=== PATIENT | female | born 1995 | race Caucasian/White ===

== ENCOUNTER 2022-01-09 12:49 | Emergency (ER) | payer OTHER ==
--- OUTSIDE RECORDS SUMMARY | 2022-01-09 12:55 | XMS REPORT | Continuity of Care Document ---
:1995 Author Organization [facility] t Address [address] [place] [place] [address] Care Team Providers Name Role Phone Pcp, Does Not Have A Primary Care Physician Pierre NAZARIO Attending Clinician Azeem Attending Clinician Unavailable ANTHONY Attending Clinician Unavailable Azeem Admitting Clinician Unavailable ANTHONY Admitting Clinician Unavailable Payers Payer Name Policy Type Policy Number Effective Date Expiration Date Elías lin [facility] [id number] 2016 00:00:00 [employer] (MEDICAID HMO) Problems Condition Condition Condition Status Onset Resolution Last Treating Co mments Source Name Details Category Date Date Treatment Clinician Date Obesity Obesity Disease Active 2020-08 Univers (BMI (BMI 1-29 ity of 30-39.9) 30-39.9) 00:00: [place] 00 Medical Branch Right Right Disease Active 2020-08 Overview: Univer s upper upper 1-11 Formattin ity of quadrant quadrant 00:00: g of this [place] as pain pain 00 note Medical might be Branch different from the original. Added automatic ally from request for surgery [id number] Epigastric Epigastric Disease Active 2020-08 Overview : Univers pain pain 0-08 Formattin ity of 00:00: g of this [place] 00 note Medical might be Branch different from the original. Added automatic ally from request for surgery [id number] Sterilizat Sterilizat Problem Active 2019- M [facility] ion ion 1-06 da requested Requested 00:00: Group Removal of Removal of Problem Active 2019-08 M [facility] subcutaneo Subcutaneo 1-06 da [facility] 00:00: Medical contracept Contracept 00 Gr oup nieves nieves Chronic Chronic Problem Active [place] post-traum Post-traum 5-07 da atic atic 00:00: [facility] stress Stress 00 al disorder Disorder [facility] Depressive Depressive Problem Active M [facility] disorder Disorder 5-04 da 00:00: [facility] Insomnia Insomnia Problem Active [facility] 5-04 da 00:00: [facility] Bacterial Bacterial Problem Active [facility] vaginosis Vaginosis 3-03 da 00:00: Medical 00 Group Problem Active 2019-0 M [facility] care Care 3-03 da 00:00: Medical 00 Group Pruritus Pruritus Problem Active 2018-08 [facility] [facility] of skin of Skin 2-26 da 00:00: Medical 00 Group Large for Large for Problem Active 2018-08 [facility] gestation Gestation 2-26 da age fetus Age Fetus 00:00: Medi bob 00 Group Constipati Constipati Problem Active 2018-08 M [facility] on on 09-21 da 00:00: Medical 00 Group Depressive Depressive Problem Active 2018-08 M [facility] disorder Disorder 0-29 da 00:00: Medical 00 Group Acute Acute Problem Active [facility] cystitis Cystitis 9-06 da in in 00:00: Medical , , 00 Gr oup antepartum Antepartum Generalize Generalize Problem Active M [facility] d headache d Headache 9-06 da 00:00: Medical 00 Group Moderate Moderate Problem Active [facility] [facility] hyperemesi Hyperemesi 7-18 da s s 00:00: Medical gravidarum Gravidarum 00 Gr oup Bacterial Bacterial Problem Active [facility] vaginosis Vaginosis 7-18 da in in 00:00: Medical 00 Grou p Cyst of Cyst of Problem Active [place] ovary Ovary 7-11 da 00:00: Medical 00 Group Hyperemesi Hyperemesi Problem Active M [facility] s s 7-11 da gravidarum Gravidarum 00:00: Me dical 00 Group Subchorion Subchorion Problem Active M [facility] ic ic 7-11 da hematoma Hematoma 00:00: Medica l 00 Group Chronic Chronic Problem Active [place] constipati Constipati da on on Medical Group Allergies, Adverse Reactions, Alerts Allergy Allergy Status Severity Reaction(s) Onset Inactive Treating Comm ents Source Name Type Date Date Clinician Penicill Drug Active Rash 2020-08 Univers ins Allergy 0-07 ity of 00:00: [place] 00 Medical Success PENICILL Allergy Active Moderate Rash [place] [facility] INS to da [facility] Medical e Group Social History Social Habit Start Date Stop Date Quantity Comments Source Exposure to Not sure [facility] Tobacco use and 2021-06-16 2021-06-16 Never used [facility] exposure 00:00:00 00:00:00 [facility] Sex Assigned At [birth year] [facility] 00:00:00 00:00:00 [facility] Smoking Status Start Date Stop Date Source Former Smoker [facility] Never smoker [facility] Medications Ordered Filled Start Stop Current Ordering Indication Dosage Frequency Signature Comments Components Source Medication Medication Date Date Medication? Clinician (SIG) Name Name methocarbam 2020-08 Yes [id number] 500mg Take 1 Univers oL 500 mg 1-29 tablet by ity o f tablet 00:00: mouth 4 [place] 00 (four) Medical times Branch daily. pantoprazol 2020-08 Yes [id number] 40mg Take 1 Univers e 40 mg EC 0-26 tablet by ity of tablet 00:00: mouth [place] 00 daily. Medical Branch sucralfate 2020-08 Yes [id number] 1g Take 1 U nivers (CARAFATE) 0-26 tablet by ity of 1 gram 00:00: mouth [place] tablet 00 before Medical meals and Branch at bedtime. dicyclomine Yes [id number] 20mg Take 1 Univers 20 mg 9-30 tablet by ity of tablet 00:00: mouth [place] 00 every 6 Medical (six) Branch hours as needed for Abdominal pain. ondansetron Yes [id number] 4mg Take 1 Univers (ZOFRAN 7-13 tablet by ity of ODT) 4 mg 00:00: mouth [place] disintegrat 00 every 8 Medic al ing tablet (eight) Branch hours as needed for Nausea and Vomiting (N/V). citalopram citalopram No citalopram [place] 20 mg 20 mg 20 mg da tablet tablet tablet [facility] escitalopra escitalopra No escitalopr [place] m 20 mg m 20 mg am 20 mg da tablet Take tablet Take tablet [facility] 1 tablet 1 tablet Take 1 al every day every day tablet Hea lth by oral by oral every day Outr eac route. route. by oral h route. Program ibuprofen ibuprofen No ibuprofen [place] 600 mg 600 mg 600 mg da tablet tablet tablet [facility] Nexplanon Nexplanon No Nexplanon [place] 68 mg 68 mg 68 mg da subdermal subdermal subdermal [facility] implant implant implant [facility] acetaminoph acetaminoph No acetaminop [place] en 300 en 300 hen 300 da mg-codeine mg-codeine mg-codeine Medical 30 mg 30 mg 30 mg Group tablet 1-2 tablet 1-2 tablet 1-2 p.o. q 6 p.o. q 6 p.o. q 6 hrs PRN hrs PRN hrs PRN pain pain pain butalbital- butalbital- No 1 Q4H butalbital [facility] acetaminoph acetaminoph -acetamino da en-caffeine en-caffeine phen-caffe Medical 50 mg-325 50 mg-325 ine 50 Ashkan up mg-40 mg mg-40 mg mg-325 tablet Take tablet Take mg-40 mg 1 tablet 1 tablet tablet every 4 every 4 Take 1 hours by hours by tablet oral route. oral route. every 4 hours by oral route. escitalopra escitalopra No escitalopr [place] m 20 mg m 20 mg am 20 mg da tablet Take tablet Take tablet Medical 1 tablet 1 tablet Take 1 Group every day every day tablet by oral by oral every day route. route. by oral route. ibuprofen ibuprofen No ibuprofen [place] 600 mg 600 mg 600 mg da tablet tablet tablet Medical Group ibuprofen ibuprofen No ibuprofen [place] 800 mg 800 mg 800 mg da tablet Take tablet Take tablet Medical 1 tablet 1 tablet Take 1 Group every 6 every 6 tablet hours by hours by every 6 oral route oral route hours by as needed. as needed. oral route as needed. lidocaine lidocaine No 3mL lidocaine [facility] (PF) 10 (PF) 10 (PF) 10 da mg/mL (1 %) mg/mL (1 %) mg/mL (1 Medical injection injection %) Group solution solution injection Take 3 mL Take 3 mL solution by by Take 3 mL injection injection by route. route. injection route. Nexplanon Nexplanon No 1implan Nexplanon [place] 68 mg 68 mg t(s) 68 mg da subdermal subdermal subdermal Medical implant implant implant Group Inject 1 Inject 1 Inject 1 implant by implant by implant by subcutaneou subcutaneou subcutaneo s route. s route. us route. Off Deep Off Deep No Off Deep [facility] Butler 25 % Butler 25 % Butler 25 % da topical topical topical Medica l spray spray spray Group zolpidem 5 zolpidem 5 No zolpidem 5 [facility] mg tablet mg tablet mg tablet da Take 1 Take 1 Take 1 Medical tablet as tablet as tablet as Group needed by needed by needed by oral route. oral route. oral route. Immunizations Ordered Immunization Filled Immunization Date Status Commen ts Source Name Name Tdap Tdap 2019-10-06 Completed [facility] 00:00:[facility] influenza, influenza, 2019-10-06 Completed [facility] injectable, injectable, 00:00:00 [facility] quadrivalent quadrivalent Outreach P rogram Vital Signs Vital Name Observation Time Observation Value Comments Source Systolic blood 2021-08-03 17:20:00 105 mm[Hg] Univer sity of pressure [facility] Diastolic blood 2021-08-03 17:20:00 75 mm[Hg] Unive rsity of pressure [facility] Heart rate 2021-08-03 17:20:00 75 /min [facility] Body temperature 2021-08-03 17:20:00 36.39 Kimi [facility] Respiratory rate 2021-08-03 17:20:00 16 /min [facility] Body weight 2021-08-03 17:20:00 87.816 kg Universi [facility] BMI 2021-08-03 17:20:00 33.23 kg/m2 [facility] Oxygen saturation in 2021-08-03 17:20:00 99 /min [facility] Arterial blood by [facility] Pulse oximetry Branch BP Diastolic 2020-07-18 00:00:00 84 mm[Hg] [facility] Height 2020-07-18 00:00:00 63 [in_i] [facility] BMI (Body Mass 2020-07-18 00:00:00 36.8 kg/m2 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 Medical Index) Group BP Systolic 2020-07-18 00:00:00 125 mm[Hg] [facility] Body Weight 2020-07-18 00:00:00 207.5 [lb_av] [facility] BP Diastolic 2020-07-01 00:00:00 82 mm[Hg] [facility] Height 2020-07-01 00:00:00 63 [in_i] [facility] BMI (Body Mass 2020-07-01 00:00:00 36.2 kg/m2 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 Medical Index) Group BP Systolic 2020-07-01 00:00:00 115 mm[Hg] [facility] Body Weight 2020-07-01 00:00:00 204.4 [lb_av] [facility] BP Diastolic 2020-05-31 00:00:00 90 mm[Hg] [facility] Height 2020-05-31 00:00:00 63 [in_i] [facility] BMI (Body Mass 2020-05-31 00:00:00 35.8 kg/m2 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 Medical Index) Group BP Systolic 2020-05-31 00:00:00 133 mm[Hg] [facility] Body Weight 2020-05-31 00:00:00 202 [lb_av] [facility] BP Diastolic 2019-12-28 00:00:00 83 mm[Hg] [facility] Height 2019-12-28 00:00:00 63 [in_i] [facility] BMI (Body Mass 2019-12-28 00:00:00 33.5 kg/m2 [facility] 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 Index) [facility] BP Systolic 2019-12-28 00:00:00 118 mm[Hg] [facility] Body Weight 2019-12-28 00:00:00 189 [lb_av] [facility] BP Diastolic 2019-12-21 00:00:00 92 mm[Hg] [facility] Height 2019-12-21 00:00:00 63 [in_i] [facility] BMI (Body Mass 2019-12-21 00:00:00 33.3 kg/m2 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 Medical Index) Group BP Systolic 2019-12-21 00:00:00 134 mm[Hg] [facility] Body Weight 2019-12-21 00:00:00 188 [lb_av] [facility] BP Diastolic 2019-10-27 00:00:00 73 mm[Hg] [facility] Height 2019-10-27 00:00:00 63 [in_i] [facility] BMI (Body Mass 2019-10-27 00:00:00 32.5 kg/m2 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 Medical Index) Group BP Systolic 2019-10-27 00:00:00 114 mm[Hg] [facility] Body Weight 2019-10-27 00:00:00 183.3 [lb_av] [facility] BP Diastolic 2019-09-29 00:00:00 73 mm[Hg] [facility] Height 2019-09-29 00:00:00 63 [in_i] [facility] BMI (Body Mass 2019-09-29 00:00:00 36.3 kg/m2 [facility] Medical Index) Group BP Systolic 2019-09-29 00:00:00 125 mm[Hg] [facility] Body Weight 2019-09-29 00:00:00 204.8 [lb_av] [facility] BP Diastolic 2019-09-22 00:00:00 80 mm[Hg] [facility] Height 2019-09-22 00:00:00 63 [in_i] [facility] BMI (Body Mass 2019-09-22 00:00:00 36.6 kg/m2 [facility] Medical Index) Group BP Systolic 2019-09-22 00:00:00 120 mm[Hg] [facility] BP Diastolic 2019 00:00:00 80 mm[Hg] [facility] Height 2019 00:00:00 63 [in_i] [facility] BMI (Body Mass 2019 00:00:00 36.3 kg/m2 [facility] Medical Index) Group BP Systolic 2019 00:00:00 117 mm[Hg] [facility] Body Weight 2019 00:00:00 204.9 [lb_av] [facility] BP Diastolic 2019-08-20 00:00:00 70 mm[Hg] [facility] Height 2019-08-20 00:00:00 63 [in_i] [facility] BMI (Body Mass 2019-08-20 00:00:00 35.8 kg/m2 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 Medical Index) Group BP Systolic 2019-08-20 00:00:00 114 mm[Hg] [facility] Body Weight 2019-08-20 00:00:00 202 [lb_av] [facility] BP Diastolic 2019-08-03 00:00:00 77 mm[Hg] [facility] Height 2019-08-03 00:00:00 63 [in_i] [facility] BMI (Body Mass 2019-08-03 00:00:00 35.6 kg/m2 [facility] 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 Medical Index) Group BP Systolic 2019-08-03 00:00:00 118 mm[Hg] [facility] Body Weight 2019-08-03 00:00:00 3218 [oz_av] [facility] BP Diastolic 2019-07-31 00:00:00 79 mm[Hg] [facility] Height 2019-07-31 00:00:00 63 [in_i] [facility] BMI (Body Mass 2019-07-31 00:00:00 35.4 kg/m2 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 Medical Index) Group BP Systolic 2019-07-31 00:00:00 119 mm[Hg] [facility] Body Weight 2019-07-31 00:00:00 200 [lb_av] [facility] BP Diastolic 2019-07-22 00:00:00 72 mm[Hg] [facility] Height 2019-07-22 00:00:00 63 [in_i] [facility] BMI (Body Mass 2019-07-22 00:00:00 34.9 kg/m2 [facility] BP Systolic 2019-07-22 00:00:00 112 mm[Hg] [facility] Body Weight 2019-07-22 00:00:00 197.1 [lb_av] [facility] BP Diastolic 2019-06-30 00:00:00 70 mm[Hg] [facility] Height 2019-06-30 00:00:00 63 [in_i] [facility] BMI (Body Mass 2019-06-30 00:00:00 34 kg/m2 [facility] BP Systolic 2019-06-30 00:00:00 114 mm[Hg] [facility] Body Weight 2019-06-30 00:00:00 191.9 [lb_av] [facility] BP Diastolic 2019-06-23 00:00:00 84 mm[Hg] [facility] Height 2019-06-23 00:00:00 63 [in_i] [facility] BMI (Body Mass 2019-06-23 00:00:00 34.2 kg/m2 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 Index) Group BP Systolic 2019-06-23 00:00:00 127 mm[Hg] [facility] Body Weight 2019-06-23 00:00:00 193.2 [lb_av] [facility] BP Diastolic 2019-05-29 00:00:00 68 mm[Hg] [facility] Height 2019-05-29 00:00:00 63 [in_i] [facility] BMI (Body Mass 2019-05-29 00:00:00 33.6 kg/m2 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 Medical Index) Group BP Systolic 2019-05-29 00:00:00 110 mm[Hg] [facility] Body Weight 2019-05-29 00:00:00 189.7 [lb_av] [facility] BP Diastolic 2019-05-11 00:00:00 76 mm[Hg] [facility] Height 2019-05-11 00:00:00 63 [in_i] [facility] BMI (Body Mass 2019-05-11 00:00:00 33.5 kg/m2 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 Index) Group BP Systolic 2019-05-11 00:00:00 113 mm[Hg] [facility] Body Weight 2019-05-11 00:00:00 189.3 [lb_av] [facility] BP Diastolic 2019-05-01 00:00:00 69 mm[Hg] [facility] Height 2019-05-01 00:00:00 63 [in_i] [facility] BMI (Body Mass 2019-05-01 00:00:00 33.8 kg/m2 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 Index) Group BP Systolic 2019-05-01 00:00:00 113 mm[Hg] [facility] Body Weight 2019-05-01 00:00:00 190.6 [lb_av] [facility] BP Diastolic 2019-04-02 00:00:00 81 mm[Hg] [facility] Height 2019-04-02 00:00:00 63 [in_i] [facility] BMI (Body Mass 2019-04-02 00:00:00 33.8 kg/m2 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 Medical Index) Group BP Systolic 2019-04-02 00:00:00 116 mm[Hg] [facility] Body Weight 2019-04-02 00:00:00 190.8 [lb_av] [facility] BP Diastolic 2019-03-25 00:00:00 85 mm[Hg] [facility] Height 2019-03-25 00:00:00 63 [in_i] [facility] BMI (Body Mass 2019-03-25 00:00:00 33.8 kg/m2 [facility] Medical Index) Group BP Systolic 2019-03-25 00:00:00 133 mm[Hg] [facility] Body Weight 2019-03-25 00:00:00 191 [lb_av] [facility] BP Diastolic 2019-03-12 00:00:00 80 mm[Hg] [facility] Height 2019-03-12 00:00:00 63 [in_i] [facility] BMI (Body Mass 2019-03-12 00:00:00 26.7 kg/m2 [facility] Medical Index) Group BP Systolic 2019-03-12 00:00:00 107 mm[Hg] [facility] Body Weight 2019-03-12 00:00:00 151 [lb_av] [facility] BP Diastolic 2019-03-05 00:00:00 81 mm[Hg] [facility] Height 2019-03-05 00:00:00 63 [in_i] [facility] BMI (Body Mass 2019-03-05 00:00:00 34.2 kg/m2 [facility] Medical Index) Group BP Systolic 2019-03-05 00:00:00 117 mm[Hg] [facility] Body Weight 2019-03-05 00:00:00 193 [facility]lb[facility]av[facility] Procedure Date / Time Performing Clinician Source Performed US, obstetric, limited 2019-09-22 00:00:00 [facility] non-stress test 2019-09-22 00:00:00 [facility] US, obstetric, limited 2019-08-20 00:00:00 [facility] gloria [facility] ULTRASOUND REPEAT 2019-07-22 00:00:00 [facility] US, obstetric, limited 2019-05-29 00:00:00 [facility] US, obstetric, limited 2019-05-01 00:00:00 [facility] ULTRASOUND, 2019-05-01 00:00:00 [facility] UTERUS REAL TIME WITH Group IMAGE DOC, AND MATERNAL EVAL PLUS DETAILED ANATOMIC EXAMINATION, TRANSABDOMINAL APPROACH; SINGLE OR FIRST GESTATION US, obstetric, limited 2019-04-02 00:00:00 [facility] US, obstetric, limited 2019-03-25 00:00:00 [facility] ULTRASOUND, 2019-03-12 00:00:00 [facility] UTERUS REAL TIME WITH Group IMAGE LACIEAIAKILA, TRANSVAGINAL Eye Surgery 2000-02-24 00:00:00 [facility] dical Group Tubal Ligation (Surg) [facility] Plan of Care Planned Activity Planned Date Details Comments Source Diagnostic Test 2020-07-18 urinalysis, [facility] dical Pending 00:00:00 dipstick [code = Group urinalysis, dipstick] Encounters Start End Encounter Admission Attending Care Care Encounter Source Date/Time Date/Time Type Type Clinicians Facility Department ID 2021-08-03 2021-08-03 Office Pierre [facility] [id number] [facility] 11:12:21 11:27:21 Visit Rubina SANCHEZ [id number] i ty [facility] [id number] Cristy calloway PROFESSIO [id number] Me dical NAL 188 [facility] 2020-08-04 2020-08-04 Outpatient G_Pappas MMG MM [id number] [place] 09:39:00 09:39:00 0623 Medical Group 2020-07-18 2020-07-18 Outpatient G_Pappas MMG MM 2019 [place] 04:16:00 04:16:00 1123 Medical Group 2020-07-18 2020-07-18 Marc [facility] [place] - [id number] M at[facility]or 00:00:00 00:00:00 Discovery carson Alexis MD: [address] [facility] [place] - [address], [place] [address] , Ph. [phone] 2020-07-13 2020-07-13 Outpatient G_Pappas MMG MMG [id number] [place] 02:48:00 02:48:00 1118 [facility] Group 2020-07-01 2020-07-01 Outpatient G_Pappas MMG MMG [id number] [place] 02:37:00 02:37:00 1106 [facility] 2020-07-01 2020-07-01 Outpatient G_Pappas MMG MMG [id number] [place] 02:37:00 02:37:00 1107 [facility] 2020-07-01 2020-07-01 Marc [facility] [place] - [id number] M [facility] 00:00:00 00:00:00 Discovery carson Alexis MD: [address] [place] [phone] , Ph. [phone] 2020-06-27 2020-06-27 Outpatient G_[facility]as MMG MMG [id number] [place] 11:46:00 11:46:00 1105 [facility] 2020-05-31 2020-05-31 Outpatient G_Pappas MMG MMG [id number] [place] 03:21:00 03:21:00 1006 [facility] 2020-05-31 2020-05-31 Outpatient G_Pappas MMG MMG [id number] [place] 03:21:00 03:21:00 1007 [facility] 2020-05-31 2020-05-31 Marc [facility] [place] - [id number] M [facility] 00:00:00 00:00:00 Discovery carson Alexis MD: [address] [place] [phone] , Ph. [phone] 2020-01-14 2020-01-14 Outpatient CHATA PERLA [id number] [place] 04:03:00 04:03:00 KARISSA 0521 [facility] Program 2020-01-14 2020-01-14 Kan PERLA [place] - [id number] M at[place]or 00:00:00 00:00:00 Carmelita Ibarra da PSYD: [address] [facility] [address], [facility] Outre [address] h , Ph. Program (979) -20072020-01-05 2020-01-05 Outpatient FERGUSON_WILMA MEHOP MEHOP [id number] [place] 05:00:00 05:00:00 HN [id number] [facility] 2020-01-05 2020-01-05 Kan Maximiliano PER[place] - [id number] [facility]agor 00:00:00 00:00:00 Stacey Carmelita da PSYD: [address] [facility] [address], [facility] [address] h , Ph. Program (979) -20072019-12-31 2019-12-31 Outpatient FERGUSON_WILMA MEHOP MEHOP [id number] [place] 05:36:00 05:36:00 HN [id number] [facility] 2019-12-31 2019-12-31 Kan Maximiliano PER[place] - [id number] [facility] 00:00:00 00:00:00 Carmelita Ibarra PSYD: [address] [facility] [address] [address], [facility]re [address] h , Ph. Program (979) -20072019-12-28 2019-12-28 Outpatient FERGUSON_JO MEHOP MEHOP [id number] [place] 03:54:00 03:54:00 HN [id number] [facility] 2019-12-28 2019-12-28 Kiesha Bui [place] - [id number] [place] 00:00:00 00:00:00 Carmelita Amezquita JOB HAND: [address] [facility], [place], [place] Outre [address] h , Ph. Program 2019-12-26 2019-12-26 Outpatient FERGUSON_JO MEHOP MEHOP [id number] [place] 12:28:00 12:28:00 HN [id number] [facility] 2019-12-23 2019-12-23 Outpatient DEBBIE_WILMA PERLA [id number] [place] 04:56:00 04:56:00 HN 0429 [facility] 2019-12-21 2019-12-21 Outpatient G_Pappas MMG MMG [id number] [place] 08:24:00 08:24:00 0427 [facility] Group 2019-12-21 2019-12-21 Helena [facility] [place] - [id number] M atagor 00:00:00 00:00:00 Timmy Hathaway Medical Medica manuel MD: [address] [place] [phone] , Ph. [phone] 2019-11-16 2019-11-16 Outpatient G_Pappas MMG MMG [id number] [place] 02:15:00 02:15:00 0323 [facility] 2019-10-28 2019-10-28 Outpatient G_Pappas MMG MMG [id number] [place] 12:06:00 12:06:00 0304 [facility] 2019-10-27 2019-10-27 Outpatient G_Pappas MMG MMG [id number] [place] 11:55:00 11:55:00 0303 [facility] 2019-10-27 2019-10-27 Linda Diane [facility] [place] - [id number] [place] 00:00:00 00:00:00 Discovery Justin Pereira: [address] Medical Medica [address] [address] , Ph. [phone] 2019-10-20 2019-10-20 Outpatient G_Pappas MMG MMG [id number] [place] 06:15:00 06:15:00 0302 [facility] 2019-10-07 2019-10-07 Outpatient G_[facility]appas MMG MMG [id number] [place] 01:53:00 01:53:00 0212 [facility] 2019-10-04 2019-10-04 Outpatient G_Pappas MMG MMG [id number] [place] 09:00:00 09:00:00 0209 [facility] 2019-09-29 2019-09-29 Outpatient G_Pappas MMG MMG [id number] [place] 04:25:00 04:25:00 0204 [facility] 2019-09-29 2019-09-29 Marc CHIN [place] - [id number] M atagor 00:00:00 00:00:00 Discovery carson Alexis MD: [address] [place] [phone] , Ph. [phone] 2019-09-28 2019-09-28 Outpatient G_Pappas MMG MMG [id number] [place] 12:21:00 12:21:00 0203 [facility] 2019-09-25 2019-09-25 Outpatient G_Pappas MMG MMG [id number] [place] 09:44:00 09:44:00 0131 [facility] 2019-09-22 2019-09-22 Outpatient G_Pappas MMG MMG [id number] [place] 05:16:00 05:16:00 0128 da [facility] 2019-09-22 2019-09-22 Marc CHIN [place] - [id number] [place] 00:00:00 00:00:00 Discovery carson Alexis MD: [address] [place] [address] , Ph. [phone] 2019-09-21 2019-09-21 Outpatient G_Pappas [facility] [id number] [place] 02:51:00 02:51:00 0127 [facility] 2019-09-07 2019-09-07 Outpatient G_Pappas [facility] MMG [id number] [place] 11:08:00 11:08:00 0113 [facility] 2019 2019 Outpatient G_Pappas [facility] MMG [id number] [place] 10:59:00 10:59:00 0109 [facility] 2019 2019 Marc CHIN [place] - [id number] [place] 00:00:00 00:00:00 Discovery carson Alexis MD: [address] [place] [address] [address] [address] , Ph. [phone] 2019-08-20 2019-08-20 Outpatient G_Reuben [facility] [id number] [place] 11:08:00 11:08:00 0108 carson [facility] 2019-08-20 2019-08-20 Linda Diane [facility] [place] - [id number] [place] 00:00:00 00:00:00 Discovery Felicitas PereiraNP: [address] [place] [address] , Ph. [phone] 2019-08-03 2019-08-03 Outpatient CHATA BENITEZ [facility] 942 [place] 09:52:00 09:52:00 HN 0409 [facility] 2019-08-03 2019-08-03 Fela [facility] [place] - [id number] [place] 00:00:00 00:00:00 Chrystal Dewey [facility] Medical JOB HAND: [address] [place] [address] [address], [place] [address] , Ph. 2019-07-31 2019-07-31 Linda Diane [facility] [place] - [id number] [place] 00:00:00 00:00:00 Discovery Felicitas PereiraNP: [address] [place] [address] , Ph. [phone] 2019-07-22 2019-07-22 Linda Diane [facility] [place] - [id number] [place] 00:00:00 00:00:00 Discovery Felicitas PereiraNP: [address] [place] [address] [address] [address] , Ph. [phone] 2019-06-30 2019-06-30 Marc [facility] [place] - [id number] [place] 00:00:00 00:00:00 Discovery carson Alexis MD: [address] [place] [address] , Ph. [phone] 2019-06-23 2019-06-23 Marc CHIN [place] - [id number] [place] 00:00:00 00:00:00 Discovery carson Alexis MD: [address] [place] [address] , Ph. [phone] 2019-05-29 2019-05-29 Helena CHIN [place] - [id number] [place] 00:00:00 00:00:00 Timmy Hathaway [facility] Medica manuel MD: [address] [place] [address] , Ph. [phone] 2019-05-11 2019-05-11 Marc CHIN [place] - [id number] [place] 00:00:00 00:00:00 Discovery carson Alexis MD: [address] [place] [address] , Ph. [phone] 2019-05-01 2019-05-01 Marc CHIN [place] - [id number] [place] 00:00:00 00:00:00 Discovery carson Alexis MD: [address] [place] [address] , Ph. [phone] 2019-04-30 2019-04-30 Linda Diane MM [place] - [id number] [place] 00:00:00 00:00:00 Discovery carson Pereira WHNP: [facility] [address] , Ph. [phone] 2019-04-02 2019-04-02 Marc CHIN [place] - [id number] [place] 00:00:00 00:00:00 Discovery carson Alexis MD: [address] [place] [address] , Ph. [phone] 2019-03-25 2019-03-25 Helena [facility] [place] - [id number] [place] 00:00:00 00:00:00 Timmy Hathaway Medical Medica manuel NAZARIO: [address] [address] , Ph. [phone] 2019-03-12 2019-03-12 Linda Diane [facility] [place] - [id number] [place] 00:00:00 00:00:00 Discovery Felicitas PereiraNP: [address] [place] [address] , Ph. [phone] 2019-03-05 2019-03-05 Helena [facility] [place] - [id number] [place] 00:00:00 00:00:00 Jesus Ramon Medictaya jackson MD: [address] [address] , Ph. [phone] Results Test Description Test Time Test Comments Results Result Comments Source Urinalysis macro (dipstick) panel - Urine 2020-07-18 15:17:1 2 Test Item Value Reference Range Interpretation Comme nts Leukocytes (test code = Leukocytes) Small Nitrite (test code = Nitrite) negative Urobilinogen (test code = Urobilinogen) .2 Protein (test code = Protein) Negative pH (test code = pH) 6.5 Blood (test code = Blood) Negative Specific Boise (test code = Specific Bo[place]) 1.015 Ketone (test code = Ketone) Negative Bilirubin (test code = Bilirubin) Negative Glucose (test code = Glucose) Negative Appearance (test code = Appearance) Clear Color (test code = Color) Yellow [facility] W Auto Differential panel - [id number] 11:06:00 Test Item Value Reference Range Interpretation Comments white blood count (test code = 10.7 K/uL 4.0-11.5 white blood count) red blood count (test code = red 4.76 M/uL 3.80-5.20 blood count) hemoglobin (test code = 13.6 g/dL 10.5-15.7 hemoglobin) hematocrit (test code = 41.9 % 34.0-50.0 hematocrit) MCV [Entitic volume] (test code = 88.0 fL 86-100 75031-2) mean corpuscular hemoglobin (test 28.6 pg 26.2-33.4 code = mean corpuscular hemoglobin) mean corpuscular HGB conc (test 32.5 g/dL 30-34 code = mean corpuscular HGB conc) red cell distribution width (test 13.2 % 12.0-15.5 code = red cell distribution width) platelet count (test code = 376 K/uL 165-450 platelet count) mean platelet volume (test code = 10.1 fL 9.4-12.6 mean platelet volume) Segmented neutrophils/100 67.7 % 44.4-80.1 leukocytes in Blood (test code = 58472-4) Immature granulocytes [#/volume] 0.0 K/uL 0.0-0.03 in Blood (test code = 19309-8) lymphocyte% (test code = 23.3 % 10.0-50.0 lymphocyte%) mono % (test code = mono %) 5.6 % 3.6-12.0 eos % (test code = eos %) 2.4 % 0.0-5.4 Basophils/100 leukocytes in 0.6 % 0.1-1.2 Unspecified specimen (test code = 56248-2) Band form neutrophils [#/volume] 7.28 K/uL 1.56-6.13 H in Blood (test code = 36974-9) Lymphocytes [#/volume] in 2.5 K/uL 1.18-3.74 Unspecified specimen by Automated count (test code = 63032-1) mono # (test code = mono #) 0.60 K/uL 0.24-0.86 eos # (test code = eos #) 0.26 K/uL 0.04-0.36 basophil # (test code = basophil 0.06 K/uL 0.01-0.08 #) NRBC% (test code = NRBC%) 0 /100 WBC 0-0.2 NRBC# (test code = NRBC#) 0 K/uL [facility] metabolic 2000 panel - Serum or [id number] 11:06:00 Test Item Value Reference Range Interpretation Comments glucose (test code = glucose) 148 mg/dL 74-106 H Urea nitrogen [Mass/volume] in 7 mg/dL 6-20 Serum or Plasma (test code = 3094-0) osmolality calculated,serum (test 267 mOsm/kg 280-300 L code = osmolality calculated,serum) creatinine (test code = 0.5 mg/dL 0.50-0.90 creatinine) glomerular filtration rate (test >60.00 code = glomerular filtration rate) Urea nitrogen/Creatinine [Mass 14.0 12-20 Ratio] in Serum or Plasma (test code = 3097-3) sodium level (test code = sodium 133 mmol/L 135-145 L level) Potassium [Moles/volume] in Body 3.5 mmol/L 3.5-5.2 fluid (test code = 2821-7) chloride level (test code = 101 mmol/L 98-108 chloride level) CO2 (test code = CO2) 22 mmol/L 21-32 anion gap (test code = anion gap) 13.5 mEq/L 12-20 calcium level (test code = 9.2 mg/dL 8.6-10.0 calcium level) [facility] - [id number] 14:02:45 Test Item Value Reference Range Interpretation Comments Leukocytes (test code = Leukocytes) Trace Nitrite (test code = Nitrite) negative Urobilinogen (test code = .2 Urobilinogen) Protein (test code = Protein) Negative pH (test code = pH) 6.0 Blood (test code = Blood) Small Specific Boise (test code = 1.025 Specific Bo[place]) Ketone (test code = Ketone) Negative Bilirubin (test code = Bilirubin) Negative Glucose (test code = Glucose) Negative Appearance (test code = Appearance) Clear Color (test code = Color) Yellow [facility] - [id number] 14:02:45 Test Item Value Reference Range Interpretation Comments Leukocytes (test code = Leukocytes) Trace Nitrite (test code = Nitrite) negative Urobilinogen (test code = .2 Urobilinogen) Protein (test code = Protein) Negative pH (test code = pH) 6.0 Blood (test code = Blood) Small Specific Bo[place] (test code = 1.025 Specific [place]) Ketone (test code = Ketone) Negative Bilirubin (test code = Bilirubin) Negative Glucose (test code = Glucose) Negative Appearance (test code = Appearance) Clear Color (test code = Color) Yellow [facility], [id number] 14:01:41 Test Item Value Reference Range Interpretation Comments Test (test code = negative Test) [facility], [id number] 14:01:41 Test Item Value Reference Range Interpretation Comments Test (test code = negative Test) [facility] - Serum or [id number] 00:00:00 Test Item Value Reference Range Interpretation Comments Thyrotropin [Units/volume] in 1.540 uIU/mL 0.450-4.500 Serum or Plasma by Detection limit <= 0.005 mIU/L (test code = 84999-8) Thyroxine (T4) free 1.34 NG/dL 0.82-1.77 [Mass/volume] in Serum or Plasma (test code = 3024-7) [facility] Outreach [facility] W Auto Differential panel - Blood 2019-12-29 00:00:00 Test Item Value Reference Range Interpretation Comments Leukocytes [#/volume] in Blood 10.4 x10e3/uL 3.4-10.8 by Automated count (test code = 6690-2) Erythrocytes [#/volume] in 4.71 x10e6/uL 3.77-5.28 Blood by Automated count (test code = 789-8) Hemoglobin [Mass/volume] in 13.0 g/dL 11.1-15.9 Blood (test code = 718-7) Hematocrit [Volume Fraction] of 40.0 % 34.0-46.6 Blood by Automated count (test code = 4544-3) Erythrocyte mean corpuscular 85 fL 79-97 volume [Entitic volume] by Automated count (test code = 787-2) Erythrocyte mean corpuscular 27.6 pg 26.6-33.0 hemoglobin [Entitic mass] by Automated count (test code = 785-6) Erythrocyte mean corpuscular 32.5 g/dL 31.5-35.7 hemoglobin concentration [Mass/volume] by Automated count (test code = 786-4) Erythrocyte distribution width 14.0 % 11.7-15.4 [Ratio] by Automated count (test code = 788-0) Platelets [#/volume] in Blood 370 x10e3/uL 150-450 by Automated count (test code = 777-3) Neutrophils/100 leukocytes in 67 % not estab. Blood by Automated count (test code = 770-8) Lymphocytes/100 leukocytes in 24 % not estab. Blood by Automated count (test code = 736-9) Monocytes/100 leukocytes in 6 % not estab. Blood by Automated count (test code = 5905-5) Eosinophils/100 leukocytes in 2 % not estab. Blood by Automated count (test code = 713-8) Basophils/100 leukocytes in 1 % not estab. Blood by Automated count (test code = 706-2) immature cells (test code = comic book designer immature cells) Neutrophils [#/volume] in Blood 7.1 x10e3/uL 1.4-7.0 H by Automated count (test code = 751-8) Lymphocytes [#/volume] in Blood 2.4 x10e3/uL 0.7-3.1 by Automated count (test code = 731-0) Monocytes [#/volume] in Blood 0.6 x10e3/uL 0.1-0.9 by Automated count (test code = 742-7) Eosinophils [#/volume] in Blood 0.2 x10e3/uL 0.0-0.4 by Automated count (test code = 711-2) Basophils [#/volume] in Blood 0.1 x10e3/uL 0.0-0.2 by Automated count (test code = 704-7) Immature granulocytes/100 0 % not estab. leukocytes in Blood by Automated count (test code = 21705-1) Immature granulocytes 0.0 x10e3/uL 0.0-0.1 [#/volume] in Blood by Automated count (test code = 12375-9) Nucleated erythrocytes/100 comic book designer leukocytes [Ratio] in Blood by Automated count (test code = 37845-8) Morphology [Interpretation] in comic book designer Blood Narrative (test code = 21816-3) [facility] ProgramComprehensive metabolic 2000 panel - Serum or [id number] 00:00:00 Test Item Value Reference Range Interpretation Comments Glucose [Mass/volume] in 92 mg/dL 65-99 Serum or Plasma (test code = 2345-7) Urea nitrogen [Mass/volume] 9 mg/dL 6-20 in Serum or Plasma (test code = 3094-0) Creatinine [Mass/volume] in 0.56 mg/dL 0.57-1.00 L Serum or Plasma (test code = 2160-0) Glomerular filtration 130 mL/min/1.73 >59 rate/1.73 sq M.predicted among non-blacks [Volume Rate/Area] in Serum, Plasma or Blood by Creatinine-based formula (CKD-EPI) (test code = 65678-4) Glomerular filtration 150 mL/min/1.73 >59 rate/1.73 sq M.predicted among blacks [Volume Rate/Area] in Serum, Plasma or Blood by Creatinine-based formula (CKD-EPI) (test code = 88816-8) Urea nitrogen/Creatinine 16 9-23 [Mass Ratio] in Serum or Plasma (test code = 3097-3) Sodium [Moles/volume] in 139 mmol/L 134-144 Serum or Plasma (test code = 2951-2) Potassium [Moles/volume] in 4.4 mmol/L 3.5-5.2 Serum or Plasma (test code = 2823-3) Chloride [Moles/volume] in 101 mmol/L 96-106 Serum or Plasma (test code = 2075-0) Carbon dioxide, total 23 mmol/L 20-29 [Moles/volume] in Serum or Plasma (test code = 2027-9) Calcium [Mass/volume] in 9.1 mg/dL 8.7-10.2 Serum or Plasma (test code = 87065-9) Protein [Mass/volume] in 7.3 g/dL 6.0-8.5 Serum or Plasma (test code = 2885-2) Albumin [Mass/volume] in 4.4 g/dL 3.9-5.0 Serum or Plasma (test code = 1751-7) Globulin [Mass/volume] in 2.9 g/dL 1.5-4.5 Serum by calculation (test code = 40961-4) Albumin/Globulin [Mass Ratio] 1.5 1.2-2.2 in Serum or Plasma (test code = 1759-0) Bilirubin.total [Mass/volume] 0.4 mg/dL 0.0-1.2 in Serum or Plasma (test code = 1975-2) Alkaline phosphatase 139 IU/L 39-117 H [Enzymatic activity/volume] in Serum or Plasma (test code = 6768-6) Aspartate aminotransferase 16 IU/L 0-40 [Enzymatic activity/volume] in Serum or Plasma (test code = 1920-8) Alanine aminotransferase 21 IU/L 0-32 [Enzymatic activity/volume] in Serum or Plasma (test code = 1742-6) [facility] - Serum or Plasma 2019-12-29 00:00:00 Test Item Value Reference Range Interpretation Comments Cholesterol [Mass/volume] in Serum 141 mg/dL 100-199 or Plasma (test code = 2093-3) Triglyceride [Mass/volume] in Serum 93 mg/dL 0-149 or Plasma (test code = 2571-8) Cholesterol in HDL [Mass/volume] in 35 mg/dL >39 L Serum or Plasma (test code = 2085-9) Cholesterol in VLDL [Mass/volume] 19 mg/dL 5-40 in Serum or Plasma by calculation (test code = 16108-0) Cholesterol in LDL [Mass/volume] in 87 mg/dL 0-99 Serum or Plasma by calculation (test code = 52325-5) Laboratory comment [Text] in Report comic book designer Narrative (test code = 75132-7) [facility] DallasHemoglobin A1c/Hemoglobin.total in [id number] 00:00:00 Test Item Value Reference Range Interpretation Comments Hemoglobin A1c/Hemoglobin.total in 5.1 % 4.8-5.6 Blood (test code = 4548-4) Glucose mean value [Mass/volume] in 100 mg/dL Blood Estimated from glycated hemoglobin (test code = 33249-1) [facility] panel, [id number] 00:00:00 Test Item Value Reference Range Interpretation Comments interpretation (test code = note interpretation) pdf image (test code = pdf image) . [facility] T[facility] and TSH panel - Serum or [id number] 00:00:00 Test Item Value Reference Range Interpretation Comments Thyrotropin [Units/volume] in 1.540 uIU/mL 0.450-4.500 Serum or Plasma by Detection limit <= 0.005 mIU/L (test code = 70583-1) Thyroxine (T4) free 1.34 NG/dL 0.82-1.77 [Mass/volume] in Serum or Plasma (test code = 3024-7) [facility] W Auto Differential panel - Blood 2019-12-29 00:00:00 Test Item Value Reference Range Interpretation Comments Leukocytes [#/volume] in Blood 10.4 x10e3/uL 3.4-10.8 by Automated count (test code = 6690-2) Erythrocytes [#/volume] in 4.71 x10e6/uL 3.77-5.28 Blood by Automated count (test code = 789-8) Hemoglobin [Mass/volume] in 13.0 g/dL 11.1-15.9 Blood (test code = 718-7) Hematocrit [Volume Fraction] of 40.0 % 34.0-46.6 Blood by Automated count (test code = 4544-3) Erythrocyte mean corpuscular 85 fL 79-97 volume [Entitic volume] by Automated count (test code = 787-2) Erythrocyte mean corpuscular 27.6 pg 26.6-33.0 hemoglobin [Entitic mass] by Automated count (test code = 785-6) Erythrocyte mean corpuscular 32.5 g/dL 31.5-35.7 hemoglobin concentration [Mass/volume] by Automated count (test code = 786-4) Erythrocyte distribution width 14.0 % 11.7-15.4 [Ratio] by Automated count (test code = 788-0) Platelets [#/volume] in Blood 370 x10e3/uL 150-450 by Automated count (test code = 777-3) Neutrophils/100 leukocytes in 67 % not estab. Blood by Automated count (test code = 770-8) Lymphocytes/100 leukocytes in 24 % not estab. Blood by Automated count (test code = 736-9) Monocytes/100 leukocytes in 6 % not estab. Blood by Automated count (test code = 5905-5) Eosinophils/100 leukocytes in 2 % not estab. Blood by Automated count (test code = 713-8) Basophils/100 leukocytes in 1 % not estab. Blood by Automated count (test code = 706-2) immature cells (test code = comic book designer immature cells) Neutrophils [#/volume] in Blood 7.1 x10e3/uL 1.4-7.0 H by Automated count (test code = 751-8) Lymphocytes [#/volume] in Blood 2.4 x10e3/uL 0.7-3.1 by Automated count (test code = 731-0) Monocytes [#/volume] in Blood 0.6 x10e3/uL 0.1-0.9 by Automated count (test code = 742-7) Eosinophils [#/volume] in Blood 0.2 x10e3/uL 0.0-0.4 by Automated count (test code = 711-2) Basophils [#/volume] in Blood 0.1 x10e3/uL 0.0-0.2 by Automated count (test code = 704-7) Immature granulocytes/100 0 % not estab. leukocytes in Blood by Automated count (test code = 05707-7) Immature granulocytes 0.0 x10e3/uL 0.0-0.1 [#/volume] in Blood by Automated count (test code = 41378-2) Nucleated erythrocytes/100 comic book designer leukocytes [Ratio] in Blood by Automated count (test code = 23252-1) Morphology [Interpretation] in comic book designer Blood Narrative (test code = 06843-9) [facility] ProgramComprehensive metabolic 2000 panel - Serum or [id number] 00:00:00 Test Item Value Reference Range Interpretation Comments Glucose [Mass/volume] in 92 mg/dL 65-99 Serum or Plasma (test code = 2345-7) Urea nitrogen [Mass/volume] 9 mg/dL 6-20 in Serum or Plasma (test code = 3094-0) Creatinine [Mass/volume] in 0.56 mg/dL 0.57-1.00 L Serum or Plasma (test code = 2160-0) Glomerular filtration 130 mL/min/1.73 >59 rate/1.73 sq M.predicted among non-blacks [Volume Rate/Area] in Serum, Plasma or Blood by Creatinine-based formula (CKD-EPI) (test code = 70900-6) Glomerular filtration 150 mL/min/1.73 >59 rate/1.73 sq M.predicted among blacks [Volume Rate/Area] in Serum, Plasma or Blood by Creatinine-based formula (CKD-EPI) (test code = 97265-5) Urea nitrogen/Creatinine 16 9-23 [Mass Ratio] in Serum or Plasma (test code = 3097-3) Sodium [Moles/volume] in 139 mmol/L 134-144 Serum or Plasma (test code = 2951-2) Potassium [Moles/volume] in 4.4 mmol/L 3.5-5.2 Serum or Plasma (test code = 2823-3) Chloride [Moles/volume] in 101 mmol/L 96-106 Serum or Plasma (test code = 2075-0) Carbon dioxide, total 23 mmol/L 20-29 [Moles/volume] in Serum or Plasma (test code = 2027-9) Calcium [Mass/volume] in 9.1 mg/dL 8.7-10.2 Serum or Plasma (test code = 64327-5) Protein [Mass/volume] in 7.3 g/dL 6.0-8.5 Serum or Plasma (test code = 2885-2) Albumin [Mass/volume] in 4.4 g/dL 3.9-5.0 Serum or Plasma (test code = 1751-7) Globulin [Mass/volume] in 2.9 g/dL 1.5-4.5 Serum by calculation (test code = 80113-5) Albumin/Globulin [Mass Ratio] 1.5 1.2-2.2 in Serum or Plasma (test code = 1759-0) Bilirubin.total [Mass/volume] 0.4 mg/dL 0.0-1.2 in Serum or Plasma (test code = 1975-2) Alkaline phosphatase 139 IU/L 39-117 H [Enzymatic activity/volume] in Serum or Plasma (test code = 6768-6) Aspartate aminotransferase 16 IU/L 0-40 [Enzymatic activity/volume] in Serum or Plasma (test code = 1920-8) Alanine aminotransferase 21 IU/L 0-32 [Enzymatic activity/volume] in Serum or Plasma (test code = 1742-6) [facility] 1996 panel - Serum or Plasma 2019-12-29 00:00:00 Test Item Value Reference Range Interpretation Comments Cholesterol [Mass/volume] in Serum 141 mg/dL 100-199 or Plasma (test code = 2093-3) Triglyceride [Mass/volume] in Serum 93 mg/dL 0-149 or Plasma (test code = 2571-8) Cholesterol in HDL [Mass/volume] in 35 mg/dL >39 L Serum or Plasma (test code = 2085-9) Cholesterol in VLDL [Mass/volume] 19 mg/dL 5-40 in Serum or Plasma by calculation (test code = 29725-8) Cholesterol in LDL [Mass/volume] in 87 mg/dL 0-99 Serum or Plasma by calculation (test code = 19734-8) Laboratory comment [Text] in Report comic book designer Narrative (test code = 03978-4) [facility] DallasHemoglobin A1c/Hemoglobin.total in [id number] 00:00:00 Test Item Value Reference Range Interpretation Comments Hemoglobin A1c/Hemoglobin.total in 5.1 % 4.8-5.6 Blood (test code = 4548-4) Glucose mean value [Mass/volume] in 100 mg/dL Blood Estimated from glycated hemoglobin (test code = 89281-8) [facility] assessment panel, [id number] 00:00:00 Test Item Value Reference Range Interpretation Comments interpretation (test code = note interpretation) pdf image (test code = pdf image) . [facility] T[facility] and TSH panel - Serum or [id number] 00:00:00 Test Item Value Reference Range Interpretation Comments Thyrotropin [Units/volume] in 1.540 uIU/mL 0.450-4.500 Serum or Plasma by Detection limit <= 0.005 mIU/L (test code = 01220-6) Thyroxine (T4) free 1.34 NG/dL 0.82-1.77 [Mass/volume] in Serum or Plasma (test code = 3024-7) [facility] DallasCBC W Auto Differential panel - Blood 2019-12-29 00:00:00 Test Item Value Reference Range Interpretation Comments Leukocytes [#/volume] in Blood 10.4 x10e3/uL 3.4-10.8 by Automated count (test code = 6690-2) Erythrocytes [#/volume] in 4.71 x10e6/uL 3.77-5.28 Blood by Automated count (test code = 789-8) Hemoglobin [Mass/volume] in 13.0 g/dL 11.1-15.9 Blood (test code = 718-7) Hematocrit [Volume Fraction] of 40.0 % 34.0-46.6 Blood by Automated count (test code = 4544-3) Erythrocyte mean corpuscular 85 fL 79-97 volume [Entitic volume] by Automated count (test code = 787-2) Erythrocyte mean corpuscular 27.6 pg 26.6-33.0 hemoglobin [Entitic mass] by Automated count (test code = 785-6) Erythrocyte mean corpuscular 32.5 g/dL 31.5-35.7 hemoglobin concentration [Mass/volume] by Automated count (test code = 786-4) Erythrocyte distribution width 14.0 % 11.7-15.4 [Ratio] by Automated count (test code = 788-0) Platelets [#/volume] in Blood 370 x10e3/uL 150-450 by Automated count (test code = 777-3) Neutrophils/100 leukocytes in 67 % not estab. Blood by Automated count (test code = 770-8) Lymphocytes/100 leukocytes in 24 % not estab. Blood by Automated count (test code = 736-9) Monocytes/100 leukocytes in 6 % not estab. Blood by Automated count (test code = 5905-5) Eosinophils/100 leukocytes in 2 % not estab. Blood by Automated count (test code = 713-8) Basophils/100 leukocytes in 1 % not estab. Blood by Automated count (test code = 706-2) immature cells (test code = comic book designer immature cells) Neutrophils [#/volume] in Blood 7.1 x10e3/uL 1.4-7.0 H by Automated count (test code = 751-8) Lymphocytes [#/volume] in Blood 2.4 x10e3/uL 0.7-3.1 by Automated count (test code = 731-0) Monocytes [#/volume] in Blood 0.6 x10e3/uL 0.1-0.9 by Automated count (test code = 742-7) Eosinophils [#/volume] in Blood 0.2 x10e3/uL 0.0-0.4 by Automated count (test code = 711-2) Basophils [#/volume] in Blood 0.1 x10e3/uL 0.0-0.2 by Automated count (test code = 704-7) Immature granulocytes/100 0 % not estab. leukocytes in Blood by Automated count (test code = 87681-2) Immature granulocytes 0.0 x10e3/uL 0.0-0.1 [#/volume] in Blood by Automated count (test code = 20345-1) Nucleated erythrocytes/100 comic book designer leukocytes [Ratio] in Blood by Automated count (test code = 67500-6) Morphology [Interpretation] in comic book designer Blood Narrative (test code = 65521-3) [facility] 2000 panel - Serum or [id number] 00:00:00 Test Item Value Reference Range Interpretation Comments Glucose [Mass/volume] in 92 mg/dL 65-99 Serum or Plasma (test code = 2345-7) Urea nitrogen [Mass/volume] 9 mg/dL 6-20 in Serum or Plasma (test code = 3094-0) Creatinine [Mass/volume] in 0.56 mg/dL 0.57-1.00 L Serum or Plasma (test code = 2160-0) Glomerular filtration 130 mL/min/1.73 >59 rate/1.73 sq M.predicted among non-blacks [Volume Rate/Area] in Serum, Plasma or Blood by Creatinine-based formula (CKD-EPI) (test code = 43104-7) Glomerular filtration 150 mL/min/1.73 >59 rate/1.73 sq M.predicted among blacks [Volume Rate/Area] in Serum, Plasma or Blood by Creatinine-based formula (CKD-EPI) (test code = 11666-9) Urea nitrogen/Creatinine 16 9-23 [Mass Ratio] in Serum or Plasma (test code = 3097-3) Sodium [Moles/volume] in 139 mmol/L 134-144 Serum or Plasma (test code = 2951-2) Potassium [Moles/volume] in 4.4 mmol/L 3.5-5.2 Serum or Plasma (test code = 2823-3) Chloride [Moles/volume] in 101 mmol/L 96-106 Serum or Plasma (test code = 2074-0) Carbon dioxide, total 23 mmol/L 20-29 [Moles/volume] in Serum or Plasma (test code = 2027-) Calcium [Mass/volume] in 9.1 mg/dL 8.7-10.2 Serum or Plasma (test code = 45752-2) Protein [Mass/volume] in 7.3 g/dL 6.0-8.5 Serum or Plasma (test code = 2885-2) Albumin [Mass/volume] in 4.4 g/dL 3.9-5.0 Serum or Plasma (test code = 1751-7) Globulin [Mass/volume] in 2.9 g/dL 1.5-4.5 Serum by calculation (test code = 96574-9) Albumin/Globulin [Mass Ratio] 1.5 1.2-2.2 in Serum or Plasma (test code = 1759-0) Bilirubin.total [Mass/volume] 0.4 mg/dL 0.0-1.2 in Serum or Plasma (test code = 1974-) Alkaline phosphatase 139 IU/L 39-117 H [Enzymatic activity/volume] in Serum or Plasma (test code = 6768-6) Aspartate aminotransferase 16 IU/L 0-40 [Enzymatic activity/volume] in Serum or Plasma (test code = 1920-8) Alanine aminotransferase 21 IU/L 0-32 [Enzymatic activity/volume] in Serum or Plasma (test code = 1742-6) [facility] - Serum or Plasma 2019-12-29 00:00:00 Test Item Value Reference Range Interpretation Comments Cholesterol [Mass/volume] in Serum 141 mg/dL 100-199 or Plasma (test code = 2092-3) Triglyceride [Mass/volume] in Serum 93 mg/dL 0-149 or Plasma (test code = 2571-8) Cholesterol in HDL [Mass/volume] in 35 mg/dL >39 L Serum or Plasma (test code = 2084-9) Cholesterol in VLDL [Mass/volume] 19 mg/dL 5-40 in Serum or Plasma by calculation (test code = 99005-4) Cholesterol in LDL [Mass/volume] in 87 mg/dL 0-99 Serum or Plasma by calculation (test code = 74909-7) Laboratory comment [Text] in Report comic book designer Narrative (test code = 94277-6) [facility] DallasHemoglobin A1c/Hemoglobin.total in [id number] 00:00:00 Test Item Value Reference Range Interpretation Comments Hemoglobin A1c/Hemoglobin.total in 5.1 % 4.8-5.6 Blood (test code = 4548-4) Glucose mean value [Mass/volume] in 100 mg/dL Blood Estimated from glycated hemoglobin (test code = 49042-3) [facility] [place] panel, [id number] 00:00:00 Test Item Value Reference Range Interpretation Comments interpretation (test code = note interpretation) pdf image (test code = pdf image) . [facility] DallasFree T4 and TSH panel - Serum or [id number] 00:00:00 Test Item Value Reference Range Interpretation Comments Thyrotropin [Units/volume] in 1.540 uIU/mL 0.450-4.500 Serum or Plasma by Detection limit <= 0.005 mIU/L (test code = 78705-7) Thyroxine (T4) free 1.34 NG/dL 0.82-1.77 [Mass/volume] in Serum or Plasma (test code = 3024-7) [facility] [place]CBC W Auto Differential panel - Blood 2019-12-29 00:00:00 Test Item Value Reference Range Interpretation Comments Leukocytes [#/volume] in Blood 10.4 x10e3/uL 3.4-10.8 by Automated count (test code = 6690-2) Erythrocytes [#/volume] in 4.71 x10e6/uL 3.77-5.28 Blood by Automated count (test code = 789-8) Hemoglobin [Mass/volume] in 13.0 g/dL 11.1-15.9 Blood (test code = 718-7) Hematocrit [Volume Fraction] of 40.0 % 34.0-46.6 Blood by Automated count (test code = 4544-3) Erythrocyte mean corpuscular 85 fL 79-97 volume [Entitic volume] by Automated count (test code = 787-2) Erythrocyte mean corpuscular 27.6 pg 26.6-33.0 hemoglobin [Entitic mass] by Automated count (test code = 785-6) Erythrocyte mean corpuscular 32.5 g/dL 31.5-35.7 hemoglobin concentration [Mass/volume] by Automated count (test code = 786-4) Erythrocyte distribution width 14.0 % 11.7-15.4 [Ratio] by Automated count (test code = 788-0) Platelets [#/volume] in Blood 370 x10e3/uL 150-450 by Automated count (test code = 777-3) Neutrophils/100 leukocytes in 67 % not estab. Blood by Automated count (test code = 770-8) Lymphocytes/100 leukocytes in 24 % not estab. Blood by Automated count (test code = 736-9) Monocytes/100 leukocytes in 6 % not estab. Blood by Automated count (test code = 5905-5) Eosinophils/100 leukocytes in 2 % not estab. Blood by Automated count (test code = 713-8) Basophils/100 leukocytes in 1 % not estab. Blood by Automated count (test code = 706-2) immature cells (test code = comic book designer immature cells) Neutrophils [#/volume] in Blood 7.1 x10e3/uL 1.4-7.0 H by Automated count (test code = 751-8) Lymphocytes [#/volume] in Blood 2.4 x10e3/uL 0.7-3.1 by Automated count (test code = 731-0) Monocytes [#/volume] in Blood 0.6 x10e3/uL 0.1-0.9 by Automated count (test code = 742-7) Eosinophils [#/volume] in Blood 0.2 x10e3/uL 0.0-0.4 by Automated count (test code = 711-2) Basophils [#/volume] in Blood 0.1 x10e3/uL 0.0-0.2 by Automated count (test code = 704-7) Immature granulocytes/100 0 % not estab. leukocytes in Blood by Automated count (test code = 65902-1) Immature granulocytes 0.0 x10e3/uL 0.0-0.1 [#/volume] in Blood by Automated count (test code = 50619-2) Nucleated erythrocytes/100 comic book designer leukocytes [Ratio] in Blood by Automated count (test code = 77111-8) Morphology [Interpretation] in comic book designer Blood Narrative (test code = 76655-0) [facility] ProgramCom[facility] 2000 panel - Serum or [id number] 00:00:00 Test Item Value Reference Range Interpretation Comments Glucose [Mass/volume] in 92 mg/dL 65-99 Serum or Plasma (test code = 2345-7) Urea nitrogen [Mass/volume] 9 mg/dL 6-20 in Serum or Plasma (test code = 3094-0) Creatinine [Mass/volume] in 0.56 mg/dL 0.57-1.00 L Serum or Plasma (test code = 2160-0) Glomerular filtration 130 mL/min/1.73 >59 rate/1.73 sq M.predicted among non-blacks [Volume Rate/Area] in Serum, Plasma or Blood by Creatinine-based formula (CKD-EPI) (test code = 75477-6) Glomerular filtration 150 mL/min/1.73 >59 rate/1.73 sq M.predicted among blacks [Volume Rate/Area] in Serum, Plasma or Blood by Creatinine-based formula (CKD-EPI) (test code = 66252-1) Urea nitrogen/Creatinine 16 9-23 [Mass Ratio] in Serum or Plasma (test code = 3097-3) Sodium [Moles/volume] in 139 mmol/L 134-144 Serum or Plasma (test code = 2951-2) Potassium [Moles/volume] in 4.4 mmol/L 3.5-5.2 Serum or Plasma (test code = 2823-3) Chloride [Moles/volume] in 101 mmol/L 96-106 Serum or Plasma (test code = 2075-0) Carbon dioxide, total 23 mmol/L 20-29 [Moles/volume] in Serum or Plasma (test code = 2027-9) Calcium [Mass/volume] in 9.1 mg/dL 8.7-10.2 Serum or Plasma (test code = 50740-8) Protein [Mass/volume] in 7.3 g/dL 6.0-8.5 Serum or Plasma (test code = 2885-2) Albumin [Mass/volume] in 4.4 g/dL 3.9-5.0 Serum or Plasma (test code = 1751-7) Globulin [Mass/volume] in 2.9 g/dL 1.5-4.5 Serum by calculation (test code = 51445-7) Albumin/Globulin [Mass Ratio] 1.5 1.2-2.2 in Serum or Plasma (test code = 1759-0) Bilirubin.total [Mass/volume] 0.4 mg/dL 0.0-1.2 in Serum or Plasma (test code = 1975-2) Alkaline phosphatase 139 IU/L 39-117 H [Enzymatic activity/volume] in Serum or Plasma (test code = 6768-6) Aspartate aminotransferase 16 IU/L 0-40 [Enzymatic activity/volume] in Serum or Plasma (test code = 1920-8) Alanine aminotransferase 21 IU/L 0-32 [Enzymatic activity/volume] in Serum or Plasma (test code = 1742-6) [facility] panel - Serum or Plasma 2019-12-29 00:00:00 Test Item Value Reference Range Interpretation Comments Cholesterol [Mass/volume] in Serum 141 mg/dL 100-199 or Plasma (test code = 2093-3) Triglyceride [Mass/volume] in Serum 93 mg/dL 0-149 or Plasma (test code = 2571-8) Cholesterol in HDL [Mass/volume] in 35 mg/dL >39 L Serum or Plasma (test code = 2085-9) Cholesterol in VLDL [Mass/volume] 19 mg/dL 5-40 in Serum or Plasma by calculation (test code = 30239-4) Cholesterol in LDL [Mass/volume] in 87 mg/dL 0-99 Serum or Plasma by calculation (test code = 89511-9) Laboratory comment [Text] in Report comic book designer Narrative (test code = 77792-2) [facility] DallasHemoglobin A1c/Hemoglobin.total in [id number] 00:00:00 Test Item Value Reference Range Interpretation Comments Hemoglobin A1c/Hemoglobin.total in 5.1 % 4.8-5.6 Blood (test code = 4548-4) Glucose mean value [Mass/volume] in 100 mg/dL Blood Estimated from glycated hemoglobin (test code = 11143-2) [facility] [place] assessment panel, [id number] 00:00:00 Test Item Value Reference Range Interpretation Comments interpretation (test code = note interpretation) pdf image (test code = pdf image) . [facility] ProgramUrinalysis macro (dipstick) panel - [id number] 10:18:57 Test Item Value Reference Range Interpretation Comments Leukocytes (test code = Leukocytes) Trace Nitrite (test code = Nitrite) negative Urobilinogen (test code = .2 Urobilinogen) Protein (test code = Protein) Negative pH (test code = pH) 6.5 Blood (test code = Blood) Moderate Specific [place] (test code = 1.025 Specific [place]) Ketone (test code = Ketone) Negative Bilirubin (test code = Bilirubin) Negative Glucose (test code = Glucose) Negative Appearance (test code = Appearance) Clear Color (test code = Color) Yellow [facility] W Auto Differential panel - [id number] 09:25:00 Test Item Value Reference Range Interpretation Comments white blood count (test code = 12.3 K/uL 4.0-11.5 H white blood count) red blood count (test code = red 3.58 M/uL 3.80-5.20 L blood count) hemoglobin (test code = 9.7 g/dL 10.5-15.7 L hemoglobin) hematocrit (test code = 30.1 % 34.0-50.0 L hematocrit) Erythrocyte mean corpuscular 84.1 fL 86-100 L volume [Entitic volume] (test code = 80558-7) mean corpuscular hemoglobin (test 27.1 pg 26.2-33.4 code = mean corpuscular hemoglobin) mean corpuscular HGB conc (test 32.2 g/dL 30-34 code = mean corpuscular HGB conc) red cell distribution width (test 14.4 % 12.0-15.5 code = red cell distribution width) platelet count (test code = 247 K/uL 165-450 platelet count) mean platelet volume (test code = 10.6 fL 9.4-12.6 mean platelet volume) Neutrophils.segmented/100 71.9 % 44.4-80.1 leukocytes in Blood (test code = 12843-8) Granulocytes Immature [#/volume] 0.1 K/uL 0.0-0.03 H in Blood (test code = 46785-9) lymphocyte% (test code = 21.9 % 10.0-50.0 lymphocyte%) mono % (test code = mono %) 5.1 % 3.6-12.0 eos % (test code = eos %) 0.3 % 0.0-5.4 Basophils/100 leukocytes in 0.3 % 0.1-1.2 Unspecified specimen (test code = 60290-5) Neutrophils.band form [#/volume] 8.86 K/uL 1.56-6.13 H in Blood (test code = 41143-7) Lymphocytes [#/volume] in 2.7 K/uL 1.18-3.74 Unspecified specimen by Automated count (test code = 35998-8) mono # (test code = mono #) 0.63 K/uL 0.24-0.86 eos # (test code = eos #) 0.04 K/uL 0.04-0.36 basophil # (test code = basophil 0.04 K/uL 0.01-0.08 #) NRBC% (test code = NRBC%) 0 /100 WBC 0-0.2 NRBC# (test code = NRBC#) 0 K/uL [facility], [id number] 09:25:00 NeutrophilsLymphocyteAtypical LymphMonocytePlatelet EstimatePlatelet MorphologyDifferential comment-[facility] Differential panel - [id number] 04:32:00 Test Item Value Reference Range Interpretation Comments white blood count (test code = 11.1 K/uL 4.0-11.5 white blood count) red blood count (test code = red 3.85 M/uL 3.80-5.20 blood count) hemoglobin (test code = 10.4 g/dL 10.5-15.7 L hemoglobin) hematocrit (test code = 32.3 % 34.0-50.0 L hematocrit) Erythrocyte mean corpuscular 83.9 fL 86-100 L volume [Entitic volume] (test code = 61973-4) mean corpuscular hemoglobin (test 27.0 pg 26.2-33.4 code = mean corpuscular hemoglobin) mean corpuscular HGB conc (test 32.2 g/dL 30-34 code = mean corpuscular HGB conc) red cell distribution width (test 14.4 % 12.0-15.5 code = red cell distribution width) platelet count (test code = 293 K/uL 165-450 platelet count) mean platelet volume (test code = 10.6 fL 9.4-12.6 mean platelet volume) Neutrophils.segmented/100 72.8 % 44.4-80.1 leukocytes in Blood (test code = 06795-1) Granulocytes Immature [#/volume] 0.1 K/uL 0.0-0.03 H in Blood (test code = 09181-2) lymphocyte% (test code = 20.3 % 10.0-50.0 lymphocyte%) mono % (test code = mono %) 5.4 % 3.6-12.0 eos % (test code = eos %) 0.6 % 0.0-5.4 Basophils/100 leukocytes in 0.4 % 0.1-1.2 Unspecified specimen (test code = 59213-7) Neutrophils.band form [#/volume] 8.10 K/uL 1.56-6.13 H in Blood (test code = 76171-3) Lymphocytes [#/volume] in 2.3 K/uL 1.18-3.74 Unspecified specimen by Automated count (test code = 06747-9) mono # (test code = mono #) 0.60 K/uL 0.24-0.86 eos # (test code = eos #) 0.07 K/uL 0.04-0.36 basophil # (test code = basophil 0.04 K/uL 0.01-0.08 #) NRBC% (test code = NRBC%) 0 /100 WBC 0-0.2 NRBC# (test code = NRBC#) 0 K/uL [facility] CenterBlood type and Indirect antibody screen panel - Blood 2019-10-05 04:32:00 Test Item Value Reference Range Interpretation Comments Rh [Type] in Blood (test code = 4+ 20208-7) ABO and Rh group panel - Blood O positive (test code = 32063-0) [facility] CenterReagin Ab [Presence] in Serum by [id number] 04:32:00 Test Item Value Reference Range Interpretation Comments Reagin Ab [Presence] in Serum by nonreactive nonreactive RPR (test code = 20397-1) [facility] CenterHepatitis B virus surface Ag [Presence] in Serum 2019-10-05 04:32:00 Test Item Value Reference Range Interpretation Comments .hepatitis B surface antigen (test negative negative code = .hepatitis B surface antigen) [facility] CenterUrinalysis macro (dipstick) panel - [id number] 14:34:29 Test Item Value Reference Range Interpretation Comments Leukocytes (test code = Leukocytes) Small Nitrite (test code = Nitrite) negative Urobilinogen (test code = 1 Urobilinogen) Protein (test code = Protein) Negative pH (test code = pH) 7.0 Blood (test code = Blood) Negative Specific [place] (test code = 1.025 Specific [place]) Ketone (test code = Ketone) Small Bilirubin (test code = Bilirubin) Negative Glucose (test code = Glucose) Negative Appearance (test code = Appearance) Clear Color (test code = Color) Yellow [facility] CenterUrinalysis macro (dipstick) panel - [id number] 14:34:29 Test Item Value Reference Range Interpretation Comments Leukocytes (test code = Leukocytes) Small Nitrite (test code = Nitrite) negative Urobilinogen (test code = 1 Urobilinogen) Protein (test code = Protein) Negative pH (test code = pH) 7.0 Blood (test code = Blood) Negative Specific [place] (test code = 1.025 Specific [place]) Ketone (test code = Ketone) Small Bilirubin (test code = Bilirubin) Negative Glucose (test code = Glucose) Negative Appearance (test code = Appearance) Clear Color (test code = Color) Yellow [facility] Centernon-stress [id number] 16:47:00 Test Item Value Reference Range Interpretation Comments Reactive (test code = Reactive) Yes Contractions (test code = Contractions) No [facility] Centernon-stress [id number] 16:47:00 Test Item Value Reference Range Interpretation Comments Reactive (test code = Reactive) Yes Contractions (test code = Contractions) No [facility] CenterUrinalysis macro (dipstick) panel - [id number] 14:08:44 Test Item Value Reference Range Interpretation Comments Leukocytes (test code = Leukocytes) Small Nitrite (test code = Nitrite) negative Urobilinogen (test code = 1 Urobilinogen) Protein (test code = Protein) 30 pH (test code = pH) 7.0 Blood (test code = Blood) Negative Specific [place] (test code = 1.020 Specific [place]) Ketone (test code = Ketone) Negative Bilirubin (test code = Bilirubin) Negative Glucose (test code = Glucose) Negative Appearance (test code = Appearance) Clear Color (test code = Color) Yellow [facility] CenterUrinalysis macro (dipstick) panel - [id number] 14:08:44 Test Item Value Reference Range Interpretation Comments Leukocytes (test code = Leukocytes) Small Nitrite (test code = Nitrite) negative Urobilinogen (test code = 1 Urobilinogen) Protein (test code = Protein) 30 pH (test code = pH) 7.0 Blood (test code = Blood) Negative Specific [place] (test code = 1.020 Specific [place]) Ketone (test code = Ketone) Negative Bilirubin (test code = Bilirubin) Negative Glucose (test code = Glucose) Negative Appearance (test code = Appearance) Clear Color (test code = Color) Yellow [facility] CenterDpqiyPwxyh-7-Yceltvudectvq.placental [Presence] in Vaginal [id number] 08:50:00 Test Item Value Reference Range Interpretation Comments Ifeii-5-Byffzyhzclldz.placental negative neg [Presence] in Vaginal fluid (test code = 88370-0) [facility] CenterPazsfMivhi-9-Xgvqnacrrffaq.placental [Presence] in Vaginal [id number] 08:50:00 Test Item Value Reference Range Interpretation Comments Disfu-7-Ujktgaddkyzxk.placental negative neg [Presence] in Vaginal fluid (test code = 85407-0) [facility] CenterUrinalysis complete panel - [id number] 01:04:00 Test Item Value Reference Range Interpretation Comments Color of Urine by Auto (test code lt. yellow = 47793-2) Appearance of Urine (test code = cloudy clear 5767-9) Glucose [Mass/volume] in Urine negative negative (test code = 2350-7) bilirubin, urine (test code = negative negative bilirubin, urine) ketone, urine (test code = negative negative ketone, urine) Specific gravity of Urine by 1.020 1.003-1.030 Automated test strip (test code = 59765-2) Hemoglobin [Presence] in Urine by negative negative Test strip (test code = 5794-3) pH of Urine (test code = 2756-5) 8.000 5-9 protein urine (UA) (test code = trace negative H protein urine (UA)) Urobilinogen [Presence] in Urine 1.0 E.U./dL 0.2-1.0 (test code = 10500-4) Nitrite [Presence] in Urine by negative negative Test strip (test code = 5802-4) urine leukocyte esterase (test moderate negative H code = urine leukocyte esterase) Erythrocytes [Presence] in Urine =0-3 0-5 (test code = 55905-9) WBC, urine (test code = WBC, =5-9 0-5 H urine) Epithelial cells [Presence] in =0-5 0-5 Urine sediment by Light microscopy (test code = 15222-0) bacteria, urine (test code = moderate none detect H bacteria, urine) urine culture added? (test code = yes urine culture added?) [facility] CenterBacteria identified in Urine by [id number] 01:04:00 Test Item Value Reference Range Interpretation Comments Bacteria identified in no growth after 2 Urine by Culture (test days code = 630-4) [facility] CenterUrinalysis complete panel - [id number] 01:04:00 Test Item Value Reference Range Interpretation Comments Color of Urine by Auto (test code lt. yellow = 71622-3) Appearance of Urine (test code = cloudy clear 5767-9) Glucose [Mass/volume] in Urine negative negative (test code = 2350-7) bilirubin, urine (test code = negative negative bilirubin, urine) ketone, urine (test code = negative negative ketone, urine) Specific gravity of Urine by 1.020 1.003-1.030 Automated test strip (test code = 67837-1) Hemoglobin [Presence] in Urine by negative negative Test strip (test code = 5794-3) pH of Urine (test code = 2756-5) 8.000 5-9 protein urine (UA) (test code = trace negative H protein urine (UA)) Urobilinogen [Presence] in Urine 1.0 E.U./dL 0.2-1.0 (test code = 68563-9) Nitrite [Presence] in Urine by negative negative Test strip (test code = 5802-4) urine leukocyte esterase (test moderate negative H code = urine leukocyte esterase) Erythrocytes [Presence] in Urine =0-3 0-5 (test code = 26722-1) WBC, urine (test code = WBC, =5-9 0-5 H urine) Epithelial cells [Presence] in =0-5 0-5 Urine sediment by Light microscopy (test code = 47410-5) bacteria, urine (test code = moderate none detect H bacteria, urine) urine culture added? (test code = yes urine culture added?) [facility] CenterBacteria identified in Urine by [id number] 01:04:00 Test Item Value Reference Range Interpretation Comments Bacteria identified in no growth after 2 Urine by Culture (test days code = 630-4) [facility] CenterCB W Auto Differential panel - [id number] 09:20:00 Test Item Value Reference Range Interpretation Comments white blood count (test code = 12.5 K/uL 4.0-11.5 H white blood count) red blood count (test code = red 3.86 M/uL 3.80-5.20 blood count) hemoglobin (test code = 10.7 g/dL 10.5-15.7 hemoglobin) hematocrit (test code = 32.6 % 34.0-50.0 L hematocrit) Erythrocyte mean corpuscular 84.5 fL 86-100 L volume [Entitic volume] (test code = 79093-3) mean corpuscular hemoglobin (test 27.7 pg 26.2-33.4 code = mean corpuscular hemoglobin) mean corpuscular HGB conc (test 32.8 g/dL 30-34 code = mean corpuscular HGB conc) red cell distribution width (test 13.4 % 12.0-15.5 code = red cell distribution width) platelet count (test code = 337 K/uL 165-450 platelet count) mean platelet volume (test code = 10.2 fL 9.4-12.6 mean platelet volume) Neutrophils.segmented/100 73.0 % 44.4-80.1 leukocytes in Blood (test code = 07689-2) Granulocytes Immature [#/volume] 0.1 K/uL 0.0-0.03 H in Blood (test code = 65018-2) lymphocyte% (test code = 19.1 % 10.0-50.0 lymphocyte%) mono % (test code = mono %) 5.9 % 3.6-12.0 eos % (test code = eos %) 0.8 % 0.0-5.4 Basophils/100 leukocytes in 0.3 % 0.1-1.2 Unspecified specimen (test code = 85229-7) Neutrophils.band form [#/volume] 9.09 K/uL 1.56-6.13 H in Blood (test code = 66361-6) Lymphocytes [#/volume] in 2.4 K/uL 1.18-3.74 Unspecified specimen by Automated count (test code = 87966-7) mono # (test code = mono #) 0.73 K/uL 0.24-0.86 eos # (test code = eos #) 0.10 K/uL 0.04-0.36 basophil # (test code = basophil 0.04 K/uL 0.01-0.08 #) NRBC% (test code = NRBC%) 0 /100 WBC 0-0.2 NRBC# (test code = NRBC#) 0 K/uL [facility] CenterPT/[id number] 09:20:00 Test Item Value Reference Range Interpretation Comments prothrombin time (test code = 9.6 seconds 10.3-12.3 L prothrombin time) INR in Blood by Coagulation assay 0.88 (test code = 56689-3) [facility] Centerpartial thromboplastin [id number] 09:20:00 Test Item Value Reference Range Interpretation Comments INR in Blood by Coagulation 28.7 seconds 22.5-37.0 assay (test code = 48013-8) [facility] W Auto Differential panel - [id number] 09:20:00 Test Item Value Reference Range Interpretation Comments white blood count (test code = 12.5 K/uL 4.0-11.5 H white blood count) red blood count (test code = red 3.86 M/uL 3.80-5.20 blood count) hemoglobin (test code = 10.7 g/dL 10.5-15.7 hemoglobin) hematocrit (test code = 32.6 % 34.0-50.0 L hematocrit) Erythrocyte mean corpuscular 84.5 fL 86-100 L volume [Entitic volume] (test code = 87003-5) mean corpuscular hemoglobin (test 27.7 pg 26.2-33.4 code = mean corpuscular hemoglobin) mean corpuscular HGB conc (test 32.8 g/dL 30-34 code = mean corpuscular HGB conc) red cell distribution width (test 13.4 % 12.0-15.5 code = red cell distribution width) platelet count (test code = 337 K/uL 165-450 platelet count) mean platelet volume (test code = 10.2 fL 9.4-12.6 mean platelet volume) Neutrophils.segmented/100 73.0 % 44.4-80.1 leukocytes in Blood (test code = 26308-6) Granulocytes Immature [#/volume] 0.1 K/uL 0.0-0.03 H in Blood (test code = 61481-3) lymphocyte% (test code = 19.1 % 10.0-50.0 lymphocyte%) mono % (test code = mono %) 5.9 % 3.6-12.0 eos % (test code = eos %) 0.8 % 0.0-5.4 Basophils/100 leukocytes in 0.3 % 0.1-1.2 Unspecified specimen (test code = 41047-8) Neutrophils.band form [#/volume] 9.09 K/uL 1.56-6.13 H in Blood (test code = 68364-2) Lymphocytes [#/volume] in 2.4 K/uL 1.18-3.74 Unspecified specimen by Automated count (test code = 05247-2) mono # (test code = mono #) 0.73 K/uL 0.24-0.86 eos # (test code = eos #) 0.10 K/uL 0.04-0.36 basophil # (test code = basophil 0.04 K/uL 0.01-0.08 #) NRBC% (test code = NRBC%) 0 /100 WBC 0-0.2 NRBC# (test code = NRBC#) 0 K/uL [id number] 09[facility]20:00 Test Item Value Reference Range Interpretation Comments prothrombin time (test code = 9.6 seconds 10.3-12.3 L prothrombin time) INR in Blood by Coagulation assay 0.88 (test code = 00664-9) [facility]in [id number] 09:20:00 Test Item Value Reference Range Interpretation Comments INR in Blood by Coagulation 28.7 seconds 22.5-37.0 assay (test code = 28026-2) [facility] CenterGlucose [Mass/volume] in Capillary [id number] 09:46:26 Test Item Value Reference Range Interpretation Comments GLU (test code = GLU) 91 [facility] CenterGlucose [Mass/volume] in Capillary [id number] 09:46:26 Test Item Value Reference Range Interpretation Comments GLU (test code = GLU) 91 [facility]Glucose [Mass/volume] in Capillary [id number] 09:46:26 Test Item Value Reference Range Interpretation Comments GLU (test code = GLU) 91 [facility] CenterUrinalysis macro (dipstick) panel - [id number] 09:36:18 Test Item Value Reference Range Interpretation Comments Leukocytes (test code = Leukocytes) Small Nitrite (test code = Nitrite) negative Urobilinogen (test code = 1 Urobilinogen) Protein (test code = Protein) 30 pH (test code = pH) 7.0 Blood (test code = Blood) Negative Specific [place] (test code = 1.025 Specific [place]) Ketone (test code = Ketone) Small Bilirubin (test code = Bilirubin) Negative Glucose (test code = Glucose) Negative Appearance (test code = Appearance) Cloudy Color (test code = Color) Yellow [facility] CenterUrinalysis macro (dipstick) panel - [id number] 09:36:18 Test Item Value Reference Range Interpretation Comments Leukocytes (test code = Leukocytes) Small Nitrite (test code = Nitrite) negative Urobilinogen (test code = 1 Urobilinogen) Protein (test code = Protein) 30 pH (test code = pH) 7.0 Blood (test code = Blood) Negative Specific [place] (test code = 1.025 Specific [place]) Ketone (test code = Ketone) Small Bilirubin (test code = Bilirubin) Negative Glucose (test code = Glucose) Negative Appearance (test code = Appearance) Cloudy Color (test code = Color) Yellow [facility] CenterUrinalysis macro (dipstick) panel - [id number] 09:36:18 Test Item Value Reference Range Interpretation Comments Leukocytes (test code = Leukocytes) Small Nitrite (test code = Nitrite) negative Urobilinogen (test code = 1 Urobilinogen) Protein (test code = Protein) 30 pH (test code = pH) 7.0 Blood (test code = Blood) Negative Specific [place] (test code = 1.025 Specific [place]) Ketone (test code = Ketone) Small Bilirubin (test code = Bilirubin) Negative Glucose (test code = Glucose) Negative Appearance (test code = Appearance) Cloudy Color (test code = Color) Yellow [facility] CenterUrinalysis complete panel - [id number] 11:35:00 Test Item Value Reference Range Interpretation Comments Color of Urine by Auto yellow (test code = 58887-9) Appearance of Urine (test cloudy clear code = 5767-9) Glucose [Mass/volume] in negative negative Urine (test code = 2350-7) bilirubin, urine (test code negative negative = bilirubin, urine) ketone, urine (test code = moderate, 40 negative H ketone, urine) Specific gravity of Urine 1.025 1.003-1.030 by Automated test strip (test code = 73254-7) Hemoglobin [Presence] in negative negative Urine by Test strip (test code = 5794-3) pH of Urine (test code = 7.000 5-9 2756-5) protein urine (UA) (test trace negative H code = protein urine (UA)) Urobilinogen [Presence] in 1.0 E.U./dL 0.2-1.0 Urine (test code = 19550-2) Nitrite [Presence] in Urine negative negative by Test strip (test code = 5802-4) urine leukocyte esterase =1 negative H (test code = urine leukocyte esterase) Erythrocytes [Presence] in none seen 0-5 Urine (test code = 98645-8) WBC, urine (test code = =5-9 0-5 H WBC, urine) Epithelial cells [Presence] =11-25 0-5 H in Urine sediment by Light microscopy (test code = 92261-2) bacteria, urine (test code large (3 none detect H = bacteria, urine) urine culture added? (test no. contaminated. code = urine culture added?) mucus, urine (test code = =2 none detect mucus, urine) [facility] CenterUrinalysis complete panel - [id number] 11:35:00 Test Item Value Reference Range Interpretation Comments Color of Urine by Auto yellow (test code = 80408-1) Appearance of Urine (test cloudy clear code = 5767-9) Glucose [Mass/volume] in negative negative Urine (test code = 2350-7) bilirubin, urine (test code negative negative = bilirubin, urine) ketone, urine (test code = moderate, 40 negative H ketone, urine) Specific gravity of Urine 1.025 1.003-1.030 by Automated test strip (test code = 09233-8) Hemoglobin [Presence] in negative negative Urine by Test strip (test code = 5794-3) pH of Urine (test code = 7.000 5-9 2756-5) protein urine (UA) (test trace negative H code = protein urine (UA)) Urobilinogen [Presence] in 1.0 E.U./dL 0.2-1.0 Urine (test code = 87261-7) Nitrite [Presence] in Urine negative negative by Test strip (test code = 5802-4) urine leukocyte esterase =1 negative H (test code = urine leukocyte esterase) Erythrocytes [Presence] in none seen 0-5 Urine (test code = 67586-4) WBC, urine (test code = =5-9 0-5 H WBC, urine) Epithelial cells [Presence] =11-25 0-5 H in Urine sediment by Light microscopy (test code = 17906-3) bacteria, urine (test code large (3 none detect H = bacteria, urine) urine culture added? (test no. contaminated. code = urine culture added?) mucus, urine (test code = =2 none detect mucus, urine) [facility] CenterComprehensive metabolic 2000 panel - Serum or Plasma 2019-08-20 09:33:00 Test Item Value Reference Range Interpretation Comments Glucose [Mass/volume] in Serum or 105 mg/dL 74-106 Plasma (test code = 2345-7) Urea nitrogen [Mass/volume] in 5 mg/dL 6-20 L Serum or Plasma (test code = 3094-0) osmolality calculated,serum (test 264 mOsm/kg 280-300 L code = osmolality calculated,serum) creatinine (test code = 0.4 mg/dL 0.50-0.90 L creatinine) glomerular filtration rate (test >60.00 code = glomerular filtration rate) Urea nitrogen/Creatinine [Mass 12.5 12-20 Ratio] in Serum or Plasma (test code = 3097-3) sodium level (test code = sodium 133 mmol/L 135-145 L level) potassium level (test code = 4.4 mmol/L 3.5-5.2 potassium level) chloride level (test code = 102 mmol/L 98-108 chloride level) CO2 (test code = CO2) 19 mmol/L 21-32 L anion gap (test code = anion gap) 16.4 mEq/L 12-20 calcium level (test code = 8.8 mg/dL 8.6-10.0 calcium level) total protein (test code = total 7.0 g/dL 6.6-8.7 protein) albumin (test code = albumin) 3.5 g/dL 3.5-5.2 globulin (test code = globulin) 3.5 gm/dL A/G ratio (test code = A/G ratio) 1.0 >1.0 bilirubin,total (test code = <0.3 0.0-1.2 bilirubin,total) AST/SGOT (test code = AST/SGOT) 12 U/L 15-32 L Alanine aminotransferase 9 U/L 0-33 [Enzymatic activity/volume] in Serum or Plasma (test code = 1742-6) Alkaline phosphatase [Enzymatic 149 U/L 35-105 H activity/volume] in Serum or Plasma (test code = 6768-6) [facility] CenterHepatic function 2000 panel - Serum or [id number] 09:33:00 Test Item Value Reference Range Interpretation Comments Bilirubin.direct [Mass/volume] in Serum <0.20 0.0-0.3 or Plasma (test code = 1968-7) [facility] CenterHemoglobin A1c [Mass/volume] in [id number] 09:33:00 Test Item Value Reference Range Interpretation Comments Hemoglobin A1c [Mass/volume] in Blood 5.2 % 4.0-6.0 (test code = 06737-1) [facility] Centerrapid strep group A, [id number] 09:59:00 Test Item Value Reference Range Interpretation Comments Strep Result (test code = Strep negative Result) [facility], [id number] 09:59:00 Test Item Value Reference Range Interpretation Comments Strep Result (test code = Strep negative Result) [facility] CenterUrinalysis complete panel - [id number] 07:49:00 Test Item Value Reference Range Interpretation Comments Color of Urine by Auto (test lt. yellow code = 64293-5) Appearance of Urine (test code = SL cloudy clear 5767-9) Glucose [Mass/volume] in Urine negative negative (test code = 2350-7) bilirubin, urine (test code = negative negative bilirubin, urine) ketone, urine (test code = negative negative ketone, urine) Specific gravity of Urine by 1.015 1.003-1.030 Automated test strip (test code = 77015-2) Hemoglobin [Presence] in Urine negative negative by Test strip (test code = 5794-3) pH of Urine (test code = 2756-5) 7.000 5-9 protein urine (UA) (test code = negative negative protein urine (UA)) Urobilinogen [Presence] in Urine 0.2 E.U./dL 0.2-1.0 (test code = 03732-6) Nitrite [Presence] in Urine by negative negative Test strip (test code = 5802-4) urine leukocyte esterase (test =1 negative H code = urine leukocyte esterase) Erythrocytes [Presence] in Urine none seen 0-5 (test code = 36171-8) WBC, urine (test code = WBC, =6-10 0-5 H urine) Epithelial cells [Presence] in more than 25 0-5 H Urine sediment by Light microscopy (test code = 92431-0) bacteria, urine (test code = large none detect H bacteria, urine) urine culture added? (test code no = urine culture added?) [facility] CenterUrinalysis complete panel - [id number] 07:49:00 Test Item Value Reference Range Interpretation Comments Color of Urine by Auto (test lt. yellow code = 62224-3) Appearance of Urine (test code = SL cloudy clear 5767-9) Glucose [Mass/volume] in Urine negative negative (test code = 2350-7) bilirubin, urine (test code = negative negative bilirubin, urine) ketone, urine (test code = negative negative ketone, urine) Specific gravity of Urine by 1.015 1.003-1.030 Automated test strip (test code = 41226-0) Hemoglobin [Presence] in Urine negative negative by Test strip (test code = 5794-3) pH of Urine (test code = 2756-5) 7.000 5-9 protein urine (UA) (test code = negative negative protein urine (UA)) Urobilinogen [Presence] in Urine 0.2 E.U./dL 0.2-1.0 (test code = 12074-5) Nitrite [Presence] in Urine by negative negative Test strip (test code = 5802-4) urine leukocyte esterase (test =1 negative H code = urine leukocyte esterase) Erythrocytes [Presence] in Urine none seen 0-5 (test code = 77198-7) WBC, urine (test code = WBC, =6-10 0-5 H urine) Epithelial cells [Presence] in more than 25 0-5 H Urine sediment by Light microscopy (test code = 76169-4) bacteria, urine (test code = large none detect H bacteria, urine) urine culture added? (test code no = urine culture added?) [facility] GroupUrinalysis complete panel - [id number] 07:49:00 Test Item Value Reference Range Interpretation Comments Color of Urine by Auto (test lt. yellow code = 74389-8) Appearance of Urine (test code = SL cloudy clear 5767-9) Glucose [Mass/volume] in Urine negative negative (test code = 2350-7) bilirubin, urine (test code = negative negative bilirubin, urine) ketone, urine (test code = negative negative ketone, urine) Specific gravity of Urine by 1.015 1.003-1.030 Automated test strip (test code = 74677-2) Hemoglobin [Presence] in Urine negative negative by Test strip (test code = 5794-3) pH of Urine (test code = 2756-5) 7.000 5-9 protein urine (UA) (test code = negative negative protein urine (UA)) Urobilinogen [Presence] in Urine 0.2 E.U./dL 0.2-1.0 (test code = 26442-7) Nitrite [Presence] in Urine by negative negative Test strip (test code = 5802-4) urine leukocyte esterase (test =1 negative H code = urine leukocyte esterase) Erythrocytes [Presence] in Urine none seen 0-5 (test code = 72562-4) WBC, urine (test code = WBC, =6-10 0-5 H urine) Epithelial cells [Presence] in more than 25 0-5 H Urine sediment by Light microscopy (test code = 94539-6) bacteria, urine (test code = large none detect H bacteria, urine) urine culture added? (test code no = urine culture added?) [facility] W Auto Differential panel - [id number] 08:55:00 Test Item Value Reference Range Interpretation Comments white blood count (test code = 10.7 K/uL 4.0-11.5 white blood count) red blood count (test code = red 3.85 M/uL 3.80-5.20 blood count) hemoglobin (test code = 11.5 g/dL 10.5-15.7 hemoglobin) hematocrit (test code = 34.9 % 34.0-50.0 hematocrit) Erythrocyte mean corpuscular 90.6 fL 86-100 volume [Entitic volume] (test code = 19400-5) mean corpuscular hemoglobin (test 29.9 pg 26.2-33.4 code = mean corpuscular hemoglobin) mean corpuscular HGB conc (test 33.0 g/dL 30-34 code = mean corpuscular HGB conc) red cell distribution width (test 13.3 % 12.0-15.5 code = red cell distribution width) platelet count (test code = 340 K/uL 165-450 platelet count) mean platelet volume (test code = 10.4 fL 9.4-12.6 mean platelet volume) Neutrophils.segmented/100 72.9 % 44.4-80.1 leukocytes in Blood (test code = 70430-3) Granulocytes Immature [#/volume] 0.1 K/uL 0.0-0.03 H in Blood (test code = 00757-0) lymphocyte% (test code = 17.9 % 10.0-50.0 lymphocyte%) mono % (test code = mono %) 6.8 % 3.6-12.0 eos % (test code = eos %) 1.4 % 0.0-5.4 Basophils/100 leukocytes in 0.3 % 0.1-1.2 Unspecified specimen (test code = 22909-3) Neutrophils.band form [#/volume] 7.78 K/uL 1.56-6.13 H in Blood (test code = 34563-9) Lymphocytes [#/volume] in 1.9 K/uL 1.18-3.74 Unspecified specimen by Automated count (test code = 74807-6) mono # (test code = mono #) 0.73 K/uL 0.24-0.86 eos # (test code = eos #) 0.15 K/uL 0.04-0.36 basophil # (test code = basophil 0.03 K/uL 0.01-0.08 #) NRBC% (test code = NRBC%) 0 /100 WBC 0-0.2 NRBC# (test code = NRBC#) 0 K/uL [facility] antibody screen [Presence] in Serum or Plasma 2019-07-22 08:55:00 Test Item Value Reference Range Interpretation Comments Blood group antibody screen negative [Presence] in Serum or Plasma (test code = 890-4) [facility] CenterReagin Ab [Presence] in Serum by [id number] 08:55:00 Test Item Value Reference Range Interpretation Comments Reagin Ab [Presence] in Serum by nonreactive nonreactive RPR (test code = 23155-4) [facility] CenterHIV 1+2 Ab [Presence] in [id number] 08:55:00HIV P24 AgHIV-1/2 [facility]Sim[facility] HospitalCB [facility] Auto Differential panel - Blood 2019-07-22 08:55:00 Test Item Value Reference Range Interpretation Comments white blood count (test code = 10.7 K/uL 4.0-11.5 white blood count) red blood count (test code = red 3.85 M/uL 3.80-5.20 blood count) hemoglobin (test code = 11.5 g/dL 10.5-15.7 hemoglobin) hematocrit (test code = 34.9 % 34.0-50.0 hematocrit) Erythrocyte mean corpuscular 90.6 fL 86-100 volume [Entitic volume] (test code = 33518-8) mean corpuscular hemoglobin (test 29.9 pg 26.2-33.4 code = mean corpuscular hemoglobin) mean corpuscular HGB conc (test 33.0 g/dL 30-34 code = mean corpuscular HGB conc) red cell distribution width (test 13.3 % 12.0-15.5 code = red cell distribution width) platelet count (test code = 340 K/uL 165-450 platelet count) mean platelet volume (test code = 10.4 fL 9.4-12.6 mean platelet volume) Neutrophils.segmented/100 72.9 % 44.4-80.1 leukocytes in Blood (test code = 60809-6) Granulocytes Immature [#/volume] 0.1 K/uL 0.0-0.03 H in Blood (test code = 09619-3) lymphocyte% (test code = 17.9 % 10.0-50.0 lymphocyte%) mono % (test code = mono %) 6.8 % 3.6-12.0 eos % (test code = eos %) 1.4 % 0.0-5.4 Basophils/100 leukocytes in 0.3 % 0.1-1.2 Unspecified specimen (test code = 25415-3) Neutrophils.band form [#/volume] 7.78 K/uL 1.56-6.13 H in Blood (test code = 25554-2) Lymphocytes [#/volume] in 1.9 K/uL 1.18-3.74 Unspecified specimen by Automated count (test code = 75820-8) mono # (test code = mono #) 0.73 K/uL 0.24-0.86 eos # (test code = eos #) 0.15 K/uL 0.04-0.36 basophil # (test code = basophil 0.03 K/uL 0.01-0.08 #) NRBC% (test code = NRBC%) 0 /100 WBC 0-0.2 NRBC# (test code = NRBC#) 0 K/uL [facility] screen [Presence] in Serum or Plasma 2019-07-22 08:55:00 Test Item Value Reference Range Interpretation Comments Blood group antibody screen negative [Presence] in Serum or Plasma (test code = 890-4) [facility] CenterReagin Ab [Presence] in Serum by [id number] 08:55:00 Test Item Value Reference Range Interpretation Comments Reagin Ab [Presence] in Serum by nonreactive nonreactive RPR (test code = 21805-2) [facility] CenterHIV 1+2 Ab [Presence] in [id number] 08:55:00HIV P24 AgHIV-1/2 AbNorth [facility] CenterCB W Auto Differential panel - Blood 2019-07-22 08:55:00 Test Item Value Reference Range Interpretation Comments white blood count (test code = 10.7 K/uL 4.0-11.5 white blood count) red blood count (test code = red 3.85 M/uL 3.80-5.20 blood count) hemoglobin (test code = 11.5 g/dL 10.5-15.7 hemoglobin) hematocrit (test code = 34.9 % 34.0-50.0 hematocrit) Erythrocyte mean corpuscular 90.6 fL 86-100 volume [Entitic volume] (test code = 53120-1) mean corpuscular hemoglobin (test 29.9 pg 26.2-33.4 code = mean corpuscular hemoglobin) mean corpuscular HGB conc (test 33.0 g/dL 30-34 code = mean corpuscular HGB conc) red cell distribution width (test 13.3 % 12.0-15.5 code = red cell distribution width) platelet count (test code = 340 K/uL 165-450 platelet count) mean platelet volume (test code = 10.4 fL 9.4-12.6 mean platelet volume) Neutrophils.segmented/100 72.9 % 44.4-80.1 leukocytes in Blood (test code = 90098-5) Granulocytes Immature [#/volume] 0.1 K/uL 0.0-0.03 H in Blood (test code = 47105-5) lymphocyte% (test code = 17.9 % 10.0-50.0 lymphocyte%) mono % (test code = mono %) 6.8 % 3.6-12.0 eos % (test code = eos %) 1.4 % 0.0-5.4 Basophils/100 leukocytes in 0.3 % 0.1-1.2 Unspecified specimen (test code = 33283-5) Neutrophils.band form [#/volume] 7.78 K/uL 1.56-6.13 H in Blood (test code = 98867-7) Lymphocytes [#/volume] in 1.9 K/uL 1.18-3.74 Unspecified specimen by Automated count (test code = 71119-7) mono # (test code = mono #) 0.73 K/uL 0.24-0.86 eos # (test code = eos #) 0.15 K/uL 0.04-0.36 basophil # (test code = basophil 0.03 K/uL 0.01-0.08 #) NRBC% (test code = NRBC%) 0 /100 WBC 0-0.2 NRBC# (test code = NRBC#) 0 K/uL [facility] screen [Presence] in Serum or Plasma 2019-07-22 08:55:00 Test Item Value Reference Range Interpretation Comments Blood group antibody screen negative [Presence] in Serum or Plasma (test code = 890-4) [facility] CenterRe[facility] Ab [Presence] in Serum by [id number] 08:55:00 Test Item Value Reference Range Interpretation Comments Reagin Ab [Presence] in Serum by nonreactive nonreactive RPR (test code = 49058-4) [facility] CenterHIV 1+2 Ab [Presence] in [id number] 08:55:00HIV P24 AgHIV-1/2 AbMataThe [facility] Hospital of MeridianUrinalysis macro (dipstick) panel - Urine 2019-06-30 09:41:48 Test Item Value Reference Range Interpretation Comments Leukocytes (test code = Leukocytes) Small Nitrite (test code = Nitrite) negative Urobilinogen (test code = 1 Urobilinogen) Protein (test code = Protein) 30 pH (test code = pH) 7.0 Blood (test code = Blood) Negative Specific [place] (test code = 1.025 Specific [place]) Ketone (test code = Ketone) Trace Bilirubin (test code = Bilirubin) Small Glucose (test code = Glucose) Negative Appearance (test code = Appearance) Clear Color (test code = Color) Yellow [facility] CenterUrinalysis macro (dipstick) panel - [id number] 09:41:48 Test Item Value Reference Range Interpretation Comments Leukocytes (test code = Leukocytes) Small Nitrite (test code = Nitrite) negative Urobilinogen (test code = 1 Urobilinogen) Protein (test code = Protein) 30 pH (test code = pH) 7.0 Blood (test code = Blood) Negative Specific [place] (test code = 1.025 Specific [place]) Ketone (test code = Ketone) Trace Bilirubin (test code = Bilirubin) Small Glucose (test code = Glucose) Negative Appearance (test code = Appearance) Clear Color (test code = Color) Yellow [facility] CenterCT + [facility] + TV, DNA, urine/[id number] 00:00:00 Test Item Value Reference Range Interpretation Comments chlamydia trachomatis by real-time negative PCR (reflex to azithromycin resistance by pyrosequencing) (test code = chlamydia trachomatis by real-time PCR (reflex to azithromycin resistance by pyrosequencing)) trichomonas vaginalis by real-time negative PCR (reflex to metronidazole resistance) (test code = trichomonas vaginalis by real-time PCR (reflex to metronidazole resistance)) neisseria gonorrhoeae by real-time negative PCR (reflex to antibiotic resistance by molecular analysis) (test code = neisseria gonorrhoeae by real-time PCR (reflex to antibiotic resistance by molecular analysis)) [facility] Centerb[facility] vaginosis panel, [id number] 00:00:00 Test Item Value Reference Range Interpretation Comments gardnerella vaginalis by negative real-time PCR (test code = gardnerella vaginalis by real-time PCR) atopobium vaginae by real-time negative PCR (test code = atopobium vaginae by real-time PCR) bacterial vaginosis associated negative bacterium 2 (bvab2) by real-time PCR (test code = bacterial vaginosis associated bacterium 2 (bvab2) by real-time PCR) megasphaera species (type 1 and negative type 2) by real-time PCR (test code = megasphaera species (type 1 and type 2) by real-time PCR) lactobacillus (bv & av panel) by see comment real time PCR (test code = lactobacillus (bv & av panel) by real time PCR) [facility] CenterCandida sp DNA [Presence] in Vaginal fluid by Probe and target amplification [id number] 00:00:00 Test Item Value Reference Range Interpretation Comments glen albicans by real-time PCR negative (test code = glen albicans by real-time PCR) glen tropicalis by real-time PCR negative (test code = glen tropicalis by real-time PCR) glen parapsilosis by real-time negative PCR (test code = glen parapsilosis by real-time PCR) glen glabrata by real-time PCR negative (test code = glen glabrata by real-time PCR) [facility] CenterCT [facility] + TV, DNA, [id number] 00:00:00 Test Item Value Reference Range Interpretation Comments chlamydia trachomatis by real-time negative PCR (reflex to azithromycin resistance by pyrosequencing) (test code = chlamydia trachomatis by real-time PCR (reflex to azithromycin resistance by pyrosequencing)) trichomonas vaginalis by real-time negative PCR (reflex to metronidazole resistance) (test code = trichomonas vaginalis by real-time PCR (reflex to metronidazole resistance)) neisseria gonorrhoeae by real-time negative PCR (reflex to antibiotic resistance by molecular analysis) (test code = neisseria gonorrhoeae by real-time PCR (reflex to antibiotic resistance by molecular analysis)) [facility] Centerb[facility] vaginosis panel, [id number] 00:00:00 Test Item Value Reference Range Interpretation Comments gardnerella vaginalis by negative real-time PCR (test code = gardnerella vaginalis by real-time PCR) atopobium vaginae by real-time negative PCR (test code = atopobium vaginae by real-time PCR) bacterial vaginosis associated negative bacterium 2 (bvab2) by real-time PCR (test code = bacterial vaginosis associated bacterium 2 (bvab2) by real-time PCR) megasphaera species (type 1 and negative type 2) by real-time PCR (test code = megasphaera species (type 1 and type 2) by real-time PCR) lactobacillus (bv & av panel) by see comment real time PCR (test code = lactobacillus (bv & av panel) by real time PCR) [facility] CenterCandida sp DNA [Presence] in Vaginal fluid by Probe and target amplification [id number] 00:00:00 Test Item Value Reference Range Interpretation Comments glen albicans by real-time PCR negative (test code = glen albicans by real-time PCR) glen tropicalis by real-time PCR negative (test code = glen tropicalis by real-time PCR) glen parapsilosis by real-time negative PCR (test code = glen parapsilosis by real-time PCR) glen glabrata by real-time PCR negative (test code = glen glabrata by real-time PCR) [facility] macro (dipstick) panel - [id number] 15:32:50 Test Item Value Reference Range Interpretation Comments Leukocytes (test code = Leukocytes) Trace Nitrite (test code = Nitrite) negative Urobilinogen (test code = 8 Urobilinogen) Protein (test code = Protein) Trace pH (test code = pH) 7.0 Blood (test code = Blood) Negative Specific [place] (test code = 1.020 Specific [place]) Ketone (test code = Ketone) Moderate Bilirubin (test code = Bilirubin) Small Glucose (test code = Glucose) Negative Appearance (test code = Appearance) Clear Color (test code = Color) Yellow [facility] CenterUrinalysis macro (dipstick) panel - [id number] 15:32:50 Test Item Value Reference Range Interpretation Comments Leukocytes (test code = Leukocytes) Trace Nitrite (test code = Nitrite) negative Urobilinogen (test code = 8 Urobilinogen) Protein (test code = Protein) Trace pH (test code = pH) 7.0 Blood (test code = Blood) Negative Specific [place] (test code = 1.020 Specific [place]) Ketone (test code = Ketone) Moderate Bilirubin (test code = Bilirubin) Small Glucose (test code = Glucose) Negative Appearance (test code = Appearance) Clear Color (test code = Color) Yellow [facility] CenterMicroscopic observation [Identifier] in Unspecified specimen by Wet [id number] 07:44:00 Test Item Value Reference Range Interpretation Comments Microscopic observation no trichomonas, [Identifier] in yeast or clue cell Unspecified specimen by observed. Wet preparation (test code = 680-9) [facility] CenterUrinalysis complete panel - [id number] 07:27:00 Test Item Value Reference Range Interpretation Comments Color of Urine by Auto light yellow (test code = 82052-6) Appearance of Urine (test SL cloudy clear A code = 5767-9) Glucose [Presence] in Urine negative negative by Automated test strip (test code = 19940-2) Bilirubin.total negative negative [Mass/volume] in Urine (test code = 1978-6) Ketones [Mass/volume] in negative negative Urine by Automated test strip (test code = 37965-1) Specific gravity of Urine 1.014 1.003-1.030 by Automated test strip (test code = 36806-3) blood urine (test code = =1 negative H blood urine) pH of Urine (test code = 7.500 5-9 2756-5) protein urine (UA) (test trace negative code = protein urine (UA)) Urobilinogen [Presence] in =2.0 0.2-1.0 H Urine (test code = 14732-3) Nitrite [Presence] in Urine negative negative by Test strip (test code = 5802-4) Leukocyte esterase =3 negative H [Presence] in Urine by Automated test strip (test code = 94860-7) Erythrocytes [#/volume] in =1-5 0-5 Urine by Automated count (test code = 798-9) Leukocytes [#/area] in =11-14 0-5 H Urine sediment by Automated count (test code = 50851-3) Epithelial cells [Presence] =20-29 0-5 in Urine sediment by Light microscopy (test code = 69152-6) Bacteria identified in moderate (2 none detect H Urine by Culture (test code = 630-4) urine culture added? (test no. contaminated. code = urine culture added?) [facility] W Auto Differential panel - [id number] 07:21:00 Test Item Value Reference Range Interpretation Comments white blood count (test code = 10.9 K/uL 4.0-11.5 white blood count) red blood count (test code = red 3.87 M/uL 3.80-5.20 blood count) hemoglobin (test code = 11.4 g/dL 10.5-15.7 hemoglobin) hematocrit (test code = 34.3 % 34.0-50.0 hematocrit) Erythrocyte mean corpuscular 88.6 fL 86-100 volume [Entitic volume] (test code = 34793-2) mean corpuscular hemoglobin (test 29.5 pg 26.2-33.4 code = mean corpuscular hemoglobin) mean corpuscular HGB conc (test 33.2 g/dL 30-34 code = mean corpuscular HGB conc) red cell distribution width (test 14.1 % 12.0-15.5 code = red cell distribution width) platelet count (test code = 290 K/uL 165-450 platelet count) mean platelet volume (test code = 9.8 fL 9.4-12.6 mean platelet volume) Neutrophils.segmented/100 73.2 % 44.4-80.1 leukocytes in Blood (test code = 95015-5) Granulocytes Immature [#/volume] 0.0 K/uL 0.0-0.03 in Blood (test code = 25350-1) lymphocyte% (test code = 19.2 % 10.0-50.0 lymphocyte%) mono % (test code = mono %) 5.5 % 3.6-12.0 eos % (test code = eos %) 1.4 % 0.0-5.4 Basophils/100 leukocytes in 0.3 % 0.1-1.2 Unspecified specimen (test code = 95991-8) Neutrophils.band form [#/volume] 8.00 K/uL 1.56-6.13 H in Blood (test code = 34508-9) Lymphocytes [#/volume] in 2.1 K/uL 1.18-3.74 Unspecified specimen by Automated count (test code = 82256-2) mono # (test code = mono #) 0.60 K/uL 0.24-0.86 eos # (test code = eos #) 0.15 K/uL 0.04-0.36 basophil # (test code = basophil 0.03 K/uL 0.01-0.08 #) NRBC% (test code = NRBC%) 0 /100 WBC 0-0.2 NRBC# (test code = NRBC#) 0 K/uL [facility] Groupdifferential panel, [id number] 07:21:00 NeutrophilsBandLymphocyteAtypical LymphMonocyteEosinophilBasophilPlatelet EstimatePlatelet MorphologyHypochromasiaAnisocytosisMicrocytosisDohle BodiesToxic VacuolationMataBrattleboro Memorial Hospital GroupPT/[id number] 07:21:00 Test Item Value Reference Range Interpretation Comments prothrombin time (test code = 9.8 seconds 10.3-12.3 L prothrombin time) INR in Blood by Coagulation assay 0.89 (test code = 72659-3) [facility] Centerpartial thromboplastin [id number] 07:21:00 Test Item Value Reference Range Interpretation Comments INR in Blood by Coagulation 29.3 seconds 22.5-37.0 assay (test code = 22613-3) [facility] CenterChoriogonadotropin.beta subunit [Units/volume] in Serum or [id number] 07:21:00 Test Item Value Reference Range Interpretation Comments HCG quantitative (test code = 7608.0 mIU/mL 0-5 HCG quantitative) [facility] CenterUrinalysis macro (dipstick) panel - [id number] 16:09:30 Test Item Value Reference Range Interpretation Comments Leukocytes (test code = Leukocytes) Negative Nitrite (test code = Nitrite) negative Urobilinogen (test code = 2 Urobilinogen) Protein (test code = Protein) Negative pH (test code = pH) 6.0 Blood (test code = Blood) Negative Specific [place] (test code = 1.030 Specific [place]) Ketone (test code = Ketone) Small Bilirubin (test code = Bilirubin) Small Glucose (test code = Glucose) Negative Appearance (test code = Appearance) Clear Color (test code = Color) Yellow [facility] CenterUrinalysis macro (dipstick) panel - [id number] 16:09:30 Test Item Value Reference Range Interpretation Comments Leukocytes (test code = Leukocytes) Negative Nitrite (test code = Nitrite) negative Urobilinogen (test code = 2 Urobilinogen) Protein (test code = Protein) Negative pH (test code = pH) 6.0 Blood (test code = Blood) Negative Specific [place] (test code = 1.030 Specific [place]) Ketone (test code = Ketone) Small Bilirubin (test code = Bilirubin) Small Glucose (test code = Glucose) Negative Appearance (test code = Appearance) Clear Color (test code = Color) Yellow [facility] CenterUrinalysis macro (dipstick) panel - [id number] 16:09:30 Test Item Value Reference Range Interpretation Comments Leukocytes (test code = Leukocytes) Negative Nitrite (test code = Nitrite) negative Urobilinogen (test code = 2 Urobilinogen) Protein (test code = Protein) Negative pH (test code = pH) 6.0 Blood (test code = Blood) Negative Specific [place] (test code = 1.030 Specific [place]) Ketone (test code = Ketone) Small Bilirubin (test code = Bilirubin) Small Glucose (test code = Glucose) Negative Appearance (test code = Appearance) Clear Color (test code = Color) Yellow [facility] GroupBacteria identified in Urine by [id number] 02:56:00 Test Item Value Reference Range Interpretation Comments Bacteria identified in no growth at 48 hrs. Urine by Culture (test code = 630-4) [facility] GroupBacteria identified in Urine by [id number] 02:56:00 Test Item Value Reference Range Interpretation Comments Bacteria identified in no growth at 48 hrs. Urine by Culture (test code = 630-4) [facility] CenterUrinalysis macro (dipstick) panel - [id number] 09:37:30 Test Item Value Reference Range Interpretation Comments Leukocytes (test code = Large Leukocytes) Nitrite (test code = negative Nitrite) Urobilinogen (test code = .2 Urobilinogen) Protein (test code = Trace Protein) pH (test code = pH) 7.0 Blood (test code = Blood) Non-Hemolyzed: Trace Specific [place] (test 1.020 code = Specific [place]) Ketone (test code = Negative Ketone) Bilirubin (test code = Negative Bilirubin) Glucose (test code = Negative Glucose) Appearance (test code = Clear Appearance) Color (test code = Color) Yellow [facility] CenterUrinalysis macro (dipstick) panel - [id number] 09:37:30 Test Item Value Reference Range Interpretation Comments Leukocytes (test code = Large Leukocytes) Nitrite (test code = negative Nitrite) Urobilinogen (test code = .2 Urobilinogen) Protein (test code = Trace Protein) pH (test code = pH) 7.0 Blood (test code = Blood) Non-Hemolyzed: Trace Specific [place] (test 1.020 code = Specific [place]) Ketone (test code = Negative Ketone) Bilirubin (test code = Negative Bilirubin) Glucose (test code = Negative Glucose) Appearance (test code = Clear Appearance) Color (test code = Color) Yellow [facility] CenterBacteria identified in Urine by [id number] 09:13:00Bacteria Ur CultMataThe Specialty Hospital of Meridianantibiotic sensitivity testing, [id number] 09:13:00 Test Item Value Reference Range Interpretation Comments Penicillin [Susceptibility] by <0.03 Minimum inhibitory concentration (KARINA) (test code = 6932-8) Vancomycin [Susceptibility] by 0.5 ug/mL Minimum inhibitory concentration (KARINA) (test code = 524-9) Levofloxacin [Susceptibility] by <2 Minimum inhibitory concentration (KARINA) (test code = 30155-1) Linezolid [Susceptibility] by <2 Minimum inhibitory concentration (KARINA) (test code = 22786-7) Daptomycin [Susceptibility] by <0.5 Minimum inhibitory concentration (KARINA) (test code = 47292-3) [facility] CenterChromosome 13+18+21+X+Y aneuploidy in Blood by Molecular genetics method [id number] 00:00:00 Test Item Value Reference Range Interpretation Comments report summary (test code see notes = report summary) report note (test code = see notes report note) trisomy 13 age-based risk score (test code = trisomy 13 age-based risk score) trisomy 13 risk score (test code = trisomy 13 risk score) trisomy 13 age-based risk 1/6,930 (0.01%) text (test code = trisomy 13 age-based risk text) trisomy 13 risk score text <1/10,000 (<0.01%) (test code = trisomy 13 risk score text) trisomy 13 age-based risk fraction (test code = trisomy 13 age-based risk fraction) trisomy 13 risk score fraction (test code = trisomy 13 risk score fraction) trisomy 13 result text low risk (test code = trisomy 13 result text) trisomy 13 result comments see notes (test code = trisomy 13 result comments) trisomy 18 age-based risk score (test code = trisomy 18 age-based risk score) trisomy 18 risk score (test code = trisomy 18 risk score) trisomy 18 age-based risk 1/2,200 (0.05%) text (test code = trisomy 18 age-based risk text) trisomy 18 risk score text <1/10,000 (<0.01%) (test code = trisomy 18 risk score text) trisomy 18 age-based risk fraction (test code = trisomy 18 age-based risk fraction) trisomy 18 risk score fraction (test code = trisomy 18 risk score fraction) trisomy 18 result text low risk (test code = trisomy 18 result text) trisomy 18 result comments see notes (test code = trisomy 18 result comments) trisomy 21 age-based risk score (test code = trisomy 21 age-based risk score) trisomy 21 risk score (test code = trisomy 21 risk score) trisomy 21 age-based risk 1/946 (0.11%) text (test code = trisomy 21 age-based risk text) trisomy 21 risk score text <1/10,000 (<0.01%) (test code = trisomy 21 risk score text) trisomy 21 age-based risk fraction (test code = trisomy 21 age-based risk fraction) trisomy 21 risk score fraction (test code = trisomy 21 risk score fraction) trisomy 21 result text low risk (test code = trisomy 21 result text) trisomy 21 result comments see notes (test code = trisomy 21 result comments) monosomy X age-based risk score (test code = monosomy X age-based risk score) monosomy X risk score (test code = monosomy X risk score) monosomy X age-based risk 1/255 (0.39%) text (test code = monosomy X age-based risk text) monosomy X risk score text <1/10,000 (<0.01%) (test code = monosomy X risk score text) monosomy X age-based risk fraction (test code = monosomy X age-based risk fraction) monosomy X risk score fraction (test code = monosomy X risk score fraction) monosomy X result text low risk (test code = monosomy X result text) monosomy X result comments see notes (test code = monosomy X result comments) triploidy result text low risk (test code = triploidy result text) triploidy result comments see notes (test code = triploidy result comments) gender of fetus (test code male = gender of fetus) fraction (in %) 7.4 % (test code = fraction (in %)) fraction (test code 7.4% = fraction) footnotes (test code = see notes footnotes) boiler plate text (test see notes code = boiler plate text) references (test code = see notes references) approvals (test code = see notes approvals) contacts (test code = see notes contacts) [facility] CenterGenetic screen in Unspecified specimen by Molecular genetics method [id number] 00:00:00 Test Item Value Reference Range Interpretation Comments alpha-thalassemia (test code = negative alpha-thalassemia) beta-hemoglobinopathies (test code negative = beta-hemoglobinopathies) ryne disease (test code = negative ryne disease) cystic fibrosis (test code = cystic negative fibrosis) duchenne/jade muscular dystrophy negative (test code = duchenne/jade muscular dystrophy) familial dysautonomia (test code = negative familial dysautonomia) fragile X syndrome (test code = negative fragile X syndrome) galactosemia (test code = negative galactosemia) gaucher disease (test code = negative gaucher disease) 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 (test yes code = IS this patient ?) did this patient sign the patient yes acknowledgement? (test code = did this patient sign the patient acknowledgement?) did the ordering clinician sign the yes statement of informed consent? (test code = did the ordering clinician sign the statement of informed consent?) zip code of the ordering facility [address] (test code = zip code of the ordering facility) IS the patient currently using no hormonal medications? (test code = IS the patient currently using hormonal medications?) patient ethnicity (test code = patient ethnicity) report note (test code = report see notes note) footnotes (test code = footnotes) see notes references (test code = references) see notes approvals (test code = approvals) see notes contacts (test code = contacts) see notes [facility] GroupMicroscopic observation [Identifier] in Cervix by Cyto stain.thin [id number] 10:40:00ResultsMatagorda Medical GroupMicroscopic observation [Identifier] in Cervix by Cyto stain.thin [id number] 10:40:00 ResultsMatagorda Medical GroupChlamydia trachomatis+Neisseria gonorrhoeae DNA [Presence] in Cervix by Probe and target amplification [id number] 10:32:00 ResultsMatagorda Medical GroupBacteria identified in Urine by [id number] 10:32:00Bacteria Ur CultMatagorda Medical GroupChlamydia trachomatis+Neisseria gonorrhoeae DNA [Presence] in Cervix by Probe and target amplification method 2019-03-12 10:32:00ResultsMatagorda Medical GroupBacteria identified in Urine by [id number] 10:32:00Bacteria Ur CultOktajohnson memorial hospitala Medical GroupUrinalysis macro (dipstick) panel - [id number] 09:44:32 Test Item Value Reference Range Interpretation Comments Leukocytes (test code = Leukocytes) Small Nitrite (test code = Nitrite) negative Urobilinogen (test code = 4 Urobilinogen) Protein (test code = Protein) 30 pH (test code = pH) 8.0 Blood (test code = Blood) Negative Specific [place] (test code = 1.020 Specific [place]) Ketone (test code = Ketone) Negative Bilirubin (test code = Bilirubin) Negative Glucose (test code = Glucose) Negative Appearance (test code = Appearance) Clear Color (test code = Color) Yellow [facility] HospitalUrinalysis macro (dipstick) panel - [id number] 09:44:32 Test Item Value Reference Range Interpretation Comments Leukocytes (test code = Leukocytes) Small Nitrite (test code = Nitrite) negative Urobilinogen (test code = 4 Urobilinogen) Protein (test code = Protein) 30 pH (test code = pH) 8.0 Blood (test code = Blood) Negative Specific [place] (test code = 1.020 Specific [place]) Ketone (test code = Ketone) Negative Bilirubin (test code = Bilirubin) Negative Glucose (test code = Glucose) Negative Appearance (test code = Appearance) Clear Color (test code = Color) Yellow [facility] CenterUrinalysis macro (dipstick) panel - [id number] 09:44:32 Test Item Value Reference Range Interpretation Comments Leukocytes (test code = Leukocytes) Small Nitrite (test code = Nitrite) negative Urobilinogen (test code = 4 Urobilinogen) Protein (test code = Protein) 30 pH (test code = pH) 8.0 Blood (test code = Blood) Negative Specific [place] (test code = 1.020 Specific [place]) Ketone (test code = Ketone) Negative Bilirubin (test code = Bilirubin) Negative Glucose (test code = Glucose) Negative Appearance (test code = Appearance) Clear Color (test code = Color) Yellow [facility] Centerpregnancy test, [id number] 12:15:00 Test Item Value Reference Range Interpretation Comments Test (test code = positive Test) [facility] Centerpreancy test, [id number] 12:15:00 Test Item Value Reference Range Interpretation Comments Test (test code = positive Test) [facility] Centerpreancy test, [id number] 12:15:00 Test Item Value Reference Range Interpretation Comments Test (test code = positive Test) [facility] W Auto Differential panel - [id number] 09:05:00 Test Item Value Reference Range Interpretation Comments white blood count (test code = 9.1 K/uL 4.0-11.5 white blood count) red blood count (test code = red 4.96 M/uL 3.80-5.20 blood count) hemoglobin (test code = 13.9 g/dL 10.5-15.7 hemoglobin) hematocrit (test code = 44.0 % 34.0-50.0 hematocrit) Erythrocyte mean corpuscular 88.7 fL 86-100 volume [Entitic volume] (test code = 87069-9) Erythrocyte mean corpuscular 28.0 pg 26.2-33.4 hemoglobin [Entitic mass] (test code = 58765-7) mean corpuscular HGB conc (test 31.6 g/dL 30-34 code = mean corpuscular HGB conc) red cell distribution width (test 12.9 % 12.0-15.5 code = red cell distribution width) platelet count (test code = 378 K/uL 165-450 platelet count) mean platelet volume (test code = 10.4 fL 9.4-12.6 mean platelet volume) Neutrophils.segmented/100 70.2 % 44.4-80.1 leukocytes in Blood (test code = 08598-2) Ig% (test code = Ig%) 0.3 % 0.0-0.4 lymphocyte% (test code = 21.3 % 10.0-50.0 lymphocyte%) Monocytes/100 leukocytes in Blood 5.3 % 3.6-12.0 by Automated count (test code = 5905-5) Eosinophils/100 leukocytes in 2.6 % 0.0-5.4 Blood by Automated count (test code = 713-8) Basophils/100 leukocytes in 0.3 % 0.1-1.2 Unspecified specimen (test code = 78818-1) absolute neutrophil count (test 6.38 K/uL 1.56-6.13 H code = absolute neutrophil count) Ig# (test code = Ig#) 0.0 K/uL 0.0-0.03 Lymphocytes [#/volume] in 1.9 K/uL 1.18-3.74 Unspecified specimen by Automated count (test code = 25514-7) mono # (test code = mono #) 0.48 K/uL 0.24-0.86 eos # (test code = eos #) 0.24 K/uL 0.04-0.36 basophil # (test code = basophil 0.03 K/uL 0.01-0.08 #) NRBC% (test code = NRBC%) 0 /100 WBC 0-0.2 NRBC# (test code = NRBC#) 0 K/uL [facility] Centerdifferential panel, [id number] 09:05:00 NeutrophilsBandLymphocyteAtypical LymphMonocyteEosinophilBasophilMetamyelocyteMyelocyteNucleated RedBlood CellPlatelet EstimatePlatelet MorphologyPolychromasiaHypochromasiaPoikilocytosis [facility] CenterHemoglobin A1c [Mass/volume] in [id number] 09:05:00 Test Item Value Reference Range Interpretation Comments Hemoglobin A1c in Blood (test code = 5.0 % 4.0-6.0 20514-3) [facility] CenterRubella virus IgG Ab [Titer] in [id number] 09:05:00 Test Item Value Reference Range Interpretation Comments Rubella virus IgG Ab 286.5 [IU]/mL [Units/volume] in Serum by Immunoassay (test code = 5334-8) [facility] CenterHIV 1+2 Ab [Presence] in [id number] 09:05:00HIV P24 AgHIV-1/2 AbNorth [facility] Medical CenterABO & Rh group [Type] in [id number] 09:05:00 Test Item Value Reference Range Interpretation Comments Rh [Type] in Blood (test code = 3+ 36273-3) ABO and Rh group panel - Blood O positive (test code = 22208-7) [facility] CenterBlood group antibody screen [Presence] in Serum or Plasma 2019-03-05 09:05:00 Test Item Value Reference Range Interpretation Comments Blood group antibody screen negative [Presence] in Serum or Plasma (test code = 890-4) [facility] CenterHepatitis B virus surface Ag [Presence] in Serum 2019-03-05 09:05:00 Test Item Value Reference Range Interpretation Comments .hepatitis B surface antigen (test negative negative code = .hepatitis B surface antigen) [facility] CenterBacteria identified in Urine by [id number] 09:05:00Bacteria Ur CultNorth [facility] Medical CenterReagin Ab [Presence] in Serum by [id number] 09:05:00 Test Item Value Reference Range Interpretation Comments Reagin Ab [Presence] in Serum by nonreactive nonreactive RPR (test code = 69624-2) [facility] CenterCB W Auto Differential panel - [id number] 09:05:00 Test Item Value Reference Range Interpretation Comments white blood count (test code = 9.1 K/uL 4.0-11.5 white blood count) red blood count (test code = red 4.96 M/uL 3.80-5.20 blood count) hemoglobin (test code = 13.9 g/dL 10.5-15.7 hemoglobin) hematocrit (test code = 44.0 % 34.0-50.0 hematocrit) Erythrocyte mean corpuscular 88.7 fL 86-100 volume [Entitic volume] (test code = 24252-3) Erythrocyte mean corpuscular 28.0 pg 26.2-33.4 hemoglobin [Entitic mass] (test code = 04687-3) mean corpuscular HGB conc (test 31.6 g/dL 30-34 code = mean corpuscular HGB conc) red cell distribution width (test 12.9 % 12.0-15.5 code = red cell distribution width) platelet count (test code = 378 K/uL 165-450 platelet count) mean platelet volume (test code = 10.4 fL 9.4-12.6 mean platelet volume) Neutrophils.segmented/100 70.2 % 44.4-80.1 leukocytes in Blood (test code = 23898-9) Ig% (test code = Ig%) 0.3 % 0.0-0.4 lymphocyte% (test code = 21.3 % 10.0-50.0 lymphocyte%) Monocytes/100 leukocytes in Blood 5.3 % 3.6-12.0 by Automated count (test code = 5905-5) Eosinophils/100 leukocytes in 2.6 % 0.0-5.4 Blood by Automated count (test code = 713-8) Basophils/100 leukocytes in 0.3 % 0.1-1.2 Unspecified specimen (test code = 88822-7) absolute neutrophil count (test 6.38 K/uL 1.56-6.13 H code = absolute neutrophil count) Ig# (test code = Ig#) 0.0 K/uL 0.0-0.03 Lymphocytes [#/volume] in 1.9 K/uL 1.18-3.74 Unspecified specimen by Automated count (test code = 35946-7) mono # (test code = mono #) 0.48 K/uL 0.24-0.86 eos # (test code = eos #) 0.24 K/uL 0.04-0.36 basophil # (test code = basophil 0.03 K/uL 0.01-0.08 #) NRBC% (test code = NRBC%) 0 /100 WBC 0-0.2 NRBC# (test code = NRBC#) 0 K/uL [facility], [id number] 09:05:00 NeutrophilsBandLymphocyteAtypical LymphMonocyteEosinophilBasophilMetamyelocyteMyelocyteNucleated RedBlood CellPlatelet EstimatePlatelet MorphologyPolychromasiaHypochromasiaPoikilocytosis [facility] GroupHemoglobin A1c/Hemoglobin.total in [id number] 09:05:00 Test Item Value Reference Range Interpretation Comments Hemoglobin A1c in Blood (test code = 5.0 % 4.0-6.0 54286-7) [facility] CenterRubella virus Ab [Titer] in [id number] 09:05:00 Test Item Value Reference Range Interpretation Comments Rubella virus IgG Ab 286.5 [IU]/mL [Units/volume] in Serum by Immunoassay (test code = 5334-8) [facility] CenterHIV 1+2 Ab [Presence] in [id number] 09:05:00HIV P24 AgHIV-1/2 AbNorth [facility] Medical CenterABO & Rh group [Type] in [id number] 09:05:00 Test Item Value Reference Range Interpretation Comments Rh [Type] in Blood (test code = 3+ 57486-6) ABO and Rh group panel - Blood O positive (test code = 04275-3) [facility] CenterBlood [facility] antibody screen [Presence] in Serum or Plasma 2019-03-05 09:05:00 Test Item Value Reference Range Interpretation Comments Blood group antibody screen negative [Presence] in Serum or Plasma (test code = 890-4) [facility] CenterHepatitis B virus surface Ag [Presence] in Serum 2019-03-05 09:05:00 Test Item Value Reference Range Interpretation Comments .hepatitis B surface antigen (test negative negative code = .hepatitis B surface antigen) [facility] GroupBacteria identified in Urine by [id number] 09:05:00Bacteria Ur CultJoint [facility] GroupReagin Ab [Presence] in Serum by [id number] 09:05:00 Test Item Value Reference Range Interpretation Comments Reagin Ab [Presence] in Serum by nonreactive nonreactive RPR (test code = 22234-8) [facility] CenterCBC W Auto Differential panel - [id number] 09:05:00 Test Item Value Reference Range Interpretation Comments white blood count (test code = 9.1 K/uL 4.0-11.5 white blood count) red blood count (test code = red 4.96 M/uL 3.80-5.20 blood count) hemoglobin (test code = 13.9 g/dL 10.5-15.7 hemoglobin) hematocrit (test code = 44.0 % 34.0-50.0 hematocrit) Erythrocyte mean corpuscular 88.7 fL 86-100 volume [Entitic volume] (test code = 03554-7) Erythrocyte mean corpuscular 28.0 pg 26.2-33.4 hemoglobin [Entitic mass] (test code = 62341-9) mean corpuscular HGB conc (test 31.6 g/dL 30-34 code = mean corpuscular HGB conc) red cell distribution width (test 12.9 % 12.0-15.5 code = red cell distribution width) platelet count (test code = 378 K/uL 165-450 platelet count) mean platelet volume (test code = 10.4 fL 9.4-12.6 mean platelet volume) Neutrophils.segmented/100 70.2 % 44.4-80.1 leukocytes in Blood (test code = 64943-3) Ig% (test code = Ig%) 0.3 % 0.0-0.4 lymphocyte% (test code = 21.3 % 10.0-50.0 lymphocyte%) Monocytes/100 leukocytes in Blood 5.3 % 3.6-12.0 by Automated count (test code = 5905-5) Eosinophils/100 leukocytes in 2.6 % 0.0-5.4 Blood by Automated count (test code = 713-8) Basophils/100 leukocytes in 0.3 % 0.1-1.2 Unspecified specimen (test code = 91588-9) absolute neutrophil count (test 6.38 K/uL 1.56-6.13 H code = absolute neutrophil count) Ig# (test code = Ig#) 0.0 K/uL 0.0-0.03 Lymphocytes [#/volume] in 1.9 K/uL 1.18-3.74 Unspecified specimen by Automated count (test code = 43331-4) mono # (test code = mono #) 0.48 K/uL 0.24-0.86 eos # (test code = eos #) 0.24 K/uL 0.04-0.36 basophil # (test code = basophil 0.03 K/uL 0.01-0.08 #) NRBC% (test code = NRBC%) 0 /100 WBC 0-0.2 NRBC# (test code = NRBC#) 0 K/uL [facility] Groupdifferential panel, [id number] 09:05:00 NeutrophilsBandLymphocyteAtypical LymphMonocyteEosinophilBasophilMetamyelocyteMyelocyteNucleated RedBlood CellPlatelet EstimatePlatelet MorphologyPolychromasiaHypochromasiaPoikilocytosis [facility] GroupHemoglobin A1c/Hemoglobin.total in [id number] 09:05:00 Test Item Value Reference Range Interpretation Comments Hemoglobin A1c in Blood (test code = 5.0 % 4.0-6.0 01095-2) [facility] GroupRubella virus Ab [Titer] in [id number] 09:05:00 Test Item Value Reference Range Interpretation Comments Rubella virus IgG Ab 286.5 [IU]/mL [Units/volume] in Serum by Immunoassay (test code = 5334-8) [facility] GroupHIV 1+2 Ab [Presence] in [id number] 09:05:00HIV P24 AgHIV-1/2 AbMatabristol hospital Medical GroupABO & Rh group [Type] in [id number] 09:05:00 Test Item Value Reference Range Interpretation Comments Rh [Type] in Blood (test code = 3+ 53912-4) ABO and Rh group panel - Blood O positive (test code = 07820-1) [facility] GroupBlood group antibody screen [Presence] in Serum or Plasma 2019-03-05 09:05:00 Test Item Value Reference Range Interpretation Comments Blood group antibody screen negative [Presence] in Serum or Plasma (test code = 890-4) [facility] GroupHepatitis B virus surface Ag [Presence] in Serum 2019-03-05 09:05:00 Test Item Value Reference Range Interpretation Comments .hepatitis B surface antigen (test negative negative code = .hepatitis B surface antigen) [facility] GroupBacteria identified in Urine by [id number] 09:05:00Bacteria Ur CultMataThe Specialty Hospital of MeridianReagin Ab [Presence] in Serum by [id number] 09:05:00 Test Item Value Reference Range Interpretation Comments Reagin Ab [Presence] in Serum by nonreactive nonreactive RPR (test code = 38598-2) [facility]
--- NOTE | 2022-01-09 15:55 | ER ---
Nurse's Notes [facility] [place] Name: Debora Taveras Age: 26 yrs Sex: Female : 1995 Arrival Date: 01/09/2022 Time: 12:52 Bed Waiting Private MD: Diagnosis: Acute pharyngitis, unspecified;Otitis media, unspecified, right ear Presentation: 01/09 13:12 Chief complaint: Patient states: Sore throat, right ear, nasal drainage and coughing up ww green bloody mucus. "Girlfriend has stomach bug and had strep throat so not sure what I have but I can't get over this". Coronavirus screen: Client denies travel out of the [place] in the last 14 days. Ebola Screen: Patient denies travel to an Ebola-affected area in the 21 days before illness onset. Initial Sepsis Screen: Does the patient meet any 2 criteria? No. Patient's initial sepsis screen is negative. Does the patient have a suspected source of infection? No. Patient's initial sepsis screen is negative. Risk Assessment: Do you want to hurt yourself or someone else? Patient reports no desire to harm self or others. Onset of symptoms is unknown. 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 - Social history:: Smoking status: Patient denies any tobacco usage or history of. Vital Signs: 13:12 BP 124 / 82; Pulse 105; Resp 20; Temp 100.0; Pulse Ox 100% ; Height 5 ft. 3 in. (160.02 ww cm); Pain 3/10; ED Course: 12:52 Patient arrived in ED. ds1 13:04 Aki Amaro NP is PHCP. pm1 13:04 Burke Kee MD is Attending Physician. pm1 13:13 Triage completed. ww 13:13 Arm band placed on. ww 13:23 COVID swab sent to lab. Flu and/or RSV swab sent to lab. Strep swab sent to lab. ww Administered Medications: No medications were administered Outcome: 15:54 Discharge ordered by . pm1 16:00 Discharged to home ambulatory. ww 16:00 Condition: stable 16:00 Discharge instructions given to patient, Instructed on discharge instructions, follow up and referral plans. medication usage, safety practices, Demonstrated understanding of instructions, follow-up care, medications, Prescriptions given X 2. 16:01 Patient left the ED. fernando Signatures: Sylvie Lopez ds1 Aki Amaro NP PERSONNEL RESEARCH PSYCHOLOGIST pm1 Brenda Lo, RN RN ww
--- NOTE | 2022-01-09 15:55 | EDPHYS ---
Physician Documentation [facility] Name: Debora Taveras Age: 26 yrs Sex: Female : 1995 Arrival Date: 01/09/2022 Time: 12:52 Bed Waiting Private MD: ED Physician Burke Kee HPI: 01/09 13:20 This 26 yrs old Female presents to ER via Ambulatory with complaints of Sore Throat, pm1 Cough, Headache. 13:20 The patient presents with sore throat. The patient describes throat pain as raw, pm1 scratchy. 13:20 Onset: The symptoms/episode began/occurred 1 week(s) ago. Severity of symptoms: in the pm1 emergency department the symptoms are unchanged. Modifying factors: The symptoms are alleviated by nothing, the symptoms are aggravated by nothing, The patient has had contact with sick significant other, at home. Associated signs and symptoms: Pertinent positives: earache, headache. The patient has not experienced similar symptoms in the past. The patient has not recently seen a physician. Patient sent here by work to get testing results prior to her returning to work. 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 - Social history:: Smoking status: Patient denies any tobacco usage or history of. ROS: 13:20 Constitutional: Negative for fever, chills, and weight loss, Cardiovascular: Negative pm1 for chest pain, palpitations, and edema, Respiratory: Negative for shortness of breath, cough, wheezing, and pleuritic chest pain, Abdomen/GI: Negative for abdominal pain, nausea, vomiting, diarrhea, and constipation, MS/Extremity: Negative for injury and deformity, Skin: Negative for injury, rash, and discoloration. 13:20 Neuro: Positive for headache, Negative for numbness, tingling, weakness. 13:20 All other systems are negative. Exam: 13:20 Constitutional: This is a well developed, well nourished patient who is awake, alert, pm1 and in no acute distress. 13:20 Head/Face: Normocephalic, atraumatic. 13:20 Back: No spinal tenderness. No costovertebral tenderness. Full range of motion. 13:20 Skin: Warm, dry with normal turgor. Normal color with no rashes, no lesions, and no evidence of cellulitis. MS/ Extremity: Pulses equal, no cyanosis. Neurovascular intact. Full, normal range of motion. 13:20 Cardiovascular: Exam negative for acute changes, Rate: normal, Rhythm: regular, Pulses: no pulse deficits are appreciated. 13:20 Respiratory: Exam negative for acute changes, respiratory distress, shortness of breath, Breath sounds: are clear throughout. 13:20 Abdomen/GI: Exam negative for acute changes, Inspection: abdomen appears normal, Palpation: abdomen is soft and non-tender, in all quadrants. 13:20 Neuro: Exam negative for acute changes, Orientation: is normal, Mentation: is normal, Motor: is normal, moves all fours. Vital Signs: 13:12 BP 124 / 82; Pulse 105; Resp 20; Temp 100.0; Pulse Ox 100% ; Height 5 ft. 3 in. (160.02 ww cm); Pain 3/10; MDM: 13:30 Data reviewed: vital signs. Data interpreted: Pulse oximetry: on room air is 100 %. pm1 Interpretation: normal. 13:30 Patient medically screened. pm1 15:53 Counseling: I had a detailed discussion with the patient and/or guardian regarding: the pm1 historical points, exam findings, and any diagnostic results supporting the discharge/admit diagnosis, lab results, the need for outpatient follow up, to return to the emergency department if symptoms worsen or persist or if there are any questions or concerns that arise at home. 01/09 13:20 Order name: Influenza Screen (a \T\ B); Complete Time: 14:46 ww 01/09 13:20 Order name: Strep; Complete Time: 14:46 ww 01/09 14:01 Order name: SARS-COV-2 RT PCR; Complete Time: 15:06 EDMS 01/09 14:33 Order name: Throat Culture EDMS Administered Medications: No medications were administered Disposition Summary: 01/09/22 15:54 Discharge Ordered Location: Home pm1 Problem: new pm1 Symptoms: have improved pm1 Condition: Stable pm1 Diagnosis - Acute pharyngitis, unspecified pm1 - Otitis media, unspecified, right ear pm1 Followup: pm1 - With: Emergency Department - When: As needed - Reason: Worsening of condition Followup: pm1 - With: Private Physician - When: 2 - 3 days - Reason: Recheck today's complaints, Continuance of care, Re-evaluation by your physician Discharge Instructions: - Discharge Summary Sheet pm1 - Otitis Media, Adult pm1 - Pharyngitis pm1 Forms: - Work release form pm1 - Medication Reconciliation Form pm1 - Thank You Letter pm1 - Antibiotic Education pm1 - Prescription Opioid Use pm1 Prescriptions: - Zithromax Z-Quinton 250 mg Oral Tablet - take 1 tablet by ORAL route as directed for 5 days Day 1 - take two (2) tablets pm1 one time. Day 2, 3, 4 , 5 take one (1) tablet once daily.; 6 tablet; Refills: 0, Product Selection Permitted - Diclofenac Sodium 75 mg Oral Tablet Sustained Release - take 1 tablet by ORAL route 2 times per day; 30 tablet; Refills: 0, Product pm1 Selection Permitted Signatures: Dispatcher [employer] Aki Horner NP SOFTWARE BUILD ENGINEER pm1 Brenda Lo RN RN ww Corrections: (The following items were deleted from the chart) 14:01 13:21 COVID 19 CPL+LAB.BRZ ordered. ABBEFL COLT
[2022-01-09 16:23] VITALS: BP 124/82; TEMP 100; O2SAT 100
== END 2022-01-09 16:01 | disposition home or self-care (01) ==
LOC: ER 12:49
DX: H66.91 Otitis media, unspecified, right ear (principal); J02.9 Acute pharyngitis, unspecified; Z20.822 Contact with and (suspected) exposure to COVID-19; Z88.0 Allergy status to penicillin
CPT/HCPCS: 87070; 87081; 87804 ×2; U0003; 99283

== ENCOUNTER 2022-10-13 18:00 | Emergency (ER) | payer OTHER ==
--- OUTSIDE RECORDS SUMMARY | 2022-10-13 18:08 | XMS REPORT | Continuity of Care Document ---
:1995 Author Organization [facility] t Address [address] [place] [address] Care Team Providers Name Role Phone Pcp, Patient Does Not Have A Primary Care Physician [phone] Rubina Jay MD Attending Clinician RUBINA JAY Attending Clinician Unavailable Doctor Unassigned, [place] Attending Clinician Unavailable Only, Adc Test Attending Clinician Unavailable [address] HORNE Attending Clinician Chino Zhang MD Attending Clinician CHINO ZHANG Attending Clinician Unavailable BrendaEusebio Hayden Attending Clinician G_Reuben Attending Clinician Unavailable TEJA ALEXIS Attending Clinician Unavailable ANTHONY Attending Clinician Unavailable LING PACE Attending Clinician Unavailable REYES LOYA Attending Clinician Unavailable HELENA WARD Attending Clinician Unavailable LINDA PEREIRA Attending Clinician Unavailable JON VIGIL Attending Clinician Unavailable LUCIA JAVIER Attending Clinician Unavailable DONNA CESPEDES Attending Clinician Unavailable ARANZA PIERRE Attending Clinician Unavailable JORDAN MENSAH Attending Clinician Unavailable FELA CAMERON Attending Clinician Unavailable ANNA BOGGS Attending Clinician Unavailable RUBINA JAY Admitting Clinician Unavailable Rubina Jay MD Admitting Clinician G_Papprem Admitting Clinician Unavailable ANTHONY Admitting Clinician Unavailable TEJA ALEXIS Admitting Clinician Unavailable HELENA WARD Admitting Clinician Unavailable Payers Payer Name Policy Type Policy Number Effective Date Expiration Date S delia [facility] [id number] 2016 00:00:00 [facility] [place] [place] (MEDICAID HMO) Problems Condition Condition Condition Status Onset Resolution Last Treating Co mments Source Name Details Category Date Date Treatment Clinician Date Obesity Obesity Disease Active 2020-08 Univers (BMI (BMI 1-29 ity of 30-39.9) 30-39.9) 00:00: [place] 00 Medical Branch Right Right Disease Active 2020-08 Overview: Univer s upper upper 1-11 Formattin ity of quadrant quadrant 00:00: g of this [place] as pain pain 00 note Medical might be Branch different from the original. Added automatic ally from request for surgery [id number] Epigastric Epigastric Disease Active 2020-08 Overview : Univers pain pain 0-08 Formattin ity of 00:00: g of this [place] 00 note Medical might be Branch different from the original. Added automatic ally from request for surgery [id number] Sterilizat Sterilizat Problem Active 2019-08 M [place] ion ion 1-06 da requested Requested 00:00: Medi bob 00 Group Removal of Removal of Problem Active 2019-08 M at[facility] subcutaneo Subcutaneo 1-06 da us 00:00: Medical contracept Contracept 00 Gr oup [...] da 00:00: Medical 00 Group Problem Active M at[facility] care Care 3-03 da 00:00: Medical 00 Group Pruritus Pruritus Problem Active 2018-08 [place] of skin of Skin 2- da 00:00: Medical 00 Group Large for [...] Univers ins Allergy 0-07 ity of 00:00: [place] 00 Medical Branch PENICILL Allergy Active Moderate Rash [place] INS to da substanc Medical e Group Social History Social Habit Start Date Stop Date Quantity Comments Source Exposure to Not sure [facility] SARS-CoV-2 (event) [facility] Tobacco use and 2021-06-16 2021-06-16 [facility] used [facility] exposure 00:00:00 00:00:00 Medical Branch Sex Assigned At [birth year] [facility] 00:00:00 00:00:00 Medical Branch Smoking Status Start Date Stop Date Source Former Smoker Carmelita Carrascoa l [facility] Never smoker [facility] Medical Branch Medications Ordered Filled Start Stop Current Ordering Indication Dosage Frequency Signature Comments Components Source Medication Medication Date Date Medication? Clinician (SIG) Name Name methocarbam 2020-08 Yes [id number] 500mg Take 1 Univers oL 500 mg 1-29 tablet by ity o f tablet 00:00: mouth 4 [place] 00 (four) Medical times Branch daily. pantoprazol 2020-08 Yes [id number] 40mg Take 1 Univers e 40 mg EC 0-26 tablet by ity of tablet 00:00: mouth [place] 00 daily. Medical Branch sucralfate 2020-08 Yes [id number] 1g Take 1 U nivers (CARAFATE) 0-26 tablet by ity of 1 gram 00:00: mouth [place] tablet 00 before Medical meals and Branch at bedtime. dicyclomine Yes [id number] 20mg Take 1 Univers 20 mg 9-30 tablet by ity of tablet 00:00: mouth [place] 00 every 6 Medical (six) Branch hours as needed for Abdominal pain. ondansetron Yes [id number] 4mg Take 1 Univers (ZOFRAN 7-13 tablet by ity of ODT) 4 mg 00:00: mouth [place] disintegrat 00 every 8 Medic al ing tablet (eight) Branch hours as needed for Nausea and Vomiting (N/V). citalopram citalopram No citalopram [place] 20 mg 20 mg 20 mg da tablet tablet tablet [facility] escitalopra escitalopra No escitalopr [...] 600 mg da tablet tablet tablet [facility] Nexplanon Nexplanon No Nexplanon [place] 68 mg 68 mg 68 mg da subdermal subdermal subdermal [facility] implant implant implant [facility] acetaminoph acetaminoph No acetaminop [...] Source Name Name Tdap Tdap 2019-10-06 Completed [place] 00:00:00 [facility] influenza, influenza, 2019-10-06 Completed [place] injectable, injectable, 00:00:00 [facility] quadrivalent quadrivalent Outreach P rogram Vital Signs Vital Name Observation Time Observation Value Comments Source Systolic blood 2021-08-03 17:20:00 105 mm[Hg] Univer sity [facility] Diastolic blood 2021-08-03 17:20:00 75 [facility]Hg[facility] 2021-08-03 17:20:00 75 /min [facility] Body temperature 2021-08-03 17:20:00 36.39 Kimi [facility] Respiratory rate 2021-08-03 17:20:00 16 /min [facility] Body weight 2021-08-03 17:20:[address] [facility] BMI 2021-08-03 17:20:00 33.23 kg/m2 [facility] Oxygen saturation in 2021-08-03 17:20:00 99 /min [facility] blood by [facility] Pulse oximetry Branch BP Diastolic 2020-07-18 00:00:00 84 mm[Hg] [facility] Height 2020-07-18 00:00:00 63 [in_i] [facility] BMI (Body Mass 2020-07-18 00:00:00 36.8 kg/m2 [facility] Index) Group BP Systolic 2020-07-18 00:00:00 125 mm[Hg] [facility] Body Weight 2020-07-18 00:00:00 207.5 [lb_av] [facility] BP Diastolic 2020-07-01 00:00:00 82 mm[Hg] [facility] Height 2020-07-01 00:00:00 63 [in_i] [facility] BMI (Body Mass 2020-07-01 00:00:00 36.2 kg/m2 [facility]) Group BP Systolic 2020-07-01 00:00:00 115 mm[Hg] [facility] Body Weight 2020-07-01 00:00:00 204.4 [lb_av] [facility] BP Diastolic 2020-05-31 00:00:00 90 mm[Hg] [facility] Height 2020-05-31 00:00:00 63 [in_i] [facility] BMI (Body Mass 2020-05-31 00:00:00 35.8 kg/m2 [facility]) Group BP Systolic 2020-05-31 00:00:00 133 mm[Hg] [facility] Body Weight 2020-05-31 00:00:00 202 [lb_av] [facility] BP Diastolic 2019-12-28 00:00:00 83 mm[Hg] [place] [facility] Height 2019-12-28 00:00:00 63 [in_i] [facility] BMI (Body Mass 2019-12-28 00:00:00 33.5 kg/m2 [facility] Index) [facility] BP Systolic 2019-12-28 00:00:00 118 mm[Hg] [facility] Body Weight 2019-12-28 00:00:00 189 [lb_av] [facility] BP Diastolic 2019-12-21 00:00:00 92 mm[Hg] [facility] Height 2019-12-21 00:00:00 63 [in_i] [facility] BMI (Body Mass 2019-12-21 00:00:00 33.3 kg/m2 [facility] Index) Group BP Systolic 2019-12-21 00:00:00 134 mm[Hg] [facility] Body Weight 2019-12-21 00:00:00 188 [lb_av] [facility] BP Diastolic 2019-10-27 00:00:00 73 mm[Hg] [facility] Height 2019-10-27 00:00:00 63 [in_i] [facility] BMI (Body Mass 2019-10-27 00:00:00 32.5 kg/m2 [facility] Index) Group BP Systolic 2019-10-27 00:00:00 114 mm[Hg] [facility] Body Weight 2019-10-27 00:00:00 183.3 [lb_av] [facility] BP Diastolic 2019-09-29 00:00:00 73 mm[Hg] [facility] Height 2019-09-29 00:00:00 63 [in_i] [facility] BMI (Body Mass 2019-09-29 00:00:00 36.3 kg/m2 [facility] Index) Group BP Systolic 2019-09-29 00:00:00 125 mm[Hg] [facility] Body Weight 2019-09-29 00:00:00 204.8 [lb_av] [facility] BP Diastolic 2019-09-22 00:00:00 80 mm[Hg] [facility] Height 2019-09-22 00:00:00 63 [in_i] [facility] BMI (Body Mass 2019-09-22 00:00:00 36.6 kg/m2 [facility]) Group BP Systolic 2019-09-22 00:00:00 120 mm[Hg] [facility] BP Diastolic 2019 00:00:00 80 mm[Hg] [facility] Height 2019 00:00:00 63 [in_i] [facility] BMI (Body Mass 2019 00:00:00 36.3 kg/m2 [facility]) Group BP Systolic 2019 00:00:00 117 mm[Hg] [facility] Body Weight 2019 00:00:00 204.9 [lb_av] [facility] BP Diastolic 2019-08-20 00:00:00 70 mm[Hg] [facility] Height 2019-08-20 00:00:00 63 [in_i] [facility] BMI (Body Mass 2019-08-20 00:00:00 35.8 kg/m2 [facility]) Group BP Systolic 2019-08-20 00:00:00 114 mm[Hg] [facility] Body Weight 2019-08-20 00:00:00 202 [lb_av] [facility] BP Diastolic 2019-08-03 00:00:00 77 mm[Hg] [facility] Height 2019-08-03 00:00:00 63 [in_i] [facility] BMI (Body Mass 2019-08-03 00:00:00 35.6 kg/m2 [facility]) Group BP Systolic 2019-08-03 00:00:00 118 mm[Hg] [facility] Body Weight 2019-08-03 00:00:00 3218 [oz_av] [facility] BP Diastolic 2019-07-31 00:00:00 79 mm[Hg] [facility] Height 2019-07-31 00:00:00 63 [in_i] [facility] BMI (Body Mass 2019-07-31 00:00:00 35.4 kg/m2 [facility]) Group BP Systolic 2019-07-31 00:00:00 119 mm[Hg] [facility] Body Weight 2019-07-31 00:00:00 200 [lb_av] [facility] BP Diastolic 2019-07-22 00:00:00 72 mm[Hg] [facility] Height 2019-07-22 00:00:00 63 [in_i] [facility] BMI (Body Mass 2019-07-22 00:00:00 34.9 kg/m2 [facility] BP Systolic 2019-07-22 00:00:00 112 mm[Hg] [facility] Body Weight 2019-07-22 00:00:00 197.1 [lb_av] [facility] BP Diastolic 2019-06-30 00:00:00 70 mm[Hg] [facility] Height 2019-06-30 00:00:00 63 [in_i] [facility] BMI (Body Mass 2019-06-30 00:00:00 34 kg/m2 [facility] BP Systolic 2019-06-30 00:00:00 114 mm[Hg] [facility] Body Weight 2019-06-30 00:00:00 191.9 [lb_av] [facility] BP Diastolic 2019-06-23 00:00:00 84 mm[Hg] [facility] Height 2019-06-23 00:00:00 63 [in_i] [facility] BMI (Body Mass 2019-06-23 00:00:00 34.2 kg/m2 [facility] BP Systolic 2019-06-23 00:00:00 127 mm[Hg] [facility] Body Weight 2019-06-23 00:00:00 193.2 [lb_av] [facility] BP Diastolic 2019-05-29 00:00:00 68 mm[Hg] [facility] Height 2019-05-29 00:00:00 63 [in_i] [facility] BMI (Body Mass 2019-05-29 00:00:00 33.6 [facility] BP Systolic 2019-05-29 00:00:00 110 mm[Hg] [facility] Body Weight 2019-05-29 00:00:00 189.7 [lb_av] [facility] BP Diastolic 2019-05-11 00:00:00 76 mm[Hg] [facility] Height 2019-05-11 00:00:00 63 [in_i] [facility] BMI (Body Mass 2019-05-11 00:00:00 33.5 kg/m2 [facility] BP Systolic 2019-05-11 00:00:00 113 mm[Hg] [facility] Body Weight 2019-05-11 00:00:00 189.3 [lb_av] [facility] BP Diastolic 2019-05-01 00:00:00 69 mm[Hg] [facility] Height 2019-05-01 00:00:00 63 [in_i] [facility] BMI (Body Mass 2019-05-01 00:00:00 33.8 kg/m2 [facility] BP Systolic 2019-05-01 00:00:00 113 mm[Hg] [facility] Body Weight 2019-05-01 00:00:00 190.6 [lb_av] [facility] BP Diastolic 2019-04-02 00:00:00 81 mm[Hg] [facility] Height 2019-04-02 00:00:00 63 [in_i] [facility] BMI (Body Mass 2019-04-02 00:00:00 33.8 kg/m2 [facility] BP Systolic 2019-04-02 00:00:00 116 mm[Hg] [facility] Body Weight 2019-04-02 00:00:00 190.8 [lb_av] [facility] BP Diastolic 2019-03-25 00:00:00 85 mm[Hg] [facility] Height 2019-03-25 00:00:00 63 [in_i] [facility] BMI (Body Mass 2019-03-25 00:00:00 33.8 kg/m2 [facility] BP Systolic 2019-03-25 00:00:00 133 mm[Hg] [facility] Body Weight 2019-03-25 00:00:00 191 [lb_av] [facility] BP Diastolic 2019-03-12 00:00:00 80 mm[Hg] [facility] Height 2019-03-12 00:00:00 63 [in_i] [facility] BMI (Body Mass 2019-03-12 00:00:00 26.7 kg/m2 [facility]) Group BP Systolic 2019-03-12 00:00:00 107 mm[facility]Hg] [facility] Body Weight 2019-03-12 00:00:00 151 [lb_av] [facility] BP Diastolic 2019-03-05 00:00:00 81 mm[facility]Hg] [facility] Height 2019-03-05 00:00:00 63 [in_i] [facility] BMI (Body Mass 2019-03-05 00:00:00 34.2 kg/m2 [facility]) Group BP Systolic 2019-03-05 00:00:00 117 mm[Hg] [facility] Body Weight 2019-03-05 00:00:00 193 [lb_av] [facility] Procedures Procedure Date / Time Performing Clinician Source Performed US, obstetric, limited 2019-09-22 00:00:00 [facility] non-stress test 2019-09-22 00:00:00 [facility] dical Group US, obstetric, limited 2019-08-20 00:00:00 [facility] ULTRASOUND REPEAT 2019-07-22 00:00:00 [facility] US, obstetric, limited 2019-05-29 00:00:00 [facility] US, obstetric, limited 2019-05-01 00:00:00 [facility] ULTRASOUND, 2019-05-01 00:00:00 [facility] UTERUS REAL TIME WITH Group IMAGE DOC, AND MATERNAL EVAL PLUS DETAILED ANATOMIC EXAMINATION, TRANSABDOMINAL APPROACH; SINGLE OR FIRST GESTATION US, obstetric, limited 2019-04-02 00:00:00 [facility] US, obstetric, limited 2019-03-25 00:00:00 [facility] ULTRASOUND, 2019-03-12 00:00:00 [facility] UTERUS REAL TIME WITH Group IMAGE DOCUMENTAITON, TRANSVAGINAL Eye Surgery 2000-02-24 00:00:00 [facility] dical Group Tubal Ligation (Surg) [facility] Plan of Care Planned Activity Planned Date Details Comments Source Diagnostic Test 2020-07-18 urinalysis, [facility] dical Pending 00:00:00 dipstick [code = Group urinalysis, dipstick] Encounters Start End Encounter Admission Attending Care Care Encounter Source Date/Time Date/Time Type Type Clinicians Facility Department ID 2021-08-03 2021-08-03 Office [facility] [id number] Univers 11:12:21 11:27:21 Visit Rubina SANCHEZ [id number] i ty [id number] [id number] Me dical NAL 188 [facility] 2021-08-03 2021-08-03 Outpatient [facility] [id number] Univers 11:15:00 11:15:00 [facility] 2021-07-24 2021-07-24 Outpatient R [facility] GINA [id number] Univers 10:50:00 17:00[facility]00 [facility] 2021-07-24 2021-07-24 [facility] [id number] Univers 10:50:00 17:00:00 Encounter Rubina PAYNEAKILA [id number] it[place] SUR[place]ICAL [id number] [facility] 071 Branch 2021-07-24 2021-07-24 Surgery [facility] [id number] Univers 12:40:00 15:20:00 Rubina DANIEL [id number] i ty [id number] [id number] [facility] 020 Branch 2021-07-24 2021-07-24 Orders Doctor ALEX [id number] Univers 00:00:00 00:00:00 Only Unassigned, KANWAL [id number] ity of [place] [facility] [id number] [place] as [phone] [facility] 009 Branch 2021-07-19 2021-07-19 Laboratory Only, Adc Test [facility] 1.2.840. 114 [id number] Univers 09:11:24 09:26:24 Only Rubina Jay DANIEL [id number] ity [facility] [id number] C[place] [id number] [facility] [address] 2021-07-19 2021-07-19 [facility] [id number] Univers 09:15:00 09:15:00 RUBINA marion [facility] 2021-07-19 2021-07-19 Orders Doctor ALEX [id number] Univers 00:00:00 00:00:00 Only Unassigned, KANWAL [id number] ity of [facility] 4.2.7.2.686 [place] as [phone] [facility] [address] 2021-07-06 2021-07-06 Prep For [facility] [id number] Univers 00:00:00 00:00:[address] SANCHEZ [id number] ity [facility] [id number] [id number] Sc dical NAL 204 [facility] 2021-07-04 2021-07-04 [facility] [id number] Univers 15:30:00 16:49:55 RUBINA angelinedidi [facility] 2021-07-04 2021-07-04 Office [facility] [id number] Univers 15:01:26 16:49:55 Visit Rubina SANCHEZ [id number] i ty [place] [id number] [id number] Sc dical NAL 188 [facility] 2021-07-04 2021-07-04 [facility] [id number] Univers 15:30:00 15:30:00 RUBINA angelinedidi [facility] 2021-06-20 2021-06-20 [facility] [id number] Univers 07:47:00 10:44:00 Encounter Rubina Sanchez [id number] ity [place] [id number] [id number] [facility] 071 Branch 2021-06-20 2021-06-20 [facility] G[facility] [id number] Univers 07:47:00 10:44:00 RUBINA marion [facility] 2021-06-20 2021-06-20 Surgery [facility] [id number] Univers 09:46:00 10:26:00 Rubina Sanchez [id number] i ty [place] [id number] [id number] [facility] 020 Branch 2021-06-20 2021-06-20 Orders Doctor ALEX 1.2.840.114 [id number] Univers 00:00:00 00:00:00 Only Unassigned, KANWAL [id number] ity of [place] [facility] [id number] [place] as [id number] [facility] 009 Branch 2021-06-17 2021-06-17 Laboratory Only, Adc Test [facility] 1.2.840. 114 [id number] Univers 08:55:45 09:10:45 Only Rubina Jay [id number] ity of [place] [id number] [id number] [facility] 353 Branch 2021-06-17 2021-06-17 [facility] [id number] Univers 09:00:00 09:00:00 RUBINA angelinedidi [facility] 2021-06-13 2021-06-13 Telephone [facility] 1.2.840.114 [id number] Univers 00:00:00 00:00:00 Rubina Sanchez [id number] i ty [place] [id number] Profess[place] [id number] Sc dical [facility] 188 Branch [facility] 2021-06-07 2021-06-07 Hospital [facility] 1.2.840.114 [id number] Univers 08:06:22 23:59:00 Encounter Rubina Sanchez [id number] ity of [place] [id number] [id number] [facility] [address] 2021-06-07 2021-06-07 Hospital [facility] 1.2.840.114 [id number] Univers 08:05:55 08:05:55 Encounter Rubina Sanchez [id number] ity of [place] [id number] [facility] [id number] [facility] [address] 2021-06-07 2021-06-07 Outpatient R [facility] [id number] Univers 00:00:00 00:00:00 RUBINA marion [facility] 2021-06-02 2021-06-02 Prep For [facility] 1.2.840.114 [id number] Univers 00:00:00 00:00:00 Surgery Rubina Sanchez [id number] i [place] [id number] [id number] Sc dical nal [address] [place] [address] 2021-06-01 2021-06-01 Office [facility] [id number] Univers 14:42:16 15:39:59 Visit Rubina Sanchez [id number] [place] ty [place] [id number] Profess[place] [id number] Sc dical nal [address] [place] [address] 2021-06-01 2021-06-01 Outpatient R [facility] [id number] Univers 14:45:00 14:45:00 RUBINA marion [facility] 2021-06-01 2021-06-01 Orders Doctor ALEX 1.2.840.114 [id number] Univers 00:00:00 00:00:00 Only Unassigned, KANWAL [id number] ity of [place] [facility] [id number] [place] as [id number] [facility] [address] 2021-05-25 2021-05-25 Emergency [facility] [id number] Univers 04:14:00 06:23:00 [place] Elías Sanchez [id number] ity of [place] 4.2.7.2.686 [facility] [phone] [address] 2021-05-25 2021-05-25 Emergency X GINA, [facility] ERT [id number] Univers 04:14:00 04:14:00 WAKILI ity of [facility] [place] [facility] 2021-03-07 2021-03-07 Emergency Brenda, K [facility] 1.2.840.114 [id number] Univers 14:26:00 17:55:00 Mayr Sanchez [id number] i ty of [place] 4.2.7.2.686 [facility] [id number] [address] 2021-03-07 2021-03-07 Emergency X [facility] ERT [id number] Univers 14:22:00 14:22:00 ity of [facility] [place] [facility] 2020-12-05 2020-12-06 Emergency Brenda, K [facility] 1.2.840.114 [id number] Univers 22:33:00 01:51:00 Mary Sanchez [id number] i ty of [place] [id number] [facility] [id number] [address] 2020-12-05 2020-12-05 Emergency X [facility] ERT [id number] Univers 22:15:00 22:15:00 ity of [facility] [place] [facility] 2020-08-04 2020-08-04 Outpatient [facility] [id number] [facility] 09:39:00 09:39:00 0623 [facility] 2020-07-18 2020-07-18 Outpatient [facility] [id number] [place] 04:16:00 04:16:00 1123 [facility] 2020-07-18 2020-07-18 Teja [facility] [place] - [id number] M [facility] 00:00:00 00:00:00 Discovery carson Alexis MD: [address] [facility] [address] [facility] - [address], [place] [address] , Ph. [phone] 2020-07-13 2020-07-13 Outpatient [facility] [id number] [place] 02:48:00 02:48:00 [facility]8 [facility] 2020-07-06 2020-07-06 Outpatient JAYME ALEXIS, [facility] [id number] [place] 06:07:00 06:07:00 TEJA [id number] [facility] 2020-07-01 2020-07-01 Outpatient G[facility] [id number] [place] 02:37:00 02:37:00 1106 Medical Group 2020-07-01 2020-07-01 Outpatient [facility] [id number] [place] 02:37:00 02:37:00 1107 Medical Group 2020-07-01 2020-07-01 Teja MARIS [place] - [id number] M at[facility]or 00:00:00 00:00:00 Discovery carson Alexis MD: [address] [place] [phone] , Ph. [phone] 2020-06-27 2020-06-27 Outpatient [facility] [id number] [place] 11:46:00 11:46:00 1105 Medical Group 2020-05-31 2020-05-31 Outpatient [facility] MMG [id number] [place] 03:21:00 03:21:00 1006 [facility] Group 2020-05-31 2020-05-31 Outpatient G_Pappas MMG MMG [id number] [place] 03:21:00 03:21:00 1007 Medical Group 2020-05-31 2020-05-31 Teja [facility] [place] - [id number] M [place] 00:00:00 00:00:00 Discovery carson Alexis MD: [address] [place] [address] , Ph. [phone] 2020-01-14 2020-01-14 Outpatient FERGUSON_WILMA PERLA LABENITEZ [id number] [place] 04:03:00 04:03:00 HN 0521 [facility] 2020-01-14 2020-01-14 Alex PER[place] - [id number] [place] 00:00:00 00:00:00 Salinasshannananuel [place] da PSYD: [address] [employer] [address], [place], [place] [facility] [address] h , Ph. Program (979) --20072020-01-06 2020-01-06 Emergency ER [facility] [id number] [place] 16:35:00 17:54:00 -[id number] [facility] 2020-01-05 2020-01-05 Outpatient FERGUSONAREN PERLA 942 [place] 05:00:00 05:00:00 HN 0512 [facility] 2020-01-05 2020-01-05 Alex PER[place] - [id number] M [place] 00:00:00 00:00:00 Carmelita Ibarra da PSYD: 17[address] [employer] [address], [place], [place] [facility] [address] h , Ph. Program (979) -20072019-12-31 2019-12-31 Outpatient FERGUSON_WILMA PERLA LAHOP 942 [place] 05:36:00 05:36:00 HN 0507 [facility] 2019-12-31 2019-12-31 Alex [place] - [id number] [place] 00:00:00 00:00:00 Stacey [place] da PSYD: 17[address] [employer] [address] - [address], [facility] Outreac [address] h , Ph. Program (979) -20072019-12-28 2019-12-28 Outpatient FERGUSON_WILMA PERLA LAHOP 942 [place] 03:54:00 03:54:00 HN 0504 [facility] 2019-12-28 2019-12-28 Kiesha PER[place] - [id number] [place] 00:00:00 00:00:00 Carmelita Amezquita da BEHAVIORAL HEALTH AIDE: [address] [facility] [facility] [address], [facility] [address] h , Ph. Program 2019-12-26 2019-12-26 Outpatient FERGUSON_JO MEHOP MEHOP 942 [place] 12:28:00 12:28:00 HN 0502 [facility] 2019-12-23 2019-12-23 Outpatient FERGUSON_JO MEHOP MEHOP 942 [place] 04:56:00 04:56:00 HN 0429 [facility] 2019-12-21 2019-12-21 Outpatient G_Pappas MMG [facility] 2019 [place] 08:24:00 08:24:00 0427 da Medical Group 2019-12-21 2019-12-21 Helena [facility] [place] - [id number] M [place] 00:00:00 00:00:00 Timmy Hathaway, Medical Medica l MD: [address] [facility] OBGYN [address], [place] [address] , Ph. [phone] 2019-11-19 2019-11-19 Emergency ER SHALINI, [facility] [id number] [place] 14:11:00 17:59:00 REYES -[id number] [facility] 2019-11-16 2019-11-16 Outpatient G_Pappas MMG MM [id number] [place] 02:15:00 02:15:00 0323 da [facility] Group 2019-10-28 2019-10-28 Outpatient G_Pappas MMG MM [id number] [place] 12:06:00 12:06:00 0304 [facility] 2019-10-27 2019-10-27 Outpatient G_Pappas MMG MM [id number] [place] 11:55:00 11:55:00 0303 da [facility] Group 2019-10-27 2019-10-27 Linda Diane [facility] [place] - [id number] [place] 00:00:00 00:00:00 Discovery Justin Pereira: [address] [address] , Ph. [phone] 2019-10-20 2019-10-20 Outpatient G_Pappas MMG MMG 2019 [place] 06:15:00 06:15:00 0302 da [facility] Group 2019-10-07 2019-10-07 Outpatient G_Pappas MMG MMG 2019 [place] 01:53:00 01:53:00 0212 Medical Group 2019-10-05 2019-10-06 Inpatient EL REUBEN, [facility] MOB [id number] [place] 05:15:00 09:10:00 TEJA [id number] [facility] 2019-10-04 2019-10-04 Outpatient G_Pappas MMG MMG 2019 [place] 09:00:00 09:00:00 0209 Medical Group 2019-09-29 2019-09-29 Outpatient G_Pappas MMG MMG 2019 [place] 04:25:00 04:25:00 0204 Medical Group 2019-09-29 2019-09-29 Teja CHIN [place] - [id number] M [place] 00:00:00 00:00:00 Discovery carson Alexis MD: [address] [place] [address] , Ph. [phone] 2019-09-28 2019-09-28 Outpatient G_Pappas MMG MMG 2019 [place] 12:21:00 12:21:00 0203 da [facility] 2019-09-25 2019-09-25 Outpatient G_Pappas MMG MMG 2019 [place] 09:44:00 09:44:00 0131 da [facility] 2019-09-22 2019-09-22 Outpatient G_Pappas MMG MMG [id number] [place] 05:16:00 05:16:00 0128 da [facility] 2019-09-22 2019-09-22 Teja CHIN [place] - [id number] M [place] 00:00:00 00:00:00 Discovery carson Alexis MD: [address] [facility] [place] - [address], [place] [address] , Ph. [phone] 2019-09-21 2019-09-21 Outpatient G_Pappas MMG MMG [id number] [place] 02:51:00 02:51:00 0127 [facility] 2019-09-14 2019-09-16 Inpatient ER REUBEN, [facility] [id number] [place] 19:10:00 14:30:00 TEJA -[id number] [facility] 2019-09-12 2019-09-13 Emergency ER SYLVIA, [facility] [id number] [place] 21:35:00 03:15:00 HELENA -[id number] [facility] 2019-09-07 2019-09-07 Outpatient G_Pappas MMG MMG [id number] [place] 11:08:00 11:08:00 0113 [facility] 2019-09-04 2019-09-04 Outpatient EL REUBEN, [facility] [id number] [place] 14:30:00 14:30:00 TEJA -[id number] [facility] 2019 2019 Outpatient G_Pappas MMG MMG [id number] [place] 10:59:00 10:59:00 0109 [facility] 2019 2019 Teja [facility] [place] - [id number] M [place] 00:00:00 00:00:00 Discovery carson Alexis MD: [address] [facility] - [address], [place] [address] , Ph. [phone] 2019-08-26 2019-08-26 Emergency ER SYLVIA, [facility] [id number] [place] 12:17:00 16:25:00 HELENA -[id number] [facility] 2019-08-20 2019-08-20 Outpatient G_Pappas MMG MMG [id number] [place] 11:08:00 11:08:00 0108 [facility] 2019-08-20 2019-08-20 Outpatient EL KINSEY, [facility] [id number] [place] 10:30:00 10:30:00 LINDA [id number] [facility] 2019-08-20 2019-08-20 Linda Diane MM [place] - [id number] [place] 00:00:00 00:00:00 KinseyDiscovery byrd NP: [address] [facility] [address], [place] [address] , Ph. [phone] 2019-08-03 2019-08-03 Outpatient CHATA MEBENITEZ LAHOP [id number] [place] 09:52:00 09:52:00 HN 0409 [facility] Program 2019-08-03 2019-08-03 Fela MARIS [place] - [id number] M [place] 00:00:00 00:00:00 Chrystal Dewey, Medical Medical BEHAVIORAL HEALTH AIDE: [address] [place] [address] [address] [address] , Ph. 2019-07-31 2019-07-31 Linda Diane MM [place] - [id number] [place] 00:00:00 00:00:00 Discovery carson Pereira NP: [address] [place] [address] , Ph. [phone] 2019-07-26 2019-07-26 Emergency ER REUBEN, [facility] [id number] [place] 20:15:00 20:20:00 TEJA [id number] [facility] 2019-07-22 2019-07-22 Outpatient JAYME PEREIRA [facility] [id number] [place] 09:45:00 09:45:00 LINDA [id number] [facility] 2019-07-22 2019-07-22 Linda Diane MM [place] - [id number] [place] 00:00:00 00:00:00 Discovery Kinsey carson NP: [address] [place] [address] , Ph. [phone] 2019-06-30 2019-06-30 Teja CHIN [place] - [id number] M [place] 00:00:00 00:00:00 Discovery carson Alexis MD: [address] [place] [address], [place] [address] , Ph. [phone] 2019-06-23 2019-06-23 Teja CHIN [place] - [id number] M [place] 00:00:00 00:00:00 Discovery carson Alexis MD: [address] [place] [address], [place] [address] , Ph. [phone] 2019-05-29 2019-05-29 Helena CHIN [place] - [id number] M [place] 00:00:00 00:00:00 Timmy Hathaway, Medical Medica manuel MD: [address] [place] [address] , Ph. [phone] 2019-05-11 2019-05-11 Teja CHIN [place] - [id number] [place] 00:00:00 00:00:00 Discovery carson Alexis MD: [address] [place] [address] , Ph. [phone] 2019-05-07 2019-05-08 Emergency ER GIANNONE, [facility] [id number] [place] 20:19:00 00:28:00 JON [id number] carson [facility] 2019-05-01 2019-05-01 Outpatient EL REUBEN, [facility] [id number] [place] 16:53:00 16:53:00 TEJA [id number] carson [facility] 2019-05-01 2019-05-01 Teja CHIN [place] - [id number] M [place] 00:00:00 00:00:00 Discovery carson Alexis MD: [address] [place] [address] , Ph. [phone] 2019-04-30 2019-04-30 Linda Diane MM [place] - [id number] [place] 00:00:00 00:00:00 Discovery Justin Pereira: [address] [place] [address] , Ph. [phone] 2019-04-02 2019-04-02 Outpatient JAYME REUBEN [facility] [id number] [place] 11:08:00 11:08:00 TEJA [id number] [facility] 2019-04-02 2019-04-02 Teja [place] - [id number] M [place] 00:00:00 00:00:00 Discovery carson Alexis MD: [address] [place] [address] , Ph. [phone] 2019-03-25 2019-03-25 Helena CHIN [place] - [id number] M [place] 00:00:00 00:00:00 Timmy Hathaway Medical Medictaya jackson MD: [address] [place] [address] , Ph. [phone] 2019-03-12 2019-03-12 Outpatient JAYME COTTONFERNANDEZ [facility] [id number] [place] 11:47:00 11:47:00 LINDA [id number] carson [facility] 2019-03-12 2019-03-12 Linda Diane MM [place] - [id number] [place] 00:00:00 00:00:00 Discovery Justin Pereira: [address] [place] [address] , Ph. [phone] 2019-03-05 2019-03-05 Outpatient JAYME WARD [facility] [id number] [place] 10:56:00 10:56:00 HELENA [id number] carson [facility] 2019-03-05 2019-03-05 Helena CHIN [place] - [id number] M [place] 00:00:00 00:00:00 Jesus Ramon Medictaya jackson MD: [address] [facility], OBGYN [address], [place] [address] , Ph. [phone] 2019-02-24 2019-02-25 Emergency ER CONCEPCION, [facility] [id number] [place] 19:49:00 00:11:00 LUCIA -[id number] [facility] 2018-01-11 2018-01-11 Emergency ER CESPEDES, [facility] [id number] [place] 16:19:00 17:59:00 DONNA -[id number] [facility] 2017-08-30 2017-08-30 Outpatient JAYME PIERRE, [facility] [id number] [place] 14:27:00 14:27:00 ARANZA -[id number] [facility] 2017-08-04 2017-08-04 Emergency ER YARITZA, [facility] [id number] [place] 14:53:00 15:28:00 JON -[id number] [facility] 2017-05-26 2017-05-26 Emergency ER CONCEPCION, [facility] [id number] [place] 20:39:00 22:07:00 LUCIA -[id number] [facility] 2017-05-04 2017-05-04 Emergency ER OWO, TOKS [facility] [id number] [place] 16:34:00 18:25:00 -[id number] [facility] 2017-03-12 2017-03-12 Emergency ER UGORJI, [facility] [id number] [place] 19:35:00 21:29:00 JORDAN -[id number] [facility] 2017-02-11 2017-02-11 Emergency ER OWO, TOKS [facility] [id number] [place] 17:07:00 19:59:00 -[id number] [facility] 2016-01-19 2016-01-20 Inpatient CARMELINA [facility]COX [facility] [id number] [place] 07:15:00 19:40:00 HELENA -[id number] [facility] 2016-01-10 2016-01-10 Outpatient JAYME WARD [facility] [id number] [place] 10:17:00 10:17:00 HELENA -[id number] [facility] 2015-12-15 2015-12-16 Emergency ER SYLVIA, [facility] [id number] [place] 22:45:00 00:06:00 HELENA -[id number] [facility] 2015-11-03 2015-11-03 Emergency ER SYLVIA, [facility] [id number] [place] 13:29:00 16:15:00 HELENA -[id number] [facility] 2015-10-25 2015-10-25 Outpatient JAYME CAMERON, [facility] [id number] [place] 08:32:00 08:32:00 FELA -[id number] [facility] 2015-08-21 2015-08-21 Emergency ER BOGGS, [facility] [id number] [place] 15:11:00 17:55:00 WAS -[id number] [facility] 2015-07-26 2015-07-26 Outpatient JAYME CAMERON [facility] [id number] [place] 13:43:00 13:43:00 FELA -[id number] [facility] 2015-06-16 2015-06-16 Emergency ER LING PACE [facility] [id number] [place] 12:54:00 15:57:00 -[id number] [facility] 2015-04-18 2015-04-18 Emergency ER CLARICEOGAVINS [facility] [id number] [place] 06:13:00 08:10:00 -[id number] [facility] 2015-03-11 2015-03-11 Emergency ER OWO, TOKS [facility] [id number] [place] 12:29:00 14:15:00 -[id number] [facility] Results Test Description Test Time Test Comments [...] Blood (test code = Blood) Negative Specific [place] (test code = Specific [place]) 1.015 Ketone (test code = Ketone) Negative Bilirubin (test code = Bilirubin) Negative Glucose (test code = Glucose) Negative Appearance (test code = Appearance) Clear Color (test code = Color) Yellow [facility] W Auto Differential panel - [id number] 11:06:00 Test Item Value Reference Range Interpretation Comments white blood count (test code = 10.7 K/uL 4.0-11.5 white blood count) red blood count (test code = red 4.76 M/uL 3.80-5.20 blood count) hemoglobin (test code = 13.6 g/dL 10.5-15.7 hemoglobin) hematocrit (test code = 41.9 % 34.0-50.0 hematocrit) MCV [Entitic volume] (test code = 88.0 fL 86-100 23619-7) mean corpuscular hemoglobin (test 28.6 pg 26.2-33.4 [...] 44.4-80.1 leukocytes in Blood (test code = 46492-0) Immature granulocytes [#/volume] 0.0 K/uL 0.0-0.03 in Blood (test code = 57779-7) lymphocyte% (test code = 23.3 % 10.0-50.0 lymphocyte%) mono % (test code = mono %) 5.6 % 3.6-12.0 eos % (test code = eos %) 2.4 % 0.0-5.4 Basophils/100 leukocytes in 0.6 % 0.1-1.2 Unspecified specimen (test code = 04516-6) Band form neutrophils [#/volume] 7.28 K/uL 1.56-6.13 H in Blood (test code = 12130-3) Lymphocytes [#/volume] in 2.5 K/uL 1.18-3.74 Unspecified specimen by Automated count (test code = 22647-1) mono # (test code = mono #) 0.60 K/uL 0.24-0.86 eos # (test code = eos #) 0.26 K/uL 0.04-0.36 basophil # (test code = basophil 0.06 K/uL 0.01-0.08 #) NRBC% (test code = NRBC%) 0 /100 WBC 0-0.2 NRBC# (test code = NRBC#) 0 K/uL [facility] 2000 panel - Serum or [id number] 11:06:00 Test Item Value Reference Range Interpretation [...] code = 9.2 mg/dL 8.6-10.0 calcium level) [facility] macro (dipstick) panel - [id number] 14:02:45 Test Item Value Reference Range Interpretation Comments Leukocytes (test code = Leukocytes) Trace Nitrite (test code = Nitrite) negative Urobilinogen (test code = .2 Urobilinogen) Protein (test code = Protein) Negative pH (test code = pH) 6.0 Blood (test code = Blood) Small Specific [place] (test code = 1.025 Specific [place]) Ketone (test code = Ketone) Negative Bilirubin (test code = Bilirubin) Negative Glucose (test code = Glucose) Negative Appearance (test code = Appearance) Clear Color (test code = Color) Yellow [facility] (dipstick) panel - [id number] 14:02:45 Test Item Value Reference Range Interpretation Comments Leukocytes (test code = Leukocytes) Trace Nitrite (test code = Nitrite) negative Urobilinogen (test code = .2 Urobilinogen) Protein (test code = Protein) Negative pH (test code = pH) 6.0 Blood (test code = Blood) Small Specific [place] (test code = 1.025 Specific [place]) Ketone (test code = Ketone) Negative Bilirubin (test code = Bilirubin) Negative Glucose (test code = Glucose) Negative Appearance (test code = Appearance) Clear Color (test code = Color) Yellow [facility], [id number] 14:01:41 Test Item Value Reference Range Interpretation Comments Test (test code = negative Test) [facility], [id number] 14:01:41 Test Item Value Reference Range Interpretation Comments Test (test code = negative Test) [facility] TSH panel - Serum or [id number] 00:00:00 Test Item Value Reference Range Interpretation Comments Thyrotropin [Units/volume] in 1.540 uIU/mL 0.450-4.500 Serum or Plasma by Detection limit <= 0.005 mIU/L (test code = 67085-8) Thyroxine (T4) free 1.34 NG/dL 0.82-1.77 [Mass/volume] in Serum or Plasma (test code = 3024-7) [facility] W Auto Differential panel - Blood 2019-12-29 [...] = 706-2) immature cells (test code = manpower development specialist immature cells) Neutrophils [#/volume] in Blood 7.1 [...] Blood by Automated count (test code = 84800-9) Immature granulocytes 0.0 x10e3/uL 0.0-0.1 [#/volume] in Blood by Automated count (test code = 57016-6) Nucleated erythrocytes/100 manpower development specialist leukocytes [Ratio] in Blood by Automated count (test code = 60851-7) Morphology [Interpretation] in manpower development specialist Blood Narrative (test code = 15768-4) [facility] 2000 panel - Serum or [id number] 00:00:00 Test Item Value Reference Range Interpretation [...] by Creatinine-based formula (CKD-EPI) (test code = 98722-6) Glomerular filtration 150 mL/min/1.73 >59 rate/1.73 sq M.predicted among blacks [Volume Rate/Area] in Serum, Plasma or Blood by Creatinine-based formula (CKD-EPI) (test code = 67186-7) Urea nitrogen/Creatinine 16 9-23 [Mass Ratio] in [...] 8.7-10.2 Serum or Plasma (test code = 08322-4) Protein [Mass/volume] in 7.3 g/dL 6.0-8.5 Serum or Plasma (test code = 2885-2) Albumin [Mass/volume] in 4.4 g/dL 3.9-5.0 Serum or Plasma (test code = 1751-7) Globulin [Mass/volume] in 2.9 g/dL 1.5-4.5 Serum by calculation (test code = 86269-9) Albumin/Globulin [Mass Ratio] 1.5 1.2-2.2 in Serum [...] Serum or Plasma (test code = 1742-6) [facility] 1996 panel - Serum or Plasma 2019-12-29 [...] or Plasma by calculation (test code = 71262-3) Cholesterol in LDL [Mass/volume] in 87 mg/dL 0-99 Serum or Plasma by calculation (test code = 48796-8) Laboratory comment [Text] in Report manpower development specialist Narrative (test code = 92395-2) [facility]Hem[facility] A1c/Hemoglobin.total in [id number] 00:00:00 Test Item Value Reference Range Interpretation Comments Hemoglobin A1c/Hemoglobin.total in 5.1 % 4.8-5.6 Blood (test code = 4548-4) Glucose mean value [Mass/volume] in 100 mg/dL Blood Estimated from glycated hemoglobin (test code = 19355-7) [facility] panel, [id number] 00:00:00 Test Item Value Reference Range Interpretation Comments interpretation (test code = note interpretation) pdf image (test code = pdf image) . [facility] T[facility] and TSH panel - Serum or [id number] 00:00:00 Test Item Value Reference Range Interpretation Comments Thyrotropin [Units/volume] in 1.540 uIU/mL 0.450-4.500 Serum or Plasma by Detection limit <= 0.005 mIU/L (test code = 79569-5) Thyroxine (T4) free 1.34 NG/dL 0.82-1.77 [Mass/volume] in Serum or Plasma (test code = 3024-7) [facility]CBC W Auto Differential panel - Blood 2019-12-29 [...] = 706-2) immature cells (test code = manpower development specialist immature cells) Neutrophils [#/volume] in Blood 7.1 [...] Blood by Automated count (test code = 54625-6) Immature granulocytes 0.0 x10e3/uL 0.0-0.1 [#/volume] in Blood by Automated count (test code = 60459-2) Nucleated erythrocytes/100 manpower development specialist leukocytes [Ratio] in Blood by Automated count (test code = 77713-8) Morphology [Interpretation] in manpower development specialist Blood Narrative (test code = 84685-7) [facility] ProgramCom[facility] metabolic 2000 panel - Serum or [id number] 00:00:00 Test Item Value Reference Range Interpretation [...] by Creatinine-based formula (CKD-EPI) (test code = 89124-3) Glomerular filtration 150 mL/min/1.73 >59 rate/1.73 sq M.predicted among blacks [Volume Rate/Area] in Serum, Plasma or Blood by Creatinine-based formula (CKD-EPI) (test code = 34389-2) Urea nitrogen/Creatinine 16 9-23 [Mass Ratio] in [...] 8.7-10.2 Serum or Plasma (test code = 61298-3) Protein [Mass/volume] in 7.3 g/dL 6.0-8.5 Serum or Plasma (test code = 2885-2) Albumin [Mass/volume] in 4.4 g/dL 3.9-5.0 Serum or Plasma (test code = 1751-7) Globulin [Mass/volume] in 2.9 g/dL 1.5-4.5 Serum by calculation (test code = 18962-7) Albumin/Globulin [Mass Ratio] 1.5 1.2-2.2 in Serum [...] Serum or Plasma (test code = 1742-6) [facility] 1996 panel - Serum or Plasma 2019-12-29 [...] or Plasma by calculation (test code = 21090-1) Cholesterol in LDL [Mass/volume] in 87 mg/dL 0-99 Serum or Plasma by calculation (test code = 47786-0) Laboratory comment [Text] in Report manpower development specialist Narrative (test code = 77245-7) [facility] CampusHemoglobin A1c/Hemoglobin.total in [id number] 00:00:00 Test Item Value Reference Range Interpretation Comments Hemoglobin A1c/Hemoglobin.total in 5.1 % 4.8-5.6 Blood (test code = 4548-4) Glucose mean value [Mass/volume] in 100 mg/dL Blood Estimated from glycated hemoglobin (test code = 47762-1) [facility] panel, [id number] 00:00:00 Test Item Value Reference Range Interpretation Comments interpretation (test code = note interpretation) pdf image (test code = pdf image) . [facility] T4 and TSH panel - Serum or [id number] 00:00:00 Test Item Value Reference Range Interpretation Comments Thyrotropin [Units/volume] in 1.540 uIU/mL 0.450-4.500 Serum or Plasma by Detection limit <= 0.005 mIU/L (test code = 12861-6) Thyroxine (T4) free 1.34 NG/dL 0.82-1.77 [Mass/volume] in Serum or Plasma (test code = 3024-7) [facility] W Auto Differential panel - Blood 2019-12-29 [...] = 706-2) immature cells (test code = manpower development specialist immature cells) Neutrophils [#/volume] in Blood 7.1 [...] Blood by Automated count (test code = 09566-3) Immature granulocytes 0.0 x10e3/uL 0.0-0.1 [#/volume] in Blood by Automated count (test code = 95830-1) Nucleated erythrocytes/100 manpower development specialist leukocytes [Ratio] in Blood by Automated count (test code = 13847-5) Morphology [Interpretation] in manpower development specialist Blood Narrative (test code = 94432-6) [facility]Com[facility] 2000 panel - Serum or [id number] 00:00:00 Test Item Value Reference Range Interpretation [...] by Creatinine-based formula (CKD-EPI) (test code = 32017-7) Glomerular filtration 150 mL/min/1.73 >59 rate/1.73 sq M.predicted among blacks [Volume Rate/Area] in Serum, Plasma or Blood by Creatinine-based formula (CKD-EPI) (test code = 64251-7) Urea nitrogen/Creatinine 16 9-23 [Mass Ratio] in [...] 8.7-10.2 Serum or Plasma (test code = 94300-3) Protein [Mass/volume] in 7.3 g/dL 6.0-8.5 Serum or Plasma (test code = 2885-2) Albumin [Mass/volume] in 4.4 g/dL 3.9-5.0 Serum or Plasma (test code = 1751-7) Globulin [Mass/volume] in 2.9 g/dL 1.5-4.5 Serum by calculation (test code = 46851-1) Albumin/Globulin [Mass Ratio] 1.5 1.2-2.2 in Serum [...] Serum or Plasma (test code = 1742-6) [facility] 1996 panel - Serum or Plasma 2019-12-29 [...] or Plasma by calculation (test code = 95775-0) Cholesterol in LDL [Mass/volume] in 87 mg/dL 0-99 Serum or Plasma by calculation (test code = 94252-4) Laboratory comment [Text] in Report manpower development specialist Narrative (test code = 55527-0) [facility] CampusHemoglobin A1c/Hemoglobin.total in [id number] 00:00:00 Test Item Value Reference Range Interpretation Comments Hemoglobin A1c/Hemoglobin.total in 5.1 % 4.8-5.6 Blood (test code = 4548-4) Glucose mean value [Mass/volume] in 100 mg/dL Blood Estimated from glycated hemoglobin (test code = 52922-1) [facility], [id number] 00:00:00 Test Item Value Reference Range Interpretation Comments interpretation (test code = note interpretation) pdf image (test code = pdf image) . [facility] TSH [facility] - Serum or [id number] 00:00:00 Test Item Value Reference Range Interpretation Comments Thyrotropin [Units/volume] in 1.540 uIU/mL 0.450-4.500 Serum or Plasma by Detection limit <= 0.005 mIU/L (test code = 13767-8) Thyroxine (T4) free 1.34 NG/dL 0.82-1.77 [Mass/volume] in Serum or Plasma (test code = 3024-7) [facility]CBC [facility] Auto Differential panel - Blood 2019-12-29 [...] = 706-2) immature cells (test code = manpower development specialist immature cells) Neutrophils [#/volume] in Blood 7.1 [...] Blood by Automated count (test code = 13813-3) Immature granulocytes 0.0 x10e3/uL 0.0-0.1 [#/volume] in Blood by Automated count (test code = 92026-1) Nucleated erythrocytes/100 manpower development specialist leukocytes [Ratio] in Blood by Automated count (test code = 18658-9) Morphology [Interpretation] in manpower development specialist Blood Narrative (test code = 42400-9) [facility]Com[facility] 2000 panel - Serum or [id number] 00:00:00 Test Item Value Reference Range Interpretation [...] by Creatinine-based formula (CKD-EPI) (test code = 98021-5) Glomerular filtration 150 mL/min/1.73 >59 rate/1.73 sq M.predicted among blacks [Volume Rate/Area] in Serum, Plasma or Blood by Creatinine-based formula (CKD-EPI) (test code = 42452-2) Urea nitrogen/Creatinine 16 9-23 [Mass Ratio] in [...] 8.7-10.2 Serum or Plasma (test code = 54606-8) Protein [Mass/volume] in 7.3 g/dL 6.0-8.5 Serum or Plasma (test code = 2885-2) Albumin [Mass/volume] in 4.4 g/dL 3.9-5.0 Serum or Plasma (test code = 1751-7) Globulin [Mass/volume] in 2.9 g/dL 1.5-4.5 Serum by calculation (test code = 34295-2) Albumin/Globulin [Mass Ratio] 1.5 1.2-2.2 in Serum [...] Serum or Plasma (test code = 1742-6) [facility]Lip[facility] 1996 panel - Serum or Plasma 2019-12-29 [...] or Plasma by calculation (test code = 54745-1) Cholesterol in LDL [Mass/volume] in 87 mg/dL 0-99 Serum or Plasma by calculation (test code = 48810-1) Laboratory comment [Text] in Report manpower development specialist Narrative (test code = 06537-8) [facility] CampusHemoglobin A1c/Hemoglobin.total in [id number] 00:00:00 Test Item Value Reference Range Interpretation Comments Hemoglobin A1c/Hemoglobin.total in 5.1 % 4.8-5.6 Blood (test code = 4548-4) Glucose mean value [Mass/volume] in 100 mg/dL Blood Estimated from glycated hemoglobin (test code = 41097-8) [facility], [id number] 00:00:00 Test Item Value Reference Range Interpretation Comments interpretation (test code = note interpretation) pdf image (test code = pdf image) . [facility] CampusUrinalysis macro (dipstick) panel - [id number] 10:18:57 Test Item Value Reference Range Interpretation Comments Leukocytes (test code = Leukocytes) Trace Nitrite (test code = Nitrite) negative Urobilinogen (test code = .2 Urobilinogen) Protein (test code = Protein) Negative pH (test code = pH) 6.5 Blood (test code = Blood) Moderate Specific [place] (test code = 1.025 Specific [place]) Ketone (test code = Ketone) Negative Bilirubin (test code = Bilirubin) Negative Glucose (test code = Glucose) Negative Appearance (test code = Appearance) Clear Color (test code = Color) Yellow [facility] W Auto Differential panel - [id number] 09:25:00 Test Item Value Reference Range Interpretation [...] L volume [Entitic volume] (test code = 28158-4) mean corpuscular hemoglobin (test 27.1 pg 26.2-33.4 [...] 44.4-80.1 leukocytes in Blood (test code = 73680-3) Granulocytes Immature [#/volume] 0.1 K/uL 0.0-0.03 H in Blood (test code = 78829-3) lymphocyte% (test code = 21.9 % 10.0-50.0 lymphocyte%) mono % (test code = mono %) 5.1 % 3.6-12.0 eos % (test code = eos %) 0.3 % 0.0-5.4 Basophils/100 leukocytes in 0.3 % 0.1-1.2 Unspecified specimen (test code = 52292-4) Neutrophils.band form [#/volume] 8.86 K/uL 1.56-6.13 H in Blood (test code = 54888-1) Lymphocytes [#/volume] in 2.7 K/uL 1.18-3.74 Unspecified specimen by Automated count (test code = 73772-1) mono # (test code = mono #) 0.63 K/uL 0.24-0.86 eos # (test code = eos #) 0.04 K/uL 0.04-0.36 basophil # (test code = basophil 0.04 K/uL 0.01-0.08 #) NRBC% (test code = NRBC%) 0 /100 WBC 0-0.2 NRBC# (test code = NRBC#) 0 K/uL [facility], [id number] 09:25:00 NeutrophilsLymphocyteAtypical LymphMonocytePlatelet EstimatePlatelet MorphologyDifferential comment-[facility] W Auto Differential panel - [id number] 04:32:00 Test Item Value Reference Range Interpretation Comments white blood count (test code = 11.1 K/uL 4.0-11.5 white blood count) red blood count (test code = red 3.85 M/uL 3.80-5.20 blood count) hemoglobin (test code = 10.4 g/dL 10.5-15.7 L hemoglobin) hematocrit (test code = 32.3 % 34.0-50.0 L hematocrit) Erythrocyte mean corpuscular 83.9 fL 86-100 L volume [Entitic volume] (test code = 80467-0) mean corpuscular hemoglobin (test 27.0 pg 26.2-33.4 [...] 44.4-80.1 leukocytes in Blood (test code = 53686-3) Granulocytes Immature [#/volume] 0.1 K/uL 0.0-0.03 H in Blood (test code = 77438-9) lymphocyte% (test code = 20.3 % 10.0-50.0 lymphocyte%) mono % (test code = mono %) 5.4 % 3.6-12.0 eos % (test code = eos %) 0.6 % 0.0-5.4 Basophils/100 leukocytes in 0.4 % 0.1-1.2 Unspecified specimen (test code = 36520-3) Neutrophils.band form [#/volume] 8.10 K/uL 1.56-6.13 H in Blood (test code = 92157-8) Lymphocytes [#/volume] in 2.3 K/uL 1.18-3.74 Unspecified specimen by Automated count (test code = 66356-0) mono # (test code = mono #) 0.60 K/uL 0.24-0.86 eos # (test code = eos #) 0.07 K/uL 0.04-0.36 basophil # (test code = basophil 0.04 K/uL 0.01-0.08 #) NRBC% (test code = NRBC%) 0 /100 WBC 0-0.2 NRBC# (test code = NRBC#) 0 K/uL [facility] CenterBlood type and Indirect antibody screen panel - Blood 2019-10-05 04:32:00 Test Item Value Reference Range Interpretation Comments Rh [Type] in Blood (test code = 4+ 11441-6) ABO and Rh group panel - Blood O positive (test code = 44728-8) [facility] CenterReagin Ab [Presence] in Serum by [id number] 04:32:00 Test Item Value Reference Range Interpretation Comments Reagin Ab [Presence] in Serum by nonreactive nonreactive RPR (test code = 58027-6) [facility] CenterHepatitis B virus surface Ag [Presence] in Serum 2019-10-05 04:32:00 Test Item Value Reference Range Interpretation Comments .hepatitis B surface antigen (test negative negative code = .hepatitis B surface antigen) [facility] CenterUrinalysis macro (dipstick) panel - [id number] 14:34:29 Test Item Value Reference Range Interpretation Comments Leukocytes (test code = Leukocytes) Small Nitrite (test code = Nitrite) negative Urobilinogen (test code = 1 Urobilinogen) Protein (test code = Protein) Negative pH (test code = pH) 7.0 Blood (test code = Blood) Negative Specific [place] (test code = 1.025 Specific [place]) Ketone (test code = Ketone) Small Bilirubin (test code = Bilirubin) Negative Glucose (test code = Glucose) Negative Appearance (test code = Appearance) Clear Color (test code = Color) Yellow [facility] CenterUrinalysis macro (dipstick) panel - [id number] 14:34:29 Test Item Value Reference Range Interpretation Comments Leukocytes (test code = Leukocytes) Small Nitrite (test code = Nitrite) negative Urobilinogen (test code = 1 Urobilinogen) Protein (test code = Protein) Negative pH (test code = pH) 7.0 Blood (test code = Blood) Negative Specific [place] (test code = 1.025 Specific [place]) Ketone (test code = Ketone) Small Bilirubin (test code = Bilirubin) Negative Glucose (test code = Glucose) Negative Appearance (test code = Appearance) Clear Color (test code = Color) Yellow [facility] Centernon-stress [id number] 16:47:00 Test Item Value Reference Range Interpretation Comments Reactive (test code = Reactive) Yes Contractions (test code = Contractions) No [facility] Centernon[facility]stress [id number] 16:47:00 Test Item Value Reference Range Interpretation Comments Reactive (test code = Reactive) Yes Contractions (test code = Contractions) No [facility] CenterUrinalysis macro (dipstick) panel - [id number] 14:08:44 Test Item Value Reference Range Interpretation Comments Leukocytes (test code = Leukocytes) Small Nitrite (test code = Nitrite) negative Urobilinogen (test code = 1 Urobilinogen) Protein (test code = Protein) 30 pH (test code = pH) 7.0 Blood (test code = Blood) Negative Specific [place] (test code = 1.020 Specific [place]) Ketone (test code = Ketone) Negative Bilirubin (test code = Bilirubin) Negative Glucose (test code = Glucose) Negative Appearance (test code = Appearance) Clear Color (test code = Color) Yellow [facility] CenterUrinalysis macro (dipstick) panel - [id number] 14:08:44 Test Item Value Reference Range Interpretation Comments Leukocytes (test code = Leukocytes) Small Nitrite (test code = Nitrite) negative Urobilinogen (test code = 1 Urobilinogen) Protein (test code = Protein) 30 pH (test code = pH) 7.0 Blood (test code = Blood) Negative Specific [place] (test code = 1.020 Specific [place]) Ketone (test code = Ketone) Negative Bilirubin (test code = Bilirubin) Negative Glucose (test code = Glucose) Negative Appearance (test code = Appearance) Clear Color (test code = Color) Yellow [facility] CenterObbcnEwaeq-7-Qookpghxqfkki.placental [Presence] in Vaginal [id number] 08:50:00 Test Item Value Reference Range Interpretation Comments Yhwdl-4-Nwayjvuyszuig.placental negative neg [Presence] in Vaginal fluid (test code = 41144-6) [facility] CenterQnlkrNldso-5-Oxrlgnhwqgfle.placental [Presence] in Vaginal [id number] 08:50:00 Test Item Value Reference Range Interpretation Comments Nrnxr-9-Ymtibrdnwnhdd.placental negative neg [Presence] in Vaginal fluid (test code = 83723-3) [facility] CenterUrinalysis complete panel - [id number] 01:04:00 Test Item Value Reference Range Interpretation Comments Color of Urine by Auto (test code lt. yellow = 38165-7) Appearance of Urine (test code = cloudy clear 5767-9) Glucose [Mass/volume] in Urine negative negative (test code = 2350-7) bilirubin, urine (test code = negative negative bilirubin, urine) ketone, urine (test code = negative negative ketone, urine) Specific gravity of Urine by 1.020 1.003-1.030 Automated test strip (test code = 99645-5) Hemoglobin [Presence] in Urine by negative negative Test strip (test code = 5794-3) pH of Urine (test code = 2756-5) 8.000 5-9 protein urine (UA) (test code = trace negative H protein urine (UA)) Urobilinogen [Presence] in Urine 1.0 E.U./dL 0.2-1.0 (test code = 60622-5) Nitrite [Presence] in Urine by negative negative Test strip (test code = 5802-4) urine leukocyte esterase (test moderate negative H code = urine leukocyte esterase) Erythrocytes [Presence] in Urine =0-3 0-5 (test code = 74559-3) WBC, urine (test code = WBC, =5-9 0-5 H urine) Epithelial cells [Presence] in =0-5 0-5 Urine sediment by Light microscopy (test code = 10696-2) bacteria, urine (test code = moderate none detect H bacteria, urine) urine culture added? (test code = yes urine culture added?) [facility] CenterBacteria identified in Urine by [id number] 01:04:00 Test Item Value Reference Range Interpretation Comments Bacteria identified in no growth after 2 Urine by Culture (test days code = 630-4) [facility] CenterUrinalysis complete panel - [id number] 01:04:00 Test Item Value Reference Range Interpretation Comments Color of Urine by Auto (test code lt. yellow = 34725-1) Appearance of Urine (test code = cloudy clear 5767-9) Glucose [Mass/volume] in Urine negative negative (test code = 2350-7) bilirubin, urine (test code = negative negative bilirubin, urine) ketone, urine (test code = negative negative ketone, urine) Specific gravity of Urine by 1.020 1.003-1.030 Automated test strip (test code = 57773-4) Hemoglobin [Presence] in Urine by negative negative Test strip (test code = 5794-3) pH of Urine (test code = 2756-5) 8.000 5-9 protein urine (UA) (test code = trace negative H protein urine (UA)) Urobilinogen [Presence] in Urine 1.0 E.U./dL 0.2-1.0 (test code = 82892-0) Nitrite [Presence] in Urine by negative negative Test strip (test code = 5802-4) urine leukocyte esterase (test moderate negative H code = urine leukocyte esterase) Erythrocytes [Presence] in Urine =0-3 0-5 (test code = 54810-3) WBC, urine (test code = WBC, =5-9 0-5 H urine) Epithelial cells [Presence] in =0-5 0-5 Urine sediment by Light microscopy (test code = 02283-8) bacteria, urine (test code = moderate none detect H bacteria, urine) urine culture added? (test code = yes urine culture added?) [facility] CenterBacteria identified in Urine by [id number] 01:04:00 Test Item Value Reference Range Interpretation Comments Bacteria identified in no growth after 2 Urine by Culture (test days code = 630-4) [facility] W Auto Differential panel - [id number] 09:20:00 Test Item Value Reference Range Interpretation Comments white blood count (test code = 12.5 K/uL 4.0-11.5 H white blood count) red blood count (test code = red 3.86 M/uL 3.80-5.20 blood count) hemoglobin (test code = 10.7 g/dL 10.5-15.7 hemoglobin) hematocrit (test code = 32.6 % 34.0-50.0 L hematocrit) Erythrocyte mean corpuscular 84.5 fL 86-100 L volume [Entitic volume] (test code = 17951-0) mean corpuscular hemoglobin (test 27.7 pg 26.2-33.4 [...] 44.4-80.1 leukocytes in Blood (test code = 75828-5) Granulocytes Immature [#/volume] 0.1 K/uL 0.0-0.03 H in Blood (test code = 48172-9) lymphocyte% (test code = 19.1 % 10.0-50.0 lymphocyte%) mono % (test code = mono %) 5.9 % 3.6-12.0 eos % (test code = eos %) 0.8 % 0.0-5.4 Basophils/100 leukocytes in 0.3 % 0.1-1.2 Unspecified specimen (test code = 18431-2) Neutrophils.band form [#/volume] 9.09 K/uL 1.56-6.13 H in Blood (test code = 48976-1) Lymphocytes [#/volume] in 2.4 K/uL 1.18-3.74 Unspecified specimen by Automated count (test code = 06126-9) mono # (test code = mono #) 0.73 K/uL 0.24-0.86 eos # (test code = eos #) 0.10 K/uL 0.04-0.36 basophil # (test code = basophil 0.04 K/uL 0.01-0.08 #) NRBC% (test code = NRBC%) 0 /100 WBC 0-0.2 NRBC# (test code = NRBC#) 0 K/uL [facility] CenterPT/[id number] 09:20:00 Test Item Value Reference Range Interpretation Comments prothrombin time (test code = 9.6 seconds 10.3-12.3 L prothrombin time) INR in Blood by Coagulation assay 0.88 (test code = 50939-5) [facility] Centerpartial thromboplastin [id number] 09:20:00 Test Item Value Reference Range Interpretation Comments INR in Blood by Coagulation 28.7 seconds 22.5-37.0 assay (test code = 33874-4) [facility] W Auto Differential panel - [id number] 09:20:00 Test Item Value Reference Range Interpretation Comments white blood count (test code = 12.5 K/uL 4.0-11.5 H white blood count) red blood count (test code = red 3.86 M/uL 3.80-5.20 blood count) hemoglobin (test code = 10.7 g/dL 10.5-15.7 hemoglobin) hematocrit (test code = 32.6 % 34.0-50.0 L hematocrit) Erythrocyte mean corpuscular 84.5 fL 86-100 L volume [Entitic volume] (test code = 94571-3) mean corpuscular hemoglobin (test 27.7 pg 26.2-33.4 [...] 44.4-80.1 leukocytes in Blood (test code = 79774-0) Granulocytes Immature [#/volume] 0.1 K/uL 0.0-0.03 H in Blood (test code = 31330-3) lymphocyte% (test code = 19.1 % 10.0-50.0 lymphocyte%) mono % (test code = mono %) 5.9 % 3.6-12.0 eos % (test code = eos %) 0.8 % 0.0-5.4 Basophils/100 leukocytes in 0.3 % 0.1-1.2 Unspecified specimen (test code = 68014-8) Neutrophils.band form [#/volume] 9.09 K/uL 1.56-6.13 H in Blood (test code = 32748-9) Lymphocytes [#/volume] in 2.4 K/uL 1.18-3.74 Unspecified specimen by Automated count (test code = 22516-7) mono # (test code = mono #) 0.73 K/uL 0.24-0.86 eos # (test code = eos #) 0.10 K/uL 0.04-0.36 basophil # (test code = basophil 0.04 K/uL 0.01-0.08 #) NRBC% (test code = NRBC%) 0 /100 WBC 0-0.2 NRBC# (test code = NRBC#) 0 K/uL [facility] CenterPT/[id number] 09:20:00 Test Item Value Reference Range Interpretation Comments prothrombin time (test code = 9.6 seconds 10.3-12.3 L prothrombin time) INR in Blood by Coagulation assay 0.88 (test code = 91695-3) [facility]partial thromboplastin [id number] 09:20:00 Test Item Value Reference Range Interpretation Comments INR in Blood by Coagulation 28.7 seconds 22.5-37.0 assay (test code = 52611-6) [facility] CenterGlucose [Mass/volume] in Capillary [id number] 09:46:26 Test Item Value Reference Range Interpretation Comments GLU (test code = GLU) 91 [facility] CenterGlucose [Mass/volume] in Capillary [id number] 09:46:26 Test Item Value Reference Range Interpretation Comments GLU (test code = GLU) 91 [facility] CenterGlucose [Mass/volume] in Capillary [id number] 09:46:26 Test Item Value Reference Range Interpretation Comments GLU (test code = GLU) 91 [facility] CenterUrinalysis macro (dipstick) panel - [id number] 09:36:18 Test Item Value Reference Range Interpretation Comments Leukocytes (test code = Leukocytes) Small Nitrite (test code = Nitrite) negative Urobilinogen (test code = 1 Urobilinogen) Protein (test code = Protein) 30 pH (test code = pH) 7.0 Blood (test code = Blood) Negative Specific [place] (test code = 1.025 Specific [place]) Ketone (test code = Ketone) Small Bilirubin (test code = Bilirubin) Negative Glucose (test code = Glucose) Negative Appearance (test code = Appearance) Cloudy Color (test code = Color) Yellow [facility] CenterUrinalysis macro (dipstick) panel - [id number] 09:36:18 Test Item Value Reference Range Interpretation Comments Leukocytes (test code = Leukocytes) Small Nitrite (test code = Nitrite) negative Urobilinogen (test code = 1 Urobilinogen) Protein (test code = Protein) 30 pH (test code = pH) 7.0 Blood (test code = Blood) Negative Specific [place] (test code = 1.025 Specific [place]) Ketone (test code = Ketone) Small Bilirubin (test code = Bilirubin) Negative Glucose (test code = Glucose) Negative Appearance (test code = Appearance) Cloudy Color (test code = Color) Yellow [facility] CenterUrinalysis macro (dipstick) panel - [id number] 09:36:18 Test Item Value Reference Range Interpretation Comments Leukocytes (test code = Leukocytes) Small Nitrite (test code = Nitrite) negative Urobilinogen (test code = 1 Urobilinogen) Protein (test code = Protein) 30 pH (test code = pH) 7.0 Blood (test code = Blood) Negative Specific [place] (test code = 1.025 Specific [place]) Ketone (test code = Ketone) Small Bilirubin (test code = Bilirubin) Negative Glucose (test code = Glucose) Negative Appearance (test code = Appearance) Cloudy Color (test code = Color) Yellow [facility] CenterUrinalysis complete panel - [id number] 11:35:00 Test Item Value Reference Range Interpretation Comments Color of Urine by Auto yellow (test code = 67903-9) Appearance of Urine (test cloudy clear code = 5767-9) Glucose [Mass/volume] in negative negative Urine (test code = 2350-7) bilirubin, urine (test code negative negative = bilirubin, urine) ketone, urine (test code = moderate, 40 negative H ketone, urine) Specific gravity of Urine 1.025 1.003-1.030 by Automated test strip (test code = 22575-3) Hemoglobin [Presence] in negative negative Urine by Test strip (test code = 5794-3) pH of Urine (test code = 7.000 5-9 2756-5) protein urine (UA) (test trace negative H code = protein urine (UA)) Urobilinogen [Presence] in 1.0 E.U./dL 0.2-1.0 Urine (test code = 50761-5) Nitrite [Presence] in Urine negative negative by Test strip (test code = 5802-4) urine leukocyte esterase =1 negative H (test code = urine leukocyte esterase) Erythrocytes [Presence] in none seen 0-5 Urine (test code = 95169-9) WBC, urine (test code = =5-9 0-5 H WBC, urine) Epithelial cells [Presence] =11-25 0-5 H in Urine sediment by Light microscopy (test code = 32784-3) bacteria, urine (test code large (3 none detect H = bacteria, urine) urine culture added? (test no. contaminated. code = urine culture added?) mucus, urine (test code = =2 none detect mucus, urine) [facility] GroupUrinal[facility] complete panel - [id number] 11:35:00 Test Item Value Reference Range Interpretation Comments Color of Urine by Auto yellow (test code = 94685-0) Appearance of Urine (test cloudy clear code = 5767-9) Glucose [Mass/volume] in negative negative Urine (test code = 2350-7) bilirubin, urine (test code negative negative = bilirubin, urine) ketone, urine (test code = moderate, 40 negative H ketone, urine) Specific gravity of Urine 1.025 1.003-1.030 by Automated test strip (test code = 26367-9) Hemoglobin [Presence] in negative negative Urine by Test strip (test code = 5794-3) pH of Urine (test code = 7.000 5-9 2756-5) protein urine (UA) (test trace negative H code = protein urine (UA)) Urobilinogen [Presence] in 1.0 E.U./dL 0.2-1.0 Urine (test code = 14651-4) Nitrite [Presence] in Urine negative negative by Test strip (test code = 5802-4) urine leukocyte esterase =1 negative H (test code = urine leukocyte esterase) Erythrocytes [Presence] in none seen 0-5 Urine (test code = 05902-3) WBC, urine (test code = =5-9 0-5 H WBC, urine) Epithelial cells [Presence] =11-25 0-5 H in Urine sediment by Light microscopy (test code = 30845-7) bacteria, urine (test code large (3 none detect H = bacteria, urine) urine culture added? (test no. contaminated. code = urine culture added?) mucus, urine (test code = =2 none detect mucus, urine) [facility] CenterCom[facility] 2000 [facility] - Serum [...] Serum or Plasma (test code = 6768-6) [facility] CenterHepatic function 2000 panel - Serum or [id number] 09:33:00 Test Item Value Reference Range Interpretation Comments Bilirubin.direct [Mass/volume] in Serum <0.20 0.0-0.3 or Plasma (test code = 1968-7) [facility] CenterHemoglobin A1c [Mass/volume] in [id number] 09:33:00 Test Item Value Reference Range Interpretation Comments Hemoglobin A1c [Mass/volume] in Blood 5.2 % 4.0-6.0 (test code = 50864-4) [facility] Centerrapid strep group A, [id number] 09:59:00 Test Item Value Reference Range Interpretation Comments Strep Result (test code = Strep negative Result) [facility] Centerrapid strep group A, [id number] 09:59:00 Test Item Value Reference Range Interpretation Comments Strep Result (test code = Strep negative Result) [facility] CenterUrinalysis complete panel - [id number] 07:49:00 Test Item Value Reference Range Interpretation Comments Color of Urine by Auto (test lt. yellow code = 15821-2) Appearance of Urine (test code = SL cloudy clear 5767-9) Glucose [Mass/volume] in Urine negative negative (test code = 2350-7) bilirubin, urine (test code = negative negative bilirubin, urine) ketone, urine (test code = negative negative ketone, urine) Specific gravity of Urine by 1.015 1.003-1.030 Automated test strip (test code = 95939-1) Hemoglobin [Presence] in Urine negative negative by Test strip (test code = 5794-3) pH of Urine (test code = 2756-5) 7.000 5-9 protein urine (UA) (test code = negative negative protein urine (UA)) Urobilinogen [Presence] in Urine 0.2 E.U./dL 0.2-1.0 (test code = 46093-9) Nitrite [Presence] in Urine by negative negative Test strip (test code = 5802-4) urine leukocyte esterase (test =1 negative H code = urine leukocyte esterase) Erythrocytes [Presence] in Urine none seen 0-5 (test code = 87139-5) WBC, urine (test code = WBC, =6-10 0-5 H urine) Epithelial cells [Presence] in more than 25 0-5 H Urine sediment by Light microscopy (test code = 28203-2) bacteria, urine (test code = large none detect H bacteria, urine) urine culture added? (test code no = urine culture added?) [facility] - [id number] 07:49:00 Test Item Value Reference Range Interpretation Comments Color of Urine by Auto (test lt. yellow code = 00556-3) Appearance of Urine (test code = SL cloudy clear 5767-9) Glucose [Mass/volume] in Urine negative negative (test code = 2350-7) bilirubin, urine (test code = negative negative bilirubin, urine) ketone, urine (test code = negative negative ketone, urine) Specific gravity of Urine by 1.015 1.003-1.030 Automated test strip (test code = 77894-0) Hemoglobin [Presence] in Urine negative negative by Test strip (test code = 5794-3) pH of Urine (test code = 2756-5) 7.000 5-9 protein urine (UA) (test code = negative negative protein urine (UA)) Urobilinogen [Presence] in Urine 0.2 E.U./dL 0.2-1.0 (test code = 80244-5) Nitrite [Presence] in Urine by negative negative Test strip (test code = 5802-4) urine leukocyte esterase (test =1 negative H code = urine leukocyte esterase) Erythrocytes [Presence] in Urine none seen 0-5 (test code = 12280-0) WBC, urine (test code = WBC, =6-10 0-5 H urine) Epithelial cells [Presence] in more than 25 0-5 H Urine sediment by Light microscopy (test code = 01513-3) bacteria, urine (test code = large none detect H bacteria, urine) urine culture added? (test code no = urine culture added?) [facility] complete [facility] - [id number] 07:49:00 Test Item Value Reference Range Interpretation Comments Color of Urine by Auto (test lt. yellow code = 63937-8) Appearance of Urine (test code = SL cloudy clear 5767-9) Glucose [Mass/volume] in Urine negative negative (test code = 2350-7) bilirubin, urine (test code = negative negative bilirubin, urine) ketone, urine (test code = negative negative ketone, urine) Specific gravity of Urine by 1.015 1.003-1.030 Automated test strip (test code = 11936-1) Hemoglobin [Presence] in Urine negative negative by Test strip (test code = 5794-3) pH of Urine (test code = 2756-5) 7.000 5-9 protein urine (UA) (test code = negative negative protein urine (UA)) Urobilinogen [Presence] in Urine 0.2 E.U./dL 0.2-1.0 (test code = 92732-0) Nitrite [Presence] in Urine by negative negative Test strip (test code = 5802-4) urine leukocyte esterase (test =1 negative H code = urine leukocyte esterase) Erythrocytes [Presence] in Urine none seen 0-5 (test code = 19691-9) WBC, urine (test code = WBC, =6-10 0-5 H urine) Epithelial cells [Presence] in more than 25 0-5 H Urine sediment by Light microscopy (test code = 03068-2) bacteria, urine (test code = large none detect H bacteria, urine) urine culture added? (test code no = urine culture added?) [facility] W Auto Differential panel - [id number] 08:55:00 Test Item Value Reference Range Interpretation Comments white blood count (test code = 10.7 K/uL 4.0-11.5 white blood count) red blood count (test code = red 3.85 M/uL 3.80-5.20 blood count) hemoglobin (test code = 11.5 g/dL 10.5-15.7 hemoglobin) hematocrit (test code = 34.9 % 34.0-50.0 hematocrit) Erythrocyte mean corpuscular 90.6 fL 86-100 volume [Entitic volume] (test code = 55886-6) mean corpuscular hemoglobin (test 29.9 pg 26.2-33.4 [...] 44.4-80.1 leukocytes in Blood (test code = 91579-4) Granulocytes Immature [#/volume] 0.1 K/uL 0.0-0.03 H in Blood (test code = 63488-5) lymphocyte% (test code = 17.9 % 10.0-50.0 lymphocyte%) mono % (test code = mono %) 6.8 % 3.6-12.0 eos % (test code = eos %) 1.4 % 0.0-5.4 Basophils/100 leukocytes in 0.3 % 0.1-1.2 Unspecified specimen (test code = 67810-2) Neutrophils.band form [#/volume] 7.78 K/uL 1.56-6.13 H in Blood (test code = 18956-1) Lymphocytes [#/volume] in 1.9 K/uL 1.18-3.74 Unspecified specimen by Automated count (test code = 59902-4) mono # (test code = mono #) 0.73 K/uL 0.24-0.86 eos # (test code = eos #) 0.15 K/uL 0.04-0.36 basophil # (test code = basophil 0.03 K/uL 0.01-0.08 #) NRBC% (test code = NRBC%) 0 /100 WBC 0-0.2 NRBC# (test code = NRBC#) 0 K/uL [facility] screen [Presence] in Serum or Plasma 2019-07-22 08:55:00 Test Item Value Reference Range Interpretation Comments Blood group antibody screen negative [Presence] in Serum or Plasma (test code = 890-4) [facility] CenterReagin Ab [Presence] in Serum by [id number] 08:55:00 Test Item Value Reference Range Interpretation Comments Reagin Ab [Presence] in Serum by nonreactive nonreactive RPR (test code = 08143-0) [facility] CenterHIV 1+2 Ab [Presence] in [id number] 08:55:00HIV P24 [facility] - [facility] 2019-07-22 [...] 86-100 volume [Entitic volume] (test code = 11310-6) mean corpuscular hemoglobin (test 29.9 pg 26.2-33.4 [...] 44.4-80.1 leukocytes in Blood (test code = 67457-1) Granulocytes Immature [#/volume] 0.1 K/uL 0.0-0.03 H in Blood (test code = 72426-4) lymphocyte% (test code = 17.9 % 10.0-50.0 lymphocyte%) mono % (test code = mono %) 6.8 % 3.6-12.0 eos % (test code = eos %) 1.4 % 0.0-5.4 Basophils/100 leukocytes in 0.3 % 0.1-1.2 Unspecified specimen (test code = 92653-6) Neutrophils.band form [#/volume] 7.78 K/uL 1.56-6.13 H in Blood (test code = 79365-7) Lymphocytes [#/volume] in 1.9 K/uL 1.18-3.74 Unspecified specimen by Automated count (test code = 97568-7) mono # (test code = mono #) 0.73 K/uL 0.24-0.86 eos # (test code = eos #) 0.15 K/uL 0.04-0.36 basophil # (test code = basophil 0.03 K/uL 0.01-0.08 #) NRBC% (test code = NRBC%) 0 /100 WBC 0-0.2 NRBC# (test code = NRBC#) 0 K/uL [facility] CenterBlood [facility] antibody screen [Presence] in Serum or Plasma 2019-07-22 08:55:00 Test Item Value Reference Range Interpretation Comments Blood group antibody screen negative [Presence] in Serum or Plasma (test code = 890-4) [facility] CenterReagin Ab [Presence] in Serum by [id number] 08:55:00 Test Item Value Reference Range Interpretation Comments Reagin Ab [Presence] in Serum by nonreactive nonreactive RPR (test code = 42780-6) [facility] CenterHIV 1+2 Ab [Presence] in [id number] 08:55:00HIV P24 AgHIV-1/2 AbCho[facility] CenterCBC W Auto Differential panel - Blood 2019-07-22 [...] 86-100 volume [Entitic volume] (test code = 00019-2) mean corpuscular hemoglobin (test 29.9 pg 26.2-33.4 [...] 44.4-80.1 leukocytes in Blood (test code = 65821-8) Granulocytes Immature [#/volume] 0.1 K/uL 0.0-0.03 H in Blood (test code = 78454-2) lymphocyte% (test code = 17.9 % 10.0-50.0 lymphocyte%) mono % (test code = mono %) 6.8 % 3.6-12.0 eos % (test code = eos %) 1.4 % 0.0-5.4 Basophils/100 leukocytes in 0.3 % 0.1-1.2 Unspecified specimen (test code = 80346-8) Neutrophils.band form [#/volume] 7.78 K/uL 1.56-6.13 H in Blood (test code = 19794-5) Lymphocytes [#/volume] in 1.9 K/uL 1.18-3.74 Unspecified specimen by Automated count (test code = 33649-3) mono # (test code = mono #) 0.73 K/uL 0.24-0.86 eos # (test code = eos #) 0.15 K/uL 0.04-0.36 basophil # (test code = basophil 0.03 K/uL 0.01-0.08 #) NRBC% (test code = NRBC%) 0 /100 WBC 0-0.2 NRBC# (test code = NRBC#) 0 K/uL [facility] antibody screen [Presence] in Serum or Plasma 2019-07-22 08:55:00 Test Item Value Reference Range Interpretation Comments Blood group antibody screen negative [Presence] in Serum or Plasma (test code = 890-4) [facility] Group[facility] [Presence] in Serum by [id number] 08:55:00 Test Item Value Reference Range Interpretation Comments Reagin Ab [Presence] in Serum by nonreactive nonreactive RPR (test code = 35160-8) [facility] GroupHIV 1+2 Ab [Presence] in [id number] 08:55:00HIV P24 AgHIV-1/2 [facility] - Urine 2019-06-30 09:41:48 Test Item Value Reference Range Interpretation Comments Leukocytes (test code = Leukocytes) Small Nitrite (test code = Nitrite) negative Urobilinogen (test code = 1 Urobilinogen) Protein (test code = Protein) 30 pH (test code = pH) 7.0 Blood (test code = Blood) Negative Specific [place] (test code = 1.025 Specific [place]) Ketone (test code = Ketone) Trace Bilirubin (test code = Bilirubin) Small Glucose (test code = Glucose) Negative Appearance (test code = Appearance) Clear Color (test code = Color) Yellow [facility] CenterUrinalysis macro (dipstick) panel - [id number] 09:41:48 Test Item Value Reference Range Interpretation Comments Leukocytes (test code = Leukocytes) Small Nitrite (test code = Nitrite) negative Urobilinogen (test code = 1 Urobilinogen) Protein (test code = Protein) 30 pH (test code = pH) 7.0 Blood (test code = Blood) Negative Specific [place] (test code = 1.025 Specific [place]) Ketone (test code = Ketone) Trace Bilirubin (test code = Bilirubin) Small Glucose (test code = Glucose) Negative Appearance (test code = Appearance) Clear Color (test code = Color) Yellow [facility] CenterCT + NG + TV, DNA, urine/[id number] 00:00:00 Test Item Value Reference Range Interpretation [...] (reflex to antibiotic resistance by molecular analysis)) [facility] Centerbacterial vaginosis panel, [id number] 00:00:00 Test Item Value Reference Range Interpretation [...] & av panel) by real time PCR) [facility] CenterCandida sp DNA [Presence] in Vaginal fluid by Probe and target amplification [id number] 00:00:00 Test Item Value Reference Range Interpretation [...] code = glen glabrata by real-time PCR) [facility] CenterCT + NG + TV, DNA, urine/[id number] 00:00:00 Test Item Value Reference Range Interpretation [...] (reflex to antibiotic resistance by molecular analysis)) [facility] Centerbacterial vaginosis panel, [id number] 00:00:00 Test Item Value Reference Range Interpretation [...] & av panel) by real time PCR) [facility] CenterCandida sp DNA [Presence] in Vaginal fluid by Probe and target amplification [id number] 00:00:00 Test Item Value Reference Range Interpretation [...] code = glen glabrata by real-time PCR) [facility] CenterUrinalysis macro (dipstick) panel - [id number] 15:32:50 Test Item Value Reference Range Interpretation Comments Leukocytes (test code = Leukocytes) Trace Nitrite (test code = Nitrite) negative Urobilinogen (test code = 8 Urobilinogen) Protein (test code = Protein) Trace pH (test code = pH) 7.0 Blood (test code = Blood) Negative Specific [place] (test code = 1.020 Specific [place]) Ketone (test code = Ketone) Moderate Bilirubin (test code = Bilirubin) Small Glucose (test code = Glucose) Negative Appearance (test code = Appearance) Clear Color (test code = Color) Yellow [facility] CenterUrinalysis macro (dipstick) panel - [id number] 15:32:50 Test Item Value Reference Range Interpretation Comments Leukocytes (test code = Leukocytes) Trace Nitrite (test code = Nitrite) negative Urobilinogen (test code = 8 Urobilinogen) Protein (test code = Protein) Trace pH (test code = pH) 7.0 Blood (test code = Blood) Negative Specific [place] (test code = 1.020 Specific [place]) Ketone (test code = Ketone) Moderate Bilirubin (test code = Bilirubin) Small Glucose (test code = Glucose) Negative Appearance (test code = Appearance) Clear Color (test code = Color) Yellow [facility] CenterMicroscopic observation [Identifier] in Unspecified specimen by Wet [id number] 07:44:00 Test Item Value Reference Range Interpretation Comments Microscopic observation no trichomonas, [Identifier] in yeast or clue cell Unspecified specimen by observed. Wet preparation (test code = 680-9) [facility] CenterUrinalysis complete panel - [id number] 07:27:00 Test Item Value Reference Range Interpretation Comments Color of Urine by Auto light yellow (test code = 69463-1) Appearance of Urine (test SL cloudy clear A code = 5767-9) Glucose [Presence] in Urine negative negative by Automated test strip (test code = 17773-5) Bilirubin.total negative negative [Mass/volume] in Urine (test code = 1978-6) Ketones [Mass/volume] in negative negative Urine by Automated test strip (test code = 61409-1) Specific gravity of Urine 1.014 1.003-1.030 by Automated test strip (test code = 09021-0) blood urine (test code = =1 negative H blood urine) pH of Urine (test code = 7.500 5-9 2756-5) protein urine (UA) (test trace negative code = protein urine (UA)) Urobilinogen [Presence] in =2.0 0.2-1.0 H Urine (test code = 58271-0) Nitrite [Presence] in Urine negative negative by Test strip (test code = 5802-4) Leukocyte esterase =3 negative H [Presence] in Urine by Automated test strip (test code = 66763-4) Erythrocytes [#/volume] in =1-5 0-5 Urine by Automated count (test code = 798-9) Leukocytes [#/area] in =11-14 0-5 H Urine sediment by Automated count (test code = 35320-6) Epithelial cells [Presence] =20-29 0-5 in Urine sediment by Light microscopy (test code = 14720-6) Bacteria identified in moderate (2 none detect H Urine by Culture (test code = 630-4) urine culture added? (test no. contaminated. code = urine culture added?) [facility] W Auto Differential panel - [id number] 07:21:00 Test Item Value Reference Range Interpretation Comments white blood count (test code = 10.9 K/uL 4.0-11.5 white blood count) red blood count (test code = red 3.87 M/uL 3.80-5.20 blood count) hemoglobin (test code = 11.4 g/dL 10.5-15.7 hemoglobin) hematocrit (test code = 34.3 % 34.0-50.0 hematocrit) Erythrocyte mean corpuscular 88.6 fL 86-100 volume [Entitic volume] (test code = 69822-2) mean corpuscular hemoglobin (test 29.5 pg 26.2-33.4 [...] 44.4-80.1 leukocytes in Blood (test code = 86491-2) Granulocytes Immature [#/volume] 0.0 K/uL 0.0-0.03 in Blood (test code = 05902-3) lymphocyte% (test code = 19.2 % 10.0-50.0 lymphocyte%) mono % (test code = mono %) 5.5 % 3.6-12.0 eos % (test code = eos %) 1.4 % 0.0-5.4 Basophils/100 leukocytes in 0.3 % 0.1-1.2 Unspecified specimen (test code = 47573-1) Neutrophils.band form [#/volume] 8.00 K/uL 1.56-6.13 H in Blood (test code = 23329-5) Lymphocytes [#/volume] in 2.1 K/uL 1.18-3.74 Unspecified specimen by Automated count (test code = 22069-4) mono # (test code = mono #) 0.60 K/uL 0.24-0.86 eos # (test code = eos #) 0.15 K/uL 0.04-0.36 basophil # (test code = basophil 0.03 K/uL 0.01-0.08 #) NRBC% (test code = NRBC%) 0 /100 WBC 0-0.2 NRBC# (test code = NRBC#) 0 K/uL [facility] Centerdifferential panel, [id number] 07:21:00 NeutrophilsBandLymphocyteAtypical LymphMonocyteEosinophilBasophilPlatelet EstimatePlatelet MorphologyHypochromasiaAnisocytosisMicrocytosisDohle BodiesToxic VacuolationMaWayne General HospitalPT/[id number] 07:21:00 Test Item Value Reference Range Interpretation Comments prothrombin time (test code = 9.8 seconds 10.3-12.3 L prothrombin time) INR in Blood by Coagulation assay 0.89 (test code = 70524-9) [facility] Centerpartial thromboplastin [id number] 07:21:00 Test Item Value Reference Range Interpretation Comments INR in Blood by Coagulation 29.3 seconds 22.5-37.0 assay (test code = 10568-0) [facility] CenterChoriogonadotropin.beta subunit [Units/volume] in Serum or [id number] 07:21:00 Test Item Value Reference Range Interpretation Comments HCG quantitative (test code = 7608.0 mIU/mL 0-5 HCG quantitative) [facility] CenterUrinalysis macro (dipstick) panel - [id number] 16:09:30 Test Item Value Reference Range Interpretation Comments Leukocytes (test code = Leukocytes) Negative Nitrite (test code = Nitrite) negative Urobilinogen (test code = 2 Urobilinogen) Protein (test code = Protein) Negative pH (test code = pH) 6.0 Blood (test code = Blood) Negative Specific [place] (test code = 1.030 Specific [place]) Ketone (test code = Ketone) Small Bilirubin (test code = Bilirubin) Small Glucose (test code = Glucose) Negative Appearance (test code = Appearance) Clear Color (test code = Color) Yellow [facility] CenterUrinalysis macro (dipstick) panel - [id number] 16:09:30 Test Item Value Reference Range Interpretation Comments Leukocytes (test code = Leukocytes) Negative Nitrite (test code = Nitrite) negative Urobilinogen (test code = 2 Urobilinogen) Protein (test code = Protein) Negative pH (test code = pH) 6.0 Blood (test code = Blood) Negative Specific [place] (test code = 1.030 Specific [place]) Ketone (test code = Ketone) Small Bilirubin (test code = Bilirubin) Small Glucose (test code = Glucose) Negative Appearance (test code = Appearance) Clear Color (test code = Color) Yellow [facility]Ur[facility] (dipstick) panel - [id number] 16:09:30 Test Item Value Reference Range Interpretation Comments Leukocytes (test code = Leukocytes) Negative Nitrite (test code = Nitrite) negative Urobilinogen (test code = 2 Urobilinogen) Protein (test code = Protein) Negative pH (test code = pH) 6.0 Blood (test code = Blood) Negative Specific [place] (test code = 1.030 Specific [place]) Ketone (test code = Ketone) Small Bilirubin (test code = Bilirubin) Small Glucose (test code = Glucose) Negative Appearance (test code = Appearance) Clear Color (test code = Color) Yellow [facility] GroupBacteria identified in Urine by [id number] 02:56:00 Test Item Value Reference Range Interpretation Comments Bacteria identified in no growth at 48 hrs. Urine by Culture (test code = 630-4) [facility] GroupBacteria identified in Urine by [id number] 02:56:00 Test Item Value Reference Range Interpretation Comments Bacteria identified in no growth at 48 hrs. Urine by Culture (test code = 630-4) [facility] GroupUrinalysis macro (dipstick) panel - [id number] 09:37:30 Test Item Value Reference Range Interpretation Comments Leukocytes (test code = Large Leukocytes) Nitrite (test code = negative Nitrite) Urobilinogen (test code = .2 Urobilinogen) Protein (test code = Trace Protein) pH (test code = pH) 7.0 Blood (test code = Blood) Non-Hemolyzed: Trace Specific [place] (test 1.020 code = Specific [place]) Ketone (test code = Negative Ketone) Bilirubin (test code = Negative Bilirubin) Glucose (test code = Negative Glucose) Appearance (test code = Clear Appearance) Color (test code = Color) Yellow [facility] CenterUrinalysis macro (dipstick) panel - [id number] 09:37:30 Test Item Value Reference Range Interpretation Comments Leukocytes (test code = Large Leukocytes) Nitrite (test code = negative Nitrite) Urobilinogen (test code = .2 Urobilinogen) Protein (test code = Trace Protein) pH (test code = pH) 7.0 Blood (test code = Blood) Non-Hemolyzed: Trace Specific [place] (test 1.020 code = Specific [place]) Ketone (test code = Negative Ketone) Bilirubin (test code = Negative Bilirubin) Glucose (test code = Negative Glucose) Appearance (test code = Clear Appearance) Color (test code = Color) Yellow [facility] CenterBacteria identified in Urine by [id number] 09:13:00Bacteria Ur [facility], [id number] 09:13:00 Test Item Value Reference Range Interpretation Comments Penicillin [Susceptibility] by <0.03 Minimum inhibitory concentration (KARINA) (test code = 6932-8) Vancomycin [Susceptibility] by 0.5 ug/mL Minimum inhibitory concentration (KARINA) (test code = 524-9) Levofloxacin [Susceptibility] by <2 Minimum inhibitory concentration (KARINA) (test code = 14754-8) Linezolid [Susceptibility] by <2 Minimum inhibitory concentration (KARINA) (test code = 08047-4) Daptomycin [Susceptibility] by <0.5 Minimum inhibitory concentration (KARINA) (test code = 57434-2) [facility] CenterChromosome 13+18+21+X+Y aneuploidy in Blood by Molecular genetics method [id number] 00:00:00 Test Item Value Reference Range Interpretation [...] contacts (test code = see notes contacts) [facility] CenterGenetic screen in Unspecified specimen by Molecular genetics method [id number] 00:00:00 Test Item Value Reference Range Interpretation [...] code = polycystic kidney disease, autosomal recessive) fxlth-ematf-oqboy syndrome (test negative code = sfxws-jpvza-asccj syndrome) spinal muscular atrophy (test code negative [...] consent?) zip code [place] the ordering facility [address] (test code = zip code of the [...] contacts (test code = contacts) see notes [facility] GroupMicroscopic observation [Identifier] in Cervix by Cyto stain.thin [id number] 10:40:00ResultsMatagorda Medical GroupMicroscopic observation [Identifier] in Cervix by Cyto stain.thin [id number] 10:40:00 ResultsMatagorda Medical GroupChlamydia trachomatis+Neisseria gonorrhoeae DNA [Presence] in Cervix by Probe and target amplification [id number] 10:32:00 ResultsMatagorda Medical GroupBacteria identified in Urine by [id number] 10:32:00Bacteria Ur CultMatagorda Medical GroupChlamydia trachomatis+Neisseria gonorrhoeae DNA [Presence] in Cervix by Probe and target amplification method 2019-03-12 10:32:00ResultsMatagorda Medical GroupBacteria identified in Urine by [id number] 10:32:00Bacteria Ur CultMatagorda Medical GroupUrinalysis macro (dipstick) panel - [id number] 09:44:32 Test Item Value Reference Range Interpretation Comments Leukocytes (test code = Leukocytes) Small Nitrite (test code = Nitrite) negative Urobilinogen (test code = 4 Urobilinogen) Protein (test code = Protein) 30 pH (test code = pH) 8.0 Blood (test code = Blood) Negative Specific [place] (test code = 1.020 Specific [place]) Ketone (test code = Ketone) Negative Bilirubin (test code = Bilirubin) Negative Glucose (test code = Glucose) Negative Appearance (test code = Appearance) Clear Color (test code = Color) Yellow [facility] GroupUrinalysis macro (dipstick) panel - [id number] 09:44:32 Test Item Value Reference Range Interpretation Comments Leukocytes (test code = Leukocytes) Small Nitrite (test code = Nitrite) negative Urobilinogen (test code = 4 Urobilinogen) Protein (test code = Protein) 30 pH (test code = pH) 8.0 Blood (test code = Blood) Negative Specific [place] (test code = 1.020 Specific [place]) Ketone (test code = Ketone) Negative Bilirubin (test code = Bilirubin) Negative Glucose (test code = Glucose) Negative Appearance (test code = Appearance) Clear Color (test code = Color) Yellow [facility] CenterUrinalysis macro (dipstick) panel - [id number] 09:44:32 Test Item Value Reference Range Interpretation Comments Leukocytes (test code = Leukocytes) Small Nitrite (test code = Nitrite) negative Urobilinogen (test code = 4 Urobilinogen) Protein (test code = Protein) 30 pH (test code = pH) 8.0 Blood (test code = Blood) Negative Specific [place] (test code = 1.020 Specific [place]) Ketone (test code = Ketone) Negative Bilirubin (test code = Bilirubin) Negative Glucose (test code = Glucose) Negative Appearance (test code = Appearance) Clear Color (test code = Color) Yellow [facility] Centerpregnancy test, [id number] 12:15:00 Test Item Value Reference Range Interpretation Comments Test (test code = positive Test) [facility] Centerp[facility] test, [id number] 12:15:00 Test Item Value Reference Range Interpretation Comments Test (test code = positive Test) [facility] Centerpregnancy test, [id number] 12:15:00 Test Item Value Reference Range Interpretation Comments Test (test code = positive Test) [facility] CenterCB W Auto Differential panel - [id number] 09:05:00 Test Item Value Reference Range Interpretation Comments white blood count (test code = 9.1 K/uL 4.0-11.5 white blood count) red blood count (test code = red 4.96 M/uL 3.80-5.20 blood count) hemoglobin (test code = 13.9 g/dL 10.5-15.7 hemoglobin) hematocrit (test code = 44.0 % 34.0-50.0 hematocrit) Erythrocyte mean corpuscular 88.7 fL 86-100 volume [Entitic volume] (test code = 63101-3) Erythrocyte mean corpuscular 28.0 pg 26.2-33.4 hemoglobin [Entitic mass] (test code = 49844-4) mean corpuscular HGB conc (test 31.6 g/dL 30-34 code = mean corpuscular HGB conc) red cell distribution width (test 12.9 % 12.0-15.5 code = red cell distribution width) platelet count (test code = 378 K/uL 165-450 platelet count) mean platelet volume (test code = 10.4 fL 9.4-12.6 mean platelet volume) Neutrophils.segmented/100 70.2 % 44.4-80.1 leukocytes in Blood (test code = 03501-5) Ig% (test code = Ig%) 0.3 % 0.0-0.4 lymphocyte% (test code = 21.3 % 10.0-50.0 lymphocyte%) Monocytes/100 leukocytes in Blood 5.3 % 3.6-12.0 by Automated count (test code = 5905-5) Eosinophils/100 leukocytes in 2.6 % 0.0-5.4 Blood by Automated count (test code = 713-8) Basophils/100 leukocytes in 0.3 % 0.1-1.2 Unspecified specimen (test code = 62979-5) absolute neutrophil count (test 6.38 K/uL 1.56-6.13 H code = absolute neutrophil count) Ig# (test code = Ig#) 0.0 K/uL 0.0-0.03 Lymphocytes [#/volume] in 1.9 K/uL 1.18-3.74 Unspecified specimen by Automated count (test code = 11047-4) mono # (test code = mono #) 0.48 K/uL 0.24-0.86 eos # (test code = eos #) 0.24 K/uL 0.04-0.36 basophil # (test code = basophil 0.03 K/uL 0.01-0.08 #) NRBC% (test code = NRBC%) 0 /100 WBC 0-0.2 NRBC# (test code = NRBC#) 0 K/uL [facility], [id number] 09:05:00 NeutrophilsBandLymphocyteAtypical LymphMonocyteEosinophilBasophilMetamyelocyteMyelocyteNucleated RedBlood CellPlatelet EstimatePlatelet MorphologyPolychromasiaHypochromasiaPoikilocytosis [facility] GroupHemoglobin A1c [Mass/volume] in [id number] 09:05:00 Test Item Value Reference Range Interpretation Comments Hemoglobin A1c in Blood (test code = 5.0 % 4.0-6.0 98307-2) [facility] CenterRub[facility] virus IgG Ab [Titer] in [id number] 09:05:00 Test Item Value Reference Range Interpretation Comments Rubella virus IgG Ab 286.5 [IU]/mL [Units/volume] in Serum by Immunoassay (test code = 5334-8) [facility] GroupHIV 1+2 Ab [Presence] in [id number] 09:05:00HIV P24 AgHIV-1/2 AbTexas [facility] GroupABO & Rh group [Type] in [id number] 09:05:00 Test Item Value Reference Range Interpretation Comments Rh [Type] in Blood (test code = 3+ 35260-9) ABO and Rh group panel - Blood O positive (test code = 89911-2) [facility] Center[facility] antibody screen [Presence] in Serum or Plasma 2019-03-05 09:05:00 Test Item Value Reference Range Interpretation Comments Blood group antibody screen negative [Presence] in Serum or Plasma (test code = 890-4) [facility] GroupHepatitis B virus surface Ag [Presence] in Serum 2019-03-05 09:05:00 Test Item Value Reference Range Interpretation Comments .hepatitis B surface antigen (test negative negative code = .hepatitis B surface antigen) [facility] identified in Urine by [id number] 09:05:00Bacteria Ur CultTexas Health Presbyterian [facility] GroupReagin Ab [Presence] in Serum by [id number] 09:05:00 Test Item Value Reference Range Interpretation Comments Reagin Ab [Presence] in Serum by nonreactive nonreactive RPR (test code = 73247-4) [facility] W Auto Differential panel - [id number] 09:05:00 Test Item Value Reference Range Interpretation Comments white blood count (test code = 9.1 K/uL 4.0-11.5 white blood count) red blood count (test code = red 4.96 M/uL 3.80-5.20 blood count) hemoglobin (test code = 13.9 g/dL 10.5-15.7 hemoglobin) hematocrit (test code = 44.0 % 34.0-50.0 hematocrit) Erythrocyte mean corpuscular 88.7 fL 86-100 volume [Entitic volume] (test code = 30902-1) Erythrocyte mean corpuscular 28.0 pg 26.2-33.4 hemoglobin [Entitic mass] (test code = 71776-7) mean corpuscular HGB conc (test 31.6 g/dL 30-34 code = mean corpuscular HGB conc) red cell distribution width (test 12.9 % 12.0-15.5 code = red cell distribution width) platelet count (test code = 378 K/uL 165-450 platelet count) mean platelet volume (test code = 10.4 fL 9.4-12.6 mean platelet volume) Neutrophils.segmented/100 70.2 % 44.4-80.1 leukocytes in Blood (test code = 40494-3) Ig% (test code = Ig%) 0.3 % 0.0-0.4 lymphocyte% (test code = 21.3 % 10.0-50.0 lymphocyte%) Monocytes/100 leukocytes in Blood 5.3 % 3.6-12.0 by Automated count (test code = 5905-5) Eosinophils/100 leukocytes in 2.6 % 0.0-5.4 Blood by Automated count (test code = 713-8) Basophils/100 leukocytes in 0.3 % 0.1-1.2 Unspecified specimen (test code = 82481-0) absolute neutrophil count (test 6.38 K/uL 1.56-6.13 H code = absolute neutrophil count) Ig# (test code = Ig#) 0.0 K/uL 0.0-0.03 Lymphocytes [#/volume] in 1.9 K/uL 1.18-3.74 Unspecified specimen by Automated count (test code = 79097-9) mono # (test code = mono #) 0.48 K/uL 0.24-0.86 eos # (test code = eos #) 0.24 K/uL 0.04-0.36 basophil # (test code = basophil 0.03 K/uL 0.01-0.08 #) NRBC% (test code = NRBC%) 0 /100 WBC 0-0.2 NRBC# (test code = NRBC#) 0 K/uL [facility] Centerdifferent[facility], [id number] 09:05:00 NeutrophilsBandLymphocyteAtypical LymphMonocyteEosinophilBasophilMetamyelocyteMyelocyteNucleated RedBlood CellPlatelet EstimatePlatelet MorphologyPolychromasiaHypochromasiaPoikilocytosis [facility] CenterHemoglobin A1c/Hemoglobin.total in [id number] 09:05:00 Test Item Value Reference Range Interpretation Comments Hemoglobin A1c in Blood (test code = 5.0 % 4.0-6.0 44392-7) [facility] CenterRubella virus Ab [Titer] in [id number] 09:05:00 Test Item Value Reference Range Interpretation Comments Rubella virus IgG Ab 286.5 [IU]/mL [Units/volume] in Serum by Immunoassay (test code = 5334-8) [facility] CenterHIV 1+2 Ab [Presence] in [id number] 09:05:00HIV P24 AgHIV-1/2 AbMataVermont Psychiatric Care Hospital GroupABO & Rh group [Type] in [id number] 09:05:00 Test Item Value Reference Range Interpretation Comments Rh [Type] in Blood (test code = 3+ 59722-4) ABO and Rh group panel - Blood O positive (test code = 11062-5) [facility] CenterBlood group antibody screen [Presence] in Serum or Plasma 2019-03-05 09:05:00 Test Item Value Reference Range Interpretation Comments Blood group antibody screen negative [Presence] in Serum or Plasma (test code = 890-4) [facility] CenterHepatitis B virus surface Ag [Presence] in Serum 2019-03-05 09:05:00 Test Item Value Reference Range Interpretation Comments .hepatitis B surface antigen (test negative negative code = .hepatitis B surface antigen) [facility] CenterBacteria identified in Urine by [id number] 09:05:00Bacteria Ur [facility]Re[facility] Ab [Presence] in Serum by [id number] 09:05:00 Test Item Value Reference Range Interpretation Comments Reagin Ab [Presence] in Serum by nonreactive nonreactive RPR (test code = 71208-4) [facility] CenterCB W Auto Differential panel - [id number] 09:05:00 Test Item Value Reference Range Interpretation Comments white blood count (test code = 9.1 K/uL 4.0-11.5 white blood count) red blood count (test code = red 4.96 M/uL 3.80-5.20 blood count) hemoglobin (test code = 13.9 g/dL 10.5-15.7 hemoglobin) hematocrit (test code = 44.0 % 34.0-50.0 hematocrit) Erythrocyte mean corpuscular 88.7 fL 86-100 volume [Entitic volume] (test code = 93983-7) Erythrocyte mean corpuscular 28.0 pg 26.2-33.4 hemoglobin [Entitic mass] (test code = 57464-4) mean corpuscular HGB conc (test 31.6 g/dL 30-34 code = mean corpuscular HGB conc) red cell distribution width (test 12.9 % 12.0-15.5 code = red cell distribution width) platelet count (test code = 378 K/uL 165-450 platelet count) mean platelet volume (test code = 10.4 fL 9.4-12.6 mean platelet volume) Neutrophils.segmented/100 70.2 % 44.4-80.1 leukocytes in Blood (test code = 49195-4) Ig% (test code = Ig%) 0.3 % 0.0-0.4 lymphocyte% (test code = 21.3 % 10.0-50.0 lymphocyte%) Monocytes/100 leukocytes in Blood 5.3 % 3.6-12.0 by Automated count (test code = 5905-5) Eosinophils/100 leukocytes in 2.6 % 0.0-5.4 Blood by Automated count (test code = 713-8) Basophils/100 leukocytes in 0.3 % 0.1-1.2 Unspecified specimen (test code = 80231-6) absolute neutrophil count (test 6.38 K/uL 1.56-6.13 H code = absolute neutrophil count) Ig# (test code = Ig#) 0.0 K/uL 0.0-0.03 Lymphocytes [#/volume] in 1.9 K/uL 1.18-3.74 Unspecified specimen by Automated count (test code = 24725-5) mono # (test code = mono #) 0.48 K/uL 0.24-0.86 eos # (test code = eos #) 0.24 K/uL 0.04-0.36 basophil # (test code = basophil 0.03 K/uL 0.01-0.08 #) NRBC% (test code = NRBC%) 0 /100 WBC 0-0.2 NRBC# (test code = NRBC#) 0 K/uL [facility] Centerdifferential panel, [id number] 09:05:00 NeutrophilsBandLymphocyteAtypical LymphMonocyteEosinophilBasophilMetamyelocyteMyelocyteNucleated RedBlood CellPlatelet EstimatePlatelet MorphologyPolychromasiaHypochromasiaPoikilocytosis [facility] CenterHemoglobin A1c/Hemoglobin.total in [id number] 09:05:00 Test Item Value Reference Range Interpretation Comments Hemoglobin A1c in Blood (test code = 5.0 % 4.0-6.0 34642-2) [facility] CenterRubella virus Ab [Titer] in [id number] 09:05:00 Test Item Value Reference Range Interpretation Comments Rubella virus IgG Ab 286.5 [IU]/mL [Units/volume] in Serum by Immunoassay (test code = 5334-8) [facility] CenterHIV 1+2 Ab [Presence] in [id number] 09:05:00HIV P24 AgHIV-1/2 AbMatagoThe Specialty Hospital of MeridianABO & Rh group [Type] in [id number] 09:05:00 Test Item Value Reference Range Interpretation Comments Rh [Type] in Blood (test code = 3+ 47218-2) ABO and Rh group panel - Blood O positive (test code = 33851-9) [facility] CenterBlood group antibody screen [Presence] in Serum or Plasma 2019-03-05 09:05:00 Test Item Value Reference Range Interpretation Comments Blood group antibody screen negative [Presence] in Serum or Plasma (test code = 890-4) [facility] CenterHepatitis B virus surface Ag [Presence] in Serum 2019-03-05 09:05:00 Test Item Value Reference Range Interpretation Comments .hepatitis B surface antigen (test negative negative code = .hepatitis B surface antigen) [facility] CenterBacteria identified in Urine by [id number] 09:05:00Bacteria Ur [facility]portReagin Ab [Presence] in Serum by [id number] 09:05:00 Test Item Value Reference Range Interpretation Comments Reagin Ab [Presence] in Serum by nonreactive nonreactive RPR (test code = 12495-9) [facility]
[2022-10-13 19:04] LABS: Absolute Lymphocytes (CBC) 2.6 K/uL (0.7-4.9); Hematocrit 39.2 % (36.0-45.0); Lymphocytes % 23.3 % (15.3-44.8); MCV 87.3 fL (80-100); MPV 8.4 fL (7.6-11.3); RBC Red Blood Cell Count 4.49 M/uL (3.86-4.86)
[2022-10-13 19:06] LABS: ALT/SGPT 21 U/L (13-56); AST/SGOT 12 U/L (15-37); Albumin 3.5 g/dL (3.4-5.0); Alkaline Phosphatase 141 U/L (45-117); BUN Blood Urea Nitrogen 7 mg/dL (7-18); Bicarbonate 27 mmol/L (21-32); Bilirubin Direct 0.1 mg/dL (0-0.2); Bilirubin Total 0.4 mg/dL (0.2-1.0); Glomerular Filtration Rate 123 ml/min (=/>90); Glucose Level 81 mg/dL (74-106); Potassium 3.5 mmol/L (3.5-5.1); Protein, Total 7.7 g/dL (6.4-8.2); Protime INR 1.05; Sodium Level 137 mmol/L (136-145)
--- NOTE | 2022-10-13 19:11 | RAD REPORT ---
EXAM DESCRIPTION: RAD - Chest Single View - 10/13/2022 6:46 pm CLINICAL HISTORY: COUGH COMPARISON: No comparisons FINDINGS: Lines: None. Lungs: Faint opacities present in the right and left lower lung. Pleural: No significant pleural effusions or pneumothorax. Cardiac: The heart size is within normal limits. Mediastinum: Within normal limits. Bones: No acute fractures. Other: None IMPRESSION: Faint basilar airspace disease could reflect multifocal pneumonia. No edema identified .
[2022-10-13 19:15] LABS: Troponin High Sensitivity < 3.0 pg/mL (<58.9)
[2022-10-13 19:43] LABS: SARS-COV-2 RT PCR NEGATIVE (NEGATIVE)
[2022-10-13] MEDS ORDERED: NA CHLORIDE 0.9% 1,000 ML ONE (20:40)
[2022-10-13] MEDS ORDERED: CEFTRIAXONE 1000 MG/VIAL ONE (20:40)
[2022-10-13] MEDS ORDERED: ACETAMINOPHEN 500 MG TAB ONE (20:40)
[2022-10-13] MEDS ORDERED: AZITHROMYCIN 250 MG TAB ONE (20:40)
[2022-10-13 20:47] LABS: Urine Blood Negative (Negative); Urine Glucose Negative (Negative); Urine Protein Negative (Negative)
[2022-10-13 21:15] LABS: Urine Bacteria 20-50 /HPF (<20); Urine Mucus 4+ /HPF (None Seen); Urine RBC <5 /HPF (None Seen)
--- NOTE | 2022-10-13 21:31 | ER ---
Nurse's Notes [facility] Name: Debora Taveras Age: 27 yrs Sex: Female : 1995 Arrival Date: 10/13/2022 Time: 18:03 Bed 5 Private MD: Diagnosis: Pneumonia, unspecified organism;Syncope;Streptococcal pharyngitis Presentation: 10/13 18:14 Chief complaint: Patient states: "I've had a sore throat for a few days and today I aa5 woke up with ear pain; today I was at work and I passed out because all I remember was feeling really cold and 2 of my co-workers standing over me". Coronavirus screen: congestion, cough unrelated to allergies, sore throat. Ebola Screen: Patient denies travel to an Ebola-affected area in the 21 days before illness onset. Initial Sepsis Screen: Does the patient meet any 2 criteria? No. Patient's initial sepsis screen is negative. Does the patient have a suspected source of infection? No. Patient's initial sepsis screen is negative. Risk Assessment: Do you want to hurt yourself or someone else? Patient reports no desire to harm self or others. Onset of symptoms was October 13, 2022. 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 - Social history:: Smoking status: Reported history of juuling and/or vaping. Screenin:36 [facility] ED Fall Risk Assessment (Adult) History of falling in the last 3 months, kc6 including since admission No falls in past 3 months (0 pts) Confusion or Disorientation No (0 pts) Intoxicated or Sedated No (0 pts) Impaired Gait No (0 pts) Mobility Assist Device Used No (0 pt) Altered Elimination No (0 pt) Score/Fall Risk Level 0 - 2 = Low Risk Oriented to surroundings, Maintained a safe environment, Educated pt \\T\\ family on fall prevention, incl call for assistance when getting out of bed, Assessed \\T\\ reinforced patient's understanding of fall precautions, Hourly rounding (assess needs \\T\\ fall precautionary measures) done. Abuse screen: Denies threats or abuse. Denies injuries from another. Nutritional screening: No deficits noted. Tuberculosis screening: No symptoms or risk factors identified. Assessment: 18:00 General: Appears in no apparent distress. uncomfortable, Behavior is calm, cooperative, kc6 appropriate for age. Pain: Complains of pain in throat Pain does not radiate. Quality of pain is described as sharp, Is continuous, Alleviated by nothing. Aggravated by eating, drinking, Also complains of no other associated symptoms. Neuro: Carter Agitation-Sedation Scale (RASS): 0 - Alert and Calm Level of Consciousness is awake, alert, obeys commands, Oriented to person, place, time, situation, Appropriate for age. Neuro: Reports a syncopal episode. Cardiovascular: Capillary refill < 3 seconds. Respiratory: Reports cough that is productive, Airway is patent Trachea midline Respiratory effort is even, unlabored, Respiratory pattern is regular, symmetrical, Breath sounds are clear bilaterally. GI: No signs and/or symptoms were reported involving the gastrointestinal system. : No signs and/or symptoms were reported regarding the genitourinary system. EENT: Throat is reddened has enlarged tonsils bilaterally with gag reflex present. Derm: No signs and/or symptoms reported regarding the dermatologic system. Skin is intact, Skin is pink, warm \\T\\ dry. Musculoskeletal: No signs and/or symptoms reported regarding the musculoskeletal system. Circulation, motion, and sensation intact. Capillary refill < 3 seconds, Range of motion: intact in all extremities. 19:00 Reassessment: Patient appears in no apparent distress at this time. No changes from kc6 previously documented assessment. Patient and/or family updated on plan of care and expected duration. Pain level reassessed. Patient is alert, oriented x 3, equal unlabored respirations, skin warm/dry/pink. 19:46 Reassessment: Patient is alert, oriented x 3, equal unlabored respirations, skin bb warm/dry/pink. pt ambulated with steady gait to the bathroom. 20:29 Reassessment: Patient is alert, oriented x 3, equal unlabored respirations, skin bb warm/dry/pink. pt c/o headache provider notified. 22:06 Reassessment: Patient is alert, oriented x 3, equal unlabored respirations, skin bb warm/dry/pink. pt verbalized understanding of and agrees to plan of care discharge instructions given pt ambulated with steady gait to exit. Vital Signs: 18:14 BP 136 / 78; Pulse 81; Resp 18 S; Temp 97.1(TE); Pulse Ox 100% on R/A; Weight 104.33 kg aa5 (R); Height 5 ft. 4 in. (162.56 cm) (R); 20:24 BP 119 / 69 Supine; Pulse 67; Resp 14 S; Temp 98.1(O); Pulse Ox 100% on R/A; bb 20:25 BP 127 / 81 Sitting; Pulse 71; bb 20:26 BP 127 / 80 Standing; Pulse 74; bb 22:06 BP 118 / 72; Pulse 81; Resp 16 S; Pulse Ox 100% on R/A; bb 18:14 Body Mass Index 39.48 (104.33 kg, 162.56 cm) aa5 ED Course: 18:03 Patient arrived in ED. am2 18:06 Giovana Ulloa FNP-C is PHCP. kb 18:06 Tariq Renteria MD is Attending Physician. kb 18:14 Arm band placed on. aa5 18:15 Triage completed. aa5 18:22 Anuradha Pelaez, RN is Primary Nurse. kc6 18:36 COVID-19/FLU A+B Sent. kc6 18:36 Strep Sent. kc6 18:36 Basic Metabolic Panel Sent. kc6 18:36 CBC with Diff Sent. kc6 18:36 Hepatic Function Sent. kc6 18:36 Magnesium Sent. kc6 18:36 Protime (+inr) Sent. kc6 18:36 Ptt, Activated Sent. kc6 18:36 Troponin High Sensitivity Sent. kc6 18:36 Inserted saline lock: 20 gauge in right antecubital area, using aseptic technique. kc6 Blood collected. 18:37 Patient has correct armband on for positive identification. Placed in gown. Bed in low kc6 position. Call light in reach. Side rails up X 1. 22:07 No provider procedures requiring assistance completed. IV discontinued, intact, bb bleeding controlled, No redness/swelling at site. Pressure dressing applied. Administered Medications: 20:50 Drug: NS 0.9% 1000 ml Route: IV; Rate: 1000 ml; Site: right antecubital; bb 22:05 Follow up: IV Status: Order to discontinue infusion; IV Intake: 800ml bb 20:51 Drug: Tylenol 1000 mg Route: PO; bb 22:05 Follow up: Response: No adverse reaction bb 20:51 Drug: Zithromax (azithromycin) 500 mg Route: PO; bb 22:05 Follow up: Response: No adverse reaction bb 20:51 Drug: Rocephin (cefTRIAXone) 1 grams Route: IV; Rate: calculated rate; Site: right bb antecubital; 21:00 Follow up: IV Status: Completed infusion; IV Intake: 10ml bb 21:58 Drug: Zofran (Ondansetron) 4 mg Route: IVP; Site: right antecubital; bb 22:05 Follow up: Response: No adverse reaction bb Medication: 22:07 VIS not applicable for this client. bb Intake: 21:00 IV: 10ml; Total: 10ml. bb 22:05 IV: 800ml; Total: 810ml. bb Outcome: 21:30 Discharge ordered by . kb 22:07 Discharged to home ambulatory. bb 22:07 Condition: stable 22:07 Discharge instructions given to patient, Instructed on discharge instructions, follow up and referral plans. medication usage, Demonstrated understanding of instructions, follow-up care, medications, Prescriptions given X 1. 22:07 Patient left the ED. bb Signatures: Giovana Ulloa, MERCURY WASHER-C MERCURY WASHER-Herminia Cain RN RN bb Saige Garvey, RN RN aa5 Addie Barakat Kaitlyn, RN RN kc6 Corrections: (The following items were deleted from the chart) 18:15 18:15 PSHx: tubual; aa5 aa5
--- NOTE | 2022-10-13 21:31 | EDPHYS ---
Physician Documentation [facility] Name: Debora Taveras Age: 27 yrs Sex: Female : 1995 Arrival Date: 10/13/2022 Time: 18:03 Bed 5 Private MD: ED Physician Tariq Renteria HPI: 10/13 18:50 This 27 yrs old Female presents to ER via Ambulatory with complaints of Passed Out kb Prior To Arrival - \T\ 1740, Sore Throat, Cough, Ear Pain. 18:50 The patient or guardian reports cough, that is intermittent, described as mild, flu kb symptoms, myalgias. Onset: The symptoms/episode began/occurred 4 day(s) ago. Severity of symptoms: At their worst the symptoms were moderate, in the emergency department the symptoms are unchanged. Modifying factors: The symptoms are alleviated by nothing, the symptoms are aggravated by nothing. Associated signs and symptoms: Pertinent positives: rhinorrhea, sore throat, Syncope, Pertinent negatives: fever. The patient has not experienced similar symptoms in the past. The patient has not recently seen a physician. 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 - Social history:: Smoking status: Reported history of juuling and/or vaping. ROS: 18:49 Constitutional: Negative for fever, chills, and weight loss. kb 18:49 Constitutional: Positive for malaise. 18:49 ENT: Positive for ear pain, rhinorrhea, sinus congestion, sore throat. 18:49 Respiratory: Positive for cough, Negative for dyspnea on exertion, hemoptysis, orthopnea, pleurisy, shortness of breath, sputum production, wheezing. 18:49 Neuro: Positive for syncope. 18:49 All other systems are negative. Exam: 18:48 Constitutional: This is a well developed, well nourished patient who is awake, alert, kb and in no acute distress. Head/Face: Normocephalic, atraumatic. Cardiovascular: Regular rate and rhythm with a normal S1 and S2. No gallops, murmurs, or rubs. No pulse deficits. Respiratory: Respirations even and unlabored. No increased work of breathing. Talking in full sentences Abdomen/GI: Soft, non-tender. No distention Skin: Warm, dry with normal turgor. Normal color. MS/ Extremity: Pulses equal, no cyanosis. Neurovascular intact. Full, normal range of motion. Neuro: Awake and alert, GCS 15, oriented to person, place, time, and situation. Moves all extremities. Normal gait. 18:48 ENT: External ear(s): are unremarkable, Ear canal(s): are normal, TM's: bulging, on the right, erythema, that is moderate, on the right, Nose: is normal, Posterior pharynx: Airway: normal, Tonsils: bilaterally enlarged, with erythema, with exudate, Uvula: normal, midline, swelling, that is mild, erythema, that is mild, exudate, that is mild. 23:53 ECG was reviewed by the Attending Physician. Vital Signs: 18:14 BP 136 / 78; Pulse 81; Resp 18 S; Temp 97.1(TE); Pulse Ox 100% on R/A; Weight 104.33 kg aa5 (R); Height 5 ft. 4 in. (162.56 cm) (R); 20:24 BP 119 / 69 Supine; Pulse 67; Resp 14 S; Temp 98.1(O); Pulse Ox 100% on R/A; bb 20:25 BP 127 / 81 Sitting; Pulse 71; bb 20:26 BP 127 / 80 Standing; Pulse 74; bb 22:06 BP 118 / 72; Pulse 81; Resp 16 S; Pulse Ox 100% on R/A; bb 18:14 Body Mass Index 39.48 (104.33 kg, 162.56 cm) aa5 MDM: 18:12 Patient medically screened. kb 18:49 Data reviewed: vital signs, nurses notes. kb 18:50 Differential Diagnosis: Influenza Upper Respiratory Infection Sinusitis Pharyngitis kb Otitis Media. 18:50 ED course: Patient is a 27-year-old female with no medical history who presents for sore throat, ear pain, cough, congestion for 4 days and had a syncopal episode today. Physical exam positive for enlarged tonsils with erythema and exudate, redness and bulging to right TM. Will obtain strep, COVID and flu test, urinalysis, EKG, serum labs.. 23:33 Counseling: I had a detailed discussion with the patient and/or guardian regarding: the kb historical points, exam findings, and any diagnostic results supporting the discharge/admit diagnosis, lab results, radiology results, the need for outpatient follow up, a family practitioner, to return to the emergency department if symptoms worsen or persist or if there are any questions or concerns that arise at home. ED course: Patient nontoxic in appearance, tolerating p.o. intake. Educated on diagnostic results and need for antibiotics. Patient in agreement with plan of care. Educated on return precautions. Verbal understanding of all instructions received... 23:53 Consideration of Admission/Observation Patient was admitted/placed on observation. kb Admission considered due to syncope. 10/13 18:18 Order name: Basic Metabolic Panel kb 10/13 18:18 Order name: CBC with Diff kb 10/13 18:18 Order name: Hepatic Function kb 10/13 18:18 Order name: Magnesium kb 10/13 18:18 Order name: Protime (+inr) kb 10/13 18:18 Order name: Ptt, Activated kb 10/13 18:18 Order name: Troponin High Sensitivity kb 10/13 18:18 Order name: COVID-19/FLU A+B kb 10/13 18:18 Order name: Strep 10/13 19:06 Order name: CBC with Automated Diff; Complete Time: 19:07 EDMS 10/13 19:06 Order name: Protime (+INR); Complete Time: 19:07 EDMS 10/13 19:06 Order name: PTT, Activated Partial Thromb; Complete Time: 19:07 EDMS 10/13 19:15 Order name: Basic Metabolic Panel; Complete Time: 19:16 EDMS 10/13 19:15 Order name: Liver (Hepatic) Function; Complete Time: 19:16 EDMS 10/13 18:18 Order name: Chest Single View XRAY kb 10/13 19:11 Order name: RAD; Complete Time: 19:11 EDMS 10/13 19:15 Order name: Troponin High Sensitivity; Complete Time: 19:16 EDMS 10/13 19:15 Order name: Magnesium; Complete Time: 19:16 EDMS 10/13 19:43 Order name: COVID-19/FLU A+B; Complete Time: 19:44 EDMS 10/13 20:47 Order name: Urine --Ancillary (enter results) ds4 10/13 20:48 Order name: Urine Dipstick-Ancillary; Complete Time: 21:21 EDMS 10/13 20:49 Order name: Urine Microscopic Only as6 10/13 21:12 Order name: Urine --Ancillary; Complete Time: 21:21 EDMS 10/13 21:15 Order name: Urine Microscopic Only; Complete Time: 21:21 EDMS 10/13 21:33 Order name: Group A Streptococcus Rapid Sc EDMS 10/13 18:18 Order name: EKG; Complete Time: 18:19 kb 10/13 18:18 Order name: Cardiac monitoring; Complete Time: 18:36 kb 10/13 18:18 Order name: EKG - Nurse/Tech; Complete Time: 20:27 kb 10/13 18:18 Order name: IV Saline Lock; Complete Time: 18:36 kb 10/13 18:18 Order name: Labs collected and sent; Complete Time: 18:36 kb 10/13 18:18 Order name: NPO; Complete Time: 18:36 kb 10/13 18:18 Order name: O2 Per Protocol; Complete Time: 18:57 kb 10/13 18:18 Order name: O2 Sat Monitoring; Complete Time: 18:36 kb 10/13 18:18 Order name: Orthostatics; Complete Time: 20:27 kb 10/13 18:18 Order name: Urine Dipstick-Ancillary (obtain specimen); Complete Time: 20:33 kb EC:53 Rate is 68 beats/min. Rhythm is regular. QRS [place] is Normal. NV interval is normal at kb 134 msec. QRS interval is normal at 82 msec. QT interval is normal at 435 msec. Administered Medications: 20:50 Drug: NS 0.9% 1000 ml Route: IV; Rate: 1000 ml; Site: right antecubital; bb 22:05 Follow up: IV Status: Order to discontinue infusion; IV Intake: 800ml bb 20:51 Drug: Tylenol 1000 mg Route: PO; bb 22:05 Follow up: Response: No adverse reaction bb 20:51 Drug: Zithromax (azithromycin) 500 mg Route: PO; bb 22:05 Follow up: Response: No adverse reaction bb 20:51 Drug: Rocephin (cefTRIAXone) 1 grams Route: IV; Rate: calculated rate; Site: right bb antecubital; 21:00 Follow up: IV Status: Completed infusion; IV Intake: 10ml bb 21:58 Drug: Zofran (Ondansetron) 4 mg Route: IVP; Site: right antecubital; bb 22:05 Follow up: Response: No adverse reaction bb Disposition: 10/14 20:21 Co-signature as Attending Physician, Tariq Renteria MD I reviewed the patient's care rt provided by the Advanced Practice Provider and agree with the diagnosis and treatment plan. Disposition Summary: 10/13/22 21:30 Discharge Ordered Location: Home kb Condition: Stable kb Diagnosis - Pneumonia, unspecified organism kb - Syncope kb - Streptococcal pharyngitis kb Followup: kb - With: Emergency Department - When: As needed - Reason: Worsening of condition Followup: kb - With: Private Physician - When: 2 - 3 days - Reason: Recheck today's complaints, Continuance of care, Re-evaluation by your physician Discharge Instructions: - Discharge Summary Sheet kb - Strep Throat, Adult, [id number] kb - Community-Acquired Pneumonia, Adult, [id number] kb Forms: - Medication Reconciliation Form kb - Thank You Letter kb - Antibiotic Education kb - Prescription Opioid Use kb - Work release form tw5 Prescriptions: - Zithromax 500 mg Oral Tablet - take 1 tablet by ORAL route once daily for 5 days; 5 tablet; Refills: 0, kb Product Selection Permitted Signatures: Dispatcher [employer] Giovana Tripp, TARIK HORNE-Herminia Cain RN RN Saige Matos RN RN Tariq Rendon MD MD rt Corrections: (The following items were deleted from the chart) 10/13 18:15 18:15 PSHx: tubual; elenita kwong
[2022-10-13] MEDS ORDERED: ONDANSETRON 4 MG/2 ML VIAL ONE (21:58)
[2022-10-13 23:19] VITALS: O2SAT 100
[2022-10-13 23:21] VITALS: TEMP 98.1
[2022-10-13 23:24] VITALS: BP 118/72
--- NOTE | 2022-10-15 12:39 | EKG ---
Test Date: 2022-10-13 Test Time: 20:18:41 Loss Prevention Research Engineer: KAITLINB MEASUREMENT RESULTS: Intervals: Rate: 68 MD: 134 QRSD: 82 QT: 410 QTc: 435 [place]: P: 26 MD: 134 QRS: 2 T: 15 INTERPRETIVE STATEMENTS: Normal sinus rhythm Low voltage QRS Borderline ECG No previous ECG available for comparison Electronically Signed On 10-15-22 12:36:12 BINGO ATTENDANT by Mark Encarnacion
== END 2022-10-13 22:07 | disposition home or self-care (01) ==
LOC: ER 18:00
DX: J18.9 Pneumonia, unspecified organism (principal); J02.0 Streptococcal pharyngitis; Z20.822 Contact with and (suspected) exposure to COVID-19; Z88.0 Allergy status to penicillin
CPT/HCPCS: 96361; 93005; 85025; 80048; 36415; 83735; 81025; 85610; 80076; 87081; 85730; 84484; 0240U; 71045; 96375; 96374; 99284; J7030; J2405; 81003; 81015

== ENCOUNTER 2024-02-16 19:45 | Emergency (ER) | payer OTHER, SELFPAY ==
--- OUTSIDE RECORDS SUMMARY | 2024-02-16 19:52 | XMS REPORT | Continuity of Care Document ---
Author Name Unknown Address [address] [facility] [address] [place] [address] [facility] thconnect Address [address] [facility] [address] [place] [address] Care Team Providers Care Potato Picker Name Role Phone PCP, PATIENT DOES NOT HAVE A Primary Care Physic domi Unavailable MICHELET JAY Attending Clinician Unavailable Michelet Jay MD Attending Clinician [phone] Doctor Unassigned, [place] Attending Clinician U navailable Only, Adc Test Attending Clinician Unavailable Ave Vann Attending Clinician [phone] Chino Zhang MD Attending Clinician [phone] CHINO ZHANG Attending Clinician Unavailable BrendaEusebio Hayden Attending Clinician [phone] G_Pappas Attending Clinician Unavailable MARC ALEXIS Attending Clinician Unavailmame CRUZ Attending Clinician Unavailable LING PACE Attending Clinician Unavailable REYES LOYA Attending Clinician Unavailable LEANA WARD Attending Clinician Unavaila LINDA Luther Attending Clinician Unavailable JON VIGIL Attending Clinician Unavailable LUCIA JAVIER Attending Clinician Unavailable DONNA CESPEDES Attending Clinician UnavailARANZA Duenas Attending Clinician Unavailable JORDAN MENSAH Attending Clinician Unavailab KARINA Hernandez Attending Clinician Unavailable ANNA BOGGS Attending Clinician Unavailable MICHELET JYA Admitting Clinician Unavailable Michelet Jay MD Admitting Clinician [phone] G_Papprem Admitting Clinician Unavailable ANTHONY Admitting Clinician Unavailable MARC ALEXIS Admitting Clinician UnavailLEANA Garcia Admitting Clinician Unavaila ble Payers Payer Name Policy Type Policy Number Effective Date Expirati on Date Source [facility] [place] [facility] [id number] 2024 00:00:00 [facility] [id number] 2020 00:00:00 2022 00:00:00 [facility] [place] (MEDICAID HMO) [id number] 2016 00:00:00 Problems Condition Name Condition Details Condition Category Status Onset Date Resolution Date Last Treatment Date Treating Clinician Comments Source Obesity (BMI 30-39.9) Obesity (BMI 30-39.9) Disease Active 2020-08 00:00: 00 [facility] Right upper quadrant pain Right upper quadrant pain Disease Active 2020-08 00:00: 00 Overview: Formattin g of this note might be different from the original. Added automatic ally from request for surgery [id number] [facility] Epigastric pain Epigastric pain Disease Active 2020-08 0-08 00:00: 00 Overview: Formattin g of this note might be different from the original. Added automatic ally from request for surgery [id number] [facility] Sterilizat ion requested Sterilizat ion Requested Problem Active 2019-08 00:00: 00 [facility] Removal of subcutaneo us contracept nieves Removal of Subcutaneo us Contracept nieves Problem Active 2019-08 00:00: 00 [facility] Chronic post-traum atic stress disorder Chronic Post-traum atic Stress Disorder Problem Active 12-30 00:00: 00 [facility] Depressive disorder Depressive Disorder Problem Active 5 00:00: 00 [facility] Insomnia Insomnia Problem Active 12-27 00:00: 00 [facility] Bacterial vaginosis Bacterial Vaginosis Problem Active 10-26 00:00: 00 [facility] care Care Problem Active 10-26 00:00: 00 [facility] Pruritus of skin Pruritus of Skin Problem Active 2018-08 00:00: 00 [facility] Large for gestation age fetus Large for Gestation Age Fetus Problem Active 2018-08 00:00: 00 [facility] Constipati on Constipati on Problem Active 2018-08 00:00: 00 [facility] Depressive disorder Depressive Disorder Problem Active 2018-08 0 00:00: 00 [facility] Acute cystitis in , antepartum Acute Cystitis in , Antepartum Problem Active 05-01 00:00: 00 [facility] Generalize d headache Generalize d Headache Problem Active 05-01 00:00: 00 [facility] Moderate hyperemesi s gravidarum Moderate Hyperemesi s Gravidarum Problem Active 03-12 00:00: 00 [facility] Bacterial vaginosis in Bacterial Vaginosis in Problem Active 03-12 00:00: 00 [facility] Cyst of ovary Cyst of Ovary Problem Active 03-05 00:00: 00 [facility] Hyperemesi s gravidarum Hyperemesi s Gravidarum Problem Active 03-05 00:00: 00 [facility] Subchorion ic hematoma Subchorion ic Hematoma Problem Active 03-05 00:00: 00 [facility] Chronic constipati on Chronic Constipati on Problem Active [facility] Allergies, Adverse Reactions, Alerts Allergy Name Allergy Type Status Severity Reaction(s) Onset Date Inactive Date Treating Clinician Comments Source Penicill ins Drug Allergy Active Rash 2020-08 0 00:00: 00 [facility] PENICILL INS Drug Class Active Med Rash 2020-08 0 00:00: 00 [facility] PENICILL INS Allergy to substanc e Active Moderate Rash [facility] Social History Social Habit Start Date Stop Date Quantity Comments Source Exposure to SARS-CoV-2 (event) Not sure [facility] Tobacco use and exposure 2021-06-16 00:00:00 2021-06-16 00:00:00 Never used [facility] Sex Assigned At 1995 00:00:00 1995 00:00:00 [facility] Smoking Status Start Date Stop Date Source Former Smoker [facility] Never smoker [facility] Medications Ordered Medication Name Filled Medication Name Start Date Stop Date Current Medication? Ordering Clinician Indication Dosage Frequency Signature (SIG) Comments Components Source methocarbam oL 500 mg tablet 2020-08 00:00: 00 Yes [id number] 500mg Take 1 tablet by mouth 4 (four) times daily. [facility] pantoprazol e 40 mg EC tablet 2020-08 00:00: 00 Yes [id number] 40mg Take 1 tablet by mouth daily. [facility] sucralfate (CARAFATE) 1 gram tablet 2020-08 00:00: 00 Yes [id number] 1g Take 1 tablet by mouth before meals and at bedtime. [facility] dicyclomine 20 mg tablet 05-25 00:00: 00 Yes [id number] 20mg Take 1 tablet by mouth every 6 (six) hours as needed for Abdominal pain. [facility] ondansetron (ZOFRAN ODT) 4 mg disintegrat ing tablet 2020-0 03-07 00:00: 00 Yes [id number] 4mg Take 1 tablet by mouth every 8 (eight) hours as needed for Nausea and Vomiting (N/V). [facility] citalopram 20 mg tablet citalopram 20 mg tablet No citalopram 20 mg tablet [facility] escitalopra m 20 mg tablet Take 1 tablet every day by oral route. escitalopra m 20 mg tablet Take 1 tablet every day by oral route. No escitalopr am 20 mg tablet Take 1 tablet every day by oral route. [facility] ibuprofen 600 mg tablet ibuprofen 600 mg tablet No ibuprofen 600 mg tablet [facility] Nexplanon 68 mg subdermal implant Nexplanon 68 mg subdermal implant No Nexplanon 68 mg subdermal implant [facility] acetaminoph en 300 mg-codeine 30 mg tablet 1-2 p.o. q 6 hrs PRN pain acetaminoph en 300 mg-codeine 30 mg tablet 1-2 p.o. q 6 hrs PRN pain No acetaminop hen 300 mg-codeine 30 mg tablet 1-2 p.o. q 6 hrs PRN pain [facility] butalbital- acetaminoph en-caffeine 50 mg-325 mg-40 mg tablet Take 1 tablet every 4 hours by oral route. butalbital- acetaminoph en-caffeine 50 mg-325 mg-40 mg tablet Take 1 tablet every 4 hours by oral route. No 1 Q4H butalbital -acetamino phen-caffe ine 50 mg-325 mg-40 mg tablet Take 1 tablet every 4 hours by oral route. [facility] escitalopra m 20 mg tablet Take 1 tablet every day by oral route. escitalopra m 20 mg tablet Take 1 tablet every day by oral route. No escitalopr am 20 mg tablet Take 1 tablet every day by oral route. [facility] ibuprofen 600 mg tablet ibuprofen 600 mg tablet No ibuprofen 600 mg tablet [facility] ibuprofen 800 mg tablet Take 1 tablet every 6 hours by oral route as needed. ibuprofen 800 mg tablet Take 1 tablet every 6 hours by oral route as needed. No ibuprofen 800 mg tablet Take 1 tablet every 6 hours by oral route as needed. [facility] lidocaine (PF) 10 mg/mL (1 %) injection solution Take 3 mL by injection route. lidocaine (PF) 10 mg/mL (1 %) injection solution Take 3 mL by injection route. No 3mL lidocaine (PF) 10 mg/mL (1 %) injection solution Take 3 mL by injection route. [facility] Nexplanon 68 mg subdermal implant Inject 1 implant by subcutaneou s route. Nexplanon 68 mg subdermal implant Inject 1 implant by subcutaneou s route. No 1implan t(s) Nexplanon 68 mg subdermal implant Inject 1 implant by subcutaneo us route. [facility] Off Deep [place] 25 % topical spray Off Deep [place] 25 % topical spray No Off Deep [place] 25 % topical spray [facility] zolpidem 5 mg tablet Take 1 tablet as needed by oral route. zolpidem 5 mg tablet Take 1 tablet as needed by oral route. No zolpidem 5 mg tablet Take 1 tablet as needed by oral route. [facility] Vital Signs Vital Name Observation Time Observation Value Comments S ource Systolic blood pressure 2021-08-03 17:20:00 105 mm[Hg] [facility] Diastolic blood pressure 2021-08-03 17:20:00 75 mm[Hg] [facility] Heart rate 2021-08-03 17:20:00 75 /min [facility] Body temperature 2021-08-03 17:20:00 36.39 Kimi [facility] Respiratory rate 2021-08-03 17:20:00 16 /min [facility] Body weight 2021-08-03 17:20:00 87.816 kg [facility] BMI 2021-08-03 17:20:00 33.23 kg/m2 [facility] Oxygen saturation in Arterial blood by Pulse oximetry 2021-08-03 17:20:00 99 /min [facility] BP Diastolic 2020-07-18 00:00:00 84 mm[Hg] [facility] Height 2020-07-18 00:00:00 63 [in_i] [facility] BMI (Body Mass Index) 2020-07-18 00:00:00 36.8 kg/m2 [facility] BP Systolic 2020-07-18 00:00:00 125 mm[Hg] [facility] Body Weight 2020-07-18 00:00:00 207.5 [lb_av] [facility] BP Diastolic 2020-07-01 00:00:00 82 mm[Hg] [facility] Height 2020-07-01 00:00:00 63 [in_i] [facility] BMI (Body Mass Index) 2020-07-01 00:00:00 36.2 kg/m2 [facility] BP Systolic 2020-07-01 00:00:00 115 mm[Hg] [facility] Body Weight 2020-07-01 00:00:00 204.4 [lb_av] [facility] BP Diastolic 2020-05-31 00:00:00 90 mm[Hg] [facility] Height 2020-05-31 00:00:00 63 [in_i] [facility] BMI (Body Mass Index) 2020-05-31 00:00:00 35.8 kg/m2 [facility] BP Systolic 2020-05-31 00:00:00 133 mm[Hg] [facility] Body Weight 2020-05-31 00:00:00 202 [lb_av] [facility] BP Diastolic 2019-12-28 00:00:00 83 mm[Hg] [facility] Height 2019-12-28 00:00:00 63 [in_i] [facility] BMI (Body Mass Index) 2019-12-28 00:00:00 33.5 kg/m2 [facility] BP Systolic 2019-12-28 00:00:00 118 mm[Hg] [facility] Body Weight 2019-12-28 00:00:00 189 [lb_av] [facility] BP Diastolic 2019-12-21 00:00:00 92 mm[Hg] [facility] Height 2019-12-21 00:00:00 63 [in_i] [facility] BMI (Body Mass Index) 2019-12-21 00:00:00 33.3 kg/m2 [facility] BP Systolic 2019-12-21 00:00:00 134 mm[Hg] [facility] Body Weight 2019-12-21 00:00:00 188 [lb_av] [facility] BP Diastolic 2019-10-27 00:00:00 73 mm[Hg] [facility] Height 2019-10-27 00:00:00 63 [in_i] [facility] BMI (Body Mass Index) 2019-10-27 00:00:00 32.5 kg/m2 [facility] BP Systolic 2019-10-27 00:00:00 114 mm[Hg] [facility] Body Weight 2019-10-27 00:00:00 183.3 [lb_av] [facility] BP Diastolic 2019-09-29 00:00:00 73 mm[Hg] [facility] Height 2019-09-29 00:00:00 63 [in_i] [facility] BMI (Body Mass Index) 2019-09-29 00:00:00 36.3 kg/m2 [facility] BP Systolic 2019-09-29 00:00:00 125 mm[Hg] [facility] Body Weight 2019-09-29 00:00:00 204.8 [lb_av] [facility] BP Diastolic 2019-09-22 00:00:00 80 mm[Hg] [facility] Height 2019-09-22 00:00:00 63 [in_i] [facility] BMI (Body Mass Index) 2019-09-22 00:00:00 36.6 kg/m2 [facility] BP Systolic 2019-09-22 00:00:00 120 mm[Hg] [facility] BP Diastolic 2019 00:00:00 80 mm[Hg] [facility] Height 2019 00:00:00 63 [in_i] [facility] BMI (Body Mass Index) 2019 00:00:00 36.3 kg/m2 [facility] BP Systolic 2019 00:00:00 117 mm[Hg] [facility] Body Weight 2019 00:00:00 204.9 [lb_av] [facility] BP Diastolic 2019-08-20 00:00:00 70 mm[Hg] [facility] Height 2019-08-20 00:00:00 63 [in_i] [facility] BMI (Body Mass Index) 2019-08-20 00:00:00 35.8 kg/m2 [facility] BP Systolic 2019-08-20 00:00:00 114 mm[Hg] [facility] Body Weight 2019-08-20 00:00:00 202 [lb_av] [facility] BP Diastolic 2019-08-03 00:00:00 77 mm[Hg] [facility] Height 2019-08-03 00:00:00 63 [in_i] [facility] BMI (Body Mass Index) 2019-08-03 00:00:00 35.6 kg/m2 [facility] BP Systolic 2019-08-03 00:00:00 118 mm[Hg] [facility] Body Weight 2019-08-03 00:00:00 3218 [oz_av] [facility] BP Diastolic 2019-07-31 00:00:00 79 mm[Hg] [facility] Height 2019-07-31 00:00:00 63 [in_i] [facility] BMI (Body Mass Index) 2019-07-31 00:00:00 35.4 kg/m2 [facility] BP Systolic 2019-07-31 00:00:00 119 mm[Hg] [facility] Body Weight 2019-07-31 00:00:00 200 [lb_av] [facility] BP Diastolic 2019-07-22 00:00:00 72 mm[Hg] [facility] Height 2019-07-22 00:00:00 63 [in_i] [facility] BMI (Body Mass Index) 2019-07-22 00:00:00 34.9 kg/m2 [facility] BP Systolic 2019-07-22 00:00:00 112 mm[Hg] [facility] Body Weight 2019-07-22 00:00:00 197.1 [lb_av] [facility] BP Diastolic 2019-06-30 00:00:00 70 mm[Hg] [facility] Height 2019-06-30 00:00:00 63 [in_i] [facility] BMI (Body Mass Index) 2019-06-30 00:00:00 34 kg/m2 [facility] BP Systolic 2019-06-30 00:00:00 114 mm[Hg] [facility] Body Weight 2019-06-30 00:00:00 191.9 [lb_av] [facility] BP Diastolic 2019-06-23 00:00:00 84 mm[Hg] [facility] Height 2019-06-23 00:00:00 63 [in_i] [facility] BMI (Body Mass Index) 2019-06-23 00:00:00 34.2 kg/m2 [facility] BP Systolic 2019-06-23 00:00:00 127 mm[Hg] [facility] Body Weight 2019-06-23 00:00:00 193.2 [lb_av] [facility] BP Diastolic 2019-05-29 00:00:00 68 mm[Hg] [facility] Height 2019-05-29 00:00:00 63 [in_i] [facility] BMI (Body Mass Index) 2019-05-29 00:00:00 33.6 kg/m2 [facility] BP Systolic 2019-05-29 00:00:00 110 mm[Hg] [facility] Body Weight 2019-05-29 00:00:00 189.7 [lb_av] [facility] BP Diastolic 2019-05-11 00:00:00 76 mm[Hg] [facility] Height 2019-05-11 00:00:00 63 [in_i] [facility] BMI (Body Mass Index) 2019-05-11 00:00:00 33.5 kg/m2 [facility] BP Systolic 2019-05-11 00:00:00 113 mm[Hg] [facility] Body Weight 2019-05-11 00:00:00 189.3 [lb_av] [facility] BP Diastolic 2019-05-01 00:00:00 69 mm[Hg] [facility] Height 2019-05-01 00:00:00 63 [in_i] [facility] BMI (Body Mass Index) 2019-05-01 00:00:00 33.8 kg/m2 [facility] BP Systolic 2019-05-01 00:00:00 113 mm[Hg] [facility] Body Weight 2019-05-01 00:00:00 190.6 [lb_av] [facility] BP Diastolic 2019-04-02 00:00:00 81 mm[Hg] [facility] Height 2019-04-02 00:00:00 63 [in_i] [facility] BMI (Body Mass Index) 2019-04-02 00:00:00 33.8 kg/m2 [facility] BP Systolic 2019-04-02 00:00:00 116 mm[Hg] [facility] Body Weight 2019-04-02 00:00:00 190.8 [lb_av] [facility] BP Diastolic 2019-03-25 00:00:00 85 mm[Hg] [facility] Height 2019-03-25 00:00:00 63 [in_i] [facility] BMI (Body Mass Index) 2019-03-25 00:00:00 33.8 kg/m2 [facility] BP Systolic 2019-03-25 00:00:00 133 mm[Hg] [facility] Body Weight 2019-03-25 00:00:00 191 [lb_av] [facility] BP Diastolic 2019-03-12 00:00:00 80 mm[Hg] [facility] Height 2019-03-12 00:00:00 63 [in_i] [facility] BMI (Body Mass Index) 2019-03-12 00:00:00 26.7 kg/m2 [facility] BP Systolic 2019-03-12 00:00:00 107 mm[Hg] [facility] Body Weight 2019-03-12 00:00:00 151 [lb_av] [facility] BP Diastolic 2019-03-05 00:00:00 81 mm[Hg] [facility] Height 2019-03-05 00:00:00 63 [in_i] [facility] BMI (Body Mass Index) 2019-03-05 00:00:00 34.2 kg/m2 [facility] BP Systolic 2019-03-05 00:00:00 117 mm[Hg] [facility] Body Weight 2019-03-05 00:00:00 193 [lb_av] [facility] Procedures Procedure Date / Time Performed Performing Clinician Source US, obstetric, limited 2019-09-22 00:00:00 [facility] non-stress test 2019-09-22 00:00:00 [facility] US, obstetric, limited 2019-08-20 00:00:00 [facility] ULTRASOUND REPEAT 2019-07-22 00:00:00 [facility] US, obstetric, limited 2019-05-29 00:00:00 [facility] US, obstetric, limited 2019-05-01 00:00:00 [facility] ULTRASOUND, UTERUS REAL TIME WITH IMAGE DOC, AND MATERNAL EVAL PLUS DETAILED ANATOMIC EXAMINATION, TRANSABDOMINAL APPROACH; SINGLE OR FIRST GESTATION 2019-05-01 00:00:00 [facility] US, obstetric, limited 2019-04-02 00:00:00 [facility] US, obstetric, limited 2019-03-25 00:00:00 [facility] ULTRASOUND, UTERUS REAL TIME WITH IMAGE DOCUMENTAITON, TRANSVAGINAL 2019-03-12 00:00:00 [facility] Eye Surgery 2000-02-24 00:00:00 [facility] Tubal Ligation (Surg) [facility] Plan of Care Planned Activity Planned Date Details Comments Source Diagnostic Test Pending 2020-07-18 00:00:00 urinalysis, dipstick [code = urinalysis, dipstick] [facility] Encounters Start Date/Time End Date/Time Encounter Type Admission Type Attending [facility] Facility Care Department Encounter ID Source 2024-02-16 19:20:00 2024-02-16 19:20:00 Outpatient R [facility] [id number] [facility] 2021-08-03 11:15:00 2021-08-03 11:54:26 Outpatient R MICHELET JAY [facility] [id number] [facility] 2021-08-03 11:12:21 2021-08-03 11:27:21 Office Visit Michelet Jay [facility] 1..114 350.1.13.10 4.2.7.2.686 [id number] [facility] 2021-07-24 10:50:00 2021-07-24 17:00:00 Outpatient R MICHELET JAY [facility] [id number] [facility] 2021-07-24 10:50:00 2021-07-24 17:00:00 Hospital Encounter Michelet Jay [facility] 1..114 350.1.13.10 4.2.7.2.686 [id number] [facility] 2021-07-24 12:40:00 2021-07-24 15:20:00 Surgery Michelet Jay [facility] SURGICAL [facility] 1.84.114 350.1.13.10 4.2.7.2.686 [id number] [facility] 2021-07-24 00:00:00 2021-07-24 00:00:00 Orders Only Doctor Unassigned, [place] [facility] 1.84.114 350.1.13.10 4.2.7.2.686 [id number] [facility] 2021-07-19 09:11:24 2021-07-19 09:26:24 Laboratory Only Only, Adc Test Chuy Jayel [facility] 1.2.840.114 350.1.13.10 4.2.7.2.686 [id number] [facility] 2021-07-19 09:15:00 2021-07-19 09:15:00 Outpatient R MICHELET JAY [facility] [id number] [facility] 2021-07-19 00:00:00 2021-07-19 00:00:00 Orders Only Doctor Unassigned, [place] [facility] [id number] 350.1.13.10 4.2.7.2.686 [id number] [facility] 2021-07-06 00:00:00 2021-07-06 00:00:[address] [facility] [id number] 350.1.13.10 4.2.7.2.686 [id number] [facility] 2021-07-04 15:30:00 2021-07-04 16:49:55 Outpatient R MICHELET JAY [facility] [id number] [facility] 2021-07-04 15:01:26 2021-07-04 16:49:55 Office Visit Michelet Jay [facility] [id number] 350.1.13.10 4.2.7.2.686 [id number] [facility] 2021-07-04 15:30:00 2021-07-04 15:30:00 Outpatient R MICHELET JAY [facility] [id number] [facility] 2021-06-20 07:47:00 2021-06-20 10:44:00 [facility] 1.84.114 350.1.13.10 4.2.7.2.686 [id number] [facility] 2021-06-20 07:47:00 2021-06-20 10:44:00 Outpatient R MICHELET JAY [facility] [id number] [facility] 2021-06-20 09:46:00 2021-06-20 10:26:00 Surgery Michelet Jay [facility] [place] 1.84.114 350.1.13.10 4.2.7.2.686 [id number] [facility] 2021-06-20 00:00:00 2021-06-20 00:00:00 Orders Only Doctor Unassigned, [place] [facility] 1..114 350.1.13.10 4.2.7.2.686 [id number] [facility] 2021-06-17 08:55:45 2021-06-17 09:10:45 [facility] Only Only[facility]114 350.1.13.10 4.2.7.2.686 [id number] [facility] 2021-06-17 09:00:00 2021-06-17 09:00:00 Outpatient R MICHELET JAY [facility] [id number] [facility] 2021-06-13 00:00:00 2021-06-13 00:00:00 Telephone Michelet Jay [facility] 1..114 350.1.13.10 4.2.7.2.686 [id number] [facility] 2021-06-07 08:06:22 2021-06-07 23:59:00 Hospital Encounter Michelet Jay [facility] 1.2.840.114 350.1.13.10 4.2.7.2.686 [id number] [facility] 2021-06-07 08:05:55 2021-06-07 08:05:55 Hospital Encounter Michelet Jay [facility] 1.2.840.114 350.1.13.10 4.2.7.2.686 [id number] [facility] 2021-06-07 00:00:00 2021-06-07 00:00:00 Outpatient R MICHELET JAY [facility] [id number] [facility] 2021-06-02 00:00:00 2021-06-02 00:00:00 Prep For Surgery Michelet Jay [facility] Building 1.2840.114 350.1.13.10 4.2.7.2.686 [id number] [facility] 2021-06-01 14:42:16 2021-06-01 15:39:59 Office Visit Michelet Jay [facility] Building 1.2.840.114 350.1.13.10 4.2.7.2.686 [id number] [facility] 2021-06-01 14:45:00 2021-06-01 14:45:00 Outpatient R MICHELET JAY [facility] [id number] [facility] 2021-06-01 00:00:00 2021-06-01 00:00:00 Orders Only Doctor Unassigned, [place] [facility] [facility] 1.2.840.114 350.1.13.10 4.2.7.2.686 [id number] [facility] 2021-05-25 04:14:00 2021-05-25 06:23:00 Emergency [facility] 1.2.840.114 350.1.13.10 4.2.7.2.686 [id number] [facility] 2021-05-25 04:14:00 2021-05-25 04:14:00 Emergency X CHINO ZHANG [facility] ERT [id number] [facility] 2021-03-07 14:26:00 2021-03-07 17:55:00 Emergency [facility] 1.2.840.114 350.1.13.10 4.2.7.2.686 [id number] [facility] 2021-03-07 14:22:00 2021-03-07 14:22:00 Emergency X [facility] ERT [id number] [facility] 2020-12-05 22:33:00 2020-12-06 01:51:00 Emergency [facility] 1.2.840.114 350.1.13.10 4.2.7.2.686 [id number] [facility] 2020-12-05 22:15:00 2020-12-05 22:15:00 Emergency X [facility] ERT [id number] [facility] 2020-08-04 09:39:00 2020-08-04 09:39:00 Outpatient G_Pappas [facility] [id number] [facility] 2020-07-18 04:16:00 2020-07-18 04:16:00 Outpatient G_Pappas [facility] [id number] 2020-07-18 00:00:00 2020-07-18 00:00:00 Marc Alexis MD: [address] [place] [address] [address], [place] [address] , Ph. [phone] [facility] [id number] [facility] 2020-07-13 02:48:00 2020-07-13 02:48:00 Outpatient G_Pappas [facility] [id number] [facility] 2020-07-06 06:07:00 2020-07-06 06:07:00 Outpatient MARC MURRELL [facility] [id number] [facility] 2020-07-01 02:37:00 2020-07-01 02:37:00 Outpatient G_Pappas [facility] [id number] [facility] 2020-07-01 02:37:00 2020-07-01 02:37:00 Outpatient G_Pappas [facility] [id number] [facility] 2020-07-01 00:00:00 2020-07-01 00:00:00 Marc Alexis MD: [address] [place] [address] , Ph. [phone] [facility] [id number] [facility] 2020-06-27 11:46:00 2020-06-27 11:46:00 Outpatient G_Pappas [facility] [id number] [facility] 2020-05-31 03:21:00 2020-05-31 03:21:00 Outpatient G_Pappas [facility] [id number] [facility] 2020-05-31 03:21:00 2020-05-31 03:21:00 Outpatient G_Pappas [facility] [id number] [facility] 2020-05-31 00:00:00 2020-05-31 00:00:00 Marc Alexis MD: [address] [address] , Ph. [phone] [facility] [id number] [facility] 2020-01-14 04:03:00 2020-01-14 04:03:00 Outpatient CHATA PERLA [id number] [facility] 2020-01-14 00:00:00 2020-01-14 00:00:00 Kan Ibarra, PSYD: [address] [place] [address] , Ph. [phone] --[phone] [facility] [employer] [facility] [id number] [facility] 2020-01-06 16:35:00 2020-01-06 17:54:00 Emergency ER LING PACE [facility] [id number] [facility] 2020-01-05 05:00:00 2020-01-05 05:00:00 Outpatient [facility] 511 [facility] 2020-01-05 00:00:00 2020-01-05 00:00:00 Kan Ibarra, PSYD: [address] [place] [address] , Ph. [phone] --[phone] [facility] [employer] [facility] [id number] [facility] 2019-12-31 05:36:00 2019-12-31 05:36:00 Outpatient [facility] 0507 [facility] 2019-12-31 00:00:00 2019-12-31 00:00:00 Kan Ibarra, PSYD: [address] [place] [address] , Ph. 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 MEHOP [place] [facility] [id number] [facility] 2019-12-26 12:28:00 2019-12-26 12:28:00 Outpatient [facility] 0502 [facility] 2019-12-23 04:56:00 2019-12-23 04:56:00 Outpatient [facility] [id number] [facility] 2019-12-21 08:24:00 2019-12-21 08:24:00 Outpatient G_Pappas [facility] [id number] [facility] 2019-12-21 00:00:00 2019-12-21 00:00:00 Leana Ward MD: [address] [address] , Ph. [phone] [facility] [id number] [facility] 2019-11-19 14:11:00 2019-11-19 17:59:00 Emergency ER REYES LOYA [facility] [id number] [facility] 2019-11-16 02:15:00 2019-11-16 02:15:00 Outpatient G_Pappas [facility] [id number] [facility] 2019-10-28 12:06:00 2019-10-28 12:06:00 Outpatient G_Pappas [facility] [id number] [facility] 2019-10-27 11:55:00 2019-10-27 11:55:00 Outpatient G_Pappas [facility] [id number] [facility] 2019-10-27 00:00:00 2019-10-27 00:00:00 MISBAH Vega: [address] [address] , Ph. [phone] [facility] [id number] [facility] 2019-10-20 06:15:00 2019-10-20 06:15:00 Outpatient G_Pappas [facility] [id number] [facility] 2019-10-07 01:53:00 2019-10-07 01:53:00 Outpatient G_Pappas [facility] [id number] [facility] 2019-10-05 05:15:00 2019-10-06 09:10:00 Inpatient JAYME ALEXISMARC [facility] [id number] [facility] 2019-10-04 09:00:00 2019-10-04 09:00:00 Outpatient G_Pappas [facility] [id number] [facility] 2019-09-29 04:25:00 2019-09-29 04:25:00 Outpatient G_Pappas [facility] [id number] [facility] 2019-09-29 00:00:00 2019-09-29 00:00:00 Marc Alexis MD: [address] [place] [address] , Ph. [phone] [facility] - [facility]YN [id number] [facility] 2019-09-28 12:21:00 2019-09-28 12:21:00 Outpatient [place] [id number] [facility] 2019-09-25 09:44:00 2019-09-25 09:44:00 [place] [id number] [facility] 2019-09-22 05:16:00 2019-09-22 05:16:00 Outpatient G_Pappas [facility] [id number] [facility] 2019-09-22 00:00:00 2019-09-22 00:00:00 Marc Alexis MD: [address] [address] , Ph. [phone] [facility] - [facility]YN [id number] [facility] 2019-09-21 02:51:00 2019-09-21 02:51:00 Outpatient G_Pappas [facility] [id number] [facility] 2019-09-14 19:10:00 2019-09-16 14:30:00 Inpatient ER MARC ALEXIS [facility] [id number] [facility] 2019-09-12 21:35:00 2019-09-13 03:15:00 Emergency ER LEANA WARD [facility] [id number] [facility] 2019-09-07 11:08:00 2019-09-07 11:08:00 [facility] [id number] [facility] 2019-09-04 14:30:00 2019-09-04 14:30:00 Outpatient MARC MURRELL [facility] [id number] [facility] 2019 10:59:00 2019 10:59:00 Outpatient G_Pappas [facility] [id number] [facility] 2019 00:00:00 2019 00:00:00 Marc Alexis MD: [address] [place] [address] , Ph. [phone] [facility] [id number] [facility] 2019-08-26 12:17:00 2019-08-26 16:25:00 Emergency ER LEANA WARD [facility] [id number] [facility] 2019-08-20 11:08:00 2019-08-20 11:08:00 [facility] [id number] [facility] 2019-08-20 10:30:00 2019-08-20 10:30:00 Outpatient LINDA BROUSSARD [facility] [id number] [facility] 2019-08-20 00:00:00 2019-08-20 00:00:00 DARRON VegaNP: [address], [place] [address] , Ph. [phone] [facility] [id number] [facility] 2019-08-03 09:52:00 2019-08-03 09:52:00 Outpatient [facility]ATA [facility] [id number] [facility] 2019-08-03 00:00:00 2019-08-03 00:00:00 Karina Price, [employer] TEACHER: [address], [place] [address] , Ph. MM[facility] [id number] [facility] 2019-07-31 00:00:00 2019-07-31 00:00:00 MISBAH Vega: [address], [place] [address] , Ph. [phone] [facility] OBGYN [id number] [facility] 2019-07-26 20:15:00 2019-07-26 20:20:00 Emergency ER MARC ALEXIS [facility] [id number] [facility] 2019-07-22 09:45:00 2019-07-22 09:45:00 Outpatient LINDA BROUSSARD [facility] [id number] [facility] 2019-07-22 00:00:00 2019-07-22 00:00:00 MISBAH Vega: [address], [place] [address] , Ph. [phone] [facility] OBGYN [id number] [facility] 2019-06-30 00:00:00 2019-06-30 00:00:00 Marc Alexis MD: [address], [place] [address] , Ph. [phone] [facility] [id number] [facility] 2019-06-23 00:00:00 2019-06-23 00:00:00 Marc Alexis MD: [address], [place] [address] , Ph. [phone] [facility] [id number] [facility] 2019-05-29 00:00:00 2019-05-29 00:00:00 Leana Ward MD: [address], [place] [address] , Ph. [phone] [facility] [id number] [facility] 2019-05-11 00:00:00 2019-05-11 00:00:00 Marc Alexis MD: [address], [place] [address] , Ph. [phone] [facility] [id number] [facility] 2019-05-07 20:19:00 2019-05-08 00:28:00 Emergency ER JON VIGIL [facility] [id number] [facility] 2019-05-01 16:53:00 2019-05-01 16:53:00 Outpatient MARC MURRELL [facility] [id number] [facility] 2019-05-01 00:00:00 2019-05-01 00:00:00 Marc Alexis MD: [address], [place] [address] , Ph. [phone] [facility] [id number] [facility] 2019-04-30 00:00:00 2019-04-30 00:00:00 Linda Pereira MARIAN: [address], [place] [address] , Ph. [phone] [facility] [id number] [facility] 2019-04-02 11:08:00 2019-04-02 11:08:00 Outpatient JAYME MARC ALEXIS [facility] [id number] [facility] 2019-04-02 00:00:00 2019-04-02 00:00:00 Marc Alexis MD: [address], [place] [address] , Ph. [phone] [facility] [id number] [facility] 2019-03-25 00:00:00 2019-03-25 00:00:00 Leana Ward MD: [address], [place] [address] , Ph. [phone] [facility] [id number] [facility] 2019-03-12 11:47:00 2019-03-12 11:47:00 Outpatient LINDA BROUSSARD [facility] [id number] [facility] 2019-03-12 00:00:00 2019-03-12 00:00:00 Linda Pereira NP: [address], [place] [address] , Ph. [phone] [facility] [id number] [facility] 2019-03-05 10:56:00 2019-03-05 10:56:00 Outpatient LEANA ZHENG [facility] [id number] [facility] 2019-03-05 00:00:00 2019-03-05 00:00:00 Leana Ward MD: [address], [place] [address] , Ph. [phone] [facility] [id number] [facility] 2019-02-24 19:49:00 2019-02-25 00:11:00 Emergency ER LUCIA JAVIER [facility] [id number] [facility] 2018-01-11 16:19:00 2018-01-11 17:59:00 Emergency ER DONNA CESPEDES [facility] [id number] [facility] 2017-08-30 14:27:00 2017-08-30 14:27:00 Outpatient JAYME PIERREARANZA [facility] [id number] [facility] 2017-08-04 14:53:00 2017-08-04 15:28:00 Emergency ER JON VIGIL [facility] [id number] [facility] 2017-05-26 20:39:00 2017-05-26 22:07:00 Emergency ER LUCIA JAVIER [facility] [id number] [facility] 2017-05-04 16:34:00 2017-05-04 18:25:00 Emergency ER LING PACE [facility] [id number] [facility] 2017-03-12 19:35:00 2017-03-12 21:29:00 Emergency ER CHARLEENHONGJORDAN [facility] [id number] [facility] 2017-02-11 17:07:00 2017-02-11 19:59:00 Emergency ER LING PACE [facility] [id number] [facility] 2016-01-19 07:15:00 2016-01-20 19:40:00 Inpatient LEANA ZHENG [facility] [id number] [facility] 2016-01-10 10:17:00 2016-01-10 10:17:00 Outpatient LEANA ZHENG [facility] [id number] [facility] 2015-12-15 22:45:00 2015-12-16 00:06:00 Emergency ER LEANA WARD [facility] [id number] [facility] 2015-11-03 13:29:00 2015-11-03 16:15:00 Emergency ER LEANA WARD [facility] [id number] [facility] 2015-10-25 08:32:00 2015-10-25 08:32:00 Outpatient KARINA GATES [facility] [id number] [facility] 2015-08-21 15:11:00 2015-08-21 17:55:00 Emergency ER ANNA BOGGS [facility] [id number] [facility] 2015-07-26 13:43:00 2015-07-26 13:43:00 Outpatient KARINA GATES [facility] [id number] [facility] 2015-06-16 12:54:00 2015-06-16 15:57:00 Emergency ER OWLING Petersen [facility] [id number] [facility] 2015-04-18 06:13:00 2015-04-18 08:10:00 Emergency ER LING PACE [facility] [id number] [facility] 2015-03-11 12:29:00 2015-03-11 14:15:00 Emergency ER LING PACE [facility] [id number] [facility] Results Test Description Test Time Test Comments Results Result Co mments Source [facility] W Auto Differential panel - [id number] 11:06:00 * Test Item Value Reference Range Interpretation Comme nts white blood count (test code = white blood count) 10.7 K/uL 4.0-11.5 red blood count (test code = red blood count) 4.76 M/uL 3.80-5.20 hemoglobin (test code = hemoglobin) 13.6 g/dL 10.5-15.7 hematocrit (test code = hematocrit) 41.9 % 34.0-50.0 MCV [Entitic volume] (test c ode = 69654-2) 88.0 fL 86-100 mean corpuscular hemoglobin (test code = mean corpuscular hemoglobin) 28.6 pg 26.2-33.4 mean corpuscular HGB conc (t est code = mean corpuscular HGB conc) 32.5 g/dL 30-34 red cell distribution width (test code = red cell distribution width) 13.2 % 12.0-15.5 platelet count (test code = platelet count) 376 K/uL 165-450 mean platelet volume (test c ode = mean platelet volume) 10.1 fL 9.4-12.6 Segmented neutrophils/100 leukocytes in Blood (test code = 73041-2) 67.7 % 44.4-80.1 Immature granulocytes [#/vol ume] in Blood (test code = 59814-7) 0.0 K/uL 0.0-0.03 lymphocyte% (test code = lymphocyte%) 23.3 % 10.0-50.0 mono % (test code = mono %) 5.6 % 3.6-12.0 eos % (test code = eos %) 2.4 % 0.0-5.4 Basophils/100 leukocytes in Unspecified specimen (test code = 31785-3) 0.6 % 0.1-1.2 Band form neutrophils [#/vol ume] in Blood (test code = 64683-5) 7.28 K/uL 1.56-6.13 H Lymphocytes [#/volume] in Unspecified specimen by Automated count (test code = 80711-0) 2.5 K/uL 1.18-3.74 mono # (test code = mono #) 0.60 K/uL 0.24-0.86 eos # (test code = eos #) 0.26 K/uL 0.04-0.36 basophil # (test code = baso jerel #) 0.06 K/uL 0.01-0.08 NRBC% (test code = NRBC%) 0 /100 WBC 0-0.2 NRBC# (test code = NRBC#) 0 K/uL [facility] metabolic 2000 panel - Serum or [id number] 11:06:00* Test Item Value Reference Range Interpretation Comme nts glucose (test code = glucose) 148 mg/dL 74-106 H Urea nitrogen [Mass/volume] in Serum or Plasma (test code = 3094-0) 7 mg/dL 6-20 osmolality calculated,serum (test code = osmolality calculated,serum) 267 mOsm/kg 280-300 L creatinine (test code = creatinine) 0.5 mg/dL 0.50-0.90 glomerular filtration rate ( test code = glomerular filtration rate) >60.00 Urea nitrogen/Creatinine [Ma ss Ratio] in Serum or Plasma (test code = 3097-3) 14.0 12-20 sodium level (test code = so dium level) 133 mmol/L 135-145 L Potassium [Moles/volume] in Body fluid (test code = 2821-7) 3.5 mmol/L 3.5-5.2 chloride level (test code = chloride level) 101 mmol/L 98-108 CO2 (test code = CO2) 22 mmol/L 21-32 anion gap (test code = anion gap) 13.5 mEq/L 12-20 calcium level (test code = calcium level) 9.2 mg/dL 8.6-10.0 [facility] - [id number] 14:02:45* Test Item Value Reference Range Interpretation Comme nts Leukocytes (test code = Leukocytes) Trace Nitrite (test code = Nitrite) negative Urobilinogen (test code = Urobilinogen) .2 Protein (test code = Protein) Negative pH (test code = pH) 6.0 Blood (test code = Blood) Small Specific [place] (test code = Specific [place]) 1.025 Ketone (test code = Ketone) Negative Bilirubin (test code = Bilirubin) Negative Glucose (test code = Glucose) Negative Appearance (test code = Appearance) Clear Color (test code = Color) Yellow [facility] - [id number] 14:02:45* Test Item Value Reference Range Interpretation Comme nts Leukocytes (test code = Leukocytes) Trace Nitrite (test code = Nitrite) negative Urobilinogen (test code = Urobilinogen) .2 Protein (test code = Protein) Negative pH (test code = pH) 6.0 Blood (test code = Blood) Small Specific [place] (test code = Specific [place]) 1.025 Ketone (test code = Ketone) Negative Bilirubin (test code = Bilirubin) Negative Glucose (test code = Glucose) Negative Appearance (test code = Appearance) Clear Color (test code = Color) Yellow [facility], [id number] 14:01:41* Test Item Value Reference Range Interpretation Comme nts Test (test code = Test) negative [facility], [id number] 14:01:41* Test Item Value Reference Range Interpretation Comme nts Test (test code = Test) negative [facility]Hemoglobin.total in [id number] 00:00:00* Test Item Value Reference Range Interpretation Comme nts Hemoglobin A1c/Hemoglobin.to pee in Blood (test code = 4548-4) 5.1 % 4.8-5.6 Glucose mean value [Mass/vol ume] in Blood Estimated from glycated hemoglobin (test code = 74504-2) 100 mg/dL [facility], [id number] 00:00:00* Test Item Value Reference Range Interpretation Comme nts interpretation (test code = interpretation) note pdf image (test code = pdf image) . [facility] TSH [facility] - Serum or [id number] 00:00:00* Test Item Value Reference Range Interpretation Comme nts Thyrotropin [Units/volume] i n Serum or Plasma by Detection limit <= 0.005 mIU/L (test code = 84060-6) 1.540 uIU/mL 0.450-4.500 Thyroxine (T4) free [Mass/volume] in Serum or Plasma (test code = 3024-7) 1.34 NG/dL 0.82-1.77 [facility] Differential panel - Blood 2019-12-29 00:00:00* Test Item Value Reference Range Interpretation Comme nts Leukocytes [#/volume] in Blo od by Automated count (test code = 6690-2) 10.4 x10e3/uL 3.4-10.8 Erythrocytes [#/volume] in Blood by Automated count (test code = 789-8) 4.71 x10e6/uL 3.77-5.28 Hemoglobin [Mass/volume] in Blood (test code = 718-7) 13.0 g/dL 11.1-15.9 Hematocrit [Volume Fraction] of Blood by Automated count (test code = 4544-3) 40.0 % 34.0-46.6 Erythrocyte mean corpuscular volume [Entitic volume] by Automated count (test code = 787-2) 85 fL 79-97 Erythrocyte mean corpuscular hemoglobin [Entitic mass] by Automated count (test code = 785-6) 27.6 pg 26.6-33.0 Erythrocyte mean corpuscular hemoglobin concentration [Mass/volume] by Automated count (test code = 786-4) 32.5 g/dL 31.5-35.7 Erythrocyte distribution wid th [Ratio] by Automated count (test code = 788-0) 14.0 % 11.7-15.4 Platelets [#/volume] in Bloo d by Automated count (test code = 777-3) 370 x10e3/uL 150-450 Neutrophils/100 leukocytes i n Blood by Automated count (test code = 770-8) 67 % not estab. Lymphocytes/100 leukocytes i n Blood by Automated count (test code = 736-9) 24 % not estab. Monocytes/100 leukocytes in Blood by Automated count (test code = 5905-5) 6 % not estab. Eosinophils/100 leukocytes i n Blood by Automated count (test code = 713-8) 2 % not estab. Basophils/100 leukocytes in Blood by Automated count (test code = 706-2) 1 % not estab. immature cells (test code = immature cells) jigman Neutrophils [#/volume] in Bl ood by Automated count (test code = 751-8) 7.1 x10e3/uL 1.4-7.0 H Lymphocytes [#/volume] in Bl ood by Automated count (test code = 731-0) 2.4 x10e3/uL 0.7-3.1 Monocytes [#/volume] in Bloo d by Automated count (test code = 742-7) 0.6 x10e3/uL 0.1-0.9 Eosinophils [#/volume] in Bl ood by Automated count (test code = 711-2) 0.2 x10e3/uL 0.0-0.4 Basophils [#/volume] in Bloo d by Automated count (test code = 704-7) 0.1 x10e3/uL 0.0-0.2 Immature granulocytes/100 leukocytes in Blood by Automated count (test code = 46102-4) 0 % not estab. Immature granulocytes [#/volume] in Blood by Automated count (test code = 34459-3) 0.0 x10e3/uL 0.0-0.1 Nucleated erythrocytes/100 leukocytes [Ratio] in Blood by Automated count (test code = 47102-2) jigman Morphology [Interpretation] in Blood Narrative (test code = 06216-3) jigman [facility] - Serum or [id number] 00:00:00* Test Item Value Reference Range Interpretation Comme nts Glucose [Mass/volume] in Serum or Plasma (test code = 2345-7) 92 mg/dL 65-99 Urea nitrogen [Mass/volume] in Serum or Plasma (test code = 3094-0) 9 mg/dL 6-20 Creatinine [Mass/volume] in Serum or Plasma (test code = 2160-0) 0.56 mg/dL 0.57-1.00 L Glomerular filtration rate/1.73 sq M.predicted among non-blacks [Volume Rate/Area] in Serum, Plasma or Blood by Creatinine-based formula (CKD-EPI) (test code = 68769-8) 130 mL/min/1.73 >59 Glomerular filtration rate/1.73 sq M.predicted among blacks [Volume Rate/Area] in Serum, Plasma or Blood by Creatinine-based formula (CKD-EPI) (test code = 57692-2) 150 mL/min/1.73 >59 Urea nitrogen/Creatinine [Mass Ratio] in Serum or Plasma (test code = 3097-3) 16 9-23 Sodium [Moles/volume] in Serum or Plasma (test code = 2951-2) 139 mmol/L 134-144 Potassium [Moles/volume] in Serum or Plasma (test code = 2823-3) 4.4 mmol/L 3.5-5.2 Chloride [Moles/volume] in Serum or Plasma (test code = 2075-0) 101 mmol/L 96-106 Carbon dioxide, total [Moles/volume] in Serum or Plasma (test code = 2027-) 23 mmol/L 20-29 Calcium [Mass/volume] in Serum or Plasma (test code = 62990-2) 9.1 mg/dL 8.7-10.2 Protein [Mass/volume] in Serum or Plasma (test code = 2885-2) 7.3 g/dL 6.0-8.5 Albumin [Mass/volume] in Serum or Plasma (test code = 1751-7) 4.4 g/dL 3.9-5.0 Globulin [Mass/volume] in Serum by calculation (test code = 08599-2) 2.9 g/dL 1.5-4.5 Albumin/Globulin [Mass Ratio ] in Serum or Plasma (test code = 1759-0) 1.5 1.2-2.2 Bilirubin.total [Mass/volume ] in Serum or Plasma (test code = 1974-2) 0.4 mg/dL 0.0-1.2 Alkaline phosphatase [Enzymatic activity/volume] in Serum or Plasma (test code = 6768-6) 139 IU/L 39-117 H Aspartate aminotransferase [Enzymatic activity/volume] in Serum or Plasma (test code = 1920-8) 16 IU/L 0-40 Alanine aminotransferase [Enzymatic activity/volume] in Serum or Plasma (test code = 1742-6) 21 IU/L 0-32 [facility] - [facility] or Plasma 2019-12-29 00:00:00* Test Item Value Reference Range Interpretation Comme nts Cholesterol [Mass/volume] in Serum or Plasma (test code = 2093-3) 141 mg/dL 100-199 Triglyceride [Mass/volume] i n Serum or Plasma (test code = 2571-8) 93 mg/dL 0-149 Cholesterol in HDL [Mass/vol ume] in Serum or Plasma (test code = 2085-9) 35 mg/dL >39 L Cholesterol in VLDL [Mass/vo lume] in Serum or Plasma by calculation (test code = 68777-2) 19 mg/dL 5-40 Cholesterol in LDL [Mass/vol ume] in Serum or Plasma by calculation (test code = 66349-2) 87 mg/dL 0-99 Laboratory comment [Text] in Report Narrative (test code = 82979-6) jigman [facility] CampusHemoglobin A1c/Hemoglobin.total in [id number] 00:00:00* Test Item Value Reference Range Interpretation Comme nts Hemoglobin A1c/Hemoglobin.to pee in Blood (test code = 4548-4) 5.1 % 4.8-5.6 Glucose mean value [Mass/vol ume] in Blood Estimated from glycated hemoglobin (test code = 69193-5) 100 mg/dL [facility], [id number] 00:00:00* Test Item Value Reference Range Interpretation Comme nts interpretation (test code = interpretation) note pdf image (test code = pdf image) . [facility] TSH [facility] - Serum or [id number] 00:00:00* Test Item Value Reference Range Interpretation Comme nts Thyrotropin [Units/volume] i n Serum or Plasma by Detection limit <= 0.005 mIU/L (test code = 95333-6) 1.540 uIU/mL 0.450-4.500 Thyroxine (T4) free [Mass/volume] in Serum or Plasma (test code = 3024-7) 1.34 NG/dL 0.82-1.77 [facility] Differential [facility] - Blood 2019-12-29 00:00:00* Test Item Value Reference Range Interpretation Comme nts Leukocytes [#/volume] in Blo od by Automated count (test code = 6690-2) 10.4 x10e3/uL 3.4-10.8 Erythrocytes [#/volume] in Blood by Automated count (test code = 789-8) 4.71 x10e6/uL 3.77-5.28 Hemoglobin [Mass/volume] in Blood (test code = 718-7) 13.0 g/dL 11.1-15.9 Hematocrit [Volume Fraction] of Blood by Automated count (test code = 4544-3) 40.0 % 34.0-46.6 Erythrocyte mean corpuscular volume [Entitic volume] by Automated count (test code = 787-2) 85 fL 79-97 Erythrocyte mean corpuscular hemoglobin [Entitic mass] by Automated count (test code = 785-6) 27.6 pg 26.6-33.0 Erythrocyte mean corpuscular hemoglobin concentration [Mass/volume] by Automated count (test code = 786-4) 32.5 g/dL 31.5-35.7 Erythrocyte distribution wid th [Ratio] by Automated count (test code = 788-0) 14.0 % 11.7-15.4 Platelets [#/volume] in Bloo d by Automated count (test code = 777-3) 370 x10e3/uL 150-450 Neutrophils/100 leukocytes i n Blood by Automated count (test code = 770-8) 67 % not estab. Lymphocytes/100 leukocytes i n Blood by Automated count (test code = 736-9) 24 % not estab. Monocytes/100 leukocytes in Blood by Automated count (test code = 5905-5) 6 % not estab. Eosinophils/100 leukocytes i n Blood by Automated count (test code = 713-8) 2 % not estab. Basophils/100 leukocytes in Blood by Automated count (test code = 706-2) 1 % not estab. immature cells (test code = immature cells) jigman Neutrophils [#/volume] in Bl ood by Automated count (test code = 751-8) 7.1 x10e3/uL 1.4-7.0 H Lymphocytes [#/volume] in Bl ood by Automated count (test code = 731-0) 2.4 x10e3/uL 0.7-3.1 Monocytes [#/volume] in Bloo d by Automated count (test code = 742-7) 0.6 x10e3/uL 0.1-0.9 Eosinophils [#/volume] in Bl ood by Automated count (test code = 711-2) 0.2 x10e3/uL 0.0-0.4 Basophils [#/volume] in Bloo d by Automated count (test code = 704-7) 0.1 x10e3/uL 0.0-0.2 Immature granulocytes/100 leukocytes in Blood by Automated count (test code = 91468-1) 0 % not estab. Immature granulocytes [#/volume] in Blood by Automated count (test code = 64934-9) 0.0 x10e3/uL 0.0-0.1 Nucleated erythrocytes/100 leukocytes [Ratio] in Blood by Automated count (test code = 06150-7) jigman Morphology [Interpretation] in Blood Narrative (test code = 34744-5) jigman [facility] ProgramCom[facility] 2000 [facility] - Serum or [id number] 00:00:00* Test Item Value Reference Range Interpretation Comme nts Glucose [Mass/volume] in Serum or Plasma (test code = 2345-7) 92 mg/dL 65-99 Urea nitrogen [Mass/volume] in Serum or Plasma (test code = 3094-0) 9 mg/dL 6-20 Creatinine [Mass/volume] in Serum or Plasma (test code = 2160-0) 0.56 mg/dL 0.57-1.00 L Glomerular filtration rate/1.73 sq M.predicted among non-blacks [Volume Rate/Area] in Serum, Plasma or Blood by Creatinine-based formula (CKD-EPI) (test code = 17478-6) 130 mL/min/1.73 >59 Glomerular filtration rate/1.73 sq M.predicted among blacks [Volume Rate/Area] in Serum, Plasma or Blood by Creatinine-based formula (CKD-EPI) (test code = 08162-2) 150 mL/min/1.73 >59 Urea nitrogen/Creatinine [Mass Ratio] in Serum or Plasma (test code = 3097-3) 16 9-23 Sodium [Moles/volume] in Serum or Plasma (test code = 2951-2) 139 mmol/L 134-144 Potassium [Moles/volume] in Serum or Plasma (test code = 2823-3) 4.4 mmol/L 3.5-5.2 Chloride [Moles/volume] in Serum or Plasma (test code = 5-0) 101 mmol/L 96-106 Carbon dioxide, total [Moles/volume] in Serum or Plasma (test code = 2027-9) 23 mmol/L 20-29 Calcium [Mass/volume] in Serum or Plasma (test code = 30137-1) 9.1 mg/dL 8.7-10.2 Protein [Mass/volume] in Serum or Plasma (test code = 2885-2) 7.3 g/dL 6.0-8.5 Albumin [Mass/volume] in Serum or Plasma (test code = 1751-7) 4.4 g/dL 3.9-5.0 Globulin [Mass/volume] in Serum by calculation (test code = 26390-9) 2.9 g/dL 1.5-4.5 Albumin/Globulin [Mass Ratio ] in Serum or Plasma (test code = 1759-0) 1.5 1.2-2.2 Bilirubin.total [Mass/volume ] in Serum or Plasma (test code = 1975-2) 0.4 mg/dL 0.0-1.2 Alkaline phosphatase [Enzymatic activity/volume] in Serum or Plasma (test code = 6768-6) 139 IU/L 39-117 H Aspartate aminotransferase [Enzymatic activity/volume] in Serum or Plasma (test code = 1920-8) 16 IU/L 0-40 Alanine aminotransferase [Enzymatic activity/volume] in Serum or Plasma (test code = 1742-6) 21 IU/L 0-32 [facility] - Serum or Plasma 2019-12-29 00:00:00* Test Item Value Reference Range Interpretation Comme nts Cholesterol [Mass/volume] in Serum or Plasma (test code = 2093-3) 141 mg/dL 100-199 Triglyceride [Mass/volume] i n Serum or Plasma (test code = 2571-8) 93 mg/dL 0-149 Cholesterol in HDL [Mass/vol ume] in Serum or Plasma (test code = 2085-9) 35 mg/dL >39 L Cholesterol in VLDL [Mass/vo lume] in Serum or Plasma by calculation (test code = 48902-9) 19 mg/dL 5-40 Cholesterol in LDL [Mass/vol ume] in Serum or Plasma by calculation (test code = 92719-8) 87 mg/dL 0-99 Laboratory comment [Text] in Report Narrative (test code = 54260-5) jigman [facility] CampusHemoglobin A1c/Hemoglobin.total in [id number] 00:00:00* Test Item Value Reference Range Interpretation Comme nts Hemoglobin A1c/Hemoglobin.to pee in Blood (test code = 4548-4) 5.1 % 4.8-5.6 Glucose mean value [Mass/vol ume] in Blood Estimated from glycated hemoglobin (test code = 15954-5) 100 mg/dL [facility], [id number] 00:00:00* Test Item Value Reference Range Interpretation Comme nts interpretation (test code = interpretation) note pdf image (test code = pdf image) . [facility]Free [facility] TSH [facility] - Serum or [id number] 00:00:00* Test Item Value Reference Range Interpretation Comme nts Thyrotropin [Units/volume] i n Serum or Plasma by Detection limit <= 0.005 mIU/L (test code = 98181-3) 1.540 uIU/mL 0.450-4.500 Thyroxine (T4) free [Mass/volume] in Serum or Plasma (test code = 3024-7) 1.34 NG/dL 0.82-1.77 [facility] CampusCB [facility] Auto Differential panel - Blood 2019-12-29 00:00:00* Test Item Value Reference Range Interpretation Comme nts Leukocytes [#/volume] in Blo od by Automated count (test code = 6690-2) 10.4 x10e3/uL 3.4-10.8 Erythrocytes [#/volume] in Blood by Automated count (test code = 789-8) 4.71 x10e6/uL 3.77-5.28 Hemoglobin [Mass/volume] in Blood (test code = 718-7) 13.0 g/dL 11.1-15.9 Hematocrit [Volume Fraction] of Blood by Automated count (test code = 4544-3) 40.0 % 34.0-46.6 Erythrocyte mean corpuscular volume [Entitic volume] by Automated count (test code = 787-2) 85 fL 79-97 Erythrocyte mean corpuscular hemoglobin [Entitic mass] by Automated count (test code = 785-6) 27.6 pg 26.6-33.0 Erythrocyte mean corpuscular hemoglobin concentration [Mass/volume] by Automated count (test code = 786-4) 32.5 g/dL 31.5-35.7 Erythrocyte distribution wid th [Ratio] by Automated count (test code = 788-0) 14.0 % 11.7-15.4 Platelets [#/volume] in Bloo d by Automated count (test code = 777-3) 370 x10e3/uL 150-450 Neutrophils/100 leukocytes i n Blood by Automated count (test code = 770-8) 67 % not estab. Lymphocytes/100 leukocytes i n Blood by Automated count (test code = 736-9) 24 % not estab. Monocytes/100 leukocytes in Blood by Automated count (test code = 5905-5) 6 % not estab. Eosinophils/100 leukocytes i n Blood by Automated count (test code = 713-8) 2 % not estab. Basophils/100 leukocytes in Blood by Automated count (test code = 706-2) 1 % not estab. immature cells (test code = immature cells) jigman Neutrophils [#/volume] in Bl ood by Automated count (test code = 751-8) 7.1 x10e3/uL 1.4-7.0 H Lymphocytes [#/volume] in Bl ood by Automated count (test code = 731-0) 2.4 x10e3/uL 0.7-3.1 Monocytes [#/volume] in Bloo d by Automated count (test code = 742-7) 0.6 x10e3/uL 0.1-0.9 Eosinophils [#/volume] in Bl ood by Automated count (test code = 711-2) 0.2 x10e3/uL 0.0-0.4 Basophils [#/volume] in Bloo d by Automated count (test code = 704-7) 0.1 x10e3/uL 0.0-0.2 Immature granulocytes/100 leukocytes in Blood by Automated count (test code = 96139-3) 0 % not estab. Immature granulocytes [#/volume] in Blood by Automated count (test code = 73530-8) 0.0 x10e3/uL 0.0-0.1 Nucleated erythrocytes/100 leukocytes [Ratio] in Blood by Automated count (test code = 61967-0) jigman Morphology [Interpretation] in Blood Narrative (test code = 43329-3) jigman [facility] ProgramComprehensive metabolic 2000 panel - Serum or [id number] 00:00:00* Test Item Value Reference Range Interpretation Comme nts Glucose [Mass/volume] in Serum or Plasma (test code = 2345-7) 92 mg/dL 65-99 Urea nitrogen [Mass/volume] in Serum or Plasma (test code = 3094-0) 9 mg/dL 6-20 Creatinine [Mass/volume] in Serum or Plasma (test code = 2160-0) 0.56 mg/dL 0.57-1.00 L Glomerular filtration rate/1.73 sq M.predicted among non-blacks [Volume Rate/Area] in Serum, Plasma or Blood by Creatinine-based formula (CKD-EPI) (test code = 16297-4) 130 mL/min/1.73 >59 Glomerular filtration rate/1.73 sq M.predicted among blacks [Volume Rate/Area] in Serum, Plasma or Blood by Creatinine-based formula (CKD-EPI) (test code = 55573-0) 150 mL/min/1.73 >59 Urea nitrogen/Creatinine [Mass Ratio] in Serum or Plasma (test code = 3097-3) 16 9-23 Sodium [Moles/volume] in Serum or Plasma (test code = 2951-2) 139 mmol/L 134-144 Potassium [Moles/volume] in Serum or Plasma (test code = 2823-3) 4.4 mmol/L 3.5-5.2 Chloride [Moles/volume] in Serum or Plasma (test code = 2074-0) 101 mmol/L 96-106 Carbon dioxide, total [Moles/volume] in Serum or Plasma (test code = 2027-9) 23 mmol/L 20-29 Calcium [Mass/volume] in Serum or Plasma (test code = 71228-9) 9.1 mg/dL 8.7-10.2 Protein [Mass/volume] in Serum or Plasma (test code = 2885-2) 7.3 g/dL 6.0-8.5 Albumin [Mass/volume] in Serum or Plasma (test code = 175-7) 4.4 g/dL 3.9-5.0 Globulin [Mass/volume] in Serum by calculation (test code = 35727-2) 2.9 g/dL 1.5-4.5 Albumin/Globulin [Mass Ratio ] in Serum or Plasma (test code = 1759-0) 1.5 1.2-2.2 Bilirubin.total [Mass/volume ] in Serum or Plasma (test code = 1974-) 0.4 mg/dL 0.0-1.2 Alkaline phosphatase [Enzymatic activity/volume] in Serum or Plasma (test code = 6768-6) 139 IU/L 39-117 H Aspartate aminotransferase [Enzymatic activity/volume] in Serum or Plasma (test code = 1920-8) 16 IU/L 0-40 Alanine aminotransferase [Enzymatic activity/volume] in Serum or Plasma (test code = 1742-6) 21 IU/L 0-32 [facility] - Serum or Plasma 2019-12-29 00:00:00* Test Item Value Reference Range Interpretation Comme nts Cholesterol [Mass/volume] in Serum or Plasma (test code = 2093-3) 141 mg/dL 100-199 Triglyceride [Mass/volume] i n Serum or Plasma (test code = 2571-8) 93 mg/dL 0-149 Cholesterol in HDL [Mass/vol ume] in Serum or Plasma (test code = 2085-9) 35 mg/dL >39 L Cholesterol in VLDL [Mass/vo lume] in Serum or Plasma by calculation (test code = 82317-4) 19 mg/dL 5-40 Cholesterol in LDL [Mass/vol ume] in Serum or Plasma by calculation (test code = 01458-5) 87 mg/dL 0-99 Laboratory comment [Text] in Report Narrative (test code = 74418-0) jigman [facility] CampusHemoglobin A1c/Hemoglobin.total in [id number] 00:00:00* Test Item Value Reference Range Interpretation Comme nts Hemoglobin A1c/Hemoglobin.to pee in Blood (test code = 4548-4) 5.1 % 4.8-5.6 Glucose mean value [Mass/vol ume] in Blood Estimated from glycated hemoglobin (test code = 24539-8) 100 mg/dL [facility], [id number] 00:00:00* Test Item Value Reference Range Interpretation Comme nts interpretation (test code = interpretation) note pdf image (test code = pdf image) . [facility]Free T4 and TSH panel - Serum or [id number] 00:00:00* Test Item Value Reference Range Interpretation Comme nts Thyrotropin [Units/volume] i n Serum or Plasma by Detection limit <= 0.005 mIU/L (test code = 12780-8) 1.540 uIU/mL 0.450-4.500 Thyroxine (T4) free [Mass/volume] in Serum or Plasma (test code = 3024-7) 1.34 NG/dL 0.82-1.77 [facility] W Auto Differential panel - Blood 2019-12-29 00:00:00* Test Item Value Reference Range Interpretation Comme nts Leukocytes [#/volume] in Blo od by Automated count (test code = 6690-2) 10.4 x10e3/uL 3.4-10.8 Erythrocytes [#/volume] in Blood by Automated count (test code = 789-8) 4.71 x10e6/uL 3.77-5.28 Hemoglobin [Mass/volume] in Blood (test code = 718-7) 13.0 g/dL 11.1-15.9 Hematocrit [Volume Fraction] of Blood by Automated count (test code = 4544-3) 40.0 % 34.0-46.6 Erythrocyte mean corpuscular volume [Entitic volume] by Automated count (test code = 787-2) 85 fL 79-97 Erythrocyte mean corpuscular hemoglobin [Entitic mass] by Automated count (test code = 785-6) 27.6 pg 26.6-33.0 Erythrocyte mean corpuscular hemoglobin concentration [Mass/volume] by Automated count (test code = 786-4) 32.5 g/dL 31.5-35.7 Erythrocyte distribution wid th [Ratio] by Automated count (test code = 788-0) 14.0 % 11.7-15.4 Platelets [#/volume] in Bloo d by Automated count (test code = 777-3) 370 x10e3/uL 150-450 Neutrophils/100 leukocytes i n Blood by Automated count (test code = 770-8) 67 % not estab. Lymphocytes/100 leukocytes i n Blood by Automated count (test code = 736-9) 24 % not estab. Monocytes/100 leukocytes in Blood by Automated count (test code = 5905-5) 6 % not estab. Eosinophils/100 leukocytes i n Blood by Automated count (test code = 713-8) 2 % not estab. Basophils/100 leukocytes in Blood by Automated count (test code = 706-2) 1 % not estab. immature cells (test code = immature cells) jigman Neutrophils [#/volume] in Bl ood by Automated count (test code = 751-8) 7.1 x10e3/uL 1.4-7.0 H Lymphocytes [#/volume] in Bl ood by Automated count (test code = 731-0) 2.4 x10e3/uL 0.7-3.1 Monocytes [#/volume] in Bloo d by Automated count (test code = 742-7) 0.6 x10e3/uL 0.1-0.9 Eosinophils [#/volume] in Bl ood by Automated count (test code = 711-2) 0.2 x10e3/uL 0.0-0.4 Basophils [#/volume] in Bloo d by Automated count (test code = 704-7) 0.1 x10e3/uL 0.0-0.2 Immature granulocytes/100 leukocytes in Blood by Automated count (test code = 20691-5) 0 % not estab. Immature granulocytes [#/volume] in Blood by Automated count (test code = 65857-1) 0.0 x10e3/uL 0.0-0.1 Nucleated erythrocytes/100 leukocytes [Ratio] in Blood by Automated count (test code = 54624-6) jigman Morphology [Interpretation] in Blood Narrative (test code = 16056-3) jigman [facility] ProgramComprehensive metabolic 2000 panel - Serum or [id number] 00:00:00* Test Item Value Reference Range Interpretation Comme nts Glucose [Mass/volume] in Serum or Plasma (test code = 2345-7) 92 mg/dL 65-99 Urea nitrogen [Mass/volume] in Serum or Plasma (test code = 3094-0) 9 mg/dL 6-20 Creatinine [Mass/volume] in Serum or Plasma (test code = 2160-0) 0.56 mg/dL 0.57-1.00 L Glomerular filtration rate/1.73 sq M.predicted among non-blacks [Volume Rate/Area] in Serum, Plasma or Blood by Creatinine-based formula (CKD-EPI) (test code = 97700-1) 130 mL/min/1.73 >59 Glomerular filtration rate/1.73 sq M.predicted among blacks [Volume Rate/Area] in Serum, Plasma or Blood by Creatinine-based formula (CKD-EPI) (test code = 65921-9) 150 mL/min/1.73 >59 Urea nitrogen/Creatinine [Mass Ratio] in Serum or Plasma (test code = 3097-3) 16 9-23 Sodium [Moles/volume] in Serum or Plasma (test code = 2951-2) 139 mmol/L 134-144 Potassium [Moles/volume] in Serum or Plasma (test code = 2823-3) 4.4 mmol/L 3.5-5.2 Chloride [Moles/volume] in Serum or Plasma (test code = 5-0) 101 mmol/L 96-106 Carbon dioxide, total [Moles/volume] in Serum or Plasma (test code = 2027-9) 23 mmol/L 20-29 Calcium [Mass/volume] in Serum or Plasma (test code = 35177-9) 9.1 mg/dL 8.7-10.2 Protein [Mass/volume] in Serum or Plasma (test code = 2885-2) 7.3 g/dL 6.0-8.5 Albumin [Mass/volume] in Serum or Plasma (test code = 1751-7) 4.4 g/dL 3.9-5.0 Globulin [Mass/volume] in Serum by calculation (test code = 07323-6) 2.9 g/dL 1.5-4.5 Albumin/Globulin [Mass Ratio ] in Serum or Plasma (test code = 1759-0) 1.5 1.2-2.2 Bilirubin.total [Mass/volume ] in Serum or Plasma (test code = 1974-2) 0.4 mg/dL 0.0-1.2 Alkaline phosphatase [Enzymatic activity/volume] in Serum or Plasma (test code = 6768-6) 139 IU/L 39-117 H Aspartate aminotransferase [Enzymatic activity/volume] in Serum or Plasma (test code = 1920-8) 16 IU/L 0-40 Alanine aminotransferase [Enzymatic activity/volume] in Serum or Plasma (test code = 1742-6) 21 IU/L 0-32 [facility] - Serum or Plasma 2019-12-29 00:00:00* Test Item Value Reference Range Interpretation Comme nts Cholesterol [Mass/volume] in Serum or Plasma (test code = 2093-3) 141 mg/dL 100-199 Triglyceride [Mass/volume] i n Serum or Plasma (test code = 2571-8) 93 mg/dL 0-149 Cholesterol in HDL [Mass/vol ume] in Serum or Plasma (test code = 2085-9) 35 mg/dL >39 L Cholesterol in VLDL [Mass/vo lume] in Serum or Plasma by calculation (test code = 91767-4) 19 mg/dL 5-40 Cholesterol in LDL [Mass/vol ume] in Serum or Plasma by calculation (test code = 14493-7) 87 mg/dL 0-99 Laboratory comment [Text] in Report Narrative (test code = 13479-8) [facility] ProgramUrinalysis macro (dipstick) panel - [id number] 10:18:57* Test Item Value Reference Range Interpretation Comme nts Leukocytes (test code = Leukocytes) Trace Nitrite (test code = Nitrite) negative Urobilinogen (test code = Urobilinogen) .2 Protein (test code = Protein) Negative pH (test code = pH) 6.5 Blood (test code = Blood) Moderate Specific [place] (test code = Specific [place]) 1.025 Ketone (test code = Ketone) Negative Bilirubin (test code = Bilirubin) Negative Glucose (test code = Glucose) Negative Appearance (test code = Appearance) Clear Color (test code = Color) Yellow [facility] W Auto Differential panel - [id number] 09:25:00 * Test Item Value Reference Range Interpretation Comme nts white blood count (test code = white blood count) 12.3 K/uL 4.0-11.5 H red blood count (test code = red blood count) 3.58 M/uL 3.80-5.20 L hemoglobin (test code = hemoglobin) 9.7 g/dL 10.5-15.7 L hematocrit (test code = hematocrit) 30.1 % 34.0-50.0 L Erythrocyte mean corpuscular volume [Entitic volume] (test code = 86092-2) 84.1 fL 86-100 L mean corpuscular hemoglobin (test code = mean corpuscular hemoglobin) 27.1 pg 26.2-33.4 mean corpuscular HGB conc (t est code = mean corpuscular HGB conc) 32.2 g/dL 30-34 red cell distribution width (test code = red cell distribution width) 14.4 % 12.0-15.5 platelet count (test code = platelet count) 247 K/uL 165-450 mean platelet volume (test c ode = mean platelet volume) 10.6 fL 9.4-12.6 Neutrophils.segmented/100 leukocytes in Blood (test code = 36052-3) 71.9 % 44.4-80.1 Granulocytes Immature [#/vol ume] in Blood (test code = 92148-6) 0.1 K/uL 0.0-0.03 H lymphocyte% (test code = lymphocyte%) 21.9 % 10.0-50.0 mono % (test code = mono %) 5.1 % 3.6-12.0 eos % (test code = eos %) 0.3 % 0.0-5.4 Basophils/100 leukocytes in Unspecified specimen (test code = 60228-2) 0.3 % 0.1-1.2 Neutrophils.band form [#/vol ume] in Blood (test code = 89195-8) 8.86 K/uL 1.56-6.13 H Lymphocytes [#/volume] in Unspecified specimen by Automated count (test code = 90868-1) 2.7 K/uL 1.18-3.74 mono # (test code = mono #) 0.63 K/uL 0.24-0.86 eos # (test code = eos #) 0.04 K/uL 0.04-0.36 basophil # (test code = baso jerel #) 0.04 K/uL 0.01-0.08 NRBC% (test code = NRBC%) 0 /100 WBC 0-0.2 NRBC# (test code = NRBC#) 0 [facility] [id number] 09:25:00 NeutrophilsLymphocyteAtypical LymphMonocytePlatelet EstimatePlatelet MorphologyDifferential comment-[facility]CB [facility] Auto Differential panel - [id number] 04:32:00* Test Item Value Reference Range Interpretation Comme nts white blood count (test code = white blood count) 11.1 K/uL 4.0-11.5 red blood count (test code = red blood count) 3.85 M/uL 3.80-5.20 hemoglobin (test code = hemoglobin) 10.4 g/dL 10.5-15.7 L hematocrit (test code = hematocrit) 32.3 % 34.0-50.0 L Erythrocyte mean corpuscular volume [Entitic volume] (test code = 31811-8) 83.9 fL 86-100 L mean corpuscular hemoglobin (test code = mean corpuscular hemoglobin) 27.0 pg 26.2-33.4 mean corpuscular HGB conc (t est code = mean corpuscular HGB conc) 32.2 g/dL 30-34 red cell distribution width (test code = red cell distribution width) 14.4 % 12.0-15.5 platelet count (test code = platelet count) 293 K/uL 165-450 mean platelet volume (test c ode = mean platelet volume) 10.6 fL 9.4-12.6 Neutrophils.segmented/100 leukocytes in Blood (test code = 91220-4) 72.8 % 44.4-80.1 Granulocytes Immature [#/vol ume] in Blood (test code = 79906-6) 0.1 K/uL 0.0-0.03 H lymphocyte% (test code = lymphocyte%) 20.3 % 10.0-50.0 mono % (test code = mono %) 5.4 % 3.6-12.0 eos % (test code = eos %) 0.6 % 0.0-5.4 Basophils/100 leukocytes in Unspecified specimen (test code = 58871-0) 0.4 % 0.1-1.2 Neutrophils.band form [#/vol ume] in Blood (test code = 65008-3) 8.10 K/uL 1.56-6.13 H Lymphocytes [#/volume] in Unspecified specimen by Automated count (test code = 13626-0) 2.3 K/uL 1.18-3.74 mono # (test code = mono #) 0.60 K/uL 0.24-0.86 eos # (test code = eos #) 0.07 K/uL 0.04-0.36 basophil # (test code = baso jerel #) 0.04 K/uL 0.01-0.08 NRBC% (test code = NRBC%) 0 /100 WBC 0-0.2 NRBC# (test code = NRBC#) 0 K/uL [facility] Indirect [facility] - Blood 2019-10-05 04:32:00* Test Item Value Reference Range Interpretation Comme nts Rh [Type] in Blood (test cod e = 32374-0) 4+ ABO and Rh group panel - Blo od (test code = 08803-3) O positive [facility] GroupReagin Ab [Presence] in Serum by [id number] 04:32:00* Test Item Value Reference Range Interpretation Comme nts Reagin Ab [Presence] in Seru m by RPR (test code = 23954-5) nonreactive nonreactive [facility] GroupHepatitis B virus surface Ag [Presence] in Serum 2019-10-05 04:32:00* Test Item Value Reference Range Interpretation Comme nts .hepatitis B surface antigen (test code = .hepatitis B surface antigen) negative negative [facility] GroupUrinalysis macro (dipstick) panel - [id number] 14:34:29* Test Item Value Reference Range Interpretation Comme nts Leukocytes (test code = Leukocytes) Small Nitrite (test code = Nitrite) negative Urobilinogen (test code = Urobilinogen) 1 Protein (test code = Protein) Negative pH (test code = pH) 7.0 Blood (test code = Blood) Negative Specific [place] (test code = Specific [place]) 1.025 Ketone (test code = Ketone) Small Bilirubin (test code = Bilirubin) Negative Glucose (test code = Glucose) Negative Appearance (test code = Appearance) Clear Color (test code = Color) Yellow [facility] GroupUrinalysis macro (dipstick) panel - [id number] 14:34:29* Test Item Value Reference Range Interpretation Comme nts Leukocytes (test code = Leukocytes) Small Nitrite (test code = Nitrite) negative Urobilinogen (test code = Urobilinogen) 1 Protein (test code = Protein) Negative pH (test code = pH) 7.0 Blood (test code = Blood) Negative Specific [place] (test code = Specific [place]) 1.025 Ketone (test code = Ketone) Small Bilirubin (test code = Bilirubin) Negative Glucose (test code = Glucose) Negative Appearance (test code = Appearance) Clear Color (test code = Color) Yellow [facility] Groupnon-stress [id number] 16:47:00* Test Item Value Reference Range Interpretation Comme nts Reactive (test code = Reactive) Yes Contractions (test code = Contractions) No [facility] [id number] 16:47:00* Test Item Value Reference Range Interpretation Comme nts Reactive (test code = Reactive) Yes Contractions (test code = Contractions) No [facility] GroupUrinalysis macro (dipstick) panel - [id number] 14:08:44* Test Item Value Reference Range Interpretation Comme nts Leukocytes (test code = Leukocytes) Small Nitrite (test code = Nitrite) negative Urobilinogen (test code = Urobilinogen) 1 Protein (test code = Protein) 30 pH (test code = pH) 7.0 Blood (test code = Blood) Negative Specific [place] (test code = Specific [place]) 1.020 Ketone (test code = Ketone) Negative Bilirubin (test code = Bilirubin) Negative Glucose (test code = Glucose) Negative Appearance (test code = Appearance) Clear Color (test code = Color) Yellow [facility] (dipstick) panel - [id number] 14:08:44* Test Item Value Reference Range Interpretation Comme nts Leukocytes (test code = Leukocytes) Small Nitrite (test code = Nitrite) negative Urobilinogen (test code = Urobilinogen) 1 Protein (test code = Protein) 30 pH (test code = pH) 7.0 Blood (test code = Blood) Negative Specific [place] (test code = Specific [place]) 1.020 Ketone (test code = Ketone) Negative Bilirubin (test code = Bilirubin) Negative Glucose (test code = Glucose) Negative Appearance (test code = Appearance) Clear Color (test code = Color) Yellow [facility] CountyRozxvXnccl-3-Xhmywtotmgnim.placental [Presence] in Vaginal [id number] 08:50:00* Test Item Value Reference Range Interpretation Comme nts Fogxa-5-Sfzvphnifghov.placen pee [Presence] in Vaginal fluid (test code = 83466-6) negative neg [facility] IitzmNphac-4-Vushnuntiinvd.placental [Presence] in Vaginal [id number] 08:50:00* Test Item Value Reference Range Interpretation Comme nts Zetzw-0-Mwscejugjirlt.placen pee [Presence] in Vaginal fluid (test code = 33548-6) negative neg [facility] GroupUrinalysis complete panel - [id number] 01:04:00* Test Item Value Reference Range Interpretation Comme nts Color of Urine by Auto (test code = 68440-8) lt. yellow Appearance of Urine (test co de = 5767-9) cloudy clear Glucose [Mass/volume] in Uri ne (test code = 2350-7) negative negative bilirubin, urine (test code = bilirubin, urine) negative negative ketone, urine (test code = ketone, urine) negative negative Specific gravity of Urine by Automated test strip (test code = 72106-8) 1.020 1.003-1.030 Hemoglobin [Presence] in Uri ne by Test strip (test code = 5794-3) negative negative pH of Urine (test code = 2756-5) 8.000 5-9 protein urine (UA) (test cod e = protein urine (UA)) trace negative H Urobilinogen [Presence] in U rine (test code = 29802-6) 1.0 E.U./dL 0.2-1.0 Nitrite [Presence] in Urine by Test strip (test code = 5802-4) negative negative urine leukocyte esterase (te st code = urine leukocyte esterase) moderate negative H Erythrocytes [Presence] in U rine (test code = 43962-7) =0-3 0-5 WBC, urine (test code = WBC, urine) =5-9 0-5 H Epithelial cells [Presence] in Urine sediment by Light microscopy (test code = 26922-8) =0-5 0-5 bacteria, urine (test code = bacteria, urine) moderate none detect H urine culture added? (test c ode = urine culture added?) yes [facility] GroupBacteria identified in Urine by [id number] 01:04:00* Test Item Value Reference Range Interpretation Comme nts Bacteria identified in Urine by Culture (test code = 630-4) no growth after 2 days [facility] - [id number] 01:04:00* Test Item Value Reference Range Interpretation Comme nts Color of Urine by Auto (test code = 43665-9) lt. yellow Appearance of Urine (test co de = 5767-9) cloudy clear Glucose [Mass/volume] in Uri ne (test code = 2350-7) negative negative bilirubin, urine (test code = bilirubin, urine) negative negative ketone, urine (test code = ketone, urine) negative negative Specific gravity of Urine by Automated test strip (test code = 17834-8) 1.020 1.003-1.030 Hemoglobin [Presence] in Uri ne by Test strip (test code = 5794-3) negative negative pH of Urine (test code = 2756-5) 8.000 5-9 protein urine (UA) (test cod e = protein urine (UA)) trace negative H Urobilinogen [Presence] in U rine (test code = 42352-7) 1.0 E.U./dL 0.2-1.0 Nitrite [Presence] in Urine by Test strip (test code = 5802-4) negative negative urine leukocyte esterase (te st code = urine leukocyte esterase) moderate negative H Erythrocytes [Presence] in U rine (test code = 29793-7) =0-3 0-5 WBC, urine (test code = WBC, urine) =5-9 0-5 H Epithelial cells [Presence] in Urine sediment by Light microscopy (test code = 40683-5) =0-5 0-5 bacteria, urine (test code = bacteria, urine) moderate none detect H urine culture added? (test c ode = urine culture added?) yes [facility] identified in Urine by [id number] 01:04:00* Test Item Value Reference Range Interpretation Comme nts Bacteria identified in Urine by Culture (test code = 630-4) no growth after 2 days [facility]CB [facility] Auto Differential panel - [id number] 09:20:00 * Test Item Value Reference Range Interpretation Comme nts white blood count (test code = white blood count) 12.5 K/uL 4.0-11.5 H red blood count (test code = red blood count) 3.86 M/uL 3.80-5.20 hemoglobin (test code = hemoglobin) 10.7 g/dL 10.5-15.7 hematocrit (test code = hematocrit) 32.6 % 34.0-50.0 L Erythrocyte mean corpuscular volume [Entitic volume] (test code = 14163-6) 84.5 fL 86-100 L mean corpuscular hemoglobin (test code = mean corpuscular hemoglobin) 27.7 pg 26.2-33.4 mean corpuscular HGB conc (t est code = mean corpuscular HGB conc) 32.8 g/dL 30-34 red cell distribution width (test code = red cell distribution width) 13.4 % 12.0-15.5 platelet count (test code = platelet count) 337 K/uL 165-450 mean platelet volume (test c ode = mean platelet volume) 10.2 fL 9.4-12.6 Neutrophils.segmented/100 leukocytes in Blood (test code = 57295-8) 73.0 % 44.4-80.1 Granulocytes Immature [#/vol ume] in Blood (test code = 49062-7) 0.1 K/uL 0.0-0.03 H lymphocyte% (test code = lymphocyte%) 19.1 % 10.0-50.0 mono % (test code = mono %) 5.9 % 3.6-12.0 eos % (test code = eos %) 0.8 % 0.0-5.4 Basophils/100 leukocytes in Unspecified specimen (test code = 04864-5) 0.3 % 0.1-1.2 Neutrophils.band form [#/vol ume] in Blood (test code = 30236-8) 9.09 K/uL 1.56-6.13 H Lymphocytes [#/volume] in Unspecified specimen by Automated count (test code = 89492-7) 2.4 K/uL 1.18-3.74 mono # (test code = mono #) 0.73 K/uL 0.24-0.86 eos # (test code = eos #) 0.10 K/uL 0.04-0.36 basophil # (test code = baso jerel #) 0.04 K/uL 0.01-0.08 NRBC% (test code = NRBC%) 0 /100 WBC 0-0.2 NRBC# (test code = NRBC#) 0 K/uL [facility]PT/[id number] 09:20:00* Test Item Value Reference Range Interpretation Comme nts prothrombin time (test code = prothrombin time) 9.6 seconds 10.3-12.3 L INR in Blood by Coagulation assay (test code = 44668-1) 0.88 [facility] [id number] 09:20:00* Test Item Value Reference Range Interpretation Comme nts INR in Blood by Coagulation assay (test code = 10949-0) 28.7 seconds 22.5-37.0 [facility] W Auto Differential panel - [id number] 09:20:00 * Test Item Value Reference Range Interpretation Comme nts white blood count (test code = white blood count) 12.5 K/uL 4.0-11.5 H red blood count (test code = red blood count) 3.86 M/uL 3.80-5.20 hemoglobin (test code = hemoglobin) 10.7 g/dL 10.5-15.7 hematocrit (test code = hematocrit) 32.6 % 34.0-50.0 L Erythrocyte mean corpuscular volume [Entitic volume] (test code = 32041-9) 84.5 fL 86-100 L mean corpuscular hemoglobin (test code = mean corpuscular hemoglobin) 27.7 pg 26.2-33.4 mean corpuscular HGB conc (t est code = mean corpuscular HGB conc) 32.8 g/dL 30-34 red cell distribution width (test code = red cell distribution width) 13.4 % 12.0-15.5 platelet count (test code = platelet count) 337 K/uL 165-450 mean platelet volume (test c ode = mean platelet volume) 10.2 fL 9.4-12.6 Neutrophils.segmented/100 leukocytes in Blood (test code = 70020-7) 73.0 % 44.4-80.1 Granulocytes Immature [#/vol ume] in Blood (test code = 20728-0) 0.1 K/uL 0.0-0.03 H lymphocyte% (test code = lymphocyte%) 19.1 % 10.0-50.0 mono % (test code = mono %) 5.9 % 3.6-12.0 eos % (test code = eos %) 0.8 % 0.0-5.4 Basophils/100 leukocytes in Unspecified specimen (test code = 27726-1) 0.3 % 0.1-1.2 Neutrophils.band form [#/vol ume] in Blood (test code = 05604-1) 9.09 K/uL 1.56-6.13 H Lymphocytes [#/volume] in Unspecified specimen by Automated count (test code = 75472-0) 2.4 K/uL 1.18-3.74 mono # (test code = mono #) 0.73 K/uL 0.24-0.86 eos # (test code = eos #) 0.10 K/uL 0.04-0.36 basophil # (test code = baso jerel #) 0.04 K/uL 0.01-0.08 NRBC% (test code = NRBC%) 0 /100 WBC 0-0.2 NRBC# (test code = NRBC#) 0 K/uL [facility]PT/[id number] 09:20:00* Test Item Value Reference Range Interpretation Comme nts prothrombin time (test code = prothrombin time) 9.6 seconds 10.3-12.3 L INR in Blood by Coagulation assay (test code = 41209-3) 0.88 [facility] [id number] 09:20:00* Test Item Value Reference Range Interpretation Comme nts INR in Blood by Coagulation assay (test code = 40850-7) 28.7 seconds 22.5-37.0 [facility] CountyGlucose [Mass/volume] in Capillary [id number] 09:46:26* Test Item Value Reference Range Interpretation Comme nts GLU (test code = GLU) 91 [facility]Glucose [Mass/volume] in Capillary [id number] 09:46:26* Test Item Value Reference Range Interpretation Comme nts GLU (test code = GLU) 91 [facility]Glucose [Mass/volume] in Capillary [id number] 09:46:26* Test Item Value Reference Range Interpretation Comme nts GLU (test code = GLU) 91 [facility] CountyUrinalysis macro (dipstick) panel - [id number] 09:36:18* Test Item Value Reference Range Interpretation Comme nts Leukocytes (test code = Leukocytes) Small Nitrite (test code = Nitrite) negative Urobilinogen (test code = Urobilinogen) 1 Protein (test code = Protein) 30 pH (test code = pH) 7.0 Blood (test code = Blood) Negative Specific [place] (test code = Specific [place]) 1.025 Ketone (test code = Ketone) Small Bilirubin (test code = Bilirubin) Negative Glucose (test code = Glucose) Negative Appearance (test code = Appearance) Cloudy Color (test code = Color) Yellow [facility]Urinalysis macro (dipstick) panel - [id number] 09:36:18* Test Item Value Reference Range Interpretation Comme nts Leukocytes (test code = Leukocytes) Small Nitrite (test code = Nitrite) negative Urobilinogen (test code = Urobilinogen) 1 Protein (test code = Protein) 30 pH (test code = pH) 7.0 Blood (test code = Blood) Negative Specific [place] (test code = Specific [place]) 1.025 Ketone (test code = Ketone) Small Bilirubin (test code = Bilirubin) Negative Glucose (test code = Glucose) Negative Appearance (test code = Appearance) Cloudy Color (test code = Color) Yellow [facility]Urinalysis macro (dipstick) panel - [id number] 09:36:18* Test Item Value Reference Range Interpretation Comme nts Leukocytes (test code = Leukocytes) Small Nitrite (test code = Nitrite) negative Urobilinogen (test code = Urobilinogen) 1 Protein (test code = Protein) 30 pH (test code = pH) 7.0 Blood (test code = Blood) Negative Specific [place] (test code = Specific [place]) 1.025 Ketone (test code = Ketone) Small Bilirubin (test code = Bilirubin) Negative Glucose (test code = Glucose) Negative Appearance (test code = Appearance) Cloudy Color (test code = Color) Yellow [facility]ysis complete panel - [id number] 11:35:00* Test Item Value Reference Range Interpretation Comme nts Color of Urine by Auto (test code = 24943-2) yellow Appearance of Urine (test code = 5767-9) cloudy clear Glucose [Mass/volume] in Urine (test code = 2350-7) negative negative bilirubin, urine (test code = bilirubin, urine) negative negative ketone, urine (test code = ketone, urine) moderate, 40 negative H Specific gravity of Urine by Automated test strip (test code = 55921-5) 1.025 1.003-1.030 Hemoglobin [Presence] in Urine by Test strip (test code = 5794-3) negative negative pH of Urine (test code = 2756-5) 7.000 5-9 protein urine (UA) (test code = protein urine (UA)) trace negative H Urobilinogen [Presence] in Urine (test code = 04117-6) 1.0 E.U./dL 0.2-1.0 Nitrite [Presence] in Urine by Test strip (test code = 5802-4) negative negative urine leukocyte esterase (test code = urine leukocyte esterase) =1 negative H Erythrocytes [Presence] in Urine (test code = 03732-3) none seen 0-5 WBC, urine (test code = WBC, urine) =5-9 0-5 H Epithelial cells [Presence] in Urine sediment by Light microscopy (test code = 59312-2) =11-25 0-5 H bacteria, urine (test code = bacteria, urine) large (3 none detect H urine culture added? (test code = urine culture added?) no. contaminated. mucus, urine (test code = mucus, urine) =2 none detect [facility] GroupUrinalysis complete panel - [id number] 11:35:00* Test Item Value Reference Range Interpretation Comme nts Color of Urine by Auto (test code = 23354-5) yellow Appearance of Urine (test code = 5767-9) cloudy clear Glucose [Mass/volume] in Urine (test code = 2350-7) negative negative bilirubin, urine (test code = bilirubin, urine) negative negative ketone, urine (test code = ketone, urine) moderate, 40 negative H Specific gravity of Urine by Automated test strip (test code = 76818-6) 1.025 1.003-1.030 Hemoglobin [Presence] in Urine by Test strip (test code = 5794-3) negative negative pH of Urine (test code = 2756-5) 7.000 5-9 protein urine (UA) (test code = protein urine (UA)) trace negative H Urobilinogen [Presence] in Urine (test code = 76070-4) 1.0 E.U./dL 0.2-1.0 Nitrite [Presence] in Urine by Test strip (test code = 5802-4) negative negative urine leukocyte esterase (test code = urine leukocyte esterase) =1 negative H Erythrocytes [Presence] in Urine (test code = 90310-1) none seen 0-5 WBC, urine (test code = WBC, urine) =5-9 0-5 H Epithelial cells [Presence] in Urine sediment by Light microscopy (test code = 61974-3) =11-25 0-5 H bacteria, urine (test code = bacteria, urine) large (3 none detect H urine culture added? (test code = urine culture added?) no. contaminated. mucus, urine (test code = mucus, urine) =2 none detect [facility] - Serum or Plasma 2019-08-20 09:33:00* Test Item Value Reference Range Interpretation Comme nts Glucose [Mass/volume] in Ser um or Plasma (test code = 2345-7) 105 mg/dL 74-106 Urea nitrogen [Mass/volume] in Serum or Plasma (test code = 3094-0) 5 mg/dL 6-20 L osmolality calculated,serum (test code = osmolality calculated,serum) 264 mOsm/kg 280-300 L creatinine (test code = creatinine) 0.4 mg/dL 0.50-0.90 L glomerular filtration rate ( test code = glomerular filtration rate) >60.00 Urea nitrogen/Creatinine [Ma ss Ratio] in Serum or Plasma (test code = 3097-3) 12.5 12-20 sodium level (test code = so dium level) 133 mmol/L 135-145 L potassium level (test code = potassium level) 4.4 mmol/L 3.5-5.2 chloride level (test code = chloride level) 102 mmol/L 98-108 CO2 (test code = CO2) 19 mmol/L 21-32 L anion gap (test code = anion gap) 16.4 mEq/L 12-20 calcium level (test code = calcium level) 8.8 mg/dL 8.6-10.0 total protein (test code = t otal protein) 7.0 g/dL 6.6-8.7 albumin (test code = albumin) 3.5 g/dL 3.5-5.2 globulin (test code = globulin) 3.5 gm/dL A/G ratio (test code = A/G ratio) 1.0 >1.0 bilirubin,total (test code = bilirubin,total) <0.3 0.0-1.2 AST/SGOT (test code = AST/SGOT) 12 U/L 15-32 L Alanine aminotransferase [Enzymatic activity/volume] in Serum or Plasma (test code = 1742-6) 9 U/L 0-33 Alkaline phosphatase [Enzyma tic activity/volume] in Serum or Plasma (test code = 6768-6) 149 U/L 35-105 H [facility] 2000 [facility] - Serum or [id number] 09:33:00* Test Item Value Reference Range Interpretation Comme nts Bilirubin.direct [Mass/volum e] in Serum or Plasma (test code = 1968-7) <0.20 0.0-0.3 [facility]Hemoglobin A1c [Mass/volume] in [id number] 09:33:00 * Test Item Value Reference Range Interpretation Comme nts Hemoglobin A1c [Mass/volume] in Blood (test code = 61068-9) 5.2 % 4.0-6.0 [facility], [id number] 09:59:00* Test Item Value Reference Range Interpretation Comme nts Strep Result (test code = St rep Result) negative [facility] Grouprapid strep group A, [id number] 09:59:00* Test Item Value Reference Range Interpretation Comme nts Strep Result (test code = St rep Result) negative [facility]Urinalysis complete panel - [id number] 07:49:00* Test Item Value Reference Range Interpretation Comme nts Color of Urine by Auto (test code = 38424-6) lt. yellow Appearance of Urine (test co de = 5767-9) SL cloudy clear Glucose [Mass/volume] in Uri ne (test code = 2350-7) negative negative bilirubin, urine (test code = bilirubin, urine) negative negative ketone, urine (test code = ketone, urine) negative negative Specific gravity of Urine by Automated test strip (test code = 23087-1) 1.015 1.003-1.030 Hemoglobin [Presence] in Uri ne by Test strip (test code = 5794-3) negative negative pH of Urine (test code = 2756-5) 7.000 5-9 protein urine (UA) (test cod e = protein urine (UA)) negative negative Urobilinogen [Presence] in U rine (test code = 52647-6) 0.2 E.U./dL 0.2-1.0 Nitrite [Presence] in Urine by Test strip (test code = 5802-4) negative negative urine leukocyte esterase (te st code = urine leukocyte esterase) =1 negative H Erythrocytes [Presence] in U rine (test code = 57807-1) none seen 0-5 WBC, urine (test code = WBC, urine) =6-10 0-5 H Epithelial cells [Presence] in Urine sediment by Light microscopy (test code = 05580-2) more than 25 0-5 H bacteria, urine (test code = bacteria, urine) large none detect H urine culture added? (test c ode = urine culture added?) [facility] - [id number] 07:49:00* Test Item Value Reference Range Interpretation Comme nts Color of Urine by Auto (test code = 95615-1) lt. yellow Appearance of Urine (test co de = 5767-9) SL cloudy clear Glucose [Mass/volume] in Uri ne (test code = 2350-7) negative negative bilirubin, urine (test code = bilirubin, urine) negative negative ketone, urine (test code = ketone, urine) negative negative Specific gravity of Urine by Automated test strip (test code = 73016-0) 1.015 1.003-1.030 Hemoglobin [Presence] in Uri ne by Test strip (test code = 5794-3) negative negative pH of Urine (test code = 2756-5) 7.000 5-9 protein urine (UA) (test cod e = protein urine (UA)) negative negative Urobilinogen [Presence] in U rine (test code = 15000-0) 0.2 E.U./dL 0.2-1.0 Nitrite [Presence] in Urine by Test strip (test code = 5802-4) negative negative urine leukocyte esterase (te st code = urine leukocyte esterase) =1 negative H Erythrocytes [Presence] in U rine (test code = 73166-1) none seen 0-5 WBC, urine (test code = WBC, urine) =6-10 0-5 H Epithelial cells [Presence] in Urine sediment by Light microscopy (test code = 21546-8) more than 25 0-5 H bacteria, urine (test code = bacteria, urine) large none detect H urine culture added? (test c ode = urine culture added?) no [facility] GroupUrinalysis complete panel - [id number] 07:49:00* Test Item Value Reference Range Interpretation Comme nts Color of Urine by Auto (test code = 51029-7) lt. yellow Appearance of Urine (test co de = 5767-9) SL cloudy clear Glucose [Mass/volume] in Uri ne (test code = 2350-7) negative negative bilirubin, urine (test code = bilirubin, urine) negative negative ketone, urine (test code = ketone, urine) negative negative Specific gravity of Urine by Automated test strip (test code = 95142-1) 1.015 1.003-1.030 Hemoglobin [Presence] in Uri ne by Test strip (test code = 5794-3) negative negative pH of Urine (test code = 2756-5) 7.000 5-9 protein urine (UA) (test cod e = protein urine (UA)) negative negative Urobilinogen [Presence] in U rine (test code = 77986-6) 0.2 E.U./dL 0.2-1.0 Nitrite [Presence] in Urine by Test strip (test code = 5802-4) negative negative urine leukocyte esterase (te st code = urine leukocyte esterase) =1 negative H Erythrocytes [Presence] in U rine (test code = 63651-1) none seen 0-5 WBC, urine (test code = WBC, urine) =6-10 0-5 H Epithelial cells [Presence] in Urine sediment by Light microscopy (test code = 56620-4) more than 25 0-5 H bacteria, urine (test code = bacteria, urine) large none detect H urine culture added? (test c ode = urine culture added?) [facility] Auto Differential panel - [id number] 08:55:00 * Test Item Value Reference Range Interpretation Comme nts white blood count (test code = white blood count) 10.7 K/uL 4.0-11.5 red blood count (test code = red blood count) 3.85 M/uL 3.80-5.20 hemoglobin (test code = hemoglobin) 11.5 g/dL 10.5-15.7 hematocrit (test code = hematocrit) 34.9 % 34.0-50.0 Erythrocyte mean corpuscular volume [Entitic volume] (test code = 32321-0) 90.6 fL 86-100 mean corpuscular hemoglobin (test code = mean corpuscular hemoglobin) 29.9 pg 26.2-33.4 mean corpuscular HGB conc (t est code = mean corpuscular HGB conc) 33.0 g/dL 30-34 red cell distribution width (test code = red cell distribution width) 13.3 % 12.0-15.5 platelet count (test code = platelet count) 340 K/uL 165-450 mean platelet volume (test c ode = mean platelet volume) 10.4 fL 9.4-12.6 Neutrophils.segmented/100 leukocytes in Blood (test code = 39700-0) 72.9 % 44.4-80.1 Granulocytes Immature [#/vol ume] in Blood (test code = 01970-4) 0.1 K/uL 0.0-0.03 H lymphocyte% (test code = lymphocyte%) 17.9 % 10.0-50.0 mono % (test code = mono %) 6.8 % 3.6-12.0 eos % (test code = eos %) 1.4 % 0.0-5.4 Basophils/100 leukocytes in Unspecified specimen (test code = 45974-0) 0.3 % 0.1-1.2 Neutrophils.band form [#/vol ume] in Blood (test code = 50979-8) 7.78 K/uL 1.56-6.13 H Lymphocytes [#/volume] in Unspecified specimen by Automated count (test code = 51096-3) 1.9 K/uL 1.18-3.74 mono # (test code = mono #) 0.73 K/uL 0.24-0.86 eos # (test code = eos #) 0.15 K/uL 0.04-0.36 basophil # (test code = baso jerel #) 0.03 K/uL 0.01-0.08 NRBC% (test code = NRBC%) 0 /100 WBC 0-0.2 NRBC# (test code = NRBC#) 0 K/uL [facility] [Presence] in Serum or Plasma 2019-07-22 08:55:00* Test Item Value Reference Range Interpretation Comme nts Blood group antibody screen [Presence] in Serum or Plasma (test code = 890-4) negative [facility] GroupReagin Ab [Presence] in Serum by [id number] 08:55:00* Test Item Value Reference Range Interpretation Comme nts Reagin Ab [Presence] in Seru m by RPR (test code = 71741-0) nonreactive nonreactive [facility] GroupHIV 1+2 Ab [Presence] in [id number] 08:55:00HIV P24 AgHIV-1/2 [facility]Bat[facility] HospitalCB W Auto Differential panel - Blood 2019-07-22 08:55:00* Test Item Value Reference Range Interpretation Comme nts white blood count (test code = white blood count) 10.7 K/uL 4.0-11.5 red blood count (test code = red blood count) 3.85 M/uL 3.80-5.20 hemoglobin (test code = hemoglobin) 11.5 g/dL 10.5-15.7 hematocrit (test code = hematocrit) 34.9 % 34.0-50.0 Erythrocyte mean corpuscular volume [Entitic volume] (test code = 97531-4) 90.6 fL 86-100 mean corpuscular hemoglobin (test code = mean corpuscular hemoglobin) 29.9 pg 26.2-33.4 mean corpuscular HGB conc (t est code = mean corpuscular HGB conc) 33.0 g/dL 30-34 red cell distribution width (test code = red cell distribution width) 13.3 % 12.0-15.5 platelet count (test code = platelet count) 340 K/uL 165-450 mean platelet volume (test c ode = mean platelet volume) 10.4 fL 9.4-12.6 Neutrophils.segmented/100 leukocytes in Blood (test code = 42951-9) 72.9 % 44.4-80.1 Granulocytes Immature [#/vol ume] in Blood (test code = 45739-0) 0.1 K/uL 0.0-0.03 H lymphocyte% (test code = lymphocyte%) 17.9 % 10.0-50.0 mono % (test code = mono %) 6.8 % 3.6-12.0 eos % (test code = eos %) 1.4 % 0.0-5.4 Basophils/100 leukocytes in Unspecified specimen (test code = 40438-0) 0.3 % 0.1-1.2 Neutrophils.band form [#/vol ume] in Blood (test code = 21167-3) 7.78 K/uL 1.56-6.13 H Lymphocytes [#/volume] in Unspecified specimen by Automated count (test code = 72198-8) 1.9 K/uL 1.18-3.74 mono # (test code = mono #) 0.73 K/uL 0.24-0.86 eos # (test code = eos #) 0.15 K/uL 0.04-0.36 basophil # (test code = baso jerel #) 0.03 K/uL 0.01-0.08 NRBC% (test code = NRBC%) 0 /100 WBC 0-0.2 NRBC# (test code = NRBC#) 0 K/uL [facility] [Presence] in Serum or Plasma 2019-07-22 08:55:00* Test Item Value Reference Range Interpretation Comme nts Blood group antibody screen [Presence] in Serum or Plasma (test code = 890-4) negative [facility] GroupRe[facility] Ab [Presence] in Serum by [id number] 08:55:00* Test Item Value Reference Range Interpretation Comme nts Reagin Ab [Presence] in Seru m by RPR (test code = 79685-0) nonreactive nonreactive [facility] Ab [Presence] in [id number] 08:55:00HIV P24 AgHIV-1/2 [facility]MaTallahatchie [facility] HospitalCB W Auto Differential panel - Blood 2019-07-22 08:55:00* Test Item Value Reference Range Interpretation Comme nts white blood count (test code = white blood count) 10.7 K/uL 4.0-11.5 red blood count (test code = red blood count) 3.85 M/uL 3.80-5.20 hemoglobin (test code = hemoglobin) 11.5 g/dL 10.5-15.7 hematocrit (test code = hematocrit) 34.9 % 34.0-50.0 Erythrocyte mean corpuscular volume [Entitic volume] (test code = 44331-0) 90.6 fL 86-100 mean corpuscular hemoglobin (test code = mean corpuscular hemoglobin) 29.9 pg 26.2-33.4 mean corpuscular HGB conc (t est code = mean corpuscular HGB conc) 33.0 g/dL 30-34 red cell distribution width (test code = red cell distribution width) 13.3 % 12.0-15.5 platelet count (test code = platelet count) 340 K/uL 165-450 mean platelet volume (test c ode = mean platelet volume) 10.4 fL 9.4-12.6 Neutrophils.segmented/100 leukocytes in Blood (test code = 58035-3) 72.9 % 44.4-80.1 Granulocytes Immature [#/vol ume] in Blood (test code = 06941-9) 0.1 K/uL 0.0-0.03 H lymphocyte% (test code = lymphocyte%) 17.9 % 10.0-50.0 mono % (test code = mono %) 6.8 % 3.6-12.0 eos % (test code = eos %) 1.4 % 0.0-5.4 Basophils/100 leukocytes in Unspecified specimen (test code = 88521-0) 0.3 % 0.1-1.2 Neutrophils.band form [#/vol ume] in Blood (test code = 28519-5) 7.78 K/uL 1.56-6.13 H Lymphocytes [#/volume] in Unspecified specimen by Automated count (test code = 16706-7) 1.9 K/uL 1.18-3.74 mono # (test code = mono #) 0.73 K/uL 0.24-0.86 eos # (test code = eos #) 0.15 K/uL 0.04-0.36 basophil # (test code = baso jerel #) 0.03 K/uL 0.01-0.08 NRBC% (test code = NRBC%) 0 /100 WBC 0-0.2 NRBC# (test code = NRBC#) 0 K/uL [facility] GroupBlood group antibody screen [Presence] in Serum or Plasma 2019-07-22 08:55:00* Test Item Value Reference Range Interpretation Comme nts Blood group antibody screen [Presence] in Serum or Plasma (test code = 890-4) negative [facility] GroupReagin Ab [Presence] in Serum by [id number] 08:55:00* Test Item Value Reference Range Interpretation Comme nts Reagin Ab [Presence] in Seru m by RPR (test code = 64910-5) nonreactive nonreactive [facility] GroupHIV 1+2 Ab [Presence] in [id number] 08:55:00HIV P24 AgHIV-1/2 AbMataBatson Children's HospitalUrinalysis macro (dipstick) panel - Urine 2019-06-30 09:41:48* Test Item Value Reference Range Interpretation Comme nts Leukocytes (test code = Leukocytes) Small Nitrite (test code = Nitrite) negative Urobilinogen (test code = Urobilinogen) 1 Protein (test code = Protein) 30 pH (test code = pH) 7.0 Blood (test code = Blood) Negative Specific [place] (test code = Specific [place]) 1.025 Ketone (test code = Ketone) Trace Bilirubin (test code = Bilirubin) Small Glucose (test code = Glucose) Negative Appearance (test code = Appearance) Clear Color (test code = Color) Yellow [facility] panel - [id number] 09:41:48* Test Item Value Reference Range Interpretation Comme nts Leukocytes (test code = Leukocytes) Small Nitrite (test code = Nitrite) negative Urobilinogen (test code = Urobilinogen) 1 Protein (test code = Protein) 30 pH (test code = pH) 7.0 Blood (test code = Blood) Negative Specific [place] (test code = Specific [place]) 1.025 Ketone (test code = Ketone) Trace Bilirubin (test code = Bilirubin) Small Glucose (test code = Glucose) Negative Appearance (test code = Appearance) Clear Color (test code = Color) Yellow [facility] + TV, DNA, urine/[id number] 00:00:00* Test Item Value Reference Range Interpretation Comme nts chlamydia trachomatis by janeen l-time PCR (reflex to azithromycin resistance by pyrosequencing) (test code = chlamydia trachomatis by real-time PCR (reflex to azithromycin resistance by pyrosequencing)) negative trichomonas vaginalis by janeen l-time PCR (reflex to metronidazole resistance) (test code = trichomonas vaginalis by real-time PCR (reflex to metronidazole resistance)) negative neisseria gonorrhoeae by janeen l-time PCR (reflex to antibiotic resistance by molecular analysis) (test code = neisseria gonorrhoeae by real-time PCR (reflex to antibiotic resistance by molecular analysis)) negative [facility], [id number] 00:00:00* Test Item Value Reference Range Interpretation Comme nts gardnerella vaginalis by real-time PCR (test code = gardnerella vaginalis by real-time PCR) negative atopobium vaginae by real-ti me PCR (test code = atopobium vaginae by real-time PCR) negative bacterial vaginosis associat ed bacterium 2 (bvab2) by real-time PCR (test code = bacterial vaginosis associated bacterium 2 (bvab2) by real-time PCR) negative megasphaera species (type 1 and type 2) by real-time PCR (test code = megasphaera species (type 1 and type 2) by real-time PCR) negative lactobacillus (bv & av panel ) by real time PCR (test code = lactobacillus (bv & av panel) by real time PCR) see comment [facility]Candida sp DNA [Presence] in Vaginal fluid by Probe and target amplification [id number] 00:00:00* Test Item Value Reference Range Interpretation Comme nts glen albicans by real-melissa e PCR (test code = glen albicans by real-time PCR) negative glen tropicalis by real-t can PCR (test code = glen tropicalis by real-time PCR) negative glen parapsilosis by real -time PCR (test code = glen parapsilosis by real-time PCR) negative glen glabrata by real-melissa e PCR (test code = glen glabrata by real-time PCR) negative [facility] + [facility], DNA, urine/[id number] 00:00:00* Test Item Value Reference Range Interpretation Comme nts chlamydia trachomatis by janeen l-time PCR (reflex to azithromycin resistance by pyrosequencing) (test code = chlamydia trachomatis by real-time PCR (reflex to azithromycin resistance by pyrosequencing)) negative trichomonas vaginalis by janeen l-time PCR (reflex to metronidazole resistance) (test code = trichomonas vaginalis by real-time PCR (reflex to metronidazole resistance)) negative neisseria gonorrhoeae by janeen l-time PCR (reflex to antibiotic resistance by molecular analysis) (test code = neisseria gonorrhoeae by real-time PCR (reflex to antibiotic resistance by molecular analysis)) negative [facility], [id number] 00:00:00* Test Item Value Reference Range Interpretation Comme nts gardnerella vaginalis by real-time PCR (test code = gardnerella vaginalis by real-time PCR) negative atopobium vaginae by real-ti me PCR (test code = atopobium vaginae by real-time PCR) negative bacterial vaginosis associat ed bacterium 2 (bvab2) by real-time PCR (test code = bacterial vaginosis associated bacterium 2 (bvab2) by real-time PCR) negative megasphaera species (type 1 and type 2) by real-time PCR (test code = megasphaera species (type 1 and type 2) by real-time PCR) negative lactobacillus (bv & av panel ) by real time PCR (test code = lactobacillus (bv & av panel) by real time PCR) see comment [facility] sp DNA [Presence] in Vaginal fluid by Probe and target amplification [id number] 00:00:00* Test Item Value Reference Range Interpretation Comme nts glen albicans by real-melissa e PCR (test code = glen albicans by real-time PCR) negative glen tropicalis by real-t can PCR (test code = glen tropicalis by real-time PCR) negative glen parapsilosis by real -time PCR (test code = glen parapsilosis by real-time PCR) negative glen glabrata by real-melissa e PCR (test code = glen glabrata by real-time PCR) negative [facility]Urinalysis macro (dipstick) panel - [id number] 15:32:50* Test Item Value Reference Range Interpretation Comme nts Leukocytes (test code = Leukocytes) Trace Nitrite (test code = Nitrite) negative Urobilinogen (test code = Urobilinogen) 8 Protein (test code = Protein) Trace pH (test code = pH) 7.0 Blood (test code = Blood) Negative Specific [place] (test code = Specific [place]) 1.020 Ketone (test code = Ketone) Moderate Bilirubin (test code = Bilirubin) Small Glucose (test code = Glucose) Negative Appearance (test code = Appearance) Clear Color (test code = Color) Yellow [facility]Urinalysis macro (dipstick) panel - [id number] 15:32:50* Test Item Value Reference Range Interpretation Comme nts Leukocytes (test code = Leukocytes) Trace Nitrite (test code = Nitrite) negative Urobilinogen (test code = Urobilinogen) 8 Protein (test code = Protein) Trace pH (test code = pH) 7.0 Blood (test code = Blood) Negative Specific [place] (test code = Specific [place]) 1.020 Ketone (test code = Ketone) Moderate Bilirubin (test code = Bilirubin) Small Glucose (test code = Glucose) Negative Appearance (test code = Appearance) Clear Color (test code = Color) Yellow [facility] CountyMicroscopic observation [Identifier] in Unspecified specimen by Wet [id number] 07:44:00* Test Item Value Reference Range Interpretation Comme nts Microscopic observation [Identifier] in Unspecified specimen by Wet preparation (test code = 680-9) no trichomonas, yeast or clue cell observed. [facility]Urinalysis complete panel - [id number] 07:27:00* Test Item Value Reference Range Interpretation Comme nts Color of Urine by Auto (test code = 42929-7) light yellow Appearance of Urine (test code = 5767-9) SL cloudy clear A Glucose [Presence] in Urine by Automated test strip (test code = 31216-1) negative negative Bilirubin.total [Mass/volume] in Urine (test code = 1978-6) negative negative Ketones [Mass/volume] in Urine by Automated test strip (test code = 95731-4) negative negative Specific gravity of Urine by Automated test strip (test code = 58873-2) 1.014 1.003-1.030 blood urine (test code = blood urine) =1 negative H pH of Urine (test code = 2756-5) 7.500 5-9 protein urine (UA) (test code = protein urine (UA)) trace negative Urobilinogen [Presence] in Urine (test code = 38891-7) =2.0 0.2-1.0 H Nitrite [Presence] in Urine by Test strip (test code = 5802-4) negative negative Leukocyte esterase [Presence] in Urine by Automated test strip (test code = 91343-5) =3 negative H Erythrocytes [#/volume] in Urine by Automated count (test code = 798-9) =1-5 0-5 Leukocytes [#/area] in Urine sediment by Automated count (test code = 18382-9) =11-14 0-5 H Epithelial cells [Presence] in Urine sediment by Light microscopy (test code = 52926-8) =20-29 0-5 Bacteria identified in Urine by Culture (test code = 630-4) moderate (2 none detect H urine culture added? (test code = urine culture added?) no. contaminated. [facility] W Auto Differential panel - [id number] 07:21:00 * Test Item Value Reference Range Interpretation Comme nts white blood count (test code = white blood count) 10.9 K/uL 4.0-11.5 red blood count (test code = red blood count) 3.87 M/uL 3.80-5.20 hemoglobin (test code = hemoglobin) 11.4 g/dL 10.5-15.7 hematocrit (test code = hematocrit) 34.3 % 34.0-50.0 Erythrocyte mean corpuscular volume [Entitic volume] (test code = 88358-3) 88.6 fL 86-100 mean corpuscular hemoglobin (test code = mean corpuscular hemoglobin) 29.5 pg 26.2-33.4 mean corpuscular HGB conc (t est code = mean corpuscular HGB conc) 33.2 g/dL 30-34 red cell distribution width (test code = red cell distribution width) 14.1 % 12.0-15.5 platelet count (test code = platelet count) 290 K/uL 165-450 mean platelet volume (test c ode = mean platelet volume) 9.8 fL 9.4-12.6 Neutrophils.segmented/100 leukocytes in Blood (test code = 47605-5) 73.2 % 44.4-80.1 Granulocytes Immature [#/vol ume] in Blood (test code = 29123-6) 0.0 K/uL 0.0-0.03 lymphocyte% (test code = lymphocyte%) 19.2 % 10.0-50.0 mono % (test code = mono %) 5.5 % 3.6-12.0 eos % (test code = eos %) 1.4 % 0.0-5.4 Basophils/100 leukocytes in Unspecified specimen (test code = 14242-8) 0.3 % 0.1-1.2 Neutrophils.band form [#/vol ume] in Blood (test code = 73339-0) 8.00 K/uL 1.56-6.13 H Lymphocytes [#/volume] in Unspecified specimen by Automated count (test code = 35237-7) 2.1 K/uL 1.18-3.74 mono # (test code = mono #) 0.60 K/uL 0.24-0.86 eos # (test code = eos #) 0.15 K/uL 0.04-0.36 basophil # (test code = baso jerel #) 0.03 K/uL 0.01-0.08 NRBC% (test code = NRBC%) 0 /100 WBC 0-0.2 NRBC# (test code = NRBC#) 0 K/uL [facility] panel, [id number] 07:21:00 NeutrophilsBandLymphocyteAtypical LymphMonocyteEosinophilBasophilPlatelet EstimatePlatelet MorphologyHypochromasiaAnisocytosisMicrocytosisDohle BodiesToxic VacuolationMaTallahatchie General HospitalPT/[id number] 07:21:00* Test Item Value Reference Range Interpretation Comme nts prothrombin time (test code = prothrombin time) 9.8 seconds 10.3-12.3 L INR in Blood by Coagulation assay (test code = 06029-1) 0.89 [facility] thromboplastin [id number] 07:21:00* Test Item Value Reference Range Interpretation Comme nts INR in Blood by Coagulation assay (test code = 62130-9) 29.3 seconds 22.5-37.0 [facility] CountyChoriogonadotropin.beta subunit [Units/volume] in Serum or [id number] 07:21:00* Test Item Value Reference Range Interpretation Comme nts HCG quantitative (test code = HCG quantitative) 7608.0 mIU/mL 0-5 [facility]Urinalysis macro (dipstick) panel - [id number] 16:09:30* Test Item Value Reference Range Interpretation Comme nts Leukocytes (test code = Leukocytes) Negative Nitrite (test code = Nitrite) negative Urobilinogen (test code = Urobilinogen) 2 Protein (test code = Protein) Negative pH (test code = pH) 6.0 Blood (test code = Blood) Negative Specific [place] (test code = Specific [place]) 1.030 Ketone (test code = Ketone) Small Bilirubin (test code = Bilirubin) Small Glucose (test code = Glucose) Negative Appearance (test code = Appearance) Clear Color (test code = Color) Yellow [facility]Urinalysis macro (dipstick) panel - [id number] 16:09:30* Test Item Value Reference Range Interpretation Comme nts Leukocytes (test code = Leukocytes) Negative Nitrite (test code = Nitrite) negative Urobilinogen (test code = Urobilinogen) 2 Protein (test code = Protein) Negative pH (test code = pH) 6.0 Blood (test code = Blood) Negative Specific [place] (test code = Specific [place]) 1.030 Ketone (test code = Ketone) Small Bilirubin (test code = Bilirubin) Small Glucose (test code = Glucose) Negative Appearance (test code = Appearance) Clear Color (test code = Color) Yellow [facility] GroupUrinalysis macro (dipstick) panel - [id number] 16:09:30* Test Item Value Reference Range Interpretation Comme nts Leukocytes (test code = Leukocytes) Negative Nitrite (test code = Nitrite) negative Urobilinogen (test code = Urobilinogen) 2 Protein (test code = Protein) Negative pH (test code = pH) 6.0 Blood (test code = Blood) Negative Specific [place] (test code = Specific [place]) 1.030 Ketone (test code = Ketone) Small Bilirubin (test code = Bilirubin) Small Glucose (test code = Glucose) Negative Appearance (test code = Appearance) Clear Color (test code = Color) Yellow [facility] GroupBacteria identified in Urine by [id number] 02:56:00* Test Item Value Reference Range Interpretation Comme nts Bacteria identified in Urine by Culture (test code = 630-4) no growth at 48 hrs. [facility] GroupBacteria identified in Urine by [id number] 02:56:00* Test Item Value Reference Range Interpretation Comme nts Bacteria identified in Urine by Culture (test code = 630-4) no growth at 48 hrs. [facility]Urinalysis macro (dipstick) panel - [id number] 09:37:30* Test Item Value Reference Range Interpretation Comme nts Leukocytes (test code = Leukocytes) Large Nitrite (test code = Nitrite) negative Urobilinogen (test code = Urobilinogen) .2 Protein (test code = Protein) Trace pH (test code = pH) 7.0 Blood (test code = Blood) Non-Hemolyzed: Trace Specific [place] (test code = Specific [place]) 1.020 Ketone (test code = Ketone) Negative Bilirubin (test code = Bilirubin) Negative Glucose (test code = Glucose) Negative Appearance (test code = Appearance) Clear Color (test code = Color) Yellow [facility] GroupUrinalysis macro (dipstick) panel - [id number] 09:37:30* Test Item Value Reference Range Interpretation Comme nts Leukocytes (test code = Leukocytes) Large Nitrite (test code = Nitrite) negative Urobilinogen (test code = Urobilinogen) .2 Protein (test code = Protein) Trace pH (test code = pH) 7.0 Blood (test code = Blood) Non-Hemolyzed: Trace Specific [place] (test code = Specific [place]) 1.020 Ketone (test code = Ketone) Negative Bilirubin (test code = Bilirubin) Negative Glucose (test code = Glucose) Negative Appearance (test code = Appearance) Clear Color (test code = Color) Yellow [facility]Bacteria identified in Urine by [id number] 09:13:00Bacteria Ur CultUmmc [facility] Countyantibiotic sensitivity testing, [id number] 09:13:00* Test Item Value Reference Range Interpretation Comme nts Penicillin [Susceptibility] by Minimum inhibitory concentration (KARINA) (test code = 6932-8) <0.03 Vancomycin [Susceptibility] by Minimum inhibitory concentration (KARINA) (test code = 524-9) 0.5 ug/mL Levofloxacin [Susceptibility ] by Minimum inhibitory concentration (KARINA) (test code = 97322-6) <2 Linezolid [Susceptibility] b y Minimum inhibitory concentration (KARINA) (test code = 53873-6) <2 Daptomycin [Susceptibility] by Minimum inhibitory concentration (KARINA) (test code = 08484-9) <0.5 [facility] CountyChromosome 13+18+21+X+Y aneuploidy in Blood by Molecular genetics method [id number] 00:00:00* Test Item Value Reference Range Interpretation Comme nts report summary (test code = report summary) see notes report note (test code = report note) see notes trisomy 13 age-based risk score (test code = trisomy 13 age-based risk score) trisomy 13 risk score (test code = trisomy 13 risk score) trisomy 13 age-based risk text (test code = trisomy 13 age-based risk text) 1/6,930 (0.01%) trisomy 13 risk score text (test code = trisomy 13 risk score text) <1/10,000 (<0.01%) trisomy 13 age-based risk fraction (test code = trisomy 13 age-based risk fraction) trisomy 13 risk score fraction (test code = trisomy 13 risk score fraction) trisomy 13 result text (test code = trisomy 13 result text) low risk trisomy 13 result comments (test code = trisomy 13 result comments) see notes trisomy 18 age-based risk score (test code = trisomy 18 age-based risk score) trisomy 18 risk score (test code = trisomy 18 risk score) trisomy 18 age-based risk text (test code = trisomy 18 age-based risk text) 1/2,200 (0.05%) trisomy 18 risk score text (test code = trisomy 18 risk score text) <1/10,000 (<0.01%) trisomy 18 age-based risk fraction (test code = trisomy 18 age-based risk fraction) trisomy 18 risk score fraction (test code = trisomy 18 risk score fraction) trisomy 18 result text (test code = trisomy 18 result text) low risk trisomy 18 result comments (test code = trisomy 18 result comments) see notes trisomy 21 age-based risk score (test code = trisomy 21 age-based risk score) trisomy 21 risk score (test code = trisomy 21 risk score) trisomy 21 age-based risk text (test code = trisomy 21 age-based risk text) 1/946 (0.11%) trisomy 21 risk score text (test code = trisomy 21 risk score text) <1/10,000 (<0.01%) trisomy 21 age-based risk fraction (test code = trisomy 21 age-based risk fraction) trisomy 21 risk score fraction (test code = trisomy 21 risk score fraction) trisomy 21 result text (test code = trisomy 21 result text) low risk trisomy 21 result comments (test code = trisomy 21 result comments) see notes monosomy X age-based risk score (test code = monosomy X age-based risk score) monosomy X risk score (test code = monosomy X risk score) monosomy X age-based risk text (test code = monosomy X age-based risk text) 1/255 (0.39%) monosomy X risk score text (test code = monosomy X risk score text) <1/10,000 (<0.01%) monosomy X age-based risk fraction (test code = monosomy X age-based risk fraction) monosomy X risk score fraction (test code = monosomy X risk score fraction) monosomy X result text (test code = monosomy X result text) low risk monosomy X result comments (test code = monosomy X result comments) see notes triploidy result text (test code = triploidy result text) low risk triploidy result comments (test code = triploidy result comments) see notes gender of fetus (test code = gender of fetus) male fraction (in %) (test code = fraction (in %)) 7.4 % fraction (test code = fraction) 7.4% footnotes (test code = footnotes) see notes boiler plate text (test code = boiler plate text) see notes references (test code = references) see notes approvals (test code = approvals) see notes contacts (test code = contacts) [facility] Un[facility] by Molecular genetics method [id number] 00:00:00* Test Item Value Reference Range Interpretation Comme nts alpha-thalassemia (test code = alpha-thalassemia) negative beta-hemoglobinopathies (michelle t code = beta-hemoglobinopathies) negative ryne disease (test code = ryne disease) negative cystic fibrosis (test code = cystic fibrosis) negative duchenne/jade muscular dys trophy (test code = duchenne/jade muscular dystrophy) negative familial dysautonomia (test code = familial dysautonomia) negative fragile X syndrome (test cod e = fragile X syndrome) negative galactosemia (test code = galactosemia) negative gaucher disease (test code = gaucher disease) negative medium chain acyl-coa dehydr ogenase deficiency (test code = medium chain acyl-coa dehydrogenase deficiency) negative polycystic kidney disease, autosomal recessive (test code = polycystic kidney disease, autosomal recessive) negative ngwol-ocdmg-ufomb syndrome ( test code = eggfi-huazy-iutvg syndrome) negative spinal muscular atrophy (michelle t code = spinal muscular atrophy) negative isacc-sachs disease (DNA only) (test code = isacc-sachs disease (DNA only)) negative panel notes (test code = mccray el notes) see notes IS this patient ? (t est code = IS this patient ?) yes did this patient sign the pa tient acknowledgement? (test code = did this patient sign the patient acknowledgement?) yes did the ordering clinician s ign the statement of informed consent? (test code = did the ordering clinician sign the statement of informed consent?) yes zip code of the ordering fac [facility] (test code = zip code of the ordering facility) [id number] IS the patient currently usi ng hormonal medications? (test code = IS the patient currently using hormonal medications?) no patient ethnicity (test code = patient ethnicity) report note (test code = rep ort note) see notes footnotes (test code = footnotes) see notes references (test code = references) see notes approvals (test code = approvals) see notes contacts (test code = contacts) see notes [facility] GroupMicroscopic observation [Identifier] in Cervix by Cyto stain.thin [id number] 10:40:00ResultsMatagorda Medical GroupMicroscopic observation [Identifier] in Cervix by Cyto stain.thin [id number] 10:40:00 ResultsMatagorda Medical GroupChlamydia trachomatis+Neisseria gonorrhoeae DNA [Presence] in Cervix by Probe and target amplification [id number] 10:32:00 ResultsMatagorda Medical GroupBacteria identified in Urine by [id number] 10:32:00Bacteria Ur CultMatagorda Medical GroupChlamydia trachomatis+Neisseria gonorrhoeae DNA [Presence] in Cervix by Probe and target amplification method 2019-03-12 10:32:00ResultsMatagorda Medical GroupBacteria identified in Urine by [id number] 10:32:00Bacteria Ur CultMatagorda Medical GroupUrinalysis macro (dipstick) panel - [id number] 09:44:32* Test Item Value Reference Range Interpretation Comme nts Leukocytes (test code = Leukocytes) Small Nitrite (test code = Nitrite) negative Urobilinogen (test code = Urobilinogen) 4 Protein (test code = Protein) 30 pH (test code = pH) 8.0 Blood (test code = Blood) Negative Specific [place] (test code = Specific [place]) 1.020 Ketone (test code = Ketone) Negative Bilirubin (test code = Bilirubin) Negative Glucose (test code = Glucose) Negative Appearance (test code = Appearance) Clear Color (test code = Color) Yellow [facility] GroupUrinalysis macro (dipstick) panel - [id number] 09:44:32* Test Item Value Reference Range Interpretation Comme nts Leukocytes (test code = Leukocytes) Small Nitrite (test code = Nitrite) negative Urobilinogen (test code = Urobilinogen) 4 Protein (test code = Protein) 30 pH (test code = pH) 8.0 Blood (test code = Blood) Negative Specific [place] (test code = Specific [place]) 1.020 Ketone (test code = Ketone) Negative Bilirubin (test code = Bilirubin) Negative Glucose (test code = Glucose) Negative Appearance (test code = Appearance) Clear Color (test code = Color) Yellow [facility] (dipstick) panel - [id number] 09:44:32* Test Item Value Reference Range Interpretation Comme nts Leukocytes (test code = Leukocytes) Small Nitrite (test code = Nitrite) negative Urobilinogen (test code = Urobilinogen) 4 Protein (test code = Protein) 30 pH (test code = pH) 8.0 Blood (test code = Blood) Negative Specific [place] (test code = Specific [place]) 1.020 Ketone (test code = Ketone) Negative Bilirubin (test code = Bilirubin) Negative Glucose (test code = Glucose) Negative Appearance (test code = Appearance) Clear Color (test code = Color) Yellow [facility], [id number] 12:15:00* Test Item Value Reference Range Interpretation Comme [facility] Test (test code = Test) positive [facility], [id number] 12:15:00* Test Item Value Reference Range Interpretation Comme [facility] Test (test code = Test) positive [facility], [id number] 12:15:00* Test Item Value Reference Range Interpretation Comme [facility] Test (test code = Test) positive [facility]CB W Auto Differential panel - [id number] 09:05:00 * Test Item Value Reference Range Interpretation Comme nts white blood count (test code = white blood count) 9.1 K/uL 4.0-11.5 red blood count (test code = red blood count) 4.96 M/uL 3.80-5.20 hemoglobin (test code = hemoglobin) 13.9 g/dL 10.5-15.7 hematocrit (test code = hematocrit) 44.0 % 34.0-50.0 Erythrocyte mean corpuscular volume [Entitic volume] (test code = 83600-7) 88.7 fL 86-100 Erythrocyte mean corpuscular hemoglobin [Entitic mass] (test code = 41926-6) 28.0 pg 26.2-33.4 mean corpuscular HGB conc (t est code = mean corpuscular HGB conc) 31.6 g/dL 30-34 red cell distribution width (test code = red cell distribution width) 12.9 % 12.0-15.5 platelet count (test code = platelet count) 378 K/uL 165-450 mean platelet volume (test c ode = mean platelet volume) 10.4 fL 9.4-12.6 Neutrophils.segmented/100 leukocytes in Blood (test code = 05507-1) 70.2 % 44.4-80.1 Ig% (test code = Ig%) 0.3 % 0.0-0.4 lymphocyte% (test code = lymphocyte%) 21.3 % 10.0-50.0 Monocytes/100 leukocytes in Blood by Automated count (test code = 5905-5) 5.3 % 3.6-12.0 Eosinophils/100 leukocytes i n Blood by Automated count (test code = 713-8) 2.6 % 0.0-5.4 Basophils/100 leukocytes in Unspecified specimen (test code = 82161-0) 0.3 % 0.1-1.2 absolute neutrophil count (t est code = absolute neutrophil count) 6.38 K/uL 1.56-6.13 H Ig# (test code = Ig#) 0.0 K/uL 0.0-0.03 Lymphocytes [#/volume] in Unspecified specimen by Automated count (test code = 73037-1) 1.9 K/uL 1.18-3.74 mono # (test code = mono #) 0.48 K/uL 0.24-0.86 eos # (test code = eos #) 0.24 K/uL 0.04-0.36 basophil # (test code = baso jerel #) 0.03 K/uL 0.01-0.08 NRBC% (test code = NRBC%) 0 /100 WBC 0-0.2 NRBC# (test code = NRBC#) 0 K/uL [facility], [id number] 09:05:00 NeutrophilsBandLymphocyteAtypical LymphMonocyteEosinophilBasophilMetamyelocyteMyelocyteNucleated Red Blood CellPlatelet EstimatePlatelet MorphologyPolychromasiaHypochromasiaPoikilocytosis [facility] GroupHemoglobin A1c [Mass/volume] in [id number] 09:05:00 * Test Item Value Reference Range Interpretation Comme nts Hemoglobin A1c in Blood (michelle t code = 31919-5) 5.0 % 4.0-6.0 [facility] GroupRubella virus IgG Ab [Titer] in [id number] 09:05:00 * Test Item Value Reference Range Interpretation Comme nts Rubella virus IgG Ab [Units/volume] in Serum by Immunoassay (test code = 5334-8) 286.5 [IU]/mL [facility] GroupHIV 1+2 Ab [Presence] in [id number] 09:05:00HIV P24 AgHIV-1/2 AbMatagorda Medical GroupABO & Rh group [Type] in [id number] 09:05:00* Test Item Value Reference Range Interpretation Comme nts Rh [Type] in Blood (test cod e = 55771-7) 3+ ABO and Rh group panel - Blo od (test code = 66254-9) O positive [facility] GroupBlood group antibody screen [Presence] in Serum or Plasma 2019-03-05 09:05:00* Test Item Value Reference Range Interpretation Comme nts Blood group antibody screen [Presence] in Serum or Plasma (test code = 890-4) negative [facility] GroupHepatitis B virus surface Ag [Presence] in Serum 2019-03-05 09:05:00* Test Item Value Reference Range Interpretation Comme nts .hepatitis B surface antigen (test code = .hepatitis B surface antigen) negative negative [facility] GroupBacteria identified in Urine by [id number] 09:05:00Bacteria Ur CultMatagorda Medical GroupReagin Ab [Presence] in Serum by [id number] 09:05:00* Test Item Value Reference Range Interpretation Comme nts Reagin Ab [Presence] in Seru m by RPR (test code = 46859-1) nonreactive nonreactive [facility] GroupCBC W Auto Differential panel - [id number] 09:05:00 * Test Item Value Reference Range Interpretation Comme nts white blood count (test code = white blood count) 9.1 K/uL 4.0-11.5 red blood count (test code = red blood count) 4.96 M/uL 3.80-5.20 hemoglobin (test code = hemoglobin) 13.9 g/dL 10.5-15.7 hematocrit (test code = hematocrit) 44.0 % 34.0-50.0 Erythrocyte mean corpuscular volume [Entitic volume] (test code = 98916-2) 88.7 fL 86-100 Erythrocyte mean corpuscular hemoglobin [Entitic mass] (test code = 02249-4) 28.0 pg 26.2-33.4 mean corpuscular HGB conc (t est code = mean corpuscular HGB conc) 31.6 g/dL 30-34 red cell distribution width (test code = red cell distribution width) 12.9 % 12.0-15.5 platelet count (test code = platelet count) 378 K/uL 165-450 mean platelet volume (test c ode = mean platelet volume) 10.4 fL 9.4-12.6 Neutrophils.segmented/100 leukocytes in Blood (test code = 17612-3) 70.2 % 44.4-80.1 Ig% (test code = Ig%) 0.3 % 0.0-0.4 lymphocyte% (test code = lymphocyte%) 21.3 % 10.0-50.0 Monocytes/100 leukocytes in Blood by Automated count (test code = 5905-5) 5.3 % 3.6-12.0 Eosinophils/100 leukocytes i n Blood by Automated count (test code = 713-8) 2.6 % 0.0-5.4 Basophils/100 leukocytes in Unspecified specimen (test code = 10661-5) 0.3 % 0.1-1.2 absolute neutrophil count (t est code = absolute neutrophil count) 6.38 K/uL 1.56-6.13 H Ig# (test code = Ig#) 0.0 K/uL 0.0-0.03 Lymphocytes [#/volume] in Unspecified specimen by Automated count (test code = 24925-3) 1.9 K/uL 1.18-3.74 mono # (test code = mono #) 0.48 K/uL 0.24-0.86 eos # (test code = eos #) 0.24 K/uL 0.04-0.36 basophil # (test code = baso jerel #) 0.03 K/uL 0.01-0.08 NRBC% (test code = NRBC%) 0 /100 WBC 0-0.2 NRBC# (test code = NRBC#) 0 K/uL [facility] Groupdifferential panel, [id number] 09:05:00 NeutrophilsBandLymphocyteAtypical LymphMonocyteEosinophilBasophilMetamyelocyteMyelocyteNucleated Red Blood CellPlatelet EstimatePlatelet MorphologyPolychromasiaHypochromasiaPoikilocytosis [facility] GroupHemoglobin A1c/Hemoglobin.total in [id number] 09:05:00* Test Item Value Reference Range Interpretation Comme nts Hemoglobin A1c in Blood (michelle t code = 62259-1) 5.0 % 4.0-6.0 [facility] GroupRubella virus Ab [Titer] in [id number] 09:05:00* Test Item Value Reference Range Interpretation Comme nts Rubella virus IgG Ab [Units/volume] in Serum by Immunoassay (test code = 5334-8) 286.5 [IU]/mL [facility] GroupHIV 1+2 Ab [Presence] in [id number] 09:05:00HIV P24 AgHIV-1/2 AbMatagorda Medical GroupABO & Rh group [Type] in [id number] 09:05:00* Test Item Value Reference Range Interpretation Comme nts Rh [Type] in Blood (test cod e = 09016-0) 3+ ABO and Rh group panel - Blo od (test code = 03475-5) O positive [facility] GroupBlood group antibody screen [Presence] in Serum or Plasma 2019-03-05 09:05:00* Test Item Value Reference Range Interpretation Comme nts Blood group antibody screen [Presence] in Serum or Plasma (test code = 890-4) negative [facility] GroupHepatitis B virus surface Ag [Presence] in Serum 2019-03-05 09:05:00* Test Item Value Reference Range Interpretation Comme nts .hepatitis B surface antigen (test code = .hepatitis B surface antigen) negative negative [facility]Bacteria identified in Urine by [id number] 09:05:00Bacteria Ur CultMataCopley Hospital GroupReagin Ab [Presence] in Serum by [id number] 09:05:00* Test Item Value Reference Range Interpretation Comme nts Reagin Ab [Presence] in Seru m by RPR (test code = 44491-8) nonreactive nonreactive [facility] Auto Differential panel - [id number] 09:05:00 * Test Item Value Reference Range Interpretation Comme nts white blood count (test code = white blood count) 9.1 K/uL 4.0-11.5 red blood count (test code = red blood count) 4.96 M/uL 3.80-5.20 hemoglobin (test code = hemoglobin) 13.9 g/dL 10.5-15.7 hematocrit (test code = hematocrit) 44.0 % 34.0-50.0 Erythrocyte mean corpuscular volume [Entitic volume] (test code = 14271-9) 88.7 fL 86-100 Erythrocyte mean corpuscular hemoglobin [Entitic mass] (test code = 80789-0) 28.0 pg 26.2-33.4 mean corpuscular HGB conc (t est code = mean corpuscular HGB conc) 31.6 g/dL 30-34 red cell distribution width (test code = red cell distribution width) 12.9 % 12.0-15.5 platelet count (test code = platelet count) 378 K/uL 165-450 mean platelet volume (test c ode = mean platelet volume) 10.4 fL 9.4-12.6 Neutrophils.segmented/100 leukocytes in Blood (test code = 08948-4) 70.2 % 44.4-80.1 Ig% (test code = Ig%) 0.3 % 0.0-0.4 lymphocyte% (test code = lymphocyte%) 21.3 % 10.0-50.0 Monocytes/100 leukocytes in Blood by Automated count (test code = 5905-5) 5.3 % 3.6-12.0 Eosinophils/100 leukocytes i n Blood by Automated count (test code = 713-8) 2.6 % 0.0-5.4 Basophils/100 leukocytes in Unspecified specimen (test code = 18468-5) 0.3 % 0.1-1.2 absolute neutrophil count (t est code = absolute neutrophil count) 6.38 K/uL 1.56-6.13 H Ig# (test code = Ig#) 0.0 K/uL 0.0-0.03 Lymphocytes [#/volume] in Unspecified specimen by Automated count (test code = 81372-1) 1.9 K/uL 1.18-3.74 mono # (test code = mono #) 0.48 K/uL 0.24-0.86 eos # (test code = eos #) 0.24 K/uL 0.04-0.36 basophil # (test code = baso jerel #) 0.03 K/uL 0.01-0.08 NRBC% (test code = NRBC%) 0 /100 WBC 0-0.2 NRBC# (test code = NRBC#) 0 K/uL [facility], [id number] 09:05:00 NeutrophilsBandLymphocyteAtypical LymphMonocyteEosinophilBasophilMetamyelocyteMyelocyteNucleated Red Blood CellPlatelet EstimatePlatelet MorphologyPolychromasiaHypochromasiaPoikilocytosis [facility] CountyHemoglobin A1c/Hemoglobin.total in [id number] 09:05:00* Test Item Value Reference Range Interpretation Comme nts Hemoglobin A1c in Blood (michelle t code = 68625-8) 5.0 % 4.0-6.0 [facility] CountyRubella virus Ab [Titer] in [id number] 09:05:00* Test Item Value Reference Range Interpretation Comme nts Rubella virus IgG Ab [Units/volume] in Serum by Immunoassay (test code = 5334-8) 286.5 [IU]/mL [facility]HIV [facility]+2 Ab [Presence] in [id number] 09:05:00HIV P24 AgHIV-1/2 AbMatagorda Medical GroupABO & Rh group [Type] in [id number] 09:05:00* Test Item Value Reference Range Interpretation Comme nts Rh [Type] in Blood (test cod e = 83791-9) 3+ ABO and Rh group panel - Blo od (test code = 48505-5) O positive [facility] GroupBlood group antibody screen [Presence] in Serum or Plasma 2019-03-05 09:05:00* Test Item Value Reference Range Interpretation Comme nts Blood group antibody screen [Presence] in Serum or Plasma (test code = 890-4) negative [facility] GroupHepatitis B virus surface Ag [Presence] in Serum 2019-03-05 09:05:00* Test Item Value Reference Range Interpretation Comme nts .hepatitis B surface antigen (test code = .hepatitis B surface antigen) negative negative [facility] GroupBacteria identified in Urine by [id number] 09:05:00Bacteria Ur CultMaemory johns creek hospitala Medical GroupReagin Ab [Presence] in Serum by [id number] 09:05:00* Test Item Value Reference Range Interpretation Comme nts Reagin Ab [Presence] in Seru m by RPR (test code = 62169-9) nonreactive nonreactive [facility]
--- NOTE | 2024-02-16 22:44 | RAD REPORT ---
EXAM DESCRIPTION: CT - Head Brain Wo Cont - 02/16/2024 10:37 pm CLINICAL HISTORY: HEADACHE COMPARISON: Head angio dated 02/16/2024 TECHNIQUE: All CT scans are performed using dose optimization technique as appropriate and may inclu de automated exposure control or mA/KV adjustment according to patient size. FINDINGS: No intracranial hemorrhage, hydrocephalus or extra-axial fluid collection.No areas of brai n edema or evidence of midline shift. The paranasal sinuses and mastoids are clear. The calvarium is intact. IMPRESSION: No acute intracranial abnormality.
--- NOTE | 2024-02-16 22:45 | RAD REPORT ---
EXAM DESCRIPTION: CT - Neck Angio - 02/16/2024 10:38 pm CLINICAL HISTORY: left eye vision loss COMPARISON: No comparisons TECHNIQUE: CT angiography of the neck vessels was performed with maximum intensity reformatted image s. CAROTID STENOSIS REFERENCE USING NASCET CRITERIA: Mild - <50% stenosis. Moderate - 50-69% stenosis. Severe - 70-94% stenosis. Near occlusion - 95-99% stenosis. Occluded - 100% stenosis. All CT scans are performed using dose optimization technique as appropriate and may include automated exposure control or mA/KV adjustment according to patient size. FINDINGS: A left aortic arch is identified with normal three vessel configuration of the great vesse ls. No significant flow abnormality is seen of the common carotid bilaterally. No significant stenosis is identified involving the cervical segments of both internal carotid arteri es. Normal flow is seen within both vertebral arteries. IMPRESSION: No significant flow abnormality of the neck vessels is identified.
[2024-02-16 22:46] LABS: Absolute Basophils 0.1 K/uL (0-0.5); Absolute Eosinophils 0.2 K/uL (0-0.5); Absolute Lymphocytes (CBC) 3.6 K/uL (0.7-4.9); Absolute Monocytes 0.7 K/uL (0.1-1.3); Absolute Neutrophil 8.3 K/uL (1.8-8.0); Basophils % 0.6 % (0-1.3); Eosinophils % 1.7 % (0-4.4); Hematocrit 40.4 % (36.0-45.0); Hemoglobin 13.4 g/dL (12.0-15.0); Lymphocytes % 27.8 % (15.3-44.8); MCH 29.7 pg (27.0-35.0); MCHC 33.2 g/dL (32.0-36.0); MCV 89.7 fL (80-100); MPV 8.2 fL (7.6-11.3); Monocytes % 5.6 % (3.3-12.3); Neutrophils % 64.3 % (41.7-73.7); Nucleated RBC Absolute Count 0.1 (0-0); Nucleated Red Blood Cells % 0.5 % (0-0); Platelets 369 thou/uL (152-406); Red Cell Distribution Width 13.8 % (12.1-15.2)
--- NOTE | 2024-02-16 22:49 | RAD REPORT ---
EXAM DESCRIPTION: CT - Head angio - 02/16/2024 10:38 pm CLINICAL HISTORY: left eye vision loss COMPARISON: Head Brain Wo Cont dated 02/16/2024; Neck Angio dated 02/16/2024 TECHNIQUE: CT angiography of the head was performed with maximum intensity reformatted images. 3D ma ximum intensity pixel (MIP) reconstructions were created All CT scans are performed using dose optimization technique as appropriate and may include automated exposure control or mA/KV adjustment according to patient size. FINDINGS: Anterior circulation: No aneurysm or large vessel occlusion. No hemodynamically significant stenosis. No arteriovenous malf ormation identified. Posterior circulation: No aneurysm or large vessel occlusion. No hemodynamically significant stenosis. No arteriovenous malf ormation identified. Other: Both orbits have an unremarkable appearance. The globes, extra-ocular muscles, optic nerve, an d retrobulbar fat are symmetric and unremarkable. IMPRESSION: No significant flow abnormality is detected.
[2024-02-16 22:58] LABS: Anion Gap 6.4 mEq/L (5.0-15.0); Potassium 3.4 mEq/L (3.5-5.1)
[2024-02-16] MEDS ORDERED: FLUORESCEIN SODIUM 1 MG/WRAP ONE (23:17)
[2024-02-16] MEDS ORDERED: TETRACAINE HCL 0.5% 4ML OPTH ONE (23:17)
[2024-02-17 00:17] LABS: Urine Bacteria None Seen /HPF (<20); Urine Bilirubin NEGATIVE (Negative); Urine Blood Negative (Negative); Urine Clarity Clear (Clear); Urine Color Colorless (Yellow); Urine Culture Reflex Order NOT NEEDED; Urine Glucose NEGATIVE (Negative); Urine Ketones NEGATIVE (Negative); Urine Micro Reflex YN NO BILL MICROSCOPIC; Urine Mucus Slight /HPF (None Seen); Urine Nitrite NEGATIVE (Negative); Urine Protein NEGATIVE (Negative); Urine RBC <5 /HPF (None Seen); Urine Urobilinogen Normal (Normal); Urine WBC <5 /HPF (<5)
[2024-02-17 00:18] LABS: Specific Gravity > 1.030 (1.005-1.030)
[2024-02-17] MEDS ORDERED: HYDROCODONE/APAP 7.5/325 MG TAB ONE (00:31)
--- NOTE | 2024-02-17 08:56 | ER ---
Nurse's Notes [facility] Name: Debora Taveras Age: 28 yrs Sex: Female : 1995 Arrival Date: 02/16/2024 Time: 19:45 Bed 6 Private MD: Diagnosis: Sudden visual loss, left eye Presentation: 02/15 20:47 Chief complaint: Patient states: washing dishes and my left eye popped and I had a pain vc1 behind my eye and then couldn't see. 20:47 Method Of Arrival: Ambulatory vc1 20:47 Coronavirus screen: Vaccine status: Patient reports being unvaccinated. At this time, vc1 the client does not indicate any symptoms associated with coronavirus-19. Ebola Screen: Patient negative for fever greater than or equal to 101.5 degrees Fahrenheit, and additional compatible Ebola Virus Disease symptoms Patient denies exposure to infectious person. Patient denies travel to an Ebola-affected area in the 21 days before illness onset. No symptoms or risks identified at this time. Initial Sepsis Screen: Does the patient meet any 2 criteria? No. Patient's initial sepsis screen is negative. Does the patient have a suspected source of infection? No. Patient's initial sepsis screen is negative. Risk Assessment: Do you want to hurt yourself or someone else? Patient reports no desire to harm self or others. Onset of symptoms was February 15, 2024. Care prior to arrival: None. Activity prior to arrival: None. Mechanism of Injury: No Mechanism of Injury. 20:47 Acuity: LIZY 3 vc1 Triage Assessment: 20:47 General: Appears in no apparent distress. uncomfortable, Behavior is calm, cooperative, vc1 appropriate for age. 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 Flu vaccine status is unknown. - Infectious Disease History:: Denies. - Social history:: Smoking status: Patient denies any tobacco usage or history of. Screenin:47 [facility] ED Fall Risk Assessment (Adult) History of falling in the last 3 months, vc1 including since admission No falls in past 3 months (0 pts) Confusion or Disorientation No (0 pts) Intoxicated or Sedated No (0 pts) Impaired Gait No (0 pts) Mobility Assist Device Used No (0 pt) Altered Elimination No (0 pt) Score/Fall Risk Level 0 - 2 = Low Risk Oriented to surroundings, Maintained a safe environment, Educated pt \T\ family on fall prevention, incl call for assistance when getting out of bed. Abuse screen: Denies threats or abuse. Nutritional screening: No deficits noted. Tuberculosis screening: No symptoms or risk factors identified. Assessment: 23:15 General: Appears in no apparent distress. comfortable, Behavior is calm, cooperative. lg3 Pain: Complains of pain in left eye Pain does not radiate. Neuro: No deficits noted. Carter Agitation-Sedation Scale (RASS): 0 - Alert and Calm Level of Consciousness is awake, alert, obeys commands, Oriented to person, place, time, situation, Reports headache. Cardiovascular: No deficits noted. Denies chest pain, shortness of breath, Capillary refill < 3 seconds Clubbing of nail beds is absent JVD is absent Patient's skin is warm and dry. Respiratory: No deficits noted. Airway is patent Respiratory effort is even, unlabored, Respiratory pattern is regular, symmetrical. GI: No deficits noted. No signs and/or symptoms were reported involving the gastrointestinal system. : No deficits noted. No signs and/or symptoms were reported regarding the genitourinary system. EENT: Reports blurred vision in left eye pain in left eye. Derm: No deficits noted. No signs and/or symptoms reported regarding the dermatologic system. Skin is intact, is healthy with good turgor, Skin is dry, Skin is normal, Skin temperature is warm. Musculoskeletal: No deficits noted. No signs and/or symptoms reported regarding the musculoskeletal system. Circulation, motion, and sensation intact. Range of motion: intact in all extremities. 02/16 00:29 Reassessment: Patient appears in no apparent distress at this time. No changes from lg3 previously documented assessment. Patient and/or family updated on plan of care and expected duration. Pain level reassessed. Patient is alert, oriented x 3, equal unlabored respirations, skin warm/dry/pink. 01:20 Reassessment: Patient appears in no apparent distress at this time. No changes from lg3 previously documented assessment. Patient and/or family updated on plan of care and expected duration. Pain level reassessed. Patient is alert, oriented x 3, equal unlabored respirations, skin warm/dry/pink. Vital Signs: 02/15 20:47 BP 138 / 78; Pulse 75; Resp 16; Temp 98.1; Pulse Ox 97% ; Weight 83.91 kg; Height 5 ft. vc1 3 in. ; Pain 6/10; 23:15 BP 141 / 83; Pulse 71; Resp 15 S; Pulse Ox 99% on R/A; lg3 02/16 01:20 BP 137 / 80; Pulse 77; Resp 16 S; Temp 98.4(O); Pulse Ox 98% on R/A; lg3 02/15 20:47 Body Mass Index 32.77 (83.91 kg, 160.02 cm) vc1 02/15 20:47 Pain Scale: Adult vc1 Visual Acuity: 02/15 23:54 Left Eye Visual acuity 20/0, Pupil size 4 mm, Normal, React To Light, Reactive To lg3 Accomodation; Right Eye Visual acuity 20/20, Pupil size 4 mm, Normal, React To Light, Reactive To Accomodation; Without Lenses; ED Course: 19:47 Patient arrived in ED. ra3 20:28 Burke Camarena PA is PHCP. cp 20:28 Arie Cho MD is Attending Physician. cp 22:31 Inserted saline lock: 20 gauge in right antecubital area, using aseptic technique. rc3 Blood collected. 22:32 BMP Sent. rc3 22:32 CBC with Diff Sent. rc3 22:39 CT Head Brain wo Cont In Process Unspecified. EDMS 22:40 CT Head Angio In Process Unspecified. EDMS 22:40 CT Neck Angio In Process Unspecified. EDMS 23:08 Estefania Bledsoe, RN is Primary Nurse. lg3 23:15 Patient has correct armband on for positive identification. Placed in gown. Bed in low lg3 position. Call light in reach. Side rails up X 1. Client placed on continuous cardiac and pulse oximetry monitoring. NIBP monitoring applied. Door closed. Noise minimized. Warm blanket given. Family accompanied patient. 23:55 Urinalysis W/Microscopic Sent. jw7 02/16 00:08 Triage completed. vc1 Administered Medications: 02/15 23:55 Drug: Tetracaine Ophthalmic Drops 0.5 % 1 drops Ophthalmic once Route: Ophthalmic; jw7 Site: left eye; 02/16 01:21 Follow up: Response: No adverse reaction lg3 00:34 Drug: Hydrocodone-Acetaminophen PO (7.5 mg-325 mg) 1 tabs PO once; RASS on ADMIN: lg3 Combtv4, Very Agttd3, Agttd2, Rstlss1, AlertClm0, Drwsy-1, Lt Sdtn-2, Mod Sdtn-3, Dp Sdtn-4, UnArsble-5 Route: PO; 01:21 Follow up: Response: No adverse reaction; Marked relief of symptoms lg3 Medication: 02/15 23:15 VIS not applicable for this client. lg3 Outcome: 02/16 00:12 ER care complete, transfer ordered by MD. cp 01:08 Discharge ordered by MD. cp 01:29 Patient left the ED. jw7 Signatures: Dispatcher [employer] EDMS Burke Camarena PA PA cp Able, Lacie RN RN lg3 Alla Rosario RN RN vc1 Gabriela Vazquez RN RN jw7 Neha Zapata ra3 Sonja Maher3
--- NOTE | 2024-02-17 08:56 | EDPHYS ---
Physician Documentation [facility] Name: Debora Taveras Age: 28 yrs Sex: Female : 1995 Arrival Date: 02/16/2024 Time: 19:45 Bed 6 Private MD: ED Physician Arie Cho HPI: 02/15 21:00 This 28 yrs old Female presents to ER via Unassigned with complaints of Eye Problem - cp Vision problem. 21:00 The patient is experiencing decreased vision, pain, to the left eye, suddenly. Onset: cp The symptoms/episode began/occurred last night. Duration: the symptoms are continuous. 21:00 Associated signs and symptoms: Pertinent positives: headache, Pertinent negatives: cp fever, trauma. Patient does not utilize any form of vision correction. Severity of symptoms: in the emergency department the symptoms are unchanged. Patient is a 28-year-old female who presents to the emergency department with complaints of loss of vision out of her left eye. Patient reports she was washing dishes last night when she felt a pop and started having pain behind her left eye and a headache and that she was walking out of the kitchen she lost vision out of her left eye. She complains of being able to see shadows out of her left eye and light and darkness. Patient denies any trauma. 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 Flu vaccine status is unknown. - Infectious Disease History:: Denies. - Social history:: Smoking status: Patient denies any tobacco usage or history of. ROS: 21:05 Constitutional: Negative for body aches, chills, fever, poor PO intake, cp 21:05 Constitutional: hx per hpi cp 21:05 Eyes: Positive for pain, photophobia, redness, vision loss, of the left eye, Negative for discharge, 21:05 ENT: Negative for drainage from ear(s), ear pain, sore throat, difficulty swallowing, difficulty handling secretions, 21:05 Neck: Negative for pain with movement, pain at rest, stiffness, 21:05 Cardiovascular: Negative for chest pain, edema, palpitations, 21:05 Respiratory: Negative for cough, shortness of breath, wheezing, 21:05 Abdomen/GI: Negative for abdominal pain, vomiting, diarrhea, constipation, 21:05 Skin: Negative for cellulitis, rash, 21:05 Neuro: Positive for headache, Negative for altered mental status, dizziness, loss of consciousness, weakness, 21:05 All other systems are negative, Exam: 21:10 Constitutional: The patient appears in no acute distress, alert, awake, non-toxic, well cp developed, well nourished, uncomfortable, 21:10 Head/Face: Normocephalic, atraumatic. cp 21:10 Eyes: Periorbital structures: appear normal, Pupils: equal, round, and reactive to light and accomodation, Extraocular movements: intact throughout, Conjunctiva: subconjunctival hemorrhage(s), 12 o'clock area of eye, Corneas: abrasion, is not appreciated, foreign body, is not appreciated, a fluorescein strip employed to appreciate the findings, Anterior chamber: no hyphema noted. Lids and lashes: appear normal, bilaterally, Examination of the other eye reveals no obvious gross abnormality, 21:10 ENT: External ear(s): are unremarkable, Nose: is normal, Mouth: Lips: moist, Oral mucosa: pink and intact, moist, Posterior pharynx: is normal, airway is patent, no erythema, no exudate, 21:10 Neck: ROM/movement: is normal, is supple, without pain, no range of motions limitations, no meningismus, no nuchal rigidity, 21:10 Chest/axilla: Inspection: normal, 21:10 Cardiovascular: Rate: normal, Rhythm: regular, 21:10 Respiratory: the patient does not display signs of respiratory distress, Respirations: normal, no use of accessory muscles, no retractions, labored breathing, is not present, Breath sounds: are clear throughout, no decreased breath sounds, no stridor, no wheezing, 21:10 Abdomen/GI: Exam negative for discomfort, distension, guarding, Inspection: abdomen appears normal, 21:10 Skin: cellulitis, is not appreciated, no rash present. 21:10 Neuro: Orientation: to person, place \T\ time. Mentation: is normal, Cerebellar function: is grossly normal, Motor: moves all fours, strength is normal, Sensation: is normal, Gait: is steady, Vital Signs: 20:47 BP 138 / 78; Pulse 75; Resp 16; Temp 98.1; Pulse Ox 97% ; Weight 83.91 kg; Height 5 ft. vc1 3 in. ; Pain 6/10; 23:15 BP 141 / 83; Pulse 71; Resp 15 S; Pulse Ox 99% on R/A; lg3 02/16 01:20 BP 137 / 80; Pulse 77; Resp 16 S; Temp 98.4(O); Pulse Ox 98% on R/A; lg3 02/15 20:47 Body Mass Index 32.77 (83.91 kg, 160.02 cm) vc1 02/15 20:47 Pain Scale: Adult vc1 Visual Acuity: 02/15 23:54 Left Eye Visual acuity 20/0, Pupil size 4 mm, Normal, React To Light, Reactive To lg3 Accomodation; Right Eye Visual acuity 20/20, Pupil size 4 mm, Normal, React To Light, Reactive To Accomodation; Without Lenses; MDM: 20:46 Patient medically screened. cp 22:00 Differential diagnosis: Corneal abrasion of Acute iritis of Acute glaucoma in cp Ultraviolet keratitis in. 02/16 01:08 Data reviewed: vital signs, nurses notes, lab test result(s), radiologic studies, CT cp scan, I have discussed the patient's presentation/case with the attending Emergency Department Physician; and as a result, I will discharge patient. 01:08 Management of patient was discussed with the following: Fittings Finisher: DR Mark Talamantes cp \[id number], ophthalmology at [facility], will see patient later today in clinic after discussing results of today's test and exam findings . I considered the following discharge prescriptions or medication management in the emergency department Medications were administered in the Emergency Department. See OCT. 02/15 21:18 Order name: CBC with Diff; Complete Time: 22:50 cp 02/15 22:50 Interpretation: Normal except: WBC 13.00; NEUT A 8.3. cp 02/15 21:18 Order name: BMP; Complete Time: 23:10 cp 02/15 23:10 Interpretation: Normal except: K 3.4. cp 02/15 21:22 Order name: Test, Urine; Complete Time: 00:50 cp 02/15 21:22 Order name: Urinalysis W/Microscopic; Complete Time: 00:50 cp 02/15 21:22 Order name: CT Head Brain wo Cont; Complete Time: 22:50 cp 02/15 21:22 Order name: CT Head Angio; Complete Time: 22:50 cp 02/16 00:58 Interpretation: Report reviewed. cp 02/15 21:22 Order name: CT Neck Angio; Complete Time: 22:50 cp 02/15 20:50 Order name: Eye Tray; Complete Time: 23:19 cp 02/15 20:50 Order name: Fluoresene Opth strip; Complete Time: 23:19 cp 02/15 20:50 Order name: Visual Acuity; Complete Time: 23:55 cp 02/15 21:18 Order name: IV; Complete Time: 22:32 cp Administered Medications: 02/15 23:55 Drug: Tetracaine Ophthalmic Drops 0.5 % 1 drops Ophthalmic once Route: Ophthalmic; 7 Site: left eye; 02/16 01:21 Follow up: Response: No adverse reaction lg3 00:34 Drug: Hydrocodone-Acetaminophen PO (7.5 mg-325 mg) 1 tabs PO once; RASS on ADMIN: lg3 Combtv4, Very Agttd3, Agttd2, Rstlss1, AlertClm0, Drwsy-1, Lt Sdtn-2, Mod Sdtn-3, Dp Sdtn-4, UnArsble-5 Route: PO; 01:21 Follow up: Response: No adverse reaction; Marked relief of symptoms lg3 Disposition Summary: 02/17/24 01:08 Discharge Ordered Notes: Location: Home cp Problem: new(02/17/24 01:08) cp Symptoms: are unchanged(02/17/24 01:08) cp Condition: Stable(02/17/24 01:08) cp Diagnosis - Sudden visual loss, left eye(02/17/24 01:08) cp Followup: cp - With: Private Physician - When: Today - Reason: DR Mark Talamantes, [address] [facility] [address], [facility] [address], phone# [phone] Discharge Instructions: - Discharge Summary Sheet cp - Visual Disturbances cp Forms: - Medication Reconciliation Form cp - Antibiotic Education cp - Prescription Opioid Use cp - Patient Portal Instructions cp - Leadership Thank You Letter cp - Work release form [email or web address] Addendum: 02/18/2024 02:13 I was immediately available for consultation during this patient's visit. I did not e c2 personally see the patient or discuss the patient with the GERARD. . Signatures: Dispatcher [employer] EDMS Burke Camarena PA PA cp Able, Lacie RN RN lg3 Alla Rosario RN RN vc1 Gabriela Vazquez RN RN jw7 Arie Cho MD MD ec2 Corrections: (The following items were deleted from the chart) 02/15 21: 21:22 Head Brain Wo Cont+CT.RAD.BRZ ordered. EDMS EDMS : 21:22 Head Angio+CT.RAD.BRZ ordered. EDMS EDMS : 21:22 Neck Angio+CT.RAD.BRZ ordered. EDMS EDMS : 21:23 Test, Urine+UC.LAB.BRZ ordered. EDMS EDMS : 21:23 Urinalysis W/Microscopic+U.LAB.BRZ ordered. EDMI EDMS 02/16 01:06 00:12 doctor cp cp 01:06 00:12 [facility] cp cp 01:06 00:12 Higher level of care cp cp :06 00:12 Stable cp cp 01: 00:12 new cp cp 01: 00:12 are unchanged cp cp : 00:12 Sudden visual loss, left eye - painful cp cp 02/17 00:02/14 21:00 This 28 yrs old Female presents to ER via Unassigned with complaints of Eye cp Problem - Vision problem. cp 02/17 00:02/14 21:00 The patient is experiencing decreased vision, pain, to the left eye, cp suddenly, cp 02/17 00:02/14 21:00 Onset: The symptoms/episode began/occurred last night, cp cp 02/17 00:02/14 21:00 Duration: the symptoms are continuous, cp cp
[2024-02-17 14:00] VITALS: BP 137/80; TEMP 98.4; O2SAT 98
== END 2024-02-17 01:29 | disposition home or self-care (01) ==
LOC: ER 19:45
DX: H53.132 Sudden visual loss, left eye (principal); H57.12 Ocular pain, left eye; R51.9 Headache, unspecified
CPT/HCPCS: 36415; 70450; 70496; 70498; 80048; 81001; 81025; 85025; Q9967

== ENCOUNTER 2024-04-01 16:39 | Emergency (ER) | payer SELFPAY ==
--- OUTSIDE RECORDS SUMMARY | 2024-04-01 16:44 | XMS REPORT | Continuity of Care Document ---
Author Name Unknown Address [address] [facility] [place]. [address] [place] [address] [facility] thconnect Address [address] [facility] [place]. [address] [place] [address] Care Team Providers Care Appointment Setter Name Role Phone PCP, PATIENT DOES NOT HAVE A Primary Care Physic domi Unavailable MICHELET JAY Attending Clinician Unavailable Michelet Jay MD Attending Clinician [phone] Doctor Unassigned, [place] Attending Clinician U navailable Only, Adc Test Attending Clinician Unavailable Ave V[address] Attending Clinician [phone] Chino Zhang MD Attending Clinician [phone] CHINO ZHANG Attending Clinician Unavailable BrendaEusebio Hayden Attending Clinician [phone] G_Pappas Attending Clinician Unavailable MARC ALEXIS Attending [...] Unavailable ANNA BOGGS Attending Clinician Unavailable MICHELET JAY Admitting Clinician Unavailable Michelet Jay MD Admitting Clinician [phone] G_Papprem Admitting Clinician Unavailable ANTHONY Admitting Clinician Unavailable MARC ALEXIS Admitting Clinician UnavailLEANA Garcia Admitting Clinician Unavaila ble Payers Payer Name Policy Type Policy Number Effective Date Expirati on Date Source [facility] [place] [facility] [id number] 2024 00:00:00 [facility] [id number] 2020 00:00:00 2022 00:00:[address] [facility] [place] (MEDICAID HMO) [id number] 2016 00:00:00 Problems Condition Name Condition Details Condition Category Status Onset Date Resolution Date Last Treatment Date Treating Clinician Comments Source Obesity (BMI 30-39.9) Obesity (BMI 30-39.9) Disease Active 2020-08 00:00: 00 [facility] Right upper quadrant pain Right upper quadrant pain Disease Active 2020-08 00:00: 00 Overview: Formattin g of this note might be different from the original. Added automatic ally from request for surgery [id number] [facility] Epigastric pain Epigastric pain Disease Active 2020-08 0-08 00:00: 00 Overview: Formattin g of this note might be different from the original. Added automatic ally from request for surgery [id number] [facility] Sterilizat ion requested Sterilizat ion Requested [...] , Antepartum Problem Active 05-01 00:00: 00 [facility] Generalize d headache [...] s Gravidarum Problem Active 03-05 00:00: 00 [facility] Subchorion ic hematoma Subchorion ic Hematoma Problem Active 03-05 00:00: 00 [facility] Chronic constipati on Chronic Constipati on Problem Active [facility] Allergies, Adverse Reactions, Alerts Allergy Name Allergy Type Status Severity Reaction(s) Onset Date Inactive Date Treating Clinician Comments Source Penicill ins Drug Allergy Active Rash 2020-08 0 00:00: 00 [facility] PENICILL INS Drug Class Active Med Rash 2020-08 0 00:00: 00 [facility] PENICILL INS Allergy to substanc e Active Moderate Rash [facility] Social History Social Habit Start Date Stop Date Quantity Comments Source Exposure to SARS-CoV-2 (event) Not sure [facility] Tobacco use and exposure 2021-06-16 00:00:00 2021-06-16 00:00:00 Never used [facility] Sex Assigned At 1995 00:00:00 1995 00:00:00 [facility] Smoking Status Start Date Stop Date Source Former Smoker [facility] Never smoker [facility] Medications Ordered Medication Name Filled Medication Name Start Date Stop Date Current Medication? Ordering Clinician Indication Dosage Frequency Signature (SIG) Comments Components Source methocarbam oL 500 mg tablet 2020-08 00:00: 00 Yes [id number] 500mg Take 1 tablet by mouth 4 (four) times daily. [facility] pantoprazol e 40 mg EC tablet 2020-08 00:00: 00 Yes [id number] 40mg Take 1 tablet by mouth daily. [facility] sucralfate (CARAFATE) 1 gram tablet 2020-08 00:00: 00 Yes [id number] 1g Take 1 tablet by mouth before meals and at bedtime. [facility] dicyclomine 20 mg tablet 05-25 00:00: 00 Yes [id number] 20mg Take 1 tablet by mouth every 6 (six) hours as needed for Abdominal pain. [facility] ondansetron (ZOFRAN ODT) 4 mg disintegrat ing tablet 2020-0 03-07 00:00: 00 Yes [id number] 4mg Take 1 tablet by mouth every 8 (eight) hours as needed for Nausea and Vomiting (N/V). [facility] citalopram 20 mg tablet citalopram 20 mg tablet No citalopram 20 mg tablet [facility] escitalopra m 20 mg tablet Take 1 tablet every day by oral route. escitalopra m 20 mg tablet Take 1 tablet every day by oral route. No escitalopr am 20 mg tablet Take 1 tablet every day by oral route. [facility] ibuprofen 600 mg tablet ibuprofen 600 mg tablet No ibuprofen 600 mg tablet [facility] Nexplanon 68 mg subdermal implant Nexplanon 68 mg subdermal implant No Nexplanon 68 mg subdermal implant [facility] acetaminoph en 300 mg-codeine 30 mg tablet 1-2 p.o. q 6 hrs PRN pain acetaminoph en 300 mg-codeine 30 mg tablet 1-2 p.o. q 6 hrs PRN pain No acetaminop hen 300 mg-codeine 30 mg tablet 1-2 p.o. q 6 hrs PRN pain [facility] butalbital- acetaminoph en-caffeine 50 mg-325 mg-40 mg tablet Take 1 tablet every 4 hours by oral route. butalbital- acetaminoph en-caffeine 50 mg-325 mg-40 mg tablet Take 1 tablet every 4 hours by oral route. No 1 Q4H butalbital -acetamino phen-caffe ine 50 mg-325 mg-40 mg tablet Take 1 tablet every 4 hours by oral route. [facility] escitalopra m 20 mg tablet Take 1 tablet every day by oral route. escitalopra m 20 mg tablet Take 1 tablet every day by oral route. No escitalopr am 20 mg tablet Take 1 tablet every day by oral route. [facility] ibuprofen 600 mg tablet ibuprofen 600 mg tablet No ibuprofen 600 mg tablet [facility] ibuprofen 800 mg tablet Take 1 tablet every 6 hours by oral route as needed. ibuprofen 800 mg tablet Take 1 tablet every 6 hours by oral route as needed. No ibuprofen 800 mg tablet Take 1 tablet every 6 hours by oral route as needed. [facility] lidocaine (PF) 10 mg/mL (1 %) injection solution Take 3 mL by injection route. lidocaine (PF) 10 mg/mL (1 %) injection solution Take 3 mL by injection route. No 3mL lidocaine (PF) 10 mg/mL (1 %) injection solution Take 3 mL by injection route. [facility] Nexplanon 68 mg subdermal implant Inject 1 implant by subcutaneou s route. Nexplanon 68 mg subdermal implant Inject 1 implant by subcutaneou s route. No 1implan t(s) Nexplanon 68 mg subdermal implant Inject 1 implant by subcutaneo us route. [facility] Off Deep [place] 25 % topical spray Off Deep [place] 25 % topical spray No Off Deep [place] 25 % topical spray [facility] zolpidem 5 mg tablet Take 1 tablet as needed by oral route. zolpidem 5 mg tablet Take 1 tablet as needed by oral route. No zolpidem 5 mg tablet Take 1 tablet as needed by oral route. [facility] Vital Signs Vital Name Observation Time Observation Value Comments S ource Systolic blood pressure 2021-08-03 17:20:00 105 mm[Hg] [facility] Diastolic blood pressure 2021-08-03 17:20:00 75 mm[Hg] [facility] Heart rate 2021-08-03 17:20:00 75 /min [facility] Body temperature 2021-08-03 17:20:00 36.39 Kimi [facility] Respiratory rate 2021-08-03 17:20:00 16 /min [facility] Body weight 2021-08-03 17:20:00 87.816 kg [facility] BMI 2021-08-03 17:20:00 33.23 kg/m2 [facility] Oxygen saturation in Arterial blood by Pulse oximetry 2021-08-03 17:20:00 99 /min [facility] BP Diastolic 2020-07-18 00:00:00 84 mm[Hg] [facility] Height 2020-07-18 00:00:00 63 [in_i] [facility] BMI (Body Mass Index) 2020-07-18 00:00:00 36.8 kg/m2 [facility] BP Systolic 2020-07-18 00:00:00 125 mm[Hg] [facility] Body Weight 2020-07-18 00:00:00 207.5 [lb_av] [facility] BP Diastolic 2020-07-01 00:00:00 82 mm[Hg] [facility] Height 2020-07-01 00:00:00 63 [in_i] [facility] BMI (Body Mass Index) 2020-07-01 00:00:00 36.2 kg/m2 [facility] BP Systolic 2020-07-01 00:00:00 115 mm[Hg] [facility] Body Weight 2020-07-01 00:00:00 204.4 [lb_av] [facility] BP Diastolic 2020-05-31 00:00:00 90 mm[Hg] [facility] Height 2020-05-31 00:00:00 63 [in_i] [facility] BMI (Body Mass Index) 2020-05-31 00:00:00 35.8 kg/m2 [facility] BP Systolic 2020-05-31 00:00:00 133 mm[Hg] [facility] Body Weight 2020-05-31 00:00:00 202 [lb_av] [facility] BP Diastolic 2019-12-28 00:00:00 83 mm[Hg] [facility] Height 2019-12-28 00:00:00 63 [in_i] [facility] BMI (Body Mass Index) 2019-12-28 00:00:00 33.5 kg/m2 [facility] BP Systolic 2019-12-28 00:00:00 118 mm[Hg] [facility] Body Weight 2019-12-28 00:00:00 189 [lb_av] [facility] BP Diastolic 2019-12-21 00:00:00 92 mm[Hg] [facility] Height 2019-12-21 00:00:00 63 [in_i] [facility] BMI (Body Mass Index) 2019-12-21 00:00:00 33.3 kg/m2 [facility] BP Systolic 2019-12-21 00:00:00 134 mm[Hg] [facility] Body Weight 2019-12-21 00:00:00 188 [lb_av] [facility] BP Diastolic 2019-10-27 00:00:00 73 mm[Hg] [facility] Height 2019-10-27 00:00:00 63 [in_i] [facility] BMI (Body Mass Index) 2019-10-27 00:00:00 32.5 kg/m2 [facility] BP Systolic 2019-10-27 00:00:00 114 mm[Hg] [facility] Body Weight 2019-10-27 00:00:00 183.3 [lb_av] [facility] BP Diastolic 2019-09-29 00:00:00 73 mm[Hg] [facility] Height 2019-09-29 00:00:00 63 [in_i] [facility] BMI (Body Mass Index) 2019-09-29 00:00:00 36.3 kg/m2 [facility] BP Systolic 2019-09-29 00:00:00 125 mm[Hg] [facility] Body Weight 2019-09-29 00:00:00 204.8 [lb_av] [facility] BP Diastolic 2019-09-22 00:00:00 80 mm[Hg] [facility] Height 2019-09-22 00:00:00 63 [in_i] [facility] BMI (Body Mass Index) 2019-09-22 00:00:00 36.6 kg/m2 [facility] BP Systolic 2019-09-22 00:00:00 120 mm[Hg] [facility] BP Diastolic 2019 00:00:00 80 mm[Hg] [facility] Height 2019 00:00:00 63 [in_i] [facility] BMI (Body Mass Index) 2019 00:00:00 36.3 kg/m2 [facility] BP Systolic 2019 00:00:00 117 mm[Hg] [facility] Body Weight 2019 00:00:00 204.9 [lb_av] [facility] BP Diastolic 2019-08-20 00:00:00 70 mm[Hg] [facility] Height 2019-08-20 00:00:00 63 [in_i] [facility] BMI (Body Mass Index) 2019-08-20 00:00:00 35.8 kg/m2 [facility] BP Systolic 2019-08-20 00:00:00 114 mm[Hg] [facility] Body Weight 2019-08-20 00:00:00 202 [lb_av] [facility] BP Diastolic 2019-08-03 00:00:00 77 mm[Hg] [facility] Height 2019-08-03 00:00:00 63 [in_i] [facility] BMI (Body Mass Index) 2019-08-03 00:00:00 35.6 kg/m2 [facility] BP Systolic 2019-08-03 00:00:00 118 mm[Hg] [facility] Body Weight 2019-08-03 00:00:00 3218 [oz_av] [facility] BP Diastolic 2019-07-31 00:00:00 79 mm[Hg] [facility] Height 2019-07-31 00:00:00 63 [in_i] [facility] BMI (Body Mass Index) 2019-07-31 00:00:00 35.4 kg/m2 [facility] BP Systolic 2019-07-31 00:00:00 119 mm[Hg] [facility] Body Weight 2019-07-31 00:00:00 200 [lb_av] [facility] BP Diastolic 2019-07-22 00:00:00 72 mm[Hg] [facility] Height 2019-07-22 00:00:00 63 [in_i] [facility] BMI (Body Mass Index) 2019-07-22 00:00:00 34.9 kg/m2 [facility] BP Systolic 2019-07-22 00:00:00 112 mm[Hg] [facility] Body Weight 2019-07-22 00:00:00 197.1 [lb_av] [facility] BP Diastolic 2019-06-30 00:00:00 70 mm[Hg] [facility] Height 2019-06-30 00:00:00 63 [in_i] [facility] BMI (Body Mass Index) 2019-06-30 00:00:00 34 kg/m2 [facility] BP Systolic 2019-06-30 00:00:00 114 mm[Hg] [facility] Body Weight 2019-06-30 00:00:00 191.9 [lb_av] [facility] BP Diastolic 2019-06-23 00:00:00 84 mm[Hg] [facility] Height 2019-06-23 00:00:00 63 [in_i] [facility] BMI (Body Mass Index) 2019-06-23 00:00:00 34.2 kg/m2 [facility] BP Systolic 2019-06-23 00:00:00 127 mm[Hg] [facility] Body Weight 2019-06-23 00:00:00 193.2 [lb_av] [facility] BP Diastolic 2019-05-29 00:00:00 68 mm[Hg] [facility] Height 2019-05-29 00:00:00 63 [in_i] [facility] BMI (Body Mass Index) 2019-05-29 00:00:00 33.6 kg/m2 [facility] BP Systolic 2019-05-29 00:00:00 110 mm[Hg] [facility] Body Weight 2019-05-29 00:00:00 189.7 [lb_av] [facility] BP Diastolic 2019-05-11 00:00:00 76 mm[Hg] [facility] Height 2019-05-11 00:00:00 63 [in_i] [facility] BMI (Body Mass Index) 2019-05-11 00:00:00 33.5 kg/m2 [facility] BP Systolic 2019-05-11 00:00:00 113 mm[Hg] [facility] Body Weight 2019-05-11 00:00:00 189.3 [lb_av] [facility] BP Diastolic 2019-05-01 00:00:00 69 mm[Hg] [facility] Height 2019-05-01 00:00:00 63 [in_i] [facility] BMI (Body Mass Index) 2019-05-01 00:00:00 33.8 kg/m2 [facility] BP Systolic 2019-05-01 00:00:00 113 mm[Hg] [facility] Body Weight 2019-05-01 00:00:00 190.6 [lb_av] [facility] BP Diastolic 2019-04-02 00:00:00 81 mm[Hg] [facility] Height 2019-04-02 00:00:00 63 [in_i] [facility] BMI (Body Mass Index) 2019-04-02 00:00:00 33.8 kg/m2 [facility] BP Systolic 2019-04-02 00:00:00 116 mm[Hg] [facility] Body Weight 2019-04-02 00:00:00 190.8 [lb_av] [facility] BP Diastolic 2019-03-25 00:00:00 85 mm[Hg] [facility] Height 2019-03-25 00:00:00 63 [in_i] [facility] BMI (Body Mass Index) 2019-03-25 00:00:00 33.8 kg/m2 [facility] BP Systolic 2019-03-25 00:00:00 133 mm[Hg] [facility] Body Weight 2019-03-25 00:00:00 191 [lb_av] [facility] BP Diastolic 2019-03-12 00:00:00 80 mm[Hg] [facility] Height 2019-03-12 00:00:00 63 [in_i] [facility] BMI (Body Mass Index) 2019-03-12 00:00:00 26.7 kg/m2 [facility] BP Systolic 2019-03-12 00:00:00 107 mm[Hg] [facility] Body Weight 2019-03-12 00:00:00 151 [lb_av] [facility] BP Diastolic 2019-03-05 00:00:00 81 mm[Hg] [facility] Height 2019-03-05 00:00:00 63 [in_i] [facility] BMI (Body Mass Index) 2019-03-05 00:00:00 34.2 kg/m2 [facility] BP Systolic 2019-03-05 00:00:00 117 mm[Hg] [facility] Body Weight 2019-03-05 00:00:00 193 [lb_av] [facility] Procedures Procedure Date / Time Performed Performing Clinician Source US, obstetric, limited 2019-09-22 00:00:00 [facility] non-stress test 2019-09-22 00:00:00 [facility] US, obstetric, limited 2019-08-20 00:00:00 [facility] ULTRASOUND REPEAT 2019-07-22 00:00:00 [facility] US, obstetric, limited 2019-05-29 00:00:00 [facility] US, obstetric, limited 2019-05-01 00:00:00 [facility] ULTRASOUND, UTERUS REAL TIME WITH IMAGE DOC, AND MATERNAL EVAL PLUS DETAILED ANATOMIC EXAMINATION, TRANSABDOMINAL APPROACH; SINGLE OR FIRST GESTATION 2019-05-01 00:00:00 [facility] US, obstetric, limited 2019-04-02 00:00:00 [facility] US, obstetric, limited 2019-03-25 00:00:00 [facility] ULTRASOUND, UTERUS REAL TIME WITH IMAGE DOCUMENTAITON, TRANSVAGINAL 2019-03-12 00:00:00 [facility] Eye Surgery 2000-02-24 00:00:00 [facility] Tubal Ligation (Surg) [facility] Plan of Care Planned Activity Planned Date Details Comments Source Diagnostic Test Pending 2020-07-18 00:00:00 urinalysis, dipstick [code = urinalysis, dipstick] [facility] Encounters Start Date/Time End Date/Time Encounter Type Admission Type Attending [facility] Facility Care Department Encounter ID Source 2024-02-16 19:20:00 2024-02-16 19:20:[address] [facility] [id number] [facility] 2021-08-03 11:15:00 2021-08-03 11:54:26 Outpatient R MICHELET JAY [facility] [id number] [facility] 2021-08-03 11:12:21 2021-08-03 11:27:21 Office Visit Michelet Jay [facility] 1..114 350.1.13.10 4.2.7.2.686 [id number] [facility] 2021-07-24 10:50:00 2021-07-24 17:00:00 Outpatient R MICHELET JAY [facility] GINA [id number] [facility] 2021-07-24 10:50:00 2021-07-24 17:00:00 Hospital Encounter Michelet Jay [facility] 1..114 350.1.13.10 4.2.7.2.686 [id number] [facility] 2021-07-24 12:40:00 2021-07-24 15:20:00 Surgery Michelet Jay [facility] 1.84.114 350.1.13.10 4.2.7.2.686 [id number] [facility] 2021-07-24 00:00:00 2021-07-24 00:00:00 Orders Only Doctor Unassigned, [place] [facility] 1.84.114 350.1.13.10 4.2.7.2.686 [id number] [facility] 2021-07-19 09:11:24 2021-07-19 09:26:24 Laboratory Only Only, Adc Test Chuy Jayel [facility] 1.2.840.114 350.1.13.10 4.2.7.2.686 [id number] [facility] 2021-07-19 09:15:00 2021-07-19 09:15:00 Outpatient R MICHELET JAY [facility] [id number] [facility] 2021-07-19 00:00:00 2021-07-19 00:00:00 Orders Only Doctor Unassigned, [place] [facility] 1.2.840.114 350.1.13.10 4.2.7.2.686 [id number] [facility] 2021-07-06 00:00:00 2021-07-06 00:00:[address] [facility] 1.2.840.114 350.1.13.10 4.2.7.2.686 [id number] [facility] 2021-07-04 15:30:00 2021-07-04 16:49:55 Outpatient R MICHELET JAY [facility] [id number] [facility] 2021-07-04 15:01:26 2021-07-04 16:49:55 Office Visit Michelet Jay [facility] 1.2.840.114 350.1.13.10 4.2.7.2.686 [id number] [facility] 2021-07-04 15:30:00 2021-07-04 15:30:00 Outpatient R MICHELET JAY [facility] [id number] [facility] 2021-06-20 07:47:00 2021-06-20 10:44:00 Hospital Encounter [facility] 1.84.114 350.1.13.10 4.2.7.2.686 [id number] [facility] 2021-06-20 07:47:00 2021-06-20 10:44:00 Outpatient R MICHELET JAY [facility] [id number] [facility] 2021-06-20 09:46:00 2021-06-20 10:26:00 Surgery Michelet Jay [facility] [place] 1.84.114 350.1.13.10 4.2.7.2.686 [id number] [facility] 2021-06-20 00:00:00 2021-06-20 00:00:00 Orders Only Doctor Unassigned, [place] [facility] 1..114 350.1.13.10 4.2.7.2.686 [id number] [facility] 2021-06-17 08:55:45 2021-06-17 09:10:45 [facility] Only Only[facility]114 350.1.13.10 4.2.7.2.686 [id number] [facility] 2021-06-17 09:00:00 2021-06-17 09:00:00 Outpatient R MICHELET JAY [facility] [id number] [facility] 2021-06-13 00:00:00 2021-06-13 00:00:00 Telephone Michelet Jay [facility] 1..114 350.1.13.10 4.2.7.2.686 [id number] [facility] 2021-06-07 08:06:22 2021-06-07 23:59:00 Hospital Encounter Michelet Jay [facility] 1.2.840.114 350.1.13.10 4.2.7.2.686 [id number] [facility] 2021-06-07 08:05:55 2021-06-07 08:05:55 Hospital Encounter Michelet Jay [facility] 1.2.840.114 350.1.13.10 4.2.7.2.686 [id number] [facility] 2021-06-07 00:00:00 2021-06-07 00:00:00 Outpatient R MICHELET JAY [facility] [id number] [facility] 2021-06-02 00:00:00 2021-06-02 00:00:00 Prep For Surgery Michelet Jay [facility] Building 1.2840.114 350.1.13.10 4.2.7.2.686 [id number] [facility] 2021-06-01 14:42:16 2021-06-01 15:39:59 Office Visit Michelet Jay [facility] Building 1.2.840.114 350.1.13.10 4.2.7.2.686 [id number] [facility] 2021-06-01 14:45:00 2021-06-01 14:45:00 Outpatient R MICHELET JAY [facility] [id number] [facility] 2021-06-01 00:00:00 2021-06-01 00:00:00 Orders Only Doctor Unassigned, [place] [facility] 1.2.840.114 350.1.13.10 4.2.7.2.686 [id number] [facility] 2021-05-25 04:14:00 2021-05-25 06:23:00 Emergency Chino Zhang [facility] 1.2.840.114 350.1.13.10 4.2.7.2.686 [id number] [facility] 2021-05-25 04:14:00 2021-05-25 04:14:00 Emergency X CHINO ZHANG [facility] ERT [id number] [facility] 2021-03-07 14:26:00 2021-03-07 17:55:00 Emergency Eusebio Gutierrez [facility] 1.2.840.114 350.1.13.10 4.2.7.2.686 [id number] [facility] 2021-03-07 14:22:00 2021-03-07 14:22:00 Emergency X [facility] ERT [id number] [facility] 2020-12-05 22:33:00 2020-12-06 01:51:00 Emergency Eusebio Gutierrez [facility] 1.2.840.114 350.1.13.10 4.2.7.2.686 [id number] [facility] 2020-12-05 22:15:00 2020-12-05 22:15:00 Emergency X [facility] ERT [id number] [facility] 2020-08-04 09:39:00 2020-08-04 09:39:00 Outpatient G_Pappas [facility] [id number] [facility] 2020-07-18 04:16:00 2020-07-18 04:16:00 Outpatient G_Pappas [facility] [id number] 2020-07-18 00:00:00 2020-07-18 00:00:00 Marc Alexis MD: [address] [place] [address] [address], [place] [address] , Ph. [phone] [facility] [id number] [facility] 2020-07-13 02:48:00 2020-07-13 02:48:00 Outpatient G[facility] [id number] [facility] 2020-07-06 06:07:00 2020-07-06 06:07:00 Outpatient MARC MURRELL [facility] [id number] [facility] 2020-07-01 02:37:00 2020-07-01 02:37:00 Outpatient G_Pappas [facility]G MMG [id number] [facility] 2020-07-01 02:37:00 2020-07-01 02:37:00 Outpatient G_Pappas MMG MMG [id number] [facility] 2020-07-01 00:00:00 2020-07-01 00:00:00 Marc Alexis MD: [address] [place] [address] , Ph. [phone] [facility] [id number] [facility] 2020-06-27 11:46:00 2020-06-27 11:46:00 Outpatient G_Pappas MMG MMG [id number] [facility] 2020-05-31 03:21:00 2020-05-31 03:21:00 Outpatient G_Pappas MMG MMG [id number] [facility] 2020-05-31 03:21:00 2020-05-31 03:21:00 Outpatient G_Pappas MMG MMG [id number] [facility] 2020-05-31 00:00:00 2020-05-31 00:00:00 Marc Alexis MD: [address] [address] , Ph. [phone] [facility] [id number] [facility] 2020-01-14 04:03:00 2020-01-14 04:03:00 Outpatient CHATA PERLA [id number] 0521 [facility] 2020-01-14 00:00:00 2020-01-14 00:00:00 Kan Ibarra, PSYD: [address] [place] [address] , Ph. [phone] --[phone] [facility] [place] [facility] Behavioral Health [id number] [facility] 2020-01-06 16:35:00 2020-01-06 17:54:00 Emergency ER [facility] [id number] [facility] 2020-01-05 05:00:00 2020-01-05 05:00:00 Outpatient [facility] 511 [facility] 2020-01-05 00:00:00 2020-01-05 00:00:00 Kan Ibarra, PSYD: [address] [place] [address] , Ph. [phone] --[phone] [facility] [place] [facility] Behavioral Health [id number] [facility] 2019-12-31 05:36:00 2019-12-31 05:36:00 Outpatient [facility] 0507 [facility] 2019-12-31 00:00:00 2019-12-31 00:00:00 Kan Ibarra, PSYD: [address] [place] [address] , Ph. [phone] --[phone] [facility] [place] [facility] Behavioral Health [id number] [facility] 2019-12-28 03:54:00 2019-12-28 03:54:00 Outpatient [facility] 0504 [facility] 2019-12-28 00:00:00 2019-12-28 00:00:00 Kiesha Amezquita, PRINT GRAPHIC DESIGNER: [address] [place] [address] , Ph. [place]HOP [place] - [place] [facility] [id number] [facility] 2019-12-26 12:28:00 2019-12-26 12:28:00 Outpatient [facility] 0502 [facility] 2019-12-23 04:56:00 2019-12-23 04:56:00 Outpatient [facility] 0429 [facility] 2019-12-21 08:24:00 2019-12-21 08:24:00 Outpatient G_Pappas MMG MMG [id number] [facility] 2019-12-21 00:00:00 2019-12-21 00:00:00 Leana Ward MD: [address] [address] , Ph. [phone] [facility] [id number] [facility] 2019-11-19 14:11:00 2019-11-19 17:59:00 Emergency ER REYES [facility] [id number] [facility] 2019-11-16 02:15:00 2019-11-16 02:15:00 Outpatient G_Pappas MMG MMG [id number] [facility] 2019-10-28 12:06:00 2019-10-28 12:06:00 Outpatient G_Pappas MMG MMG [id number] [facility] 2019-10-27 11:55:00 2019-10-27 11:55:00 Outpatient G_Pappas MMG MMG [id number] [facility] 2019-10-27 00:00:00 2019-10-27 00:00:00 MISBAH Vega: [address] [address] , Ph. [phone] [facility] - [facility] [id number] [facility] 2019-10-20 06:15:00 2019-10-20 06:15:00 Outpatient G_Pappas MMG MMG [id number] [facility] 2019-10-07 01:53:00 2019-10-07 01:53:00 Outpatient G_Pappas MMG MMG [id number] [facility] 2019-10-05 05:15:00 2019-10-06 09:10:00 Inpatient [facility] [id number] [facility] 2019-10-04 09:00:00 2019-10-04 09:00:00 Outpatient G_Pappas MMG MMG [id number] [facility] 2019-09-29 04:25:00 2019-09-29 04:25:00 Outpatient G_Pappas MMG MMG [id number] [facility] 2019-09-29 00:00:00 2019-09-29 00:00:00 Marc Alexis MD: [address] [place] [address] , Ph. [phone] [facility] [place] - OBGYN [id number] [facility] 2019-09-28 12:21:00 2019-09-28 12:21:00 Outpatient G_Pappas MMG MM [id number] [facility] 2019-09-25 09:44:00 2019-09-25 09:44:00 Outpatient G_Pappas MMG MM [id number] [facility] 2019-09-22 05:16:00 2019-09-22 05:16:00 Outpatient G_Pappas MMG MMG [id number] [facility] 2019-09-22 00:00:00 2019-09-22 00:00:00 Marc Alexis MD: [address] [address] , Ph. [phone] [facility] [place] - OBGYN [id number] [facility] 2019-09-21 02:51:00 2019-09-21 02:51:00 Outpatient G_Pappas [facility] [id number] [facility] 2019-09-14 19:10:00 2019-09-16 14:30:00 Inpatient ER MARC ALEXIS [facility] [id number] [facility] 2019-09-12 21:35:00 2019-09-13 03:15:00 Emergency ER LEANA [facility] [id number] [facility] 2019-09-07 11:08:00 2019-09-07 11:08:00 [facility] [id number] [facility] 2019-09-04 14:30:00 2019-09-04 14:30:00 Outpatient MARC [facility] [id number] [facility] 2019 10:59:00 2019 10:59:00 Outpatient G_Pappas [facility] [id number] [facility] 2019 00:00:00 2019 00:00:00 Marc Alexis MD: [address] [place] [address] , Ph. [phone] [facility] [id number] [facility] 2019-08-26 12:17:00 2019-08-26 16:25:00 Emergency ER [facility] [id number] [facility] 2019-08-20 11:08:00 2019-08-20 11:08:00 Outpatient [facility] [id number] [facility] 2019-08-20 10:30:00 2019-08-20 10:30:00 Outpatient [facility] [id number] [facility] 2019-08-20 00:00:00 2019-08-20 00:00:00 DARRON VegaNP: [address], [place] [address] , Ph. [phone] [facility] [id number] [facility] 2019-08-03 09:52:00 2019-08-03 09:52:00 Outpatient CHATA HANCOCK WIBENITEZ [facility] [id number] [facility] 2019-08-03 00:00:00 2019-08-03 00:00:00 Karina Price, PRINT GRAPHIC DESIGNER: [address], [place] [address] , Ph. MMG [facility] [id number] [facility] 2019-07-31 00:00:00 2019-07-31 00:00:00 MISBAH Vega: [address], [place] [address] , Ph. [phone] MMG [facility] OBGYN [id number] [facility] 2019-07-26 20:15:00 2019-07-26 20:20:00 Emergency ER MARC ALEXIS [facility] [id number] [facility] 2019-07-22 09:45:00 2019-07-22 09:45:00 Outpatient [facility] [id number] [facility] 2019-07-22 00:00:00 2019-07-22 00:00:00 MISBAH Vega: [address], [place] [address] , Ph. [phone] MM[facility] OBGYN [id number] [facility] 2019-06-30 00:00:00 2019-06-30 00:00:00 Marc Alexis MD: [address], [place] [address] , Ph. [phone] [facility] [id number] [facility] 2019-06-23 00:00:00 2019-06-23 00:00:00 Marc Alexis MD: [address], [place] [address] , Ph. [phone] [facility] [id number] [facility] 2019-05-29 00:00:00 2019-05-29 00:00:00 Leana Ward MD: [address], [place] [address] , Ph. [phone] MM[facility] - [facility] [id number] [facility] 2019-05-11 00:00:00 2019-05-11 00:00:00 Marc Alexis MD: [address], [place] [address] , Ph. [phone] [facility] [id number] [facility] 2019-05-07 20:19:00 2019-05-08 00:28:00 Emergency ER JON VIGIL [facility] [id number] [facility] 2019-05-01 16:53:00 2019-05-01 16:53:00 Outpatient MARC [facility] [id number] [facility] 2019-05-01 00:00:00 2019-05-01 00:00:00 Marc Alexis MD: [address], [place] [address] , Ph. [phone] MM[facility] - [facility] [id number] [facility] 2019-04-30 00:00:00 2019-04-30 00:00:00 Linda Pereira MARIAN: [address], [place] [address] , Ph. [phone] [facility] [id number] [facility] 2019-04-02 11:08:00 2019-04-02 11:08:00 Outpatient JAYME MARC ALEXIS [facility] [id number] [facility] 2019-04-02 00:00:00 2019-04-02 00:00:00 Marc Alexis MD: [address], [place] [address] , Ph. [phone] [facility] - O[facility]YN [id number] [facility] 2019-03-25 00:00:00 2019-03-25 00:00:00 Leana Ward MD: [address], [place] [address] , Ph. [phone] [facility] [id number] [facility] 2019-03-12 11:47:00 2019-03-12 11:47:00 Outpatient LINDA [facility] [id number] [facility] 2019-03-12 00:00:00 2019-03-12 00:00:00 Linda Pereira NP: [address], [place] [address] , Ph. [phone] MM[facility] - OBGYN [id number] [facility] 2019-03-05 10:56:00 2019-03-05 10:56:00 Outpatient LEANA ZHENG [facility] [id number] [facility] 2019-03-05 00:00:00 2019-03-05 00:00:00 Leana Ward MD: [address], [place] [address] , Ph. [phone] [facility] [id number] [facility] 2019-02-24 19:49:00 2019-02-25 00:11:00 Emergency ER LUCIA JAVIER [facility] [id number] [facility] 2018-01-11 16:19:00 2018-01-11 17:59:00 Emergency ER DONNA CESPEDES [facility] [id number] [facility] 2017-08-30 14:27:00 2017-08-30 14:27:00 Outpatient JAYME PIERREARANZA [facility] [id number] [facility] 2017-08-04 14:53:00 2017-08-04 15:28:00 Emergency ER JON VIGIL [facility] [id number] [facility] 2017-05-26 20:39:00 2017-05-26 22:07:00 Emergency ER LUCIA JAVIER [facility] [id number] [facility] 2017-05-04 16:34:00 2017-05-04 18:25:00 Emergency ER LING PACE [facility] [id number] [facility] 2017-03-12 19:35:00 2017-03-12 21:29:00 Emergency ER CHARLEENHONGJORDAN [facility] [id number] [facility] 2017-02-11 17:07:00 2017-02-11 19:59:00 Emergency ER [facility] [id number] [facility] 2016-01-19 07:15:00 2016-01-20 19:40:00 Inpatient LEANA ZHENG [facility] [id number] [facility] 2016-01-10 10:17:00 2016-01-10 10:17:00 Outpatient LEANA ZHENG [facility] [id number] [facility] 2015-12-15 22:45:00 2015-12-16 00:06:00 Emergency ER LEANA WARD [facility] [id number] [facility] 2015-11-03 13:29:00 2015-11-03 16:15:00 Emergency ER LEANA WARD [facility] [id number] [facility] 2015-10-25 08:32:00 2015-10-25 08:32:00 Outpatient KARINA GATES [facility] [id number] [facility] 2015-08-21 15:11:00 2015-08-21 17:55:00 Emergency ER ANNA BOGGS [facility] [id number] [facility] 2015-07-26 13:43:00 2015-07-26 13:43:00 Outpatient KARINA GATES [facility] [id number] [facility] 2015-06-16 12:54:00 2015-06-16 15:57:00 Emergency ER OWLING Petersen [facility] [id number] [facility] 2015-04-18 06:13:00 2015-04-18 08:10:00 Emergency ER [facility] [id number] [facility] 2015-03-11 12:29:00 2015-03-11 14:15:00 Emergency ER [facility] [id number] [facility] Results Test Description Test Time Test Comments Results Result Co mments Source [facility] W Auto Differential panel - [id number] 11:06:00 * Test Item Value Reference Range Interpretation Comme nts white blood count (test code = white blood count) 10.7 K/uL 4.0-11.5 red blood count (test code = red blood count) 4.76 M/uL 3.80-5.20 hemoglobin (test code = hemoglobin) 13.6 g/dL 10.5-15.7 hematocrit (test code = hematocrit) 41.9 % 34.0-50.0 MCV [Entitic volume] (test c ode = 84909-7) 88.0 fL 86-100 mean corpuscular hemoglobin (test [...] neutrophils/100 leukocytes in Blood (test code = 96398-5) 67.7 % 44.4-80.1 Immature granulocytes [#/vol ume] in Blood (test code = 08323-5) 0.0 K/uL 0.0-0.03 lymphocyte% (test code = lymphocyte%) 23.3 % 10.0-50.0 mono % (test code = mono %) 5.6 % 3.6-12.0 eos % (test code = eos %) 2.4 % 0.0-5.4 Basophils/100 leukocytes in Unspecified specimen (test code = 26263-3) 0.6 % 0.1-1.2 Band form neutrophils [#/vol ume] in Blood (test code = 40109-3) 7.28 K/uL 1.56-6.13 H Lymphocytes [#/volume] in Unspecified specimen by Automated count (test code = 79571-6) 2.5 K/uL 1.18-3.74 mono # (test code = mono #) 0.60 K/uL 0.24-0.86 eos # (test code = eos #) 0.26 K/uL 0.04-0.36 basophil # (test code = baso jerel #) 0.06 K/uL 0.01-0.08 NRBC% (test code = NRBC%) 0 /100 WBC 0-0.2 NRBC# (test code = NRBC#) 0 K/uL [facility] metabolic 2000 panel - Serum or [id number] 11:06:00* Test Item Value Reference Range Interpretation [...] code = calcium level) 9.2 mg/dL 8.6-10.0 [facility]dipstick) panel - [id number] 14:02:45* Test Item Value Reference Range Interpretation Comme nts Leukocytes (test code = Leukocytes) Trace Nitrite (test code = Nitrite) negative Urobilinogen (test code = Urobilinogen) .2 Protein (test code = Protein) Negative pH (test code = pH) 6.0 Blood (test code = Blood) Small Specific [place] (test code = Specific [place]) 1.025 Ketone (test code = Ketone) Negative Bilirubin (test code = Bilirubin) Negative Glucose (test code = Glucose) Negative Appearance (test code = Appearance) Clear Color (test code = Color) Yellow [facility] macro (dipstick) panel - [id number] 14:02:45* Test Item Value Reference Range Interpretation Comme nts Leukocytes (test code = Leukocytes) Trace Nitrite (test code = Nitrite) negative Urobilinogen (test code = Urobilinogen) .2 Protein (test code = Protein) Negative pH (test code = pH) 6.0 Blood (test code = Blood) Small Specific [place] (test code = Specific [place]) 1.025 Ketone (test code = Ketone) Negative Bilirubin (test code = Bilirubin) Negative Glucose (test code = Glucose) Negative Appearance (test code = Appearance) Clear Color (test code = Color) Yellow [facility] Grouppregnancy test, [id number] 14:01:41* Test Item Value Reference Range Interpretation Comme nts Test (test code = Test) negative [facility] Grouppregnancy test, [id number] 14:01:41* Test Item Value Reference Range Interpretation Comme nts Test (test code = Test) negative [facility] T[facility] and TSH panel - Serum or [id number] 00:00:00* Test Item Value Reference Range Interpretation Comme nts Thyrotropin [Units/volume] i n Serum or Plasma by Detection limit <= 0.005 mIU/L (test code = 39252-8) 1.540 uIU/mL 0.450-4.500 Thyroxine (T4) free [Mass/volume] in Serum or Plasma (test code = 3024-7) 1.34 NG/dL 0.82-1.[address] [facility] Auto Differential panel - Blood 2019-12-29 [...] immature cells (test code = immature cells) mutuel clerk Neutrophils [#/volume] in Bl ood by Automated [...] Blood by Automated count (test code = 26193-2) 0 % not estab. Immature granulocytes [#/volume] in Blood by Automated count (test code = 46248-9) 0.0 x10e3/uL 0.0-0.1 Nucleated erythrocytes/100 leukocytes [Ratio] in Blood by Automated count (test code = 79886-8) mutuel clerk Morphology [Interpretation] in Blood Narrative (test code = 36213-5) mutuel clerk [place] [facility] ProgramCom[facility] 2000 panel - Serum or [id number] 00:00:00* Test Item Value Reference Range Interpretation [...] by Creatinine-based formula (CKD-EPI) (test code = 99389-8) 130 mL/min/1.73 >59 Glomerular filtration rate/1.73 sq M.predicted among blacks [Volume Rate/Area] in Serum, Plasma or Blood by Creatinine-based formula (CKD-EPI) (test code = 59645-0) 150 mL/min/1.73 >59 Urea nitrogen/Creatinine [Mass Ratio] [...] in Serum or Plasma (test code = 96217-6) 9.1 mg/dL 8.7-10.2 Protein [Mass/volume] in Serum or Plasma (test code = 2885-2) 7.3 g/dL 6.0-8.5 Albumin [Mass/volume] in Serum or Plasma (test code = 1751-7) 4.4 g/dL 3.9-5.0 Globulin [Mass/volume] in Serum by calculation (test code = 52667-2) 2.9 g/dL 1.5-4.5 Albumin/Globulin [Mass Ratio ] [...] (test code = 1742-6) 21 IU/L 0-32 [facility] panel - Serum or Plasma 2019-12-29 [...] or Plasma by calculation (test code = 96184-4) 19 mg/dL 5-40 Cholesterol in LDL [Mass/vol ume] in Serum or Plasma by calculation (test code = 98689-1) 87 mg/dL 0-99 Laboratory comment [Text] in Report Narrative (test code = 96022-5) mutuel clerk [facility] ResourcesHemoglobin A1c/Hemoglobin.total in [id number] 00:00:00* Test Item Value Reference Range Interpretation Comme nts Hemoglobin A1c/Hemoglobin.to pee in Blood (test code = 4548-4) 5.1 % 4.8-5.6 Glucose mean value [Mass/vol ume] in Blood Estimated from glycated hemoglobin (test code = 25160-5) 100 mg/dL [facility] Resourcescardiovascular assessment panel, [id number] 00:00:00* Test Item Value Reference Range Interpretation Comme nts interpretation (test code = interpretation) note pdf image (test code = pdf image) . [facility] Program[facility] and [facility]SH panel - Serum or [id number] 00:00:00* Test Item Value Reference Range Interpretation Comme nts Thyrotropin [Units/volume] i n Serum or Plasma by Detection limit <= 0.005 mIU/L (test code = 56227-3) 1.540 uIU/mL 0.450-4.500 Thyroxine (T4) free [Mass/volume] in Serum or Plasma (test code = 3024-7) 1.34 NG/dL 0.82-1.77 [facility] ResourcesCBC W Auto Differential panel - Blood 2019-12-29 [...] immature cells (test code = immature cells) mutuel clerk Neutrophils [#/volume] in Bl ood by Automated [...] Blood by Automated count (test code = 88434-9) 0 % not estab. Immature granulocytes [#/volume] in Blood by Automated count (test code = 56069-9) 0.0 x10e3/uL 0.0-0.1 Nucleated erythrocytes/100 leukocytes [Ratio] in Blood by Automated count (test code = 05813-1) mutuel clerk Morphology [Interpretation] in Blood Narrative (test code = 39995-7) mutuel clerk [facility] Outreach ProgramComprehensive metabolic 2000 panel - Serum or [id number] 00:00:00* Test Item Value Reference Range Interpretation [...] by Creatinine-based formula (CKD-EPI) (test code = 43168-3) 130 mL/min/1.73 >59 Glomerular filtration rate/1.73 sq M.predicted among blacks [Volume Rate/Area] in Serum, Plasma or Blood by Creatinine-based formula (CKD-EPI) (test code = 65255-3) 150 mL/min/1.73 >59 Urea nitrogen/Creatinine [Mass Ratio] [...] in Serum or Plasma (test code = 37557-2) 9.1 mg/dL 8.7-10.2 Protein [Mass/volume] in Serum or Plasma (test code = 2885-2) 7.3 g/dL 6.0-8.5 Albumin [Mass/volume] in Serum or Plasma (test code = 1751-7) 4.4 g/dL 3.9-5.0 Globulin [Mass/volume] in Serum by calculation (test code = 17857-3) 2.9 g/dL 1.5-4.5 Albumin/Globulin [Mass Ratio ] [...] (test code = 1742-6) 21 IU/L 0-32 [facility] Resources[facility] 1996 panel - Serum or Plasma 2019-12-29 [...] or Plasma by calculation (test code = 71973-3) 19 mg/dL 5-40 Cholesterol in LDL [Mass/vol ume] in Serum or Plasma by calculation (test code = 33860-0) 87 mg/dL 0-99 Laboratory comment [Text] in Report Narrative (test code = 70753-9) mutuel clerk [facility] ResourcesHemoglobin A1c/Hemoglobin.total in [id number] 00:00:00* Test Item Value Reference Range Interpretation Comme nts Hemoglobin A1c/Hemoglobin.to pee in Blood (test code = 4548-4) 5.1 % 4.8-5.6 Glucose mean value [Mass/vol ume] in Blood Estimated from glycated hemoglobin (test code = 78861-0) 100 mg/dL [facility] Resourcescardiovascular assessment panel, [id number] 00:00:00* Test Item Value Reference Range Interpretation Comme nts interpretation (test code = interpretation) note pdf image (test code = pdf image) . [facility] ResourcesFree T4 and TSH panel - Serum or [id number] 00:00:00* Test Item Value Reference Range Interpretation Comme nts Thyrotropin [Units/volume] i n Serum or Plasma by Detection limit <= 0.005 mIU/L (test code = 05204-3) 1.540 uIU/mL 0.450-4.500 Thyroxine (T4) free [Mass/volume] in Serum or Plasma (test code = 3024-7) 1.34 NG/dL 0.82-1.[address] [facility] Outreach [facility] W Auto Differential panel - Blood [...] immature cells (test code = immature cells) mutuel clerk Neutrophils [#/volume] in Bl ood by Automated [...] Blood by Automated count (test code = 13318-1) 0 % not estab. Immature granulocytes [#/volume] in Blood by Automated count (test code = 55364-4) 0.0 x10e3/uL 0.0-0.1 Nucleated erythrocytes/100 leukocytes [Ratio] in Blood by Automated count (test code = 06270-0) mutuel clerk Morphology [Interpretation] in Blood Narrative (test code = 84591-8) mutuel clerk [facility] Outreach ProgramComprehensive metabolic 2000 panel - Serum or [id number] 00:00:00* Test Item Value Reference Range Interpretation [...] by Creatinine-based formula (CKD-EPI) (test code = 93038-6) 130 mL/min/1.73 >59 Glomerular filtration rate/1.73 sq M.predicted among blacks [Volume Rate/Area] in Serum, Plasma or Blood by Creatinine-based formula (CKD-EPI) (test code = 21861-7) 150 mL/min/1.73 >59 Urea nitrogen/Creatinine [Mass Ratio] [...] in Serum or Plasma (test code = 08643-0) 9.1 mg/dL 8.7-10.2 Protein [Mass/volume] in Serum or Plasma (test code = 2885-2) 7.3 g/dL 6.0-8.5 Albumin [Mass/volume] in Serum or Plasma (test code = 1751-7) 4.4 g/dL 3.9-5.0 Globulin [Mass/volume] in Serum by calculation (test code = 13236-2) 2.9 g/dL 1.5-4.5 Albumin/Globulin [Mass Ratio ] [...] (test code = 1742-6) 21 IU/L 0-32 [facility] - Serum or Plasma 2019-12-29 [...] or Plasma by calculation (test code = 66466-3) 19 mg/dL 5-40 Cholesterol in LDL [Mass/vol ume] in Serum or Plasma by calculation (test code = 68501-6) 87 mg/dL 0-99 Laboratory comment [Text] in Report Narrative (test code = 44698-1) mutuel clerk [facility] ResourcesHemoglobin A1c/Hemoglobin.total in [id number] 00:00:00* Test Item Value Reference Range Interpretation Comme nts Hemoglobin A1c/Hemoglobin.to pee in Blood (test code = 4548-4) 5.1 % 4.8-5.6 Glucose mean value [Mass/vol ume] in Blood Estimated from glycated hemoglobin (test code = 61848-9) 100 mg/dL [facility] Resourcescardiovascular assessment panel, [id number] 00:00:00* Test Item Value Reference Range Interpretation Comme nts interpretation (test code = interpretation) note pdf image (test code = pdf image) . [facility] ResourcesFree T4 and TSH panel - Serum or [id number] 00:00:00* Test Item Value Reference Range Interpretation Comme nts Thyrotropin [Units/volume] i n Serum or Plasma by Detection limit <= 0.005 mIU/L (test code = 60342-1) 1.540 uIU/mL 0.450-4.500 Thyroxine (T4) free [Mass/volume] in Serum or Plasma (test code = 3024-7) 1.34 NG/dL 0.82-1.77 [facility] ResourcesCBC W Auto Differential panel - Blood 2019-12-29 [...] immature cells (test code = immature cells) mutuel clerk Neutrophils [#/volume] in Bl ood by Automated [...] Blood by Automated count (test code = 26398-7) 0 % not estab. Immature granulocytes [#/volume] in Blood by Automated count (test code = 54747-7) 0.0 x10e3/uL 0.0-0.1 Nucleated erythrocytes/100 leukocytes [Ratio] in Blood by Automated count (test code = 97804-3) mutuel clerk Morphology [Interpretation] in Blood Narrative (test code = 47836-6) mutuel clerk [facility] ProgramComprehensive metabolic 2000 panel - Serum or [id number] 00:00:00* Test Item Value Reference Range Interpretation [...] by Creatinine-based formula (CKD-EPI) (test code = 83458-6) 130 mL/min/1.73 >59 Glomerular filtration rate/1.73 sq M.predicted among blacks [Volume Rate/Area] in Serum, Plasma or Blood by Creatinine-based formula (CKD-EPI) (test code = 34869-2) 150 mL/min/1.73 >59 Urea nitrogen/Creatinine [Mass Ratio] [...] in Serum or Plasma (test code = 96496-1) 9.1 mg/dL 8.7-10.2 Protein [Mass/volume] in Serum or Plasma (test code = 2885-2) 7.3 g/dL 6.0-8.5 Albumin [Mass/volume] in Serum or Plasma (test code = 1751-7) 4.4 g/dL 3.9-5.0 Globulin [Mass/volume] in Serum by calculation (test code = 05196-7) 2.9 g/dL 1.5-4.5 Albumin/Globulin [Mass Ratio ] [...] (test code = 1742-6) 21 IU/L 0-32 [facility] ResourcesLipid 1996 panel - Serum or Plasma 2019-12-29 [...] or Plasma by calculation (test code = 53901-7) 19 mg/dL 5-40 Cholesterol in LDL [Mass/vol ume] in Serum or Plasma by calculation (test code = 76660-3) 87 mg/dL 0-99 Laboratory comment [Text] in Report Narrative (test code = 42365-4) mutuel clerk [facility] ResourcesHemoglobin A1c/Hemoglobin.total in [id number] 00:00:00* Test Item Value Reference Range Interpretation Comme nts Hemoglobin A1c/Hemoglobin.to pee in Blood (test code = 4548-4) 5.1 % 4.8-5.6 Glucose mean value [Mass/vol ume] in Blood Estimated from glycated hemoglobin (test code = 94158-4) 100 mg/dL [facility] Resourcescardiovascular assessment panel, [id number] 00:00:00* Test Item Value Reference Range Interpretation Comme nts interpretation (test code = interpretation) note pdf image (test code = pdf image) . [facility] ResourcesUrinalysis macro (dipstick) panel - [id number] 10:18:57* Test Item Value Reference Range Interpretation Comme nts Leukocytes (test code = Leukocytes) Trace Nitrite (test code = Nitrite) negative Urobilinogen (test code = Urobilinogen) .2 Protein (test code = Protein) Negative pH (test code = pH) 6.5 Blood (test code = Blood) Moderate Specific [place] (test code = Specific [place]) 1.025 Ketone (test code = Ketone) Negative Bilirubin (test code = Bilirubin) Negative Glucose (test code = Glucose) Negative Appearance (test code = Appearance) Clear Color (test code = Color) Yellow [facility] W Auto Differential panel - [id number] 09:25:00 * Test Item Value Reference Range Interpretation Comme nts white blood count (test code = white blood count) 12.3 K/uL 4.0-11.5 H red blood count (test code = red blood count) 3.58 M/uL 3.80-5.20 L hemoglobin (test code = hemoglobin) 9.7 g/dL 10.5-15.7 L hematocrit (test code = hematocrit) 30.1 % 34.0-50.0 L Erythrocyte mean corpuscular volume [Entitic volume] (test code = 06109-2) 84.1 fL 86-100 L mean corpuscular hemoglobin [...] Neutrophils.segmented/100 leukocytes in Blood (test code = 29593-8) 71.9 % 44.4-80.1 Granulocytes Immature [#/vol ume] in Blood (test code = 31206-7) 0.1 K/uL 0.0-0.03 H lymphocyte% (test code = lymphocyte%) 21.9 % 10.0-50.0 mono % (test code = mono %) 5.1 % 3.6-12.0 eos % (test code = eos %) 0.3 % 0.0-5.4 Basophils/100 leukocytes in Unspecified specimen (test code = 60360-4) 0.3 % 0.1-1.2 Neutrophils.band form [#/vol ume] in Blood (test code = 80327-3) 8.86 K/uL 1.56-6.13 H Lymphocytes [#/volume] in Unspecified specimen by Automated count (test code = 33703-8) 2.7 K/uL 1.18-3.74 mono # (test code = mono #) 0.63 K/uL 0.24-0.86 eos # (test code = eos #) 0.04 K/uL 0.04-0.36 basophil # (test code = baso jerel #) 0.04 K/uL 0.01-0.08 NRBC% (test code = NRBC%) 0 /100 WBC 0-0.2 NRBC# (test code = NRBC#) 0 K/uL [facility] Oaksdifferential panel, [id number] 09:25:00 NeutrophilsLymphocyteAtypical LymphMonocytePlatelet EstimatePlatelet MorphologyDifferential comment-[facility] CenterCB W Auto Differential panel - [id number] 04:32:00* Test Item Value Reference Range Interpretation Comme nts white blood count (test code = white blood count) 11.1 K/uL 4.0-11.5 red blood count (test code = red blood count) 3.85 M/uL 3.80-5.20 hemoglobin (test code = hemoglobin) 10.4 g/dL 10.5-15.7 L hematocrit (test code = hematocrit) 32.3 % 34.0-50.0 L Erythrocyte mean corpuscular volume [Entitic volume] (test code = 21798-9) 83.9 fL 86-100 L mean corpuscular hemoglobin [...] Neutrophils.segmented/100 leukocytes in Blood (test code = 10474-5) 72.8 % 44.4-80.1 Granulocytes Immature [#/vol ume] in Blood (test code = 71484-2) 0.1 K/uL 0.0-0.03 H lymphocyte% (test code = lymphocyte%) 20.3 % 10.0-50.0 mono % (test code = mono %) 5.4 % 3.6-12.0 eos % (test code = eos %) 0.6 % 0.0-5.4 Basophils/100 leukocytes in Unspecified specimen (test code = 89468-8) 0.4 % 0.1-1.2 Neutrophils.band form [#/vol ume] in Blood (test code = 36661-1) 8.10 K/uL 1.56-6.13 H Lymphocytes [#/volume] in Unspecified specimen by Automated count (test code = 48314-0) 2.3 K/uL 1.18-3.74 mono # (test code = mono #) 0.60 K/uL 0.24-0.86 eos # (test code = eos #) 0.07 K/uL 0.04-0.36 basophil # (test code = baso jerel #) 0.04 K/uL 0.01-0.08 NRBC% (test code = NRBC%) 0 /100 WBC 0-0.2 NRBC# (test code = NRBC#) 0 K/uL [facility] GroupBlood type and Indirect antibody screen panel - Blood 2019-10-05 04:32:00* Test Item Value Reference Range Interpretation Comme nts Rh [Type] in Blood (test cod e = 73259-8) 4+ ABO and Rh group panel - Blo od (test code = 14845-8) O positive [facility] GroupReagin Ab [Presence] in Serum by [id number] 04:32:00* Test Item Value Reference Range Interpretation Comme nts Reagin Ab [Presence] in Seru m by RPR (test code = 59895-1) nonreactive nonreactive [facility] GroupHepatitis B virus surface Ag [Presence] in Serum 2019-10-05 04:32:00* Test Item Value Reference Range Interpretation Comme nts .hepatitis B surface antigen (test code = .hepatitis B surface antigen) negative negative [facility] GroupUrinalysis macro (dipstick) panel - [id number] 14:34:29* Test Item Value Reference Range Interpretation Comme nts Leukocytes (test code = Leukocytes) Small Nitrite (test code = Nitrite) negative Urobilinogen (test code = Urobilinogen) 1 Protein (test code = Protein) Negative pH (test code = pH) 7.0 Blood (test code = Blood) Negative Specific [place] (test code = Specific [place]) 1.025 Ketone (test code = Ketone) Small Bilirubin (test code = Bilirubin) Negative Glucose (test code = Glucose) Negative Appearance (test code = Appearance) Clear Color (test code = Color) Yellow [facility] GroupUrinalysis macro (dipstick) panel - [id number] 14:34:29* Test Item Value Reference Range Interpretation Comme nts Leukocytes (test code = Leukocytes) Small Nitrite (test code = Nitrite) negative Urobilinogen (test code = Urobilinogen) 1 Protein (test code = Protein) Negative pH (test code = pH) 7.0 Blood (test code = Blood) Negative Specific [place] (test code = Specific [place]) 1.025 Ketone (test code = Ketone) Small Bilirubin (test code = Bilirubin) Negative Glucose (test code = Glucose) Negative Appearance (test code = Appearance) Clear Color (test code = Color) Yellow [facility] [id number] 16:47:00* Test Item Value Reference Range Interpretation Comme nts Reactive (test code = Reactive) Yes Contractions (test code = Contractions) No [facility]non-[facility] [id number] 16:47:00* Test Item Value Reference Range Interpretation Comme nts Reactive (test code = Reactive) Yes Contractions (test code = Contractions) No [facility] GroupUrinalysis macro (dipstick) panel - [id number] 14:08:44* Test Item Value Reference Range Interpretation Comme nts Leukocytes (test code = Leukocytes) Small Nitrite (test code = Nitrite) negative Urobilinogen (test code = Urobilinogen) 1 Protein (test code = Protein) 30 pH (test code = pH) 7.0 Blood (test code = Blood) Negative Specific [place] (test code = Specific [place]) 1.020 Ketone (test code = Ketone) Negative Bilirubin (test code = Bilirubin) Negative Glucose (test code = Glucose) Negative Appearance (test code = Appearance) Clear Color (test code = Color) Yellow [facility]aksUrinalysis macro (dipstick) panel - [id number] 14:08:44* Test Item Value Reference Range Interpretation Comme nts Leukocytes (test code = Leukocytes) Small Nitrite (test code = Nitrite) negative Urobilinogen (test code = Urobilinogen) 1 Protein (test code = Protein) 30 pH (test code = pH) 7.0 Blood (test code = Blood) Negative Specific [place] (test code = Specific [place]) 1.020 Ketone (test code = Ketone) Negative Bilirubin (test code = Bilirubin) Negative Glucose (test code = Glucose) Negative Appearance (test code = Appearance) Clear Color (test code = Color) Yellow [facility]aksIdbuvPepjp-7-Kuqhtlbetqzrf.placental [Presence] in Vaginal adrhr7468-70-33 08:50:00* Test Item Value Reference Range Interpretation Comme nts Rbujz-8-Zxkqasuuacaoe.placen pee [Presence] in Vaginal fluid (test code = 49490-7) negative neg [facility] NokipMdqpr-5-Pjkskftfhjarx.placental [Presence] in Vaginal [id number] 08:50:00* Test Item Value Reference Range Interpretation Comme nts Hcche-7-Hmehnupwmhryi.placen pee [Presence] in Vaginal fluid (test code = 09294-7) negative neg [facility] GroupUrinalysis complete panel - [id number] 01:04:00* Test Item Value Reference Range Interpretation Comme nts Color of Urine by Auto (test code = 44558-0) lt. yellow Appearance of Urine (test co de = 5767-9) cloudy clear Glucose [Mass/volume] in Uri ne (test code = 2350-7) negative negative bilirubin, urine (test code = bilirubin, urine) negative negative ketone, urine (test code = ketone, urine) negative negative Specific gravity of Urine by Automated test strip (test code = 57397-5) 1.020 1.003-1.030 Hemoglobin [Presence] in Uri ne by Test strip (test code = 5794-3) negative negative pH of Urine (test code = 2756-5) 8.000 5-9 protein urine (UA) (test cod e = protein urine (UA)) trace negative H Urobilinogen [Presence] in U rine (test code = 81690-1) 1.0 E.U./dL 0.2-1.0 Nitrite [Presence] in Urine by Test strip (test code = 5802-4) negative negative urine leukocyte esterase (te st code = urine leukocyte esterase) moderate negative H Erythrocytes [Presence] in U rine (test code = 63235-5) =0-3 0-5 WBC, urine (test code = WBC, urine) =5-9 0-5 H Epithelial cells [Presence] in Urine sediment by Light microscopy (test code = 60998-4) =0-5 0-5 bacteria, urine (test code = bacteria, urine) moderate none detect H urine culture added? (test c ode = urine culture added?) yes [facility] GroupBacteria identified in Urine by [id number] 01:04:00* Test Item Value Reference Range Interpretation Comme nts Bacteria identified in Urine by Culture (test code = 630-4) no growth after 2 days [facility]aksUrinalysis complete panel - [id number] 01:04:00* Test Item Value Reference Range Interpretation Comme nts Color of Urine by Auto (test code = 09006-9) lt. yellow Appearance of Urine (test co de = 5767-9) cloudy clear Glucose [Mass/volume] in Uri ne (test code = 2350-7) negative negative bilirubin, urine (test code = bilirubin, urine) negative negative ketone, urine (test code = ketone, urine) negative negative Specific gravity of Urine by Automated test strip (test code = 19767-6) 1.020 1.003-1.030 Hemoglobin [Presence] in Uri ne by Test strip (test code = 5794-3) negative negative pH of Urine (test code = 2756-5) 8.000 5-9 protein urine (UA) (test cod e = protein urine (UA)) trace negative H Urobilinogen [Presence] in U rine (test code = 17480-8) 1.0 E.U./dL 0.2-1.0 Nitrite [Presence] in Urine by Test strip (test code = 5802-4) negative negative urine leukocyte esterase (te st code = urine leukocyte esterase) moderate negative H Erythrocytes [Presence] in U rine (test code = 10119-7) =0-3 0-5 WBC, urine (test code = WBC, urine) =5-9 0-5 H Epithelial cells [Presence] in Urine sediment by Light microscopy (test code = 61043-3) =0-5 0-5 bacteria, urine (test code = bacteria, urine) moderate none detect H urine culture added? (test c ode = urine culture added?) yes [facility]aksBacteria identified in Urine by [id number] 01:04:00* Test Item Value Reference Range Interpretation Comme nts Bacteria identified in Urine by Culture (test code = 630-4) no growth after 2 days [facility]CB W Auto Differential panel - [id number] 09:20:00 * Test Item Value Reference Range Interpretation Comme nts white blood count (test code = white blood count) 12.5 K/uL 4.0-11.5 H red blood count (test code = red blood count) 3.86 M/uL 3.80-5.20 hemoglobin (test code = hemoglobin) 10.7 g/dL 10.5-15.7 hematocrit (test code = hematocrit) 32.6 % 34.0-50.0 L Erythrocyte mean corpuscular volume [Entitic volume] (test code = 55878-7) 84.5 fL 86-100 L mean corpuscular hemoglobin [...] Neutrophils.segmented/100 leukocytes in Blood (test code = 86080-2) 73.0 % 44.4-80.1 Granulocytes Immature [#/vol ume] in Blood (test code = 99942-7) 0.1 K/uL 0.0-0.03 H lymphocyte% (test code = lymphocyte%) 19.1 % 10.0-50.0 mono % (test code = mono %) 5.9 % 3.6-12.0 eos % (test code = eos %) 0.8 % 0.0-5.4 Basophils/100 leukocytes in Unspecified specimen (test code = 08211-3) 0.3 % 0.1-1.2 Neutrophils.band form [#/vol ume] in Blood (test code = 46708-8) 9.09 K/uL 1.56-6.13 H Lymphocytes [#/volume] in Unspecified specimen by Automated count (test code = 78611-6) 2.4 K/uL 1.18-3.74 mono # (test code = mono #) 0.73 K/uL 0.24-0.86 eos # (test code = eos #) 0.10 K/uL 0.04-0.36 basophil # (test code = baso jerel #) 0.04 K/uL 0.01-0.08 NRBC% (test code = NRBC%) 0 /100 WBC 0-0.2 NRBC# (test code = NRBC#) 0 K/uL [facility]aksPT/[id number] 09:20:00* Test Item Value Reference Range Interpretation Comme nts prothrombin time (test code = prothrombin time) 9.6 seconds 10.3-12.3 L INR in Blood by Coagulation assay (test code = 58612-8) 0.88 [facility] Oakspartial thromboplastin [id number] 09:20:00* Test Item Value Reference Range Interpretation Comme nts INR in Blood by Coagulation assay (test code = 11445-7) 28.7 seconds 22.5-37.0 [facility] W Auto Differential panel - [id number] 09:20:00 * Test Item Value Reference Range Interpretation Comme nts white blood count (test code = white blood count) 12.5 K/uL 4.0-11.5 H red blood count (test code = red blood count) 3.86 M/uL 3.80-5.20 hemoglobin (test code = hemoglobin) 10.7 g/dL 10.5-15.7 hematocrit (test code = hematocrit) 32.6 % 34.0-50.0 L Erythrocyte mean corpuscular volume [Entitic volume] (test code = 42467-8) 84.5 fL 86-100 L mean corpuscular hemoglobin [...] Neutrophils.segmented/100 leukocytes in Blood (test code = 68246-6) 73.0 % 44.4-80.1 Granulocytes Immature [#/vol ume] in Blood (test code = 12712-4) 0.1 K/uL 0.0-0.03 H lymphocyte% (test code = lymphocyte%) 19.1 % 10.0-50.0 mono % (test code = mono %) 5.9 % 3.6-12.0 eos % (test code = eos %) 0.8 % 0.0-5.4 Basophils/100 leukocytes in Unspecified specimen (test code = 41243-8) 0.3 % 0.1-1.2 Neutrophils.band form [#/vol ume] in Blood (test code = 18556-8) 9.09 K/uL 1.56-6.13 H Lymphocytes [#/volume] in Unspecified specimen by Automated count (test code = 95576-5) 2.4 K/uL 1.18-3.74 mono # (test code = mono #) 0.73 K/uL 0.24-0.86 eos # (test code = eos #) 0.10 K/uL 0.04-0.36 basophil # (test code = baso jerel #) 0.04 K/uL 0.01-0.08 NRBC% (test code = NRBC%) 0 /100 WBC 0-0.2 NRBC# (test code = NRBC#) 0 K/uL [facility]PT/[id number] 09:20:00* Test Item Value Reference Range Interpretation Comme nts prothrombin time (test code = prothrombin time) 9.6 seconds 10.3-12.3 L INR in Blood by Coagulation assay (test code = 59211-3) 0.88 [facility] Oakspartial thromboplastin [id number] 09:20:00* Test Item Value Reference Range Interpretation Comme nts INR in Blood by Coagulation assay (test code = 68525-2) 28.7 seconds 22.5-37.0 [facility]aksGlucose [Mass/volume] in Capillary [id number] 09:46:26* Test Item Value Reference Range Interpretation Comme nts GLU (test code = GLU) 91 [facility]aksGlucose [Mass/volume] in Capillary [id number] 09:46:26* Test Item Value Reference Range Interpretation Comme nts GLU (test code = GLU) 91 [facility]aksGlucose [Mass/volume] in Capillary [id number] 09:46:26* Test Item Value Reference Range Interpretation Comme nts GLU (test code = GLU) 91 [facility]aksUrinalysis macro (dipstick) panel - [id number] 09:36:18* Test Item Value Reference Range Interpretation Comme nts Leukocytes (test code = Leukocytes) Small Nitrite (test code = Nitrite) negative Urobilinogen (test code = Urobilinogen) 1 Protein (test code = Protein) 30 pH (test code = pH) 7.0 Blood (test code = Blood) Negative Specific [place] (test code = Specific [place]) 1.025 Ketone (test code = Ketone) Small Bilirubin (test code = Bilirubin) Negative Glucose (test code = Glucose) Negative Appearance (test code = Appearance) Cloudy Color (test code = Color) Yellow [facility]aksUrinalysis macro (dipstick) panel - [id number] 09:36:18* Test Item Value Reference Range Interpretation Comme nts Leukocytes (test code = Leukocytes) Small Nitrite (test code = Nitrite) negative Urobilinogen (test code = Urobilinogen) 1 Protein (test code = Protein) 30 pH (test code = pH) 7.0 Blood (test code = Blood) Negative Specific [place] (test code = Specific [place]) 1.025 Ketone (test code = Ketone) Small Bilirubin (test code = Bilirubin) Negative Glucose (test code = Glucose) Negative Appearance (test code = Appearance) Cloudy Color (test code = Color) Yellow [facility]aksUrinalysis macro (dipstick) panel - [id number] 09:36:18* Test Item Value Reference Range Interpretation Comme nts Leukocytes (test code = Leukocytes) Small Nitrite (test code = Nitrite) negative Urobilinogen (test code = Urobilinogen) 1 Protein (test code = Protein) 30 pH (test code = pH) 7.0 Blood (test code = Blood) Negative Specific [place] (test code = Specific [place]) 1.025 Ketone (test code = Ketone) Small Bilirubin (test code = Bilirubin) Negative Glucose (test code = Glucose) Negative Appearance (test code = Appearance) Cloudy Color (test code = Color) Yellow [facility]aksUrinalysis complete panel - [id number] 11:35:00* Test Item Value Reference Range Interpretation Comme nts Color of Urine by Auto (test code = 81507-3) yellow Appearance of Urine (test code = 5767-9) cloudy clear Glucose [Mass/volume] in Urine (test code = 2350-7) negative negative bilirubin, urine (test code = bilirubin, urine) negative negative ketone, urine (test code = ketone, urine) moderate, 40 negative H Specific gravity of Urine by Automated test strip (test code = 68943-4) 1.025 1.003-1.030 Hemoglobin [Presence] in Urine by Test strip (test code = 5794-3) negative negative pH of Urine (test code = 2756-5) 7.000 5-9 protein urine (UA) (test code = protein urine (UA)) trace negative H Urobilinogen [Presence] in Urine (test code = 32999-3) 1.0 E.U./dL 0.2-1.0 Nitrite [Presence] in Urine by Test strip (test code = 5802-4) negative negative urine leukocyte esterase (test code = urine leukocyte esterase) =1 negative H Erythrocytes [Presence] in Urine (test code = 55630-9) none seen 0-5 WBC, urine (test code = WBC, urine) =5-9 0-5 H Epithelial cells [Presence] in Urine sediment by Light microscopy (test code = 31817-7) =11-25 0-5 H bacteria, urine (test code = bacteria, urine) large (3 none detect H urine culture added? (test code = urine culture added?) no. contaminated. mucus, urine (test code = mucus, urine) =2 none detect [facility] GroupUrinalysis complete panel - [id number] 11:35:00* Test Item Value Reference Range Interpretation Comme nts Color of Urine by Auto (test code = 70111-2) yellow Appearance of Urine (test code = 5767-9) cloudy clear Glucose [Mass/volume] in Urine (test code = 2350-7) negative negative bilirubin, urine (test code = bilirubin, urine) negative negative ketone, urine (test code = ketone, urine) moderate, 40 negative H Specific gravity of Urine by Automated test strip (test code = 90611-7) 1.025 1.003-1.030 Hemoglobin [Presence] in Urine by Test strip (test code = 5794-3) negative negative pH of Urine (test code = 2756-5) 7.000 5-9 protein urine (UA) (test code = protein urine (UA)) trace negative H Urobilinogen [Presence] in Urine (test code = 71698-6) 1.0 E.U./dL 0.2-1.0 Nitrite [Presence] in Urine by Test strip (test code = 5802-4) negative negative urine leukocyte esterase (test code = urine leukocyte esterase) =1 negative H Erythrocytes [Presence] in Urine (test code = 52573-7) none seen 0-5 WBC, urine (test code = WBC, urine) =5-9 0-5 H Epithelial cells [Presence] in Urine sediment by Light microscopy (test code = 94515-6) =11-25 0-5 H bacteria, urine (test code = bacteria, urine) large (3 none detect H urine culture added? (test code = urine culture added?) no. contaminated. mucus, urine (test code = mucus, urine) =2 none detect [facility]Com[facility] metabolic 2000 panel - Serum or Plasma [...] code = 6768-6) 149 U/L 35-105 H [facility]aksHepatic function 2000 panel - Serum or [id number] 09:33:00* Test Item Value Reference Range Interpretation Comme nts Bilirubin.direct [Mass/volum e] in Serum or Plasma (test code = 1968-7) <0.20 0.0-0.3 [facility]aksHemoglobin A1c [Mass/volume] in [id number] 09:33:00 * Test Item Value Reference Range Interpretation Comme nts Hemoglobin A1c [Mass/volume] in Blood (test code = 14342-4) 5.2 % 4.0-6.0 [facility]aksrapid strep group A, [id number] 09:59:00* Test Item Value Reference Range Interpretation Comme nts Strep Result (test code = St rep Result) negative [facility] Grouprapid strep group A, [id number] 09:59:00* Test Item Value Reference Range Interpretation Comme nts Strep Result (test code = St rep Result) negative [facility]aksUrinalysis complete panel - [id number] 07:49:00* Test Item Value Reference Range Interpretation Comme nts Color of Urine by Auto (test code = 26545-3) lt. yellow Appearance of Urine (test co de = 5767-9) SL cloudy clear Glucose [Mass/volume] in Uri ne (test code = 2350-7) negative negative bilirubin, urine (test code = bilirubin, urine) negative negative ketone, urine (test code = ketone, urine) negative negative Specific gravity of Urine by Automated test strip (test code = 78605-7) 1.015 1.003-1.030 Hemoglobin [Presence] in Uri ne by Test strip (test code = 5794-3) negative negative pH of Urine (test code = 2756-5) 7.000 5-9 protein urine (UA) (test cod e = protein urine (UA)) negative negative Urobilinogen [Presence] in U rine (test code = 90253-9) 0.2 E.U./dL 0.2-1.0 Nitrite [Presence] in Urine by Test strip (test code = 5802-4) negative negative urine leukocyte esterase (te st code = urine leukocyte esterase) =1 negative H Erythrocytes [Presence] in U rine (test code = 99907-3) none seen 0-5 WBC, urine (test code = WBC, urine) =6-10 0-5 H Epithelial cells [Presence] in Urine sediment by Light microscopy (test code = 58209-5) more than 25 0-5 H bacteria, urine (test code = bacteria, urine) large none detect H urine culture added? (test c ode = urine culture added?) [facility] GroupUrinal[facility] complete [facility] - [id number] 07:49:00* Test Item Value Reference Range Interpretation Comme nts Color of Urine by Auto (test code = 08381-6) lt. yellow Appearance of Urine (test co de = 5767-9) SL cloudy clear Glucose [Mass/volume] in Uri ne (test code = 2350-7) negative negative bilirubin, urine (test code = bilirubin, urine) negative negative ketone, urine (test code = ketone, urine) negative negative Specific gravity of Urine by Automated test strip (test code = 72026-8) 1.015 1.003-1.030 Hemoglobin [Presence] in Uri ne by Test strip (test code = 5794-3) negative negative pH of Urine (test code = 2756-5) 7.000 5-9 protein urine (UA) (test cod e = protein urine (UA)) negative negative Urobilinogen [Presence] in U rine (test code = 64294-1) 0.2 E.U./dL 0.2-1.0 Nitrite [Presence] in Urine by Test strip (test code = 5802-4) negative negative urine leukocyte esterase (te st code = urine leukocyte esterase) =1 negative H Erythrocytes [Presence] in U rine (test code = 09614-1) none seen 0-5 WBC, urine (test code = WBC, urine) =6-10 0-5 H Epithelial cells [Presence] in Urine sediment by Light microscopy (test code = 65785-4) more than 25 0-5 H bacteria, urine (test code = bacteria, urine) large none detect H urine culture added? (test c ode = urine culture added?) no [facility] GroupUrinalysis complete panel - [id number] 07:49:00* Test Item Value Reference Range Interpretation Comme nts Color of Urine by Auto (test code = 61259-0) lt. yellow Appearance of Urine (test co de = 5767-9) SL cloudy clear Glucose [Mass/volume] in Uri ne (test code = 2350-7) negative negative bilirubin, urine (test code = bilirubin, urine) negative negative ketone, urine (test code = ketone, urine) negative negative Specific gravity of Urine by Automated test strip (test code = 20487-6) 1.015 1.003-1.030 Hemoglobin [Presence] in Uri ne by Test strip (test code = 5794-3) negative negative pH of Urine (test code = 2756-5) 7.000 5-9 protein urine (UA) (test cod e = protein urine (UA)) negative negative Urobilinogen [Presence] in U rine (test code = 47202-0) 0.2 E.U./dL 0.2-1.0 Nitrite [Presence] in Urine by Test strip (test code = 5802-4) negative negative urine leukocyte esterase (te st code = urine leukocyte esterase) =1 negative H Erythrocytes [Presence] in U rine (test code = 30545-6) none seen 0-5 WBC, urine (test code = WBC, urine) =6-10 0-5 H Epithelial cells [Presence] in Urine sediment by Light microscopy (test code = 33514-5) more than 25 0-5 H bacteria, urine (test code = bacteria, urine) large none detect H urine culture added? (test c ode = urine culture added?) [facility] W Auto Differential panel - [id number] 08:55:00 * Test Item Value Reference Range Interpretation Comme nts white blood count (test code = white blood count) 10.7 K/uL 4.0-11.5 red blood count (test code = red blood count) 3.85 M/uL 3.80-5.20 hemoglobin (test code = hemoglobin) 11.5 g/dL 10.5-15.7 hematocrit (test code = hematocrit) 34.9 % 34.0-50.0 Erythrocyte mean corpuscular volume [Entitic volume] (test code = 51509-7) 90.6 fL 86-100 mean corpuscular hemoglobin (test [...] Neutrophils.segmented/100 leukocytes in Blood (test code = 10410-5) 72.9 % 44.4-80.1 Granulocytes Immature [#/vol ume] in Blood (test code = 22019-2) 0.1 K/uL 0.0-0.03 H lymphocyte% (test code = lymphocyte%) 17.9 % 10.0-50.0 mono % (test code = mono %) 6.8 % 3.6-12.0 eos % (test code = eos %) 1.4 % 0.0-5.4 Basophils/100 leukocytes in Unspecified specimen (test code = 34220-0) 0.3 % 0.1-1.2 Neutrophils.band form [#/vol ume] in Blood (test code = 27480-5) 7.78 K/uL 1.56-6.13 H Lymphocytes [#/volume] in Unspecified specimen by Automated count (test code = 97304-1) 1.9 K/uL 1.18-3.74 mono # (test code = mono #) 0.73 K/uL 0.24-0.86 eos # (test code = eos #) 0.15 K/uL 0.04-0.36 basophil # (test code = baso jerel #) 0.03 K/uL 0.01-0.08 NRBC% (test code = NRBC%) 0 /100 WBC 0-0.2 NRBC# (test code = NRBC#) 0 K/uL [facility] GroupBlood group antibody screen [Presence] in Serum or Plasma 2019-07-22 08:55:00* Test Item Value Reference Range Interpretation Comme nts Blood group antibody screen [Presence] in Serum or Plasma (test code = 890-4) negative [facility] GroupReagin Ab [Presence] in Serum by [id number] 08:55:00* Test Item Value Reference Range Interpretation Comme nts Reagin Ab [Presence] in Seru m by RPR (test code = 51557-6) nonreactive nonreactive [facility] GroupHIV 1+2 Ab [Presence] in [id number] 08:55:00HIV P24 AgHIV-1/2 AbMataLaird HospitalCB W Auto Differential panel - Blood [...] corpuscular volume [Entitic volume] (test code = 70299-4) 90.6 fL 86-100 mean corpuscular hemoglobin (test [...] Neutrophils.segmented/100 leukocytes in Blood (test code = 08998-1) 72.9 % 44.4-80.1 Granulocytes Immature [#/vol ume] in Blood (test code = 71125-6) 0.1 K/uL 0.0-0.03 H lymphocyte% (test code = lymphocyte%) 17.9 % 10.0-50.0 mono % (test code = mono %) 6.8 % 3.6-12.0 eos % (test code = eos %) 1.4 % 0.0-5.4 Basophils/100 leukocytes in Unspecified specimen (test code = 59718-8) 0.3 % 0.1-1.2 Neutrophils.band form [#/vol ume] in Blood (test code = 59957-7) 7.78 K/uL 1.56-6.13 H Lymphocytes [#/volume] in Unspecified specimen by Automated count (test code = 12551-1) 1.9 K/uL 1.18-3.74 mono # (test code = mono #) 0.73 K/uL 0.24-0.86 eos # (test code = eos #) 0.15 K/uL 0.04-0.36 basophil # (test code = baso jerel #) 0.03 K/uL 0.01-0.08 NRBC% (test code = NRBC%) 0 /100 WBC 0-0.2 NRBC# (test code = NRBC#) 0 K/uL [facility] GroupBlood group antibody screen [Presence] in Serum or Plasma 2019-07-22 08:55:00* Test Item Value Reference Range Interpretation Comme nts Blood group antibody screen [Presence] in Serum or Plasma (test code = 890-4) negative [facility] GroupReagin Ab [Presence] in Serum by [id number] 08:55:00* Test Item Value Reference Range Interpretation Comme nts Reagin Ab [Presence] in Seru m by RPR (test code = 42389-1) nonreactive nonreactive [facility]aksHIV [facility]+2 Ab [Presence] in [id number] 08:55:00HIV P24 AgHIV-1/2 AbMaH. C. Watkins Memorial HospitalCB W Auto Differential panel - Blood [...] corpuscular volume [Entitic volume] (test code = 13297-3) 90.6 fL 86-100 mean corpuscular hemoglobin (test [...] Neutrophils.segmented/100 leukocytes in Blood (test code = 31141-7) 72.9 % 44.4-80.1 Granulocytes Immature [#/vol ume] in Blood (test code = 21225-5) 0.1 K/uL 0.0-0.03 H lymphocyte% (test code = lymphocyte%) 17.9 % 10.0-50.0 mono % (test code = mono %) 6.8 % 3.6-12.0 eos % (test code = eos %) 1.4 % 0.0-5.4 Basophils/100 leukocytes in Unspecified specimen (test code = 92282-2) 0.3 % 0.1-1.2 Neutrophils.band form [#/vol ume] in Blood (test code = 46830-0) 7.78 K/uL 1.56-6.13 H Lymphocytes [#/volume] in Unspecified specimen by Automated count (test code = 88768-1) 1.9 K/uL 1.18-3.74 mono # (test code = mono #) 0.73 K/uL 0.24-0.86 eos # (test code = eos #) 0.15 K/uL 0.04-0.36 basophil # (test code = baso jerel #) 0.03 K/uL 0.01-0.08 NRBC% (test code = NRBC%) 0 /100 WBC 0-0.2 NRBC# (test code = NRBC#) 0 K/uL [facility] GroupBlood group antibody screen [Presence] in Serum or Plasma 2019-07-22 08:55:00* Test Item Value Reference Range Interpretation Comme nts Blood group antibody screen [Presence] in Serum or Plasma (test code = 890-4) negative [facility] GroupReagin Ab [Presence] in Serum by [id number] 08:55:00* Test Item Value Reference Range Interpretation Comme nts Reagin Ab [Presence] in Seru m by RPR (test code = 26980-2) nonreactive nonreactive [facility] GroupHIV 1+2 Ab [Presence] in [id number] 08:55:00HIV P24 AgHIV-1/2 AbMataLaird HospitalUrinalysis macro (dipstick) panel - Urine 2019-06-30 09:41:48* Test Item Value Reference Range Interpretation Comme nts Leukocytes (test code = Leukocytes) Small Nitrite (test code = Nitrite) negative Urobilinogen (test code = Urobilinogen) 1 Protein (test code = Protein) 30 pH (test code = pH) 7.0 Blood (test code = Blood) Negative Specific [place] (test code = Specific [place]) 1.025 Ketone (test code = Ketone) Trace Bilirubin (test code = Bilirubin) Small Glucose (test code = Glucose) Negative Appearance (test code = Appearance) Clear Color (test code = Color) Yellow [facility]aksUrinalysis macro (dipstick) panel - [id number] 09:41:48* Test Item Value Reference Range Interpretation Comme nts Leukocytes (test code = Leukocytes) Small Nitrite (test code = Nitrite) negative Urobilinogen (test code = Urobilinogen) 1 Protein (test code = Protein) 30 pH (test code = pH) 7.0 Blood (test code = Blood) Negative Specific [place] (test code = Specific [place]) 1.025 Ketone (test code = Ketone) Trace Bilirubin (test code = Bilirubin) Small Glucose (test code = Glucose) Negative Appearance (test code = Appearance) Clear Color (test code = Color) Yellow [facility]aksCT + NG + TV, DNA, urine/[id number] 00:00:00* Test Item Value Reference Range Interpretation [...] to antibiotic resistance by molecular analysis)) negative [facility]aksbacterial vaginosis panel, [id number] 00:00:00* Test Item Value Reference Range Interpretation [...] panel) by real time PCR) see comment [facility]aksCandida sp DNA [Presence] in Vaginal fluid by Probe and target amplification [id number] 00:00:00* Test Item Value Reference Range Interpretation [...] = glen glabrata by real-time PCR) negative [facility]aksCT + NG + TV, DNA, urine/[id number] 00:00:00* Test Item Value Reference Range Interpretation [...] to antibiotic resistance by molecular analysis)) negative [facility]aksbacterial vaginosis panel, [id number] 00:00:00* Test Item Value Reference Range Interpretation [...] panel) by real time PCR) see comment [facility]aksCandida sp DNA [Presence] in Vaginal fluid by Probe and target amplification [id number] 00:00:00* Test Item Value Reference Range Interpretation [...] = glen glabrata by real-time PCR) negative [facility]aksUrinalysis macro (dipstick) panel - [id number] 15:32:50* Test Item Value Reference Range Interpretation Comme nts Leukocytes (test code = Leukocytes) Trace Nitrite (test code = Nitrite) negative Urobilinogen (test code = Urobilinogen) 8 Protein (test code = Protein) Trace pH (test code = pH) 7.0 Blood (test code = Blood) Negative Specific [place] (test code = Specific [place]) 1.020 Ketone (test code = Ketone) Moderate Bilirubin (test code = Bilirubin) Small Glucose (test code = Glucose) Negative Appearance (test code = Appearance) Clear Color (test code = Color) Yellow [facility]aksUrinalysis macro (dipstick) panel - [id number] 15:32:50* Test Item Value Reference Range Interpretation Comme nts Leukocytes (test code = Leukocytes) Trace Nitrite (test code = Nitrite) negative Urobilinogen (test code = Urobilinogen) 8 Protein (test code = Protein) Trace pH (test code = pH) 7.0 Blood (test code = Blood) Negative Specific [place] (test code = Specific [place]) 1.020 Ketone (test code = Ketone) Moderate Bilirubin (test code = Bilirubin) Small Glucose (test code = Glucose) Negative Appearance (test code = Appearance) Clear Color (test code = Color) Yellow [facility]aksMicroscopic observation [Identifier] in Unspecified specimen by Wet [id number] 07:44:00* Test Item Value Reference Range Interpretation Comme nts Microscopic observation [Identifier] in Unspecified specimen by Wet preparation (test code = 680-9) no trichomonas, yeast or clue cell observed. [facility]aksUrinalysis complete panel - [id number] 07:27:00* Test Item Value Reference Range Interpretation Comme nts Color of Urine by Auto (test code = 78354-9) light yellow Appearance of Urine (test code = 5767-9) SL cloudy clear A Glucose [Presence] in Urine by Automated test strip (test code = 84380-7) negative negative Bilirubin.total [Mass/volume] in Urine (test code = 1978-6) negative negative Ketones [Mass/volume] in Urine by Automated test strip (test code = 55215-0) negative negative Specific gravity of Urine by Automated test strip (test code = 30027-0) 1.014 1.003-1.030 blood urine (test code = blood urine) =1 negative H pH of Urine (test code = 2756-5) 7.500 5-9 protein urine (UA) (test code = protein urine (UA)) trace negative Urobilinogen [Presence] in Urine (test code = 56733-9) =2.0 0.2-1.0 H Nitrite [Presence] in Urine by Test strip (test code = 5802-4) negative negative Leukocyte esterase [Presence] in Urine by Automated test strip (test code = 24407-7) =3 negative H Erythrocytes [#/volume] in Urine by Automated count (test code = 798-9) =1-5 0-5 Leukocytes [#/area] in Urine sediment by Automated count (test code = 61021-2) =11-14 0-5 H Epithelial cells [Presence] in Urine sediment by Light microscopy (test code = 66308-8) =20-29 0-5 Bacteria identified in Urine by Culture (test code = 630-4) moderate (2 none detect H urine culture added? (test code = urine culture added?) no. contaminated. [facility] W Auto Differential panel - [id number] 07:21:00 * Test Item Value Reference Range Interpretation Comme nts white blood count (test code = white blood count) 10.9 K/uL 4.0-11.5 red blood count (test code = red blood count) 3.87 M/uL 3.80-5.20 hemoglobin (test code = hemoglobin) 11.4 g/dL 10.5-15.7 hematocrit (test code = hematocrit) 34.3 % 34.0-50.0 Erythrocyte mean corpuscular volume [Entitic volume] (test code = 30933-3) 88.6 fL 86-100 mean corpuscular hemoglobin (test [...] Neutrophils.segmented/100 leukocytes in Blood (test code = 95349-2) 73.2 % 44.4-80.1 Granulocytes Immature [#/vol ume] in Blood (test code = 70910-8) 0.0 K/uL 0.0-0.03 lymphocyte% (test code = lymphocyte%) 19.2 % 10.0-50.0 mono % (test code = mono %) 5.5 % 3.6-12.0 eos % (test code = eos %) 1.4 % 0.0-5.4 Basophils/100 leukocytes in Unspecified specimen (test code = 17471-5) 0.3 % 0.1-1.2 Neutrophils.band form [#/vol ume] in Blood (test code = 51019-0) 8.00 K/uL 1.56-6.13 H Lymphocytes [#/volume] in Unspecified specimen by Automated count (test code = 24105-7) 2.1 K/uL 1.18-3.74 mono # (test code = mono #) 0.60 K/uL 0.24-0.86 eos # (test code = eos #) 0.15 K/uL 0.04-0.36 basophil # (test code = baso jerel #) 0.03 K/uL 0.01-0.08 NRBC% (test code = NRBC%) 0 /100 WBC 0-0.2 NRBC# (test code = NRBC#) 0 K/uL [facility] Oaksdifferential panel, [id number] 07:21:00 NeutrophilsBandLymphocyteAtypical LymphMonocyteEosinophilBasophilPlatelet EstimatePlatelet MorphologyHypochromasiaAnisocytosisMicrocytosisDohle BodiesToxic VacuolationMaH. C. Watkins Memorial HospitalPT/[id number] 07:21:00* Test Item Value Reference Range Interpretation Comme nts prothrombin time (test code = prothrombin time) 9.8 seconds 10.3-12.3 L INR in Blood by Coagulation assay (test code = 27632-7) 0.89 [facility] Oakspartial thromboplastin [id number] 07:21:00* Test Item Value Reference Range Interpretation Comme nts INR in Blood by Coagulation assay (test code = 71662-6) 29.3 seconds 22.5-37.0 [facility] OaksChoriogonadotropin.beta subunit [Units/volume] in Serum or [id number] 07:21:00* Test Item Value Reference Range Interpretation Comme nts HCG quantitative (test code = HCG quantitative) 7608.0 mIU/mL 0-5 [facility]aksUrinalysis macro (dipstick) panel - [id number] 16:09:30* Test Item Value Reference Range Interpretation Comme nts Leukocytes (test code = Leukocytes) Negative Nitrite (test code = Nitrite) negative Urobilinogen (test code = Urobilinogen) 2 Protein (test code = Protein) Negative pH (test code = pH) 6.0 Blood (test code = Blood) Negative Specific [place] (test code = Specific [place]) 1.030 Ketone (test code = Ketone) Small Bilirubin (test code = Bilirubin) Small Glucose (test code = Glucose) Negative Appearance (test code = Appearance) Clear Color (test code = Color) Yellow [facility]aksUrinalysis macro (dipstick) panel - [id number] 16:09:30* Test Item Value Reference Range Interpretation Comme nts Leukocytes (test code = Leukocytes) Negative Nitrite (test code = Nitrite) negative Urobilinogen (test code = Urobilinogen) 2 Protein (test code = Protein) Negative pH (test code = pH) 6.0 Blood (test code = Blood) Negative Specific [place] (test code = Specific [place]) 1.030 Ketone (test code = Ketone) Small Bilirubin (test code = Bilirubin) Small Glucose (test code = Glucose) Negative Appearance (test code = Appearance) Clear Color (test code = Color) Yellow [facility] GroupUrinalysis macro (dipstick) panel - [id number] 16:09:30* Test Item Value Reference Range Interpretation Comme nts Leukocytes (test code = Leukocytes) Negative Nitrite (test code = Nitrite) negative Urobilinogen (test code = Urobilinogen) 2 Protein (test code = Protein) Negative pH (test code = pH) 6.0 Blood (test code = Blood) Negative Specific [place] (test code = Specific [place]) 1.030 Ketone (test code = Ketone) Small Bilirubin (test code = Bilirubin) Small Glucose (test code = Glucose) Negative Appearance (test code = Appearance) Clear Color (test code = Color) Yellow [facility] GroupBacteria identified in Urine by [id number] 02:56:00* Test Item Value Reference Range Interpretation Comme nts Bacteria identified in Urine by Culture (test code = 630-4) no growth at 48 hrs. [facility] GroupBacteria identified in Urine by [id number] 02:56:00* Test Item Value Reference Range Interpretation Comme nts Bacteria identified in Urine by Culture (test code = 630-4) no growth at 48 hrs. [facility]aksUrinalysis macro (dipstick) panel - [id number] 09:37:30* Test Item Value Reference Range Interpretation Comme nts Leukocytes (test code = Leukocytes) Large Nitrite (test code = Nitrite) negative Urobilinogen (test code = Urobilinogen) .2 Protein (test code = Protein) Trace pH (test code = pH) 7.0 Blood (test code = Blood) Non-Hemolyzed: Trace Specific [place] (test code = Specific [place]) 1.020 Ketone (test code = Ketone) Negative Bilirubin (test code = Bilirubin) Negative Glucose (test code = Glucose) Negative Appearance (test code = Appearance) Clear Color (test code = Color) Yellow [facility] GroupUrinalysis macro (dipstick) panel - [id number] 09:37:30* Test Item Value Reference Range Interpretation Comme nts Leukocytes (test code = Leukocytes) Large Nitrite (test code = Nitrite) negative Urobilinogen (test code = Urobilinogen) .2 Protein (test code = Protein) Trace pH (test code = pH) 7.0 Blood (test code = Blood) Non-Hemolyzed: Trace Specific [place] (test code = Specific [place]) 1.020 Ketone (test code = Ketone) Negative Bilirubin (test code = Bilirubin) Negative Glucose (test code = Glucose) Negative Appearance (test code = Appearance) Clear Color (test code = Color) Yellow [facility]aksBacteria identified in Urine by [id number] 09:13:00Bacteria Ur CultMerit Health River Oaksantibiotic sensitivity testing, [id number] 09:13:00* Test Item Value Reference Range Interpretation Comme nts Penicillin [Susceptibility] by Minimum inhibitory concentration (KARINA) (test code = 6932-8) <0.03 Vancomycin [Susceptibility] by Minimum inhibitory concentration (KARINA) (test code = 524-9) 0.5 ug/mL Levofloxacin [Susceptibility ] by Minimum inhibitory concentration (KARINA) (test code = 05570-8) <2 Linezolid [Susceptibility] b y Minimum inhibitory concentration (KARINA) (test code = 80962-3) <2 Daptomycin [Susceptibility] by Minimum inhibitory concentration (KARINA) (test code = 31742-5) <0.5 [facility] OaksChromosome 13+18+21+X+Y aneuploidy in Blood by Molecular genetics method [id number] 00:00:00* Test Item Value Reference Range Interpretation [...] contacts (test code = contacts) see notes [facility]aksGenetic screen in Unspecified specimen by Molecular genetics method [id number] 00:00:00* Test Item Value Reference Range Interpretation [...] = polycystic kidney disease, autosomal recessive) negative afdbc-altvq-fjkrm syndrome ( test code = kjodj-obzwz-asvhs syndrome) negative spinal muscular atrophy (michelle t [...] yes zip code of the ordering fac [facility] (test code = zip code of the ordering facility) [id number] IS the patient currently usi ng hormonal [...] contacts (test code = contacts) see notes [facility] GroupMicroscopic observation [Identifier] in Cervix by Cyto stain.thin [id number] 10:40:00ResultsMatagorda Medical GroupMicroscopic observation [Identifier] in Cervix by Cyto stain.thin [id number] 10:40:00 ResultsMatagorda Medical GroupChlamydia trachomatis+Neisseria gonorrhoeae DNA [Presence] in Cervix by Probe and target amplification [id number] 10:32:00 ResultsMatagorda Medical GroupBacteria identified in Urine by [id number] 10:32:00Bacteria Ur CultMatagorda Medical GroupChlamydia trachomatis+Neisseria gonorrhoeae DNA [Presence] in Cervix by Probe and target amplification method 2019-03-12 10:32:00ResultsMatagorda Medical GroupBacteria identified in Urine by [id number] 10:32:00Bacteria Ur CultMatagorda Medical GroupUrinalysis macro (dipstick) panel - [id number] 09:44:32* Test Item Value Reference Range Interpretation Comme nts Leukocytes (test code = Leukocytes) Small Nitrite (test code = Nitrite) negative Urobilinogen (test code = Urobilinogen) 4 Protein (test code = Protein) 30 pH (test code = pH) 8.0 Blood (test code = Blood) Negative Specific [place] (test code = Specific [place]) 1.020 Ketone (test code = Ketone) Negative Bilirubin (test code = Bilirubin) Negative Glucose (test code = Glucose) Negative Appearance (test code = Appearance) Clear Color (test code = Color) Yellow [facility] GroupUrinalysis macro (dipstick) panel - [id number] 09:44:32* Test Item Value Reference Range Interpretation Comme nts Leukocytes (test code = Leukocytes) Small Nitrite (test code = Nitrite) negative Urobilinogen (test code = Urobilinogen) 4 Protein (test code = Protein) 30 pH (test code = pH) 8.0 Blood (test code = Blood) Negative Specific [place] (test code = Specific [place]) 1.020 Ketone (test code = Ketone) Negative Bilirubin (test code = Bilirubin) Negative Glucose (test code = Glucose) Negative Appearance (test code = Appearance) Clear Color (test code = Color) Yellow [facility]aksUrinalysis macro (dipstick) panel - [id number] 09:44:32* Test Item Value Reference Range Interpretation Comme nts Leukocytes (test code = Leukocytes) Small Nitrite (test code = Nitrite) negative Urobilinogen (test code = Urobilinogen) 4 Protein (test code = Protein) 30 pH (test code = pH) 8.0 Blood (test code = Blood) Negative Specific [place] (test code = Specific [place]) 1.020 Ketone (test code = Ketone) Negative Bilirubin (test code = Bilirubin) Negative Glucose (test code = Glucose) Negative Appearance (test code = Appearance) Clear Color (test code = Color) Yellow [facility] [facility] [id number] 12:15:00* Test Item Value Reference Range Interpretation Comme [facility] Test (test code = Test) positive [facility], [id number] 12:15:00* Test Item Value Reference Range Interpretation Comme [facility] Test (test code = Test) positive [facility], [id number] 12:15:00* Test Item Value Reference Range Interpretation Comme [facility] Test (test code = Test) positive [facility] Differential panel - [id number] 09:05:00 * Test Item Value Reference Range Interpretation Comme nts white blood count (test code = white blood count) 9.1 K/uL 4.0-11.5 red blood count (test code = red blood count) 4.96 M/uL 3.80-5.20 hemoglobin (test code = hemoglobin) 13.9 g/dL 10.5-15.7 hematocrit (test code = hematocrit) 44.0 % 34.0-50.0 Erythrocyte mean corpuscular volume [Entitic volume] (test code = 00478-8) 88.7 fL 86-100 Erythrocyte mean corpuscular hemoglobin [Entitic mass] (test code = 26145-2) 28.0 pg 26.2-33.4 mean corpuscular HGB conc (t est code = mean corpuscular HGB conc) 31.6 g/dL 30-34 red cell distribution width (test code = red cell distribution width) 12.9 % 12.0-15.5 platelet count (test code = platelet count) 378 K/uL 165-450 mean platelet volume (test c ode = mean platelet volume) 10.4 fL 9.4-12.6 Neutrophils.segmented/100 leukocytes in Blood (test code = 00669-4) 70.2 % 44.4-80.1 Ig% (test code = Ig%) 0.3 % 0.0-0.4 lymphocyte% (test code = lymphocyte%) 21.3 % 10.0-50.0 Monocytes/100 leukocytes in Blood by Automated count (test code = 5905-5) 5.3 % 3.6-12.0 Eosinophils/100 leukocytes i n Blood by Automated count (test code = 713-8) 2.6 % 0.0-5.4 Basophils/100 leukocytes in Unspecified specimen (test code = 05756-0) 0.3 % 0.1-1.2 absolute neutrophil count (t est code = absolute neutrophil count) 6.38 K/uL 1.56-6.13 H Ig# (test code = Ig#) 0.0 K/uL 0.0-0.03 Lymphocytes [#/volume] in Unspecified specimen by Automated count (test code = 08981-3) 1.9 K/uL 1.18-3.74 mono # (test code = mono #) 0.48 K/uL 0.24-0.86 eos # (test code = eos #) 0.24 K/uL 0.04-0.36 basophil # (test code = baso jerel #) 0.03 K/uL 0.01-0.08 NRBC% (test code = NRBC%) 0 /100 WBC 0-0.2 NRBC# (test code = NRBC#) 0 K/uL [facility], [id number] 09:05:00 NeutrophilsBandLymphocyteAtypical LymphMonocyteEosinophilBasophilMetamyelocyteMyelocyteNucleated Red Blood CellPlatelet EstimatePlatelet MorphologyPolychromasiaHypochromasiaPoikilocytosis [facility] GroupHemoglobin A1c [Mass/volume] in [id number] 09:05:00 * Test Item Value Reference Range Interpretation Comme nts Hemoglobin A1c in Blood (michelle t code = 57373-0) 5.0 % 4.0-6.0 [facility] GroupRubella virus IgG Ab [Titer] in [id number] 09:05:00 * Test Item Value Reference Range Interpretation Comme nts Rubella virus IgG Ab [Units/volume] in Serum by Immunoassay (test code = 5334-8) 286.5 [IU]/mL [facility] GroupHIV 1+2 Ab [Presence] in [id number] 09:05:00HIV P24 AgHIV-1/2 AbMatagorda Medical GroupABO & Rh group [Type] in [id number] 09:05:00* Test Item Value Reference Range Interpretation Comme nts Rh [Type] in Blood (test cod e = 61649-4) 3+ ABO and Rh group panel - Blo od (test code = 27462-0) O positive [facility] GroupBlood group antibody screen [Presence] in Serum or Plasma 2019-03-05 09:05:00* Test Item Value Reference Range Interpretation Comme nts Blood group antibody screen [Presence] in Serum or Plasma (test code = 890-4) negative [facility] GroupHepatitis B virus surface Ag [Presence] in Serum 2019-03-05 09:05:00* Test Item Value Reference Range Interpretation Comme nts .hepatitis B surface antigen (test code = .hepatitis B surface antigen) negative negative [facility] GroupBacteria identified in Urine by [id number] 09:05:00Bacteria Ur CultMatagorda Medical GroupReagin Ab [Presence] in Serum by [id number] 09:05:00* Test Item Value Reference Range Interpretation Comme nts Reagin Ab [Presence] in Seru m by RPR (test code = 15619-8) nonreactive nonreactive [facility] GroupCBC W Auto Differential panel - [id number] 09:05:00 * Test Item Value Reference Range Interpretation Comme nts white blood count (test code = white blood count) 9.1 K/uL 4.0-11.5 red blood count (test code = red blood count) 4.96 M/uL 3.80-5.20 hemoglobin (test code = hemoglobin) 13.9 g/dL 10.5-15.7 hematocrit (test code = hematocrit) 44.0 % 34.0-50.0 Erythrocyte mean corpuscular volume [Entitic volume] (test code = 73678-0) 88.7 fL 86-100 Erythrocyte mean corpuscular hemoglobin [Entitic mass] (test code = 46781-3) 28.0 pg 26.2-33.4 mean corpuscular HGB conc (t est code = mean corpuscular HGB conc) 31.6 g/dL 30-34 red cell distribution width (test code = red cell distribution width) 12.9 % 12.0-15.5 platelet count (test code = platelet count) 378 K/uL 165-450 mean platelet volume (test c ode = mean platelet volume) 10.4 fL 9.4-12.6 Neutrophils.segmented/100 leukocytes in Blood (test code = 96949-7) 70.2 % 44.4-80.1 Ig% (test code = Ig%) 0.3 % 0.0-0.4 lymphocyte% (test code = lymphocyte%) 21.3 % 10.0-50.0 Monocytes/100 leukocytes in Blood by Automated count (test code = 5905-5) 5.3 % 3.6-12.0 Eosinophils/100 leukocytes i n Blood by Automated count (test code = 713-8) 2.6 % 0.0-5.4 Basophils/100 leukocytes in Unspecified specimen (test code = 76079-3) 0.3 % 0.1-1.2 absolute neutrophil count (t est code = absolute neutrophil count) 6.38 K/uL 1.56-6.13 H Ig# (test code = Ig#) 0.0 K/uL 0.0-0.03 Lymphocytes [#/volume] in Unspecified specimen by Automated count (test code = 56299-0) 1.9 K/uL 1.18-3.74 mono # (test code = mono #) 0.48 K/uL 0.24-0.86 eos # (test code = eos #) 0.24 K/uL 0.04-0.36 basophil # (test code = baso jerel #) 0.03 K/uL 0.01-0.08 NRBC% (test code = NRBC%) 0 /100 WBC 0-0.2 NRBC# (test code = NRBC#) 0 K/uL [facility] Groupdifferential panel, [id number] 09:05:00 NeutrophilsBandLymphocyteAtypical LymphMonocyteEosinophilBasophilMetamyelocyteMyelocyteNucleated Red Blood CellPlatelet EstimatePlatelet MorphologyPolychromasiaHypochromasiaPoikilocytosis [facility] GroupHemoglobin A1c/Hemoglobin.total in [id number] 09:05:00* Test Item Value Reference Range Interpretation Comme nts Hemoglobin A1c in Blood (michelle t code = 47677-8) 5.0 % 4.0-6.0 [facility] GroupRubella virus Ab [Titer] in [id number] 09:05:00* Test Item Value Reference Range Interpretation Comme nts Rubella virus IgG Ab [Units/volume] in Serum by Immunoassay (test code = 5334-8) 286.5 [IU]/mL [facility] GroupHIV 1+2 Ab [Presence] in [id number] 09:05:00HIV P24 AgHIV-1/2 AbMatagorda Medical GroupABO & Rh group [Type] in [id number] 09:05:00* Test Item Value Reference Range Interpretation Comme nts Rh [Type] in Blood (test cod e = 26276-0) 3+ ABO and Rh group panel - Blo od (test code = 29755-5) O positive [facility] GroupBlood group antibody screen [Presence] in Serum or Plasma 2019-03-05 09:05:00* Test Item Value Reference Range Interpretation Comme nts Blood group antibody screen [Presence] in Serum or Plasma (test code = 890-4) negative [facility] GroupHepatitis B virus surface Ag [Presence] in Serum 2019-03-05 09:05:00* Test Item Value Reference Range Interpretation Comme nts .hepatitis B surface antigen (test code = .hepatitis B surface antigen) negative negative [facility]Bacteria identified in Urine by [id number] 09:05:00Bacteria Ur CultMataSt. Albans Hospital GroupReagin Ab [Presence] in Serum by [id number] 09:05:00* Test Item Value Reference Range Interpretation Comme nts Reagin Ab [Presence] in Seru m by RPR (test code = 19578-4) nonreactive nonreactive [facility]CB W Auto Differential panel - [id number] 09:05:00 * Test Item Value Reference Range Interpretation Comme nts white blood count (test code = white blood count) 9.1 K/uL 4.0-11.5 red blood count (test code = red blood count) 4.96 M/uL 3.80-5.20 hemoglobin (test code = hemoglobin) 13.9 g/dL 10.5-15.7 hematocrit (test code = hematocrit) 44.0 % 34.0-50.0 Erythrocyte mean corpuscular volume [Entitic volume] (test code = 50132-6) 88.7 fL 86-100 Erythrocyte mean corpuscular hemoglobin [Entitic mass] (test code = 27446-4) 28.0 pg 26.2-33.4 mean corpuscular HGB conc (t est code = mean corpuscular HGB conc) 31.6 g/dL 30-34 red cell distribution width (test code = red cell distribution width) 12.9 % 12.0-15.5 platelet count (test code = platelet count) 378 K/uL 165-450 mean platelet volume (test c ode = mean platelet volume) 10.4 fL 9.4-12.6 Neutrophils.segmented/100 leukocytes in Blood (test code = 62792-3) 70.2 % 44.4-80.1 Ig% (test code = Ig%) 0.3 % 0.0-0.4 lymphocyte% (test code = lymphocyte%) 21.3 % 10.0-50.0 Monocytes/100 leukocytes in Blood by Automated count (test code = 5905-5) 5.3 % 3.6-12.0 Eosinophils/100 leukocytes i n Blood by Automated count (test code = 713-8) 2.6 % 0.0-5.4 Basophils/100 leukocytes in Unspecified specimen (test code = 03291-5) 0.3 % 0.1-1.2 absolute neutrophil count (t est code = absolute neutrophil count) 6.38 K/uL 1.56-6.13 H Ig# (test code = Ig#) 0.0 K/uL 0.0-0.03 Lymphocytes [#/volume] in Unspecified specimen by Automated count (test code = 12375-5) 1.9 K/uL 1.18-3.74 mono # (test code = mono #) 0.48 K/uL 0.24-0.86 eos # (test code = eos #) 0.24 K/uL 0.04-0.36 basophil # (test code = baso jerel #) 0.03 K/uL 0.01-0.08 NRBC% (test code = NRBC%) 0 /100 WBC 0-0.2 NRBC# (test code = NRBC#) 0 K/uL [facility], [id number] 09:05:00 NeutrophilsBandLymphocyteAtypical LymphMonocyteEosinophilBasophilMetamyelocyteMyelocyteNucleated Red Blood CellPlatelet EstimatePlatelet MorphologyPolychromasiaHypochromasiaPoikilocytosis [facility]aksHemoglobin A1c/Hemoglobin.total in [id number] 09:05:00* Test Item Value Reference Range Interpretation Comme nts Hemoglobin A1c in Blood (michelle t code = 22573-2) 5.0 % 4.0-6.0 [facility]aksRubella virus Ab [Titer] in [id number] 09:05:00* Test Item Value Reference Range Interpretation Comme nts Rubella virus IgG Ab [Units/volume] in Serum by Immunoassay (test code = 5334-8) 286.5 [IU]/mL [facility]aksHIV 1+2 Ab [Presence] in [id number] 09:05:00HIV P24 AgHIV-1/2 AbMatagorda Medical GroupABO & Rh group [Type] in [id number] 09:05:00* Test Item Value Reference Range Interpretation Comme nts Rh [Type] in Blood (test cod e = 88156-7) 3+ ABO and Rh group panel - Blo od (test code = 01022-9) O positive [facility] GroupBlood group antibody screen [Presence] in Serum or Plasma 2019-03-05 09:05:00* Test Item Value Reference Range Interpretation Comme nts Blood group antibody screen [Presence] in Serum or Plasma (test code = 890-4) negative [facility] GroupHepatitis B virus surface Ag [Presence] in Serum 2019-03-05 09:05:00* Test Item Value Reference Range Interpretation Comme nts .hepatitis B surface antigen (test code = .hepatitis B surface antigen) negative negative [facility] GroupBacteria identified in Urine by [id number] 09:05:00Bacteria Ur CultMawashington county regional medical centera Medical GroupReagin Ab [Presence] in Serum by [id number] 09:05:00* Test Item Value Reference Range Interpretation Comme nts Reagin Ab [Presence] in Seru m by RPR (test code = 22124-1) nonreactive nonreactive [facility]
--- NOTE | 2024-04-01 17:29 | RAD REPORT ---
EXAM DESCRIPTION: RAD - Chest Pa And Lat (2 Views) - 04/01/2024 5:22 pm CLINICAL HISTORY: Cough;Dyspnea COMPARISON: <Comparisons> FINDINGS: Lines: None. Lungs: Mild ill-defined opacities at the left lung base. Pleural: No significant pleural effusions or pneumothorax. Cardiac: The heart size is within normal limits. Mediastinum: Within normal limits. Bones: Left-sided rib fractures again noted. Other: None IMPRESSION: Mild ill-defined opacities at the left lung base could reflect atelectasis and/or pneumo jayro. Overall, little change since the CT from 03/23/2024.
[2024-04-01] MEDS ORDERED: ALBUTEROL 2.5 MG/3 ML NEB SOL ONE (19:48)
[2024-04-01] MEDS ORDERED: dexAMETHasone 10 MG/ML VIAL ONE (19:48)
[2024-04-01] MEDS ORDERED: IPRATROPIUM BROM 0.5MG/2.5ML ONE (19:48)
--- NOTE | 2024-04-01 20:19 | EDPHYS ---
Physician Documentation [facility] Name: Debora Nitin Age: 28 yrs Sex: Female : 1995 Arrival Date: 04/01/2024 Time: 16:39 Bed DX2 Private MD: ED Physician Burke Kee HPI: 04/01 22:22 This 28 yrs old Female presents to ER via Ambulatory with complaints of Cough, kb Shortness Of Breath - for 3 days. 22:22 Pt is a 28 year old female who presents with cough and shortness of breath for 3 days. kb States she broke her ribs a couple of weeks ago and has had pain to the area ever since. States she had developed pneumonia at that time as well and completed all antibiotics. Denies fever. . Historical: - Allergies: 16:54 PENICILLINS; cm10 - PMHx: 16:54 None; cm10 - PSHx: 16:54 Cholecystectomy; right eye; tubal; cm10 - Immunization history:: Adult Immunizations up to date. - Infectious Disease History:: Denies. - Social history:: Smoking status: Reported history of juuling and/or vaping. ROS: 22:22 Constitutional: As per HPI kb Exam: 22:22 Constitutional: This is a well developed, well nourished patient who is awake, alert, kb and in no acute distress. Head/Face: Normocephalic, atraumatic. ENT: Moist Mucous membranes Cardiovascular: Regular rate Respiratory: Respirations even and unlabored. No increased work of breathing. Talking in full sentences Abdomen/GI: Soft, non-tender. No distention Skin: Warm, dry with normal turgor. Normal color. MS/ Extremity: Pulses equal, no cyanosis. Neurovascular intact. Full, normal range of motion. Neuro: Awake and alert, GCS 15, oriented to person, place, time, and situation. Moves all extremities. Normal gait. Vital Signs: 16:52 BP 129 / 90; Pulse 100; Resp 17; Temp 98.2(TE); Pulse Ox 99% ; Weight 84.37 kg (R); cm10 Height 5 ft. 3 in. (R); Pain 7/10; 16:52 Body Mass Index 32.95 (84.37 kg, 160.02 cm) cm10 16:52 Pain Scale: Adult cm10 MDM: 16:50 Patient medically screened. kb 22:23 Differential Diagnosis: Upper Respiratory Infection Pneumonia. Data reviewed: vital kb signs, nurses notes. Consideration of Admission/Observation Escalation of care including admission/observation considered. admission considered but pt is afebrile, nontoxic in appearance and reports she is feeling much better after neb treatment. States she has a nebulizer at home and requests a prescription for solution. . Counseling: I had a detailed discussion with the patient and/or guardian regarding the historical points, exam findings, and any diagnostic results supporting the discharge/admit diagnosis, radiology results, the need for outpatient follow up, a family practitioner, to return to the emergency department if symptoms worsen or persist or if there are any questions or concerns that arise at home. 04/01 16:54 Order name: Chest Pa And Lat (2 Views) XRAY; Complete Time: 17:38 kb Administered Medications: 19:54 Drug: Albuterol Inhalation 2.5 mg Inhalation once Route: Inhalation; jb4 20:40 Follow up: Response: No adverse reaction; Marked relief of symptoms jb4 19:54 Drug: Ipratropium Inhalation Aerosol 0.5 mg Inhalation once Route: Inhalation; jb4 20:39 Follow up: Response: No adverse reaction; Marked relief of symptoms jb4 19:54 Drug: Dexamethasone IM 10 mg IM once Route: IM; Site: left deltoid; jb4 20:39 Follow up: Response: No adverse reaction jb4 20:39 Drug: AZITHromycin PO 500 mg PO once Route: PO; jb4 20:40 Follow up: Response: Medication administered at discharge. jb4 20:39 Drug: predniSONE PO 40 mg PO once Route: PO; jb4 20:40 Follow up: Response: Medication administered at discharge. jb4 Disposition Summary: 04/01/24 20:19 Discharge Ordered Notes: Location: Home kb Condition: Stable kb Diagnosis - Pneumonia, unspecified organism kb Followup: kb - With: Emergency Department - When: As needed - Reason: Worsening of condition Followup: kb - With: Private Physician - When: 2 - 3 days - Reason: Recheck today's complaints, Continuance of care, Re-evaluation by your physician Discharge Instructions: - Discharge Summary Sheet kb - Community-Acquired Pneumonia, Adult, [id number] kb Forms: - Medication Reconciliation Form kb - Antibiotic Education kb - Prescription Opioid Use kb - Patient Portal Instructions kb - Leadership Thank You Letter kb Prescriptions: - albuterol sulfate 90 mcg/actuation Inhalation HFA Aerosol Inhaler - inhale 2 puff INHALATION route every 4 to 6 hours As needed; 1 Unspecified; kb Refills: 0, Product Selection Permitted - Prednisone 20 mg Oral Tablet - take 1 tablet ORAL route once daily for 5 days; 5 tablet; Refills: 0, Product kb Selection Permitted - Albuterol Sulfate 2.5 mg /3 mL (0.083 %) Inhalation Solution for Nebulization - inhale 1 unit NEBULIZATION route every 8 hours As needed; 1 unit; Refills: 0, kb Product Selection Permitted - Zithromax 500 mg Oral Tablet - take 1 tablet ORAL route once daily for 5 days; 5 tablet; Refills: 0, Product kb Selection Permitted Signatures: Dispatcher [employer] Giovana Tripp, LUISC James Edmonds, RN RN jb4 Jody Tse RN RN cm10
--- NOTE | 2024-04-01 20:19 | ER ---
Nurse's Notes [facility] [place] Name: Debora Taveras Age: 28 yrs Sex: Female : 1995 Arrival Date: 04/01/2024 Time: 16:39 Bed DX2 Private MD: Diagnosis: Pneumonia, unspecified organism Presentation: 04/01 16:52 Chief complaint: Patient states: Diagnosed with pneumonia 2 weeks ago and is not cm10 getting any better. Pt reports her cough is getting worse and is having intermittent fevers. Coronavirus screen: Client denies travel out of the [place] in the last 14 days. At this time, the client does not indicate any symptoms associated with coronavirus-19. Ebola Screen: Patient denies travel to an Ebola-affected area in the 21 days before illness onset. No symptoms or risks identified at this time. Initial Sepsis Screen: Does the patient meet any 2 criteria? No. Patient's initial sepsis screen is negative. Does the patient have a suspected source of infection? No. Patient's initial sepsis screen is negative. Risk Assessment: Do you want to hurt yourself or someone else? Patient reports no desire to harm self or others. Onset of symptoms was April 01, 2024. 16:52 Method Of Arrival: Ambulatory cm10 16:52 Acuity: LIZY 3 cm10 Historical: - Allergies: 16:54 PENICILLINS; cm10 - PMHx: 16:54 None; cm10 - PSHx: 16:54 Cholecystectomy; right eye; tubal; cm10 - Immunization history:: Adult Immunizations up to date. - Infectious Disease History:: Denies. - Social history:: Smoking status: Reported history of juuling and/or vaping. Screenin:41 [facility] ED Fall Risk Assessment (Adult) History of falling in the last 3 months, jb4 including since admission No falls in past 3 months (0 pts) Confusion or Disorientation No (0 pts) Intoxicated or Sedated No (0 pts) Impaired Gait No (0 pts) Mobility Assist Device Used No (0 pt) Altered Elimination No (0 pt) Score/Fall Risk Level 0 - 2 = Low Risk Oriented to surroundings, Maintained a safe environment. Abuse screen: Denies threats or abuse. Nutritional screening: No deficits noted. Tuberculosis screening: No symptoms or risk factors identified. Assessment: 19:40 General: Appears in no apparent distress. comfortable, Behavior is calm, cooperative, jb4 appropriate for age. Pain: Denies pain. Neuro: Level of Consciousness is awake, alert, obeys commands, Oriented to person, place, time, situation. Cardiovascular: Patient's skin is warm and dry. Respiratory: Reports shortness of breath at rest on exertion cough that is non-productive, persistent Airway is patent Respiratory effort is even, unlabored, Respiratory pattern is regular, symmetrical. GI: No signs and/or symptoms were reported involving the gastrointestinal system. : No signs and/or symptoms were reported regarding the genitourinary system. EENT: No signs and/or symptoms were reported regarding the EENT system. Derm: Skin is intact, Skin is pink, warm \T\ dry. Musculoskeletal: Circulation, motion, and sensation intact. Range of motion: intact in all extremities. 20:41 Reassessment: Patient appears in no apparent distress at this time. Patient and/or jb4 family updated on plan of care and expected duration. Pain level reassessed. Patient is alert, oriented x 3, equal unlabored respirations, skin warm/dry/pink. Patient states feeling better. Patient states symptoms have improved. Vital Signs: 16:52 BP 129 / 90; Pulse 100; Resp 17; Temp 98.2(TE); Pulse Ox 99% ; Weight 84.37 kg (R); cm10 Height 5 ft. 3 in. (R); Pain 7/10; 16:52 Body Mass Index 32.95 (84.37 kg, 160.02 cm) cm10 16:52 Pain Scale: Adult cm10 ED Course: 16:41 Patient arrived in ED. im 16:50 Giovana Ulloa FNP-C is PHCP. kb 16:50 Burke Kee MD is Attending Physician. kb 16:54 Triage completed. cm10 16:54 Arm band placed on Patient placed in an exam room. cm10 17:24 Chest Pa And Lat (2 Views) XRAY In Process Unspecified. EDMS 20:41 Patient has correct armband on for positive identification. Call light in reach. Side jb4 rails up X 1. Provided Education on: discharge instructions.. 20:41 No provider procedures requiring assistance completed. Patient did not have IV access jb4 during this emergency room visit. Administered Medications: 19:54 Drug: Albuterol Inhalation 2.5 mg Inhalation once Route: Inhalation; jb4 20:40 Follow up: Response: No adverse reaction; Marked relief of symptoms jb4 19:54 Drug: Ipratropium Inhalation Aerosol 0.5 mg Inhalation once Route: Inhalation; jb4 20:39 Follow up: Response: No adverse reaction; Marked relief of symptoms jb4 19:54 Drug: Dexamethasone IM 10 mg IM once Route: IM; Site: left deltoid; jb4 20:39 Follow up: Response: No adverse reaction jb4 20:39 Drug: AZITHromycin PO 500 mg PO once Route: PO; jb4 20:40 Follow up: Response: Medication administered at discharge. jb4 20:39 Drug: predniSONE PO 40 mg PO once Route: PO; jb4 20:40 Follow up: Response: Medication administered at discharge. jb4 Medication: 20:41 VIS not applicable for this client. jb4 Outcome: 20:19 Discharge ordered by . kb 20:41 Discharged to home ambulatory, jb4 20:41 Condition: stable 20:41 Discharge instructions given to patient, Instructed on discharge instructions, follow up and referral plans. medication usage, Demonstrated understanding of medications, Prescriptions given X 4, 20:42 Patient left the ED. jb4 Signatures: Dispatcher [employer] EDMS Giovana Ulloa, LUISC [employer]-James Tran RN RN jb4 Mari Chaparro Clarissa RN RN cm10
[2024-04-01] MEDS ORDERED: predniSONE 20 MG TAB ONE (20:33)
[2024-04-01] MEDS ORDERED: AZITHROMYCIN 250 MG TAB ONE (20:33)
[2024-04-01 20:47] VITALS: BP 129/90; TEMP 98.2; O2SAT 99
== END 2024-04-01 20:42 | disposition home or self-care (01) ==
LOC: ER 16:39
DX: J18.9 Pneumonia, unspecified organism (principal)
CPT/HCPCS: 71046; J1100; J7512; J7613; J7644

== ENCOUNTER 2024-07-22 11:29 | Emergency (ER) | payer SELFPAY ==
--- OUTSIDE RECORDS SUMMARY | 2024-07-22 11:34 | XMS REPORT | Continuity of Care Document ---
Author Name Unknown Address [address] [facility] [place]. [address] [place] [address] [facility] Address [address] [facility] [place]. [address] [place] [address] Care Team Providers Care Pencils Washer Name Role Phone G_Reuben Attending Clinician Unavailable MARC ALEXIS Attending Clinician Unavailmame LEWIS_ALEX Attending Clinician Unavailable LING PACE Attending Clinician Unavailable REYES LOYA Attending Clinician Unavailable LEANA WARD Attending Clinician UnavailLINDA Love Attending Clinician Unavailable JON VIGIL Attending Clinician Unavailable LUCIA JAVIER Attending Clinician Unavailable DONNA CESPEDES Attending Clinician UnavailARANZA Duenas Attending Clinician Unavailable JORDAN MENSAH Attending Clinician Unavailab KARINA Hernandez Attending Clinician Unavailable ANNA BOGGS Attending Clinician Unavailable Azeem Admitting Clinician Unavailable ANTHONY Admitting Clinician Unavailable MARC ALEXIS Admitting Clinician UnavailLEANA Garcia Admitting Clinician Unavaila ble Payers Payer Name Policy Type Policy Number Effective Date Expirati on Date Source [facility] (MEDICAID HMO) [id number] 2016 00:00:00 Problems Condition Name Condition Details Condition Category Status Onset Date Resolution Date Last Treatment Date Treating Clinician Comments Source Sterilizat ion requested Sterilizat ion Requested Problem Active 2019-08 00:00: 00 [facility] Removal of subcutaneo us contracept nieves Removal of Subcutaneo us Contracept nieves Problem Active 2019-08 00:00: 00 [facility] Chronic post-traum atic stress disorder Chronic Post-traum atic Stress Disorder Problem Active 07 00:00: 00 [facility] Depressive disorder Depressive Disorder Problem Active 5-04 00:00: 00 [facility] Insomnia Insomnia Problem Active 504 00:00: 00 [facility] Bacterial vaginosis Bacterial Vaginosis Problem Active 3-03 00:00: 00 [facility] care Care Problem Active 3-03 00:00: 00 [facility] Pruritus [...] , Antepartum Problem Active 05-01 00:00: 00 [facility] Generalize d headache Generalize d Headache Problem Active 06 00:00: 00 [facility] Moderate hyperemesi s gravidarum Moderate Hyperemesi s Gravidarum Problem Active 03-12 00:00: 00 [facility] Bacterial vaginosis in Bacterial Vaginosis in Problem Active 03-12 00:00: 00 [facility] Cyst of ovary Cyst of Ovary Problem Active 03-05 00:00: 00 [facility] Hyperemesi s gravidarum Hyperemesi s Gravidarum Problem Active 03-05 00:00: 00 [facility] Subchorion ic hematoma Subchorion ic Hematoma Problem Active 03-05 00:00: 00 [facility] Chronic constipati on Chronic Constipati on Problem Active [facility] Allergies, Adverse Reactions, Alerts Allergy Name Allergy Type Status Severity Reaction(s) Onset Date Inactive Date Treating Clinician Comments Source [place] INS Allergy to substanc e Active Moderate Rash [facility] Social History Smoking Status Start Date Stop Date Source Former Smoker [facility] Never Smoker [facility] Medications Ordered Medication Name Filled Medication Name Start Date Stop Date Current Medication? Ordering Clinician Indication Dosage Frequency Signature (SIG) Comments Components Source acetaminoph en 300 mg-codeine 30 mg tablet 1-2 p.o. q 6 hrs PRN pain acetaminoph en 300 mg-codeine 30 mg tablet 1-2 p.o. q 6 hrs PRN pain No acetaminop hen 300 mg-codeine 30 mg tablet 1-2 p.o. q 6 hrs PRN pain [facility] butalbital- acetaminoph en-caffeine 50 mg-325 mg-40 mg tablet Take 1 tablet every 4 hours by oral route. butalbital- acetaminoph en-caffeine 50 mg-325 mg-40 mg tablet Take 1 tablet every 4 hours by oral route. No 1 Q4H butalbital -acetamino phen-caffe ine 50 mg-325 mg-40 mg tablet Take 1 tablet every 4 hours by oral route. [facility] escitalopra m 20 mg tablet Take 1 tablet every day by oral route. escitalopra m 20 mg tablet Take 1 tablet every day by oral route. No escitalopr am 20 mg tablet Take 1 tablet every day by oral route. [facility] ibuprofen 600 mg tablet ibuprofen 600 mg tablet No ibuprofen 600 mg tablet [facility] ibuprofen 800 mg tablet Take 1 tablet every 6 hours by oral route as needed. ibuprofen 800 mg tablet Take 1 tablet every 6 hours by oral route as needed. No ibuprofen 800 mg tablet Take 1 tablet every 6 hours by oral route as needed. [facility] lidocaine (PF) 10 mg/mL (1 %) injection solution Take 3 mL by injection route. lidocaine (PF) 10 mg/mL (1 %) injection solution Take 3 mL by injection route. No 3mL lidocaine (PF) 10 mg/mL (1 %) injection solution Take 3 mL by injection route. [facility] Nexplanon 68 mg subdermal implant Inject 1 implant by subcutaneou s route. Nexplanon 68 mg subdermal implant Inject 1 implant by subcutaneou s route. No 1implan t(s) Nexplanon 68 mg subdermal implant Inject 1 implant by subcutaneo us route. [facility] Off Deep Butler 25 % topical spray Off Deep Butler 25 % topical spray No Off Deep Butler 25 % topical spray [facility] zolpidem 5 mg tablet Take 1 tablet as needed by oral route. zolpidem 5 mg tablet Take 1 tablet as needed by oral route. No zolpidem 5 mg tablet Take 1 tablet as needed by oral route. [facility] citalopram 20 mg tablet citalopram 20 mg tablet No citalopram [address] [facility] escitalopra m 20 mg tablet Take 1 tablet every day by oral route. escitalopra m 20 mg tablet Take 1 tablet every day by oral route. No escitalopr am 20 mg tablet Take 1 tablet every day by oral route. [facility] ibuprofen 600 mg tablet ibuprofen 600 mg tablet No ibuprofen [address] [facility] Nexplanon 68 mg subdermal implant Nexplanon 68 mg subdermal implant No Nexplanon [address] [facility] Vital Signs Vital Name Observation Time Observation Value Comments S ource BP Diastolic 2020-07-18 00:00:00 84 mm[Hg] [facility] Height 2020-07-18 00:00:00 63 [in_i] [facility] BMI (Body Mass Index) 2020-07-18 00:00:00 36.8 kg/m2 [facility] BP Systolic 2020-07-18 00:00:00 125 mm[Hg] [facility] Body Weight 2020-07-18 00:00:00 207.5 [lb_av] [facility] BP Diastolic 2020-07-01 00:00:00 82 mm[Hg] [facility] Height 2020-07-01 00:00:00 63 [in_i] [facility] BMI (Body Mass Index) 2020-07-01 00:00:00 36.2 kg/m2 [facility] BP Systolic 2020-07-01 00:00:00 115 mm[Hg] [facility] Body Weight 2020-07-01 00:00:00 204.4 [lb_av] [facility] BP Diastolic 2020-05-31 00:00:00 90 mm[Hg] [facility] Height 2020-05-31 00:00:00 63 [in_i] [facility] BMI (Body Mass Index) 2020-05-31 00:00:00 35.8 kg/m2 [facility] BP Systolic 2020-05-31 00:00:00 133 mm[Hg] [facility] Body Weight 2020-05-31 00:00:00 202 [lb_av] [facility] BP Diastolic 2019-12-28 00:00:00 83 mm[Hg] [facility] Height 2019-12-28 00:00:00 63 [in_i] [facility] BMI (Body Mass Index) 2019-12-28 00:00:00 33.5 kg/m2 [facility] BP Systolic 2019-12-28 00:00:00 118 mm[Hg] [facility] Body Weight 2019-12-28 00:00:00 189 [lb_av] [facility] BP Diastolic 2019-12-21 00:00:00 92 mm[Hg] [facility] Height 2019-12-21 00:00:00 63 [in_i] [facility] BMI (Body Mass Index) 2019-12-21 00:00:00 33.3 kg/m2 [facility] BP Systolic 2019-12-21 00:00:00 134 mm[Hg] [facility] Body Weight 2019-12-21 00:00:00 188 [lb_av] [facility] BP Diastolic 2019-10-27 00:00:00 73 mm[Hg] [facility] Height 2019-10-27 00:00:00 63 [in_i] [facility] BMI (Body Mass Index) 2019-10-27 00:00:00 32.5 kg/m2 [facility] BP Systolic 2019-10-27 00:00:00 114 mm[Hg] [facility] Body Weight 2019-10-27 00:00:00 183.3 [lb_av] [facility] BP Diastolic 2019-09-29 00:00:00 73 mm[Hg] [facility] Height 2019-09-29 00:00:00 63 [in_i] [facility] BMI (Body Mass Index) 2019-09-29 00:00:00 36.3 kg/m2 [facility] BP Systolic 2019-09-29 00:00:00 125 mm[Hg] [facility] Body Weight 2019-09-29 00:00:00 204.8 [lb_av] [facility] BP Diastolic 2019-09-22 00:00:00 80 mm[Hg] [facility] Height 2019-09-22 00:00:00 63 [in_i] [facility] BMI (Body Mass Index) 2019-09-22 00:00:00 36.6 kg/m2 [facility] BP Systolic 2019-09-22 00:00:00 120 mm[Hg] [facility] BP Diastolic 2019 00:00:00 80 mm[Hg] [facility] Height 2019 00:00:00 63 [in_i] [facility] BMI (Body Mass Index) 2019 00:00:00 36.3 kg/m2 [facility] BP Systolic 2019 00:00:00 117 mm[Hg] [facility] Body Weight 2019 00:00:00 204.9 [lb_av] [facility] BP Diastolic 2019-08-20 00:00:00 70 mm[Hg] [facility] Height 2019-08-20 00:00:00 63 [in_i] [facility] BMI (Body Mass Index) 2019-08-20 00:00:00 35.8 kg/m2 [facility] BP Systolic 2019-08-20 00:00:00 114 mm[Hg] [facility] Body Weight 2019-08-20 00:00:00 202 [lb_av] [facility] BP Diastolic 2019-08-03 00:00:00 77 mm[Hg] [facility] Height 2019-08-03 00:00:00 63 [in_i] [facility] BMI (Body Mass Index) 2019-08-03 00:00:00 35.6 kg/m2 [facility] BP Systolic 2019-08-03 00:00:00 118 mm[Hg] [facility] Body Weight 2019-08-03 00:00:00 3218 [oz_av] [facility] BP Diastolic 2019-07-31 00:00:00 79 mm[Hg] [facility] Height 2019-07-31 00:00:00 63 [in_i] [facility] BMI (Body Mass Index) 2019-07-31 00:00:00 35.4 kg/m2 [facility] BP Systolic 2019-07-31 00:00:00 119 mm[Hg] [facility] Body Weight 2019-07-31 00:00:00 200 [lb_av] [facility] BP Diastolic 2019-07-22 00:00:00 72 mm[Hg] [facility] Height 2019-07-22 00:00:00 63 [in_i] [facility] BMI (Body Mass Index) 2019-07-22 00:00:00 34.9 kg/m2 [facility] BP Systolic 2019-07-22 00:00:00 112 mm[Hg] [facility] Body Weight 2019-07-22 00:00:00 197.1 [lb_av] [facility] BP Diastolic 2019-06-30 00:00:00 70 mm[Hg] [facility] Height 2019-06-30 00:00:00 63 [in_i] [facility] BMI (Body Mass Index) 2019-06-30 00:00:00 34 kg/m2 [facility] BP Systolic 2019-06-30 00:00:00 114 mm[Hg] [facility] Body Weight 2019-06-30 00:00:00 191.9 [lb_av] [facility] BP Diastolic 2019-06-23 00:00:00 84 mm[Hg] [facility] Height 2019-06-23 00:00:00 63 [in_i] [facility] BMI (Body Mass Index) 2019-06-23 00:00:00 34.2 kg/m2 [facility] BP Systolic 2019-06-23 00:00:00 127 mm[Hg] [facility] Body Weight 2019-06-23 00:00:00 193.2 [lb_av] [facility] BP Diastolic 2019-05-29 00:00:00 68 mm[Hg] [facility] Height 2019-05-29 00:00:00 63 [in_i] [facility] BMI (Body Mass Index) 2019-05-29 00:00:00 33.6 kg/m2 [facility] BP Systolic 2019-05-29 00:00:00 110 mm[Hg] [facility] Body Weight 2019-05-29 00:00:00 189.7 [lb_av] [facility] BP Diastolic 2019-05-11 00:00:00 76 mm[Hg] [facility] Height 2019-05-11 00:00:00 63 [in_i] [facility] BMI (Body Mass Index) 2019-05-11 00:00:00 33.5 kg/m2 [facility] BP Systolic 2019-05-11 00:00:00 113 mm[Hg] [facility] Body Weight 2019-05-11 00:00:00 189.3 [lb_av] [facility] BP Diastolic 2019-05-01 00:00:00 69 mm[Hg] [facility] Height 2019-05-01 00:00:00 63 [in_i] [facility] BMI (Body Mass Index) 2019-05-01 00:00:00 33.8 kg/m2 [facility] BP Systolic 2019-05-01 00:00:00 113 mm[Hg] [facility] Body Weight 2019-05-01 00:00:00 190.6 [lb_av] [facility] BP Diastolic 2019-04-02 00:00:00 81 mm[Hg] [facility] Height 2019-04-02 00:00:00 63 [in_i] [facility] BMI (Body Mass Index) 2019-04-02 00:00:00 33.8 kg/m2 [facility] BP Systolic 2019-04-02 00:00:00 116 mm[Hg] [facility] Body Weight 2019-04-02 00:00:00 190.8 [lb_av] [facility] BP Diastolic 2019-03-25 00:00:00 85 mm[Hg] [facility] Height 2019-03-25 00:00:00 63 [in_i] [facility] BMI (Body Mass Index) 2019-03-25 00:00:00 33.8 kg/m2 [facility] BP Systolic 2019-03-25 00:00:00 133 mm[Hg] [facility] Body Weight 2019-03-25 00:00:00 191 [lb_av] [facility] BP Diastolic 2019-03-12 00:00:00 80 mm[Hg] [facility] Height 2019-03-12 00:00:00 63 [in_i] [facility] BMI (Body Mass Index) 2019-03-12 00:00:00 26.7 kg/m2 [facility] BP Systolic 2019-03-12 00:00:00 107 mm[Hg] [facility] Body Weight 2019-03-12 00:00:00 151 [lb_av] [facility] BP Diastolic 2019-03-05 00:00:00 81 mm[Hg] [facility] Height 2019-03-05 00:00:00 63 [in_i] [facility] BMI (Body Mass Index) 2019-03-05 00:00:00 34.2 kg/m2 [facility] BP Systolic 2019-03-05 00:00:00 117 mm[Hg] [facility] Body Weight 2019-03-05 00:00:00 193 [lb_av] [facility] Procedures Procedure Date / Time Performed Performing Clinician Source US, obstetric, limited 2019-09-22 00:00:00 [facility] non-stress test 2019-09-22 00:00:00 [facility] US, obstetric, limited 2019-08-20 00:00:00 [facility] ULTRASOUND REPEAT 2019-07-22 00:00:00 [facility] US, obstetric, limited 2019-05-29 00:00:00 [facility] US, obstetric, limited 2019-05-01 00:00:00 [facility] ULTRASOUND, UTERUS REAL TIME WITH IMAGE DOC, AND MATERNAL EVAL PLUS DETAILED ANATOMIC EXAMINATION, TRANSABDOMINAL APPROACH; SINGLE OR FIRST GESTATION 2019-05-01 00:00:00 [facility] US, obstetric, limited 2019-04-02 00:00:00 [facility] US, obstetric, limited 2019-03-25 00:00:00 [facility] ULTRASOUND, UTERUS REAL TIME WITH IMAGE DOCUMENTAITON, TRANSVAGINAL 2019-03-12 00:00:00 [facility] Eye Surgery 2000-02-24 00:00:00 [facility] Plan of Care Planned Activity Planned Date Details Comments Source Diagnostic Test Pending 2020-07-18 00:00:00 urinalysis, dipstick [code = urinalysis, dipstick] [facility] Encounters Start Date/Time End Date/Time Encounter Type Admission Type Attending [facility] Care Department Encounter ID Source 2020-08-04 09:39:00 2020-08-04 09:39:00 Outpatient G_Pappas [facility] [id number] [facility] 2020-07-18 04:16:00 2020-07-18 04:16:00 Outpatient G_Pappas [facility] [id number] [facility] 2020-07-18 00:00:00 2020-07-18 00:00:00 Marc Alexis MD: [address] [address] , Ph. [phone] [facility] [id number] [facility] 2020-07-13 02:48:00 2020-07-13 02:48:00 Outpatient G_Pappas [facility] MMG [id number] [facility] 2020-07-06 06:07:00 2020-07-06 06:07:00 Outpatient MARC [facility]URRELL [facility] [id number] [facility] 2020-07-01 02:37:00 2020-07-01 02:37:00 Outpatient G_Pappas [facility] MMG [id number] [facility] 2020-07-01 02:37:00 2020-07-01 02:37:00 Outpatient G_Pappas [facility] MMG [id number] [facility] 2020-07-01 00:00:00 2020-07-01 00:00:00 Marc Alexis MD: [address] [address] , Ph. [phone] [facility] [id number] [facility] 2020-06-27 11:46:00 2020-06-27 11:46:00 [id number] 2020-05-31 03:21:00 2020-05-31 03:21:00 Outpatient G_Pappas [facility] [id number] [facility] 2020-05-31 03:21:00 2020-05-31 03:21:00 Outpatient [facility] [id number] [facility] 2020-05-31 00:00:00 2020-05-31 00:00:00 Marc Alexis MD: 600 [facility] [address], [place] [address] , Ph. [phone] [facility] [id number] 2020-01-14 04:03:00 2020-01-14 04:03:00 Outpatient [facility] [id number] [facility] 2020-01-14 00:00:00 2020-01-14 00:00:00 Alex Ibarra, JOSHUAYD: [address] [place] [address] , Ph. [phone] [facility] [id number] [facility] 2020-01-06 16:35:00 2020-01-06 17:54:00 Emergency ER LING PACE [facility] [id number] [facility] 2020-01-05 05:00:00 2020-01-05 05:00:00 Outpatient FERGUSON_WILMA [facility] [id number] [facility] 2020-01-05 00:00:00 2020-01-05 00:00:00 Alex Ibarra, PSYD: [address] [place] [address] , Ph. [phone] [facility] [id number] [facility] 2019-12-31 05:36:00 2019-12-31 05:36:00 Outpatient [facility] [id number] [facility] 2019-12-31 00:00:00 2019-12-31 00:00:00 Alex Ibarra, PSYD: [address] [place] [address] , Ph. [phone] [facility] Behavior[facility] Health [id number] [facility] 2019-12-28 03:54:00 2019-12-28 03:54:00 Outpatient [facility] [id number] [facility] 2019-12-28 00:00:00 2019-12-28 00:00:00 Kiesha Amezquita, TIPPLE BOSS: [address] [place] [address] , Ph. [facility] Medical [id number] [facility] 2019-12-26 12:28:00 2019-12-26 12:28:00 Outpatient [facility] [id number] [facility] 2019-12-23 04:56:00 2019-12-23 04:56:00 Outpatient [facility] [id number] [facility] 2019-12-21 08:24:00 2019-12-21 08:24:00 Outpatient G_Pappas [facility] [id number] [facility] 2019-12-21 00:00:00 2019-12-21 00:00:00 Leana aWrd MD: 600 [facility] [address], [place] [address] , Ph. [phone] [facility] [id number] [facility] 2019-11-19 14:11:00 2019-11-19 17:59:00 Emergency ER REYES LOYA [facility] [id number] [facility] 2019-11-16 02:15:00 2019-11-16 02:15:00 Outpatient G_Pappas [facility] [id number] [facility] 2019-10-28 12:06:00 2019-10-28 12:06:00 Outpatient G_Pappas MM[facility] [id number] [facility] 2019-10-27 11:55:00 2019-10-27 11:55:00 Outpatient G_Pappas [facility] [id number] [facility] 2019-10-27 00:00:00 2019-10-27 00:00:00 Linda Pereira, NP: [address] [place] [address] , Ph. [phone] [facility] - OBGYN [id number] [facility] 2019-10-20 06:15:00 2019-10-20 06:15:00 Outpatient G_Pappas MM[facility] [id number] [facility] 2019-10-07 01:53:00 2019-10-07 01:53:00 Outpatient G_Pappas [facility] [id number] [facility] 2019-10-05 05:15:00 2019-10-06 09:10:00 Inpatient MARC [facility] [id number] [facility] 2019-10-04 09:00:00 2019-10-04 09:00:00 Outpatient G_Pappas [facility] [id number] [facility] 2019-09-29 04:25:00 2019-09-29 04:25:00 Outpatient G_Pappas [facility] [id number] [facility] 2019-09-29 00:00:00 2019-09-29 00:00:00 Marc Alexis MD: 600 [facility] [address], [place] [address] , Ph. [phone] MM[facility] [id number] [facility] 2019-09-28 12:21:00 2019-09-28 12:21:00 Outpatient G_Pappas [facility] [id number] [facility] 2019-09-25 09:44:00 2019-09-25 09:44:00 [id number] [facility] 2019-09-22 05:16:00 2019-09-22 05:16:00 [id number] [facility] 2019-09-22 00:00:00 2019-09-22 00:00:00 Marc Alexis MD: [address] [facility] [address], [place] [address] , Ph. [phone] MM[facility] [id number] [facility] 2019-09-21 02:51:00 2019-09-21 02:51:00 [id number] [facility] 2019-09-14 19:10:00 2019-09-16 14:30:00 Inpatient ER MARC ALEXIS [facility] [id number] [facility] 2019-09-12 21:35:00 2019-09-13 03:15:00 Emergency ER LEANA WARD [facility] [id number] [facility] 2019-09-07 11:08:00 2019-09-07 11:08:00 Outpatient G_Pappas [facility] [id number] [facility] 2019-09-04 14:30:00 2019-09-04 14:30:00 Outpatient EL MARC ALEXIS [facility] [id number] [facility] 2019 10:59:00 2019 10:59:00 Outpatient G_Pappas [facility] [id number] [facility] 2019 00:00:00 2019 00:00:00 Marc Alexis MD: [address] [facility] [address], [place] [address] , Ph. [phone] [id number] 2019-08-26 12:17:00 2019-08-26 16:25:00 Emergency ER LEANA WARD [facility] [id number] [facility] 2019-08-20 11:08:00 2019-08-20 11:08:00 Outpatient G_Pappas [facility] [id number] [facility] 2019-08-20 10:30:00 2019-08-20 10:30:00 Outpatient LINDA BROUSSARD [facility] [id number] [facility] 2019-08-20 00:00:00 2019-08-20 00:00:00 MISBAH Vega: [address], [place] [address] , Ph. [phone] [facility] OBGY [id number] [facility] 2019-08-03 09:52:00 2019-08-03 09:52:00 Outpatient CHATA HANCOCK [facility] [id number] [facility] 2019-08-03 00:00:00 2019-08-03 00:00:00 Karina Price TIPPLE BOSS: [address], [place] [address] , Ph. [facility] [id number] [facility] 2019-07-31 00:00:00 2019-07-31 00:00:00 MISBAH Vega: [address], [place] [address] , Ph. [phone] [facility] - OBGYN [id number] [facility] 2019-07-26 20:15:00 2019-07-26 20:20:00 Emergency ER MARC ALEXIS [facility] [id number] [facility] 2019-07-22 09:45:00 2019-07-22 09:45:00 Outpatient LINDA BROUSSARD [facility] [id number] [facility] 2019-07-22 00:00:00 2019-07-22 00:00:00 MISBAH Vega: [address], [place] [address] , Ph. [phone] [facility] - [facility]BG[facility] [id number] [facility] 2019-06-30 00:00:00 2019-06-30 00:00:00 Marc Alexis MD: [address], [place] [address] , Ph. [phone] [facility] - OBGYN [id number] [facility] 2019-06-23 00:00:00 2019-06-23 00:00:00 Marc Alexis MD: [address], [place] [address] , Ph. [phone] [facility] - OBGYN [id number] [facility] 2019-05-29 00:00:00 2019-05-29 00:00:00 Leana Ward MD: [address], [place] [address] , Ph. [phone] [facility] - OBGYN [id number] [facility] 2019-05-11 00:00:00 2019-05-11 00:00:00 Marc Alexis MD: [address], [place] [address] , Ph. [phone] [facility] - [facility]BGYN [id number] [facility] 2019-05-07 20:19:00 2019-05-08 00:28:00 Emergency ER JON VIGIL [facility] [id number] [facility] 2019-05-01 16:53:00 2019-05-01 16:53:00 Outpatient JAMILAH MURRELLORY [facility] [id number] [facility] 2019-05-01 00:00:00 2019-05-01 00:00:00 Marc Alexis MD: [address], [place] [address] , Ph. [phone] [facility] [id number] [facility] 2019-04-30 00:00:00 2019-04-30 00:00:00 Linda Pereira MARAIN: [address], [place] [address] , Ph. [phone] [facility] - OBGYN [id number] [facility] 2019-04-02 11:08:00 2019-04-02 11:08:00 Outpatient JAMILAH MURRELLORY [facility] [id number] [facility] 2019-04-02 00:00:00 2019-04-02 00:00:00 Marc Alexis MD: [address], [address], [place] [address] , Ph. [phone] [facility] - OBGYN [id number] [facility] 2019-03-25 00:00:00 2019-03-25 00:00:00 Leana Ward MD: [address], [address], [place] [address] , Ph. [phone] [facility] - OBGYN [id number] [facility] 2019-03-12 11:47:00 2019-03-12 11:47:00 Outpatient LINDA BROUSSARD [facility] [id number] [facility] 2019-03-12 00:00:00 2019-03-12 00:00:00 Linda RoxiDARRON KebedeNP: [address], [address], [place] [address] , Ph. [phone] [facility] OBGYN [id number] [facility] 2019-03-05 10:56:00 2019-03-05 10:56:00 Outpatient LEANA ZHENG [facility] [id number] [facility] 2019-03-05 00:00:00 2019-03-05 00:00:00 Leana Ward MD: [address], [address], [place] [address] , Ph. [phone] [facility] OBGYN [id number] [facility] 2019-02-24 19:49:00 2019-02-25 00:11:00 Emergency ER LUCIA JAVIER [facility] [id number] [facility] 2018-01-11 16:19:00 2018-01-11 17:59:00 Emergency ER DONNA CESPEDES [facility] [id number] [facility] 2017-08-30 14:27:00 2017-08-30 14:27:00 Outpatient ARANZA GARCIA [facility] [id number] [facility] 2017-08-04 14:53:00 2017-08-04 15:28:00 Emergency ER JON VIGIL [facility] [id number] [facility] 2017-05-26 20:39:00 2017-05-26 22:07:00 Emergency ER LUCIA JAVIER [facility] [id number] [facility] 2017-05-04 16:34:00 2017-05-04 18:25:00 Emergency ER LING PACE [facility] [id number] [facility] 2017-03-12 19:35:00 2017-03-12 21:29:00 Emergency ER JORDAN MENSAH [facility] [id number] [facility] 2017-02-11 17:07:00 2017-02-11 19:59:00 Emergency ER OWLING Petersen [facility] [id number] [facility] 2016-01-19 07:15:00 2016-01-20 19:40:00 Inpatient LEANA ZHENG [facility] [id number] [facility] 2016-01-10 10:17:00 2016-01-10 10:17:00 Outpatient LEANA ZHENG [facility] [id number] [facility] 2015-12-15 22:45:00 2015-12-16 00:06:00 Emergency ER LEANA WARD [facility] [id number] [facility] 2015-11-03 13:29:00 2015-11-03 16:15:00 Emergency ER LEANA WARD [facility] [id number] [facility] 2015-10-25 08:32:00 2015-10-25 08:32:00 Outpatient JAYME CAMERONKARINA [facility] [id number] [facility] 2015-08-21 15:11:00 2015-08-21 17:55:00 Emergency ER ANNA BOGGS [facility] [id number] [facility] 2015-07-26 13:43:00 2015-07-26 13:43:00 Outpatient JAYME CAMERONKARINA [facility] [id number] [facility] 2015-06-16 12:54:00 2015-06-16 15:57:00 Emergency ER LING PACE [facility] [id number] [facility] 2015-04-18 06:13:00 2015-04-18 08:10:00 Emergency ER KATELYNN [facility] [id number] [facility] 2015-03-11 12:29:00 2015-03-11 14:15:00 Emergency ER [facility] [id number] [facility] Results Test Description Test Time Test Comments Results Result Co mments Source [facility] W Auto Differential panel - [id number] 11:06:00 * Test Item Value Reference Range Interpretation Comme nts white blood count (test code = white blood count) 10.7 K/uL 4.0-11.5 red blood count (test code = red blood count) 4.76 M/uL 3.80-5.20 hemoglobin (test code = hemoglobin) 13.6 g/dL 10.5-15.7 hematocrit (test code = hematocrit) 41.9 % 34.0-50.0 MCV [Entitic volume] (test c ode = 30866-6) 88.0 fL 86-100 mean corpuscular hemoglobin (test [...] neutrophils/100 leukocytes in Blood (test code = 22368-9) 67.7 % 44.4-80.1 Immature granulocytes [#/vol ume] in Blood (test code = 67613-2) 0.0 K/uL 0.0-0.03 lymphocyte% (test code = lymphocyte%) 23.3 % 10.0-50.0 mono % (test code = mono %) 5.6 % 3.6-12.0 eos % (test code = eos %) 2.4 % 0.0-5.4 Basophils/100 leukocytes in Unspecified specimen (test code = 60594-3) 0.6 % 0.1-1.2 Band form neutrophils [#/vol ume] in Blood (test code = 86783-0) 7.28 K/uL 1.56-6.13 H Lymphocytes [#/volume] in Unspecified specimen by Automated count (test code = 08420-8) 2.5 K/uL 1.18-3.74 mono # (test code = mono #) 0.60 K/uL 0.24-0.86 eos # (test code = eos #) 0.26 K/uL 0.04-0.36 basophil # (test code = baso jerel #) 0.06 K/uL 0.01-0.08 NRBC% (test code = NRBC%) 0 /100 WBC 0-0.2 NRBC# (test code = NRBC#) 0 K/uL [facility] metabolic 2000 panel - Serum or [id number] 11:06:00* Test Item Value Reference Range Interpretation [...] code = calcium level) 9.2 mg/dL 8.6-10.0 [facility] macro (dipstick) panel - [id number] 14:02:45* Test Item Value Reference Range Interpretation Comme nts Leukocytes (test code = Leukocytes) Trace Nitrite (test code = Nitrite) negative Urobilinogen (test code = Urobilinogen) .2 Protein (test code = Protein) Negative pH (test code = pH) 6.0 Blood (test code = Blood) Small Specific Lytle (test code = Specific Lytle) 1.025 Ketone (test code = Ketone) Negative Bilirubin (test code = Bilirubin) Negative Glucose (test code = Glucose) Negative Appearance (test code = Appearance) Clear Color (test code = Color) Yellow [facility], [id number] 14:01:41* Test Item Value Reference Range Interpretation Comme nts Test (test code = Test) negative [facility] - Serum or [id number] 00:00:00* Test Item Value Reference Range Interpretation Comme nts Thyrotropin [Units/volume] i n Serum or Plasma by Detection limit <= 0.005 mIU/L (test code = 57817-0) 1.540 uIU/mL 0.450-4.500 Thyroxine (T4) free [Mass/volume] in Serum or Plasma (test code = 3024-7) 1.34 NG/dL 0.82-1.77 [facility] - Blood 2019-12-29 [...] immature cells (test code = immature cells) lead accountant Neutrophils [#/volume] in Bl ood by Automated [...] Blood by Automated count (test code = 48131-6) 0 % not estab. Immature granulocytes [#/volume] in Blood by Automated count (test code = 51470-3) 0.0 x10e3/uL 0.0-0.1 Nucleated erythrocytes/100 leukocytes [Ratio] in Blood by Automated count (test code = 48753-2) lead accountant Morphology [Interpretation] in Blood Narrative (test code = 29806-8) lead accountant [facility] ProgramComprehensive metabolic 2000 panel - Serum or [id number] 00:00:00* Test Item Value Reference Range Interpretation [...] by Creatinine-based formula (CKD-EPI) (test code = 38805-9) 130 mL/min/1.73 >59 Glomerular filtration rate/1.73 sq M.predicted among blacks [Volume Rate/Area] in Serum, Plasma or Blood by Creatinine-based formula (CKD-EPI) (test code = 74850-2) 150 mL/min/1.73 >59 Urea nitrogen/Creatinine [Mass Ratio] [...] in Serum or Plasma (test code = 49164-3) 9.1 mg/dL 8.7-10.2 Protein [Mass/volume] in Serum or Plasma (test code = 2885-2) 7.3 g/dL 6.0-8.5 Albumin [Mass/volume] in Serum or Plasma (test code = 1751-7) 4.4 g/dL 3.9-5.0 Globulin [Mass/volume] in Serum by calculation (test code = 37630-6) 2.9 g/dL 1.5-4.5 Albumin/Globulin [Mass Ratio ] [...] (test code = 1742-6) 21 IU/L 0-32 [facility] - Serum or Plasma 2019-12-29 [...] or Plasma by calculation (test code = 29329-0) 19 mg/dL 5-40 Cholesterol in LDL [Mass/vol ume] in Serum or Plasma by calculation (test code = 16203-5) 87 mg/dL 0-99 Laboratory comment [Text] in Report Narrative (test code = 52323-3) lead accountant [facility] ClinicsHemoglobin A1c/Hemoglobin.total in [id number] 00:00:00* Test Item Value Reference Range Interpretation Comme nts Hemoglobin A1c/Hemoglobin.to pee in Blood (test code = 4548-4) 5.1 % 4.8-5.6 Glucose mean value [Mass/vol ume] in Blood Estimated from glycated hemoglobin (test code = 62993-3) 100 mg/dL [facility]icscardiovascular assessment panel, [id number] 00:00:00* Test Item Value Reference Range Interpretation Comme nts interpretation (test code = interpretation) note pdf image (test code = pdf image) . [facility] ClinicsUrinalysis macro (dipstick) panel - [id number] 10:18:57* Test Item Value Reference Range Interpretation Comme nts Leukocytes (test code = Leukocytes) Trace Nitrite (test code = Nitrite) negative Urobilinogen (test code = Urobilinogen) .2 Protein (test code = Protein) Negative pH (test code = pH) 6.5 Blood (test code = Blood) Moderate Specific Lytle (test code = Specific Lytle) 1.025 Ketone (test code = Ketone) Negative Bilirubin (test code = Bilirubin) Negative Glucose (test code = Glucose) Negative Appearance (test code = Appearance) Clear Color (test code = Color) Yellow [facility] W Auto Differential panel - [id number] 09:25:00 * Test Item Value Reference Range Interpretation Comme nts white blood count (test code = white blood count) 12.3 K/uL 4.0-11.5 H red blood count (test code = red blood count) 3.58 M/uL 3.80-5.20 L hemoglobin (test code = hemoglobin) 9.7 g/dL 10.5-15.7 L hematocrit (test code = hematocrit) 30.1 % 34.0-50.0 L Erythrocyte mean corpuscular volume [Entitic volume] (test code = 18937-2) 84.1 fL 86-100 L mean corpuscular hemoglobin [...] Neutrophils.segmented/100 leukocytes in Blood (test code = 71337-3) 71.9 % 44.4-80.1 Granulocytes Immature [#/vol ume] in Blood (test code = 85083-5) 0.1 K/uL 0.0-0.03 H lymphocyte% (test code = lymphocyte%) 21.9 % 10.0-50.0 mono % (test code = mono %) 5.1 % 3.6-12.0 eos % (test code = eos %) 0.3 % 0.0-5.4 Basophils/100 leukocytes in Unspecified specimen (test code = 06541-6) 0.3 % 0.1-1.2 Neutrophils.band form [#/vol ume] in Blood (test code = 22917-1) 8.86 K/uL 1.56-6.13 H Lymphocytes [#/volume] in Unspecified specimen by Automated count (test code = 36478-6) 2.7 K/uL 1.18-3.74 mono # (test code = mono #) 0.63 K/uL 0.24-0.86 eos # (test code = eos #) 0.04 K/uL 0.04-0.36 basophil # (test code = baso jerel #) 0.04 K/uL 0.01-0.08 NRBC% (test code = NRBC%) 0 /100 WBC 0-0.2 NRBC# (test code = NRBC#) 0 K/uL [facility] Hospitaldifferential panel, [id number] 09:25:00 NeutrophilsLymphocyteAtypical LymphMonocytePlatelet EstimatePlatelet MorphologyDifferential comment-[facility] W Auto Differential panel - [id number] 04:32:00* Test Item Value Reference Range Interpretation Comme nts white blood count (test code = white blood count) 11.1 K/uL 4.0-11.5 red blood count (test code = red blood count) 3.85 M/uL 3.80-5.20 hemoglobin (test code = hemoglobin) 10.4 g/dL 10.5-15.7 L hematocrit (test code = hematocrit) 32.3 % 34.0-50.0 L Erythrocyte mean corpuscular volume [Entitic volume] (test code = 66192-6) 83.9 fL 86-100 L mean corpuscular hemoglobin [...] Neutrophils.segmented/100 leukocytes in Blood (test code = 00051-5) 72.8 % 44.4-80.1 Granulocytes Immature [#/vol ume] in Blood (test code = 09274-6) 0.1 K/uL 0.0-0.03 H lymphocyte% (test code = lymphocyte%) 20.3 % 10.0-50.0 mono % (test code = mono %) 5.4 % 3.6-12.0 eos % (test code = eos %) 0.6 % 0.0-5.4 Basophils/100 leukocytes in Unspecified specimen (test code = 88068-0) 0.4 % 0.1-1.2 Neutrophils.band form [#/vol ume] in Blood (test code = 02450-6) 8.10 K/uL 1.56-6.13 H Lymphocytes [#/volume] in Unspecified specimen by Automated count (test code = 21811-7) 2.3 K/uL 1.18-3.74 mono # (test code = mono #) 0.60 K/uL 0.24-0.86 eos # (test code = eos #) 0.07 K/uL 0.04-0.36 basophil # (test code = baso jerel #) 0.04 K/uL 0.01-0.08 NRBC% (test code = NRBC%) 0 /100 WBC 0-0.2 NRBC# (test code = NRBC#) 0 K/uL [facility] Hospital[facility] type and Indirect antibody screen panel - Blood 2019-10-05 04:32:00* Test Item Value Reference Range Interpretation Comme nts Rh [Type] in Blood (test cod e = 00469-5) 4+ ABO and Rh group panel - Blo od (test code = 99898-3) O positive [facility] HospitalReagin Ab [Presence] in Serum by [id number] 04:32:00* Test Item Value Reference Range Interpretation Comme nts Reagin Ab [Presence] in Seru m by RPR (test code = 48655-4) nonreactive nonreactive [facility] HospitalHepatitis B virus surface Ag [Presence] in Serum 2019-10-05 04:32:00* Test Item Value Reference Range Interpretation Comme nts .hepatitis B surface antigen (test code = .hepatitis B surface antigen) negative negative [facility] HospitalUrinalysis macro (dipstick) panel - [id number] 14:34:29* Test Item Value Reference Range Interpretation Comme nts Leukocytes (test code = Leukocytes) Small Nitrite (test code = Nitrite) negative Urobilinogen (test code = Urobilinogen) 1 Protein (test code = Protein) Negative pH (test code = pH) 7.0 Blood (test code = Blood) Negative Specific Lytle (test code = Specific Lytle) 1.025 Ketone (test code = Ketone) Small Bilirubin (test code = Bilirubin) Negative Glucose (test code = Glucose) Negative Appearance (test code = Appearance) Clear Color (test code = Color) Yellow [facility] Hospitalnon-stress [id number] 16:47:00* Test Item Value Reference Range Interpretation Comme nts Reactive (test code = Reactive) Yes Contractions (test code = Contractions) No [facility] GroupUrinalysis macro (dipstick) panel - [id number] 14:08:44* Test Item Value Reference Range Interpretation Comme nts Leukocytes (test code = Leukocytes) Small Nitrite (test code = Nitrite) negative Urobilinogen (test code = Urobilinogen) 1 Protein (test code = Protein) 30 pH (test code = pH) 7.0 Blood (test code = Blood) Negative Specific Lytle (test code = Specific Lytle) 1.020 Ketone (test code = Ketone) Negative Bilirubin (test code = Bilirubin) Negative Glucose (test code = Glucose) Negative Appearance (test code = Appearance) Clear Color (test code = Color) Yellow [facility] ZmrroOfzvz-2-Yszcbmelzkqbf.placental [Presence] in Vaginal [id number] 08:50:00* Test Item Value Reference Range Interpretation Comme nts Zypio-2-Wjcucwhcdetxy.placen pee [Presence] in Vaginal fluid (test code = 82013-7) negative neg [facility] GroupUrinalysis complete panel - [id number] 01:04:00* Test Item Value Reference Range Interpretation Comme nts Color of Urine by Auto (test code = 42034-9) lt. yellow Appearance of Urine (test co de = 5767-9) cloudy clear Glucose [Mass/volume] in Uri ne (test code = 2350-7) negative negative bilirubin, urine (test code = bilirubin, urine) negative negative ketone, urine (test code = ketone, urine) negative negative Specific gravity of Urine by Automated test strip (test code = 28533-8) 1.020 1.003-1.030 Hemoglobin [Presence] in Uri ne by Test strip (test code = 5794-3) negative negative pH of Urine (test code = 2756-5) 8.000 5-9 protein urine (UA) (test cod e = protein urine (UA)) trace negative H Urobilinogen [Presence] in U rine (test code = 46593-6) 1.0 E.U./dL 0.2-1.0 Nitrite [Presence] in Urine by Test strip (test code = 5802-4) negative negative urine leukocyte esterase (te st code = urine leukocyte esterase) moderate negative H Erythrocytes [Presence] in U rine (test code = 81914-0) =0-3 0-5 WBC, urine (test code = WBC, urine) =5-9 0-5 H Epithelial cells [Presence] in Urine sediment by Light microscopy (test code = 56077-5) =0-5 0-5 bacteria, urine (test code = bacteria, urine) moderate none detect H urine culture added? (test c ode = urine culture added?) yes [facility] GroupBacteria identified in Urine by [id number] 01:04:00* Test Item Value Reference Range Interpretation Comme nts Bacteria identified in Urine by Culture (test code = 630-4) no growth after 2 days [facility] W Auto Differential panel - [id number] 09:20:00 * Test Item Value Reference Range Interpretation Comme nts white blood count (test code = white blood count) 12.5 K/uL 4.0-11.5 H red blood count (test code = red blood count) 3.86 M/uL 3.80-5.20 hemoglobin (test code = hemoglobin) 10.7 g/dL 10.5-15.7 hematocrit (test code = hematocrit) 32.6 % 34.0-50.0 L Erythrocyte mean corpuscular volume [Entitic volume] (test code = 33799-2) 84.5 fL 86-100 L mean corpuscular hemoglobin [...] Neutrophils.segmented/100 leukocytes in Blood (test code = 21638-1) 73.0 % 44.4-80.1 Granulocytes Immature [#/vol ume] in Blood (test code = 09507-4) 0.1 K/uL 0.0-0.03 H lymphocyte% (test code = lymphocyte%) 19.1 % 10.0-50.0 mono % (test code = mono %) 5.9 % 3.6-12.0 eos % (test code = eos %) 0.8 % 0.0-5.4 Basophils/100 leukocytes in Unspecified specimen (test code = 21415-6) 0.3 % 0.1-1.2 Neutrophils.band form [#/vol ume] in Blood (test code = 46936-1) 9.09 K/uL 1.56-6.13 H Lymphocytes [#/volume] in Unspecified specimen by Automated count (test code = 01031-8) 2.4 K/uL 1.18-3.74 mono # (test code = mono #) 0.73 K/uL 0.24-0.86 eos # (test code = eos #) 0.10 K/uL 0.04-0.36 basophil # (test code = baso jerel #) 0.04 K/uL 0.01-0.08 NRBC% (test code = NRBC%) 0 /100 WBC 0-0.2 NRBC# (test code = NRBC#) 0 K/uL [facility] HospitalPT/[id number] 09:20:00* Test Item Value Reference Range Interpretation Comme nts prothrombin time (test code = prothrombin time) 9.6 seconds 10.3-12.3 L INR in Blood by Coagulation assay (test code = 46556-7) 0.88 [facility] Hospitalpartial thromboplastin [id number] 09:20:00* Test Item Value Reference Range Interpretation Comme nts INR in Blood by Coagulation assay (test code = 67729-8) 28.7 seconds 22.5-37.0 [facility] HospitalGlucose [Mass/volume] in Capillary [id number] 09:46:26* Test Item Value Reference Range Interpretation Comme nts GLU (test code = GLU) 91 [facility] HospitalUrinalysis macro (dipstick) panel - [id number] 09:36:18* Test Item Value Reference Range Interpretation Comme nts Leukocytes (test code = Leukocytes) Small Nitrite (test code = Nitrite) negative Urobilinogen (test code = Urobilinogen) 1 Protein (test code = Protein) 30 pH (test code = pH) 7.0 Blood (test code = Blood) Negative Specific Lytle (test code = Specific Lytle) 1.025 Ketone (test code = Ketone) Small Bilirubin (test code = Bilirubin) Negative Glucose (test code = Glucose) Negative Appearance (test code = Appearance) Cloudy Color (test code = Color) Yellow [facility] HospitalUrinalysis complete panel - [id number] 11:35:00* Test Item Value Reference Range Interpretation Comme nts Color of Urine by Auto (test code = 02753-8) yellow Appearance of Urine (test code = 5767-9) cloudy clear Glucose [Mass/volume] in Urine (test code = 2350-7) negative negative bilirubin, urine (test code = bilirubin, urine) negative negative ketone, urine (test code = ketone, urine) moderate, 40 negative H Specific gravity of Urine by Automated test strip (test code = 50400-4) 1.025 1.003-1.030 Hemoglobin [Presence] in Urine by Test strip (test code = 5794-3) negative negative pH of Urine (test code = 2756-5) 7.000 5-9 protein urine (UA) (test code = protein urine (UA)) trace negative H Urobilinogen [Presence] in Urine (test code = 57954-4) 1.0 E.U./dL 0.2-1.0 Nitrite [Presence] in Urine by Test strip (test code = 5802-4) negative negative urine leukocyte esterase (test code = urine leukocyte esterase) =1 negative H Erythrocytes [Presence] in Urine (test code = 13621-9) none seen 0-5 WBC, urine (test code = WBC, urine) =5-9 0-5 H Epithelial cells [Presence] in Urine sediment by Light microscopy (test code = 07470-1) =11-25 0-5 H bacteria, urine (test code = bacteria, urine) large (3 none detect H urine culture added? (test code = urine culture added?) no. contaminated. mucus, urine (test code = mucus, urine) =2 none detect [facility] HospitalComprehensive metabolic 2000 panel - Serum or Plasma [...] code = 6768-6) 149 U/L 35-105 H [facility] HospitalHepatic function 2000 panel - Serum or [id number] 09:33:00* Test Item Value Reference Range Interpretation Comme nts Bilirubin.direct [Mass/volum e] in Serum or Plasma (test code = 1968-7) <0.20 0.0-0.3 [facility] HospitalHemoglobin A1c [Mass/volume] in [id number] 09:33:00 * Test Item Value Reference Range Interpretation Comme nts Hemoglobin A1c [Mass/volume] in Blood (test code = 34668-0) 5.2 % 4.0-6.0 [facility] Hospitalrapid strep group A, [id number] 09:59:00* Test Item Value Reference Range Interpretation Comme nts Strep Result (test code = St rep Result) negative [facility] HospitalUrinalysis complete panel - [id number] 07:49:00* Test Item Value Reference Range Interpretation Comme nts Color of Urine by Auto (test code = 33622-4) lt. yellow Appearance of Urine (test co de = 5767-9) SL cloudy clear Glucose [Mass/volume] in Uri ne (test code = 2350-7) negative negative bilirubin, urine (test code = bilirubin, urine) negative negative ketone, urine (test code = ketone, urine) negative negative Specific gravity of Urine by Automated test strip (test code = 67288-5) 1.015 1.003-1.030 Hemoglobin [Presence] in Uri ne by Test strip (test code = 5794-3) negative negative pH of Urine (test code = 2756-5) 7.000 5-9 protein urine (UA) (test cod e = protein urine (UA)) negative negative Urobilinogen [Presence] in U rine (test code = 47592-8) 0.2 E.U./dL 0.2-1.0 Nitrite [Presence] in Urine by Test strip (test code = 5802-4) negative negative urine leukocyte esterase (te st code = urine leukocyte esterase) =1 negative H Erythrocytes [Presence] in U rine (test code = 48116-6) none seen 0-5 WBC, urine (test code = WBC, urine) =6-10 0-5 H Epithelial cells [Presence] in Urine sediment by Light microscopy (test code = 39104-2) more than 25 0-5 H bacteria, urine (test code = bacteria, urine) large none detect H urine culture added? (test c ode = urine culture added?) [facility] W Auto Differential panel - [id number] 08:55:00 * Test Item Value Reference Range Interpretation Comme nts white blood count (test code = white blood count) 10.7 K/uL 4.0-11.5 red blood count (test code = red blood count) 3.85 M/uL 3.80-5.20 hemoglobin (test code = hemoglobin) 11.5 g/dL 10.5-15.7 hematocrit (test code = hematocrit) 34.9 % 34.0-50.0 Erythrocyte mean corpuscular volume [Entitic volume] (test code = 91497-2) 90.6 fL 86-100 mean corpuscular hemoglobin (test [...] Neutrophils.segmented/100 leukocytes in Blood (test code = 04183-0) 72.9 % 44.4-80.1 Granulocytes Immature [#/vol ume] in Blood (test code = 32690-1) 0.1 K/uL 0.0-0.03 H lymphocyte% (test code = lymphocyte%) 17.9 % 10.0-50.0 mono % (test code = mono %) 6.8 % 3.6-12.0 eos % (test code = eos %) 1.4 % 0.0-5.4 Basophils/100 leukocytes in Unspecified specimen (test code = 46203-9) 0.3 % 0.1-1.2 Neutrophils.band form [#/vol ume] in Blood (test code = 04388-1) 7.78 K/uL 1.56-6.13 H Lymphocytes [#/volume] in Unspecified specimen by Automated count (test code = 68329-1) 1.9 K/uL 1.18-3.74 mono # (test code = mono #) 0.73 K/uL 0.24-0.86 eos # (test code = eos #) 0.15 K/uL 0.04-0.36 basophil # (test code = baso jerel #) 0.03 K/uL 0.01-0.08 NRBC% (test code = NRBC%) 0 /100 WBC 0-0.2 NRBC# (test code = NRBC#) 0 K/uL [facility] antibody screen [Presence] in Serum or Plasma 2019-07-22 08:55:00* Test Item Value Reference Range Interpretation Comme nts Blood group antibody screen [Presence] in Serum or Plasma (test code = 890-4) negative [facility] GroupReagin Ab [Presence] in Serum by [id number] 08:55:00* Test Item Value Reference Range Interpretation Comme nts Reagin Ab [Presence] in Seru m by RPR (test code = 58934-4) nonreactive nonreactive [facility] HospitalHIV 1+2 Ab [Presence] in [id number] 08:55:00HIV P24 AgHIV-1/2 AbMatagoMerit Health CentralUrinalysis macro (dipstick) panel - Urine 2019-06-30 09:41:48* Test Item Value Reference Range Interpretation Comme nts Leukocytes (test code = Leukocytes) Small Nitrite (test code = Nitrite) negative Urobilinogen (test code = Urobilinogen) 1 Protein (test code = Protein) 30 pH (test code = pH) 7.0 Blood (test code = Blood) Negative Specific Lytle (test code = Specific Lytle) 1.025 Ketone (test code = Ketone) Trace Bilirubin (test code = Bilirubin) Small Glucose (test code = Glucose) Negative Appearance (test code = Appearance) Clear Color (test code = Color) Yellow [facility] HospitalCT + NG + TV, DNA, urine/[id number] 00:00:00* Test Item Value Reference Range Interpretation [...] to antibiotic resistance by molecular analysis)) negative [facility] Hospitalbacterial vaginosis panel, [id number] 00:00:00* Test Item Value Reference Range Interpretation [...] panel) by real time PCR) see comment [facility] HospitalCandida sp DNA [Presence] in Vaginal fluid by Probe and target amplification [id number] 00:00:00* Test Item Value Reference Range Interpretation [...] = glen glabrata by real-time PCR) negative [facility] HospitalUrinalysis macro (dipstick) panel - [id number] 15:32:50* Test Item Value Reference Range Interpretation Comme nts Leukocytes (test code = Leukocytes) Trace Nitrite (test code = Nitrite) negative Urobilinogen (test code = Urobilinogen) 8 Protein (test code = Protein) Trace pH (test code = pH) 7.0 Blood (test code = Blood) Negative Specific Lytle (test code = Specific Lytle) 1.020 Ketone (test code = Ketone) Moderate Bilirubin (test code = Bilirubin) Small Glucose (test code = Glucose) Negative Appearance (test code = Appearance) Clear Color (test code = Color) Yellow [facility] HospitalMicroscopic observation [Identifier] in Unspecified specimen by Wet zoqntsiopek2368-08-58 07:44:00* Test Item Value Reference Range Interpretation Comme nts Microscopic observation [Identifier] in Unspecified specimen by Wet preparation (test code = 680-9) no trichomonas, yeast or clue cell observed. [facility] HospitalUrinalysis complete panel - [id number] 07:27:00* Test Item Value Reference Range Interpretation Comme nts Color of Urine by Auto (test code = 89126-7) light yellow Appearance of Urine (test code = 5767-9) SL cloudy clear A Glucose [Presence] in Urine by Automated test strip (test code = 75734-1) negative negative Bilirubin.total [Mass/volume] in Urine (test code = 1978-6) negative negative Ketones [Mass/volume] in Urine by Automated test strip (test code = 68887-0) negative negative Specific gravity of Urine by Automated test strip (test code = 36470-9) 1.014 1.003-1.030 blood urine (test code = blood urine) =1 negative H pH of Urine (test code = 2756-5) 7.500 5-9 protein urine (UA) (test code = protein urine (UA)) trace negative Urobilinogen [Presence] in Urine (test code = 61188-7) =2.0 0.2-1.0 H Nitrite [Presence] in Urine by Test strip (test code = 5802-4) negative negative Leukocyte esterase [Presence] in Urine by Automated test strip (test code = 97863-4) =3 negative H Erythrocytes [#/volume] in Urine by Automated count (test code = 798-9) =1-5 0-5 Leukocytes [#/area] in Urine sediment by Automated count (test code = 99179-1) =11-14 0-5 H Epithelial cells [Presence] in Urine sediment by Light microscopy (test code = 54952-5) =20-29 0-5 Bacteria identified in Urine by Culture (test code = 630-4) moderate (2 none detect H urine culture added? (test code = urine culture added?) no. contaminated. [facility] W Auto Differential panel - [id number] 07:21:00 * Test Item Value Reference Range Interpretation Comme nts white blood count (test code = white blood count) 10.9 K/uL 4.0-11.5 red blood count (test code = red blood count) 3.87 M/uL 3.80-5.20 hemoglobin (test code = hemoglobin) 11.4 g/dL 10.5-15.7 hematocrit (test code = hematocrit) 34.3 % 34.0-50.0 Erythrocyte mean corpuscular volume [Entitic volume] (test code = 07303-5) 88.6 fL 86-100 mean corpuscular hemoglobin (test [...] Neutrophils.segmented/100 leukocytes in Blood (test code = 44894-2) 73.2 % 44.4-80.1 Granulocytes Immature [#/vol ume] in Blood (test code = 49434-4) 0.0 K/uL 0.0-0.03 lymphocyte% (test code = lymphocyte%) 19.2 % 10.0-50.0 mono % (test code = mono %) 5.5 % 3.6-12.0 eos % (test code = eos %) 1.4 % 0.0-5.4 Basophils/100 leukocytes in Unspecified specimen (test code = 36194-1) 0.3 % 0.1-1.2 Neutrophils.band form [#/vol ume] in Blood (test code = 69158-7) 8.00 K/uL 1.56-6.13 H Lymphocytes [#/volume] in Unspecified specimen by Automated count (test code = 89648-4) 2.1 K/uL 1.18-3.74 mono # (test code = mono #) 0.60 K/uL 0.24-0.86 eos # (test code = eos #) 0.15 K/uL 0.04-0.36 basophil # (test code = baso jerel #) 0.03 K/uL 0.01-0.08 NRBC% (test code = NRBC%) 0 /100 WBC 0-0.2 NRBC# (test code = NRBC#) 0 K/uL [facility] Hospitaldifferential panel, [id number] 07:21:00 NeutrophilsBandLymphocyteAtypical LymphMonocyteEosinophilBasophilPlatelet EstimatePlatelet MorphologyHypochromasiaAnisocytosisMicrocytosisDohle BodiesToxic VacuolationMaMerit Health MadisonPT/[id number] 07:21:00* Test Item Value Reference Range Interpretation Comme nts prothrombin time (test code = prothrombin time) 9.8 seconds 10.3-12.3 L INR in Blood by Coagulation assay (test code = 62018-8) 0.89 [facility] Hospitalpartial thromboplastin [id number] 07:21:00* Test Item Value Reference Range Interpretation Comme nts INR in Blood by Coagulation assay (test code = 40627-4) 29.3 seconds 22.5-37.0 [facility] HospitalChoriogonadotropin.beta subunit [Units/volume] in Serum or [id number] 07:21:00* Test Item Value Reference Range Interpretation Comme nts HCG quantitative (test code = HCG quantitative) 7608.0 mIU/mL 0-5 [facility] HospitalUrinalysis macro (dipstick) panel - [id number] 16:09:30* Test Item Value Reference Range Interpretation Comme nts Leukocytes (test code = Leukocytes) Negative Nitrite (test code = Nitrite) negative Urobilinogen (test code = Urobilinogen) 2 Protein (test code = Protein) Negative pH (test code = pH) 6.0 Blood (test code = Blood) Negative Specific Lytle (test code = Specific Lytle) 1.030 Ketone (test code = Ketone) Small Bilirubin (test code = Bilirubin) Small Glucose (test code = Glucose) Negative Appearance (test code = Appearance) Clear Color (test code = Color) Yellow [facility] HospitalBacteria identified in Urine by Rajmfge6838-16-06 02:56:00* Test Item Value Reference Range Interpretation Comme nts Bacteria identified in Urine by Culture (test code = 630-4) no growth at 48 hrs. [facility] HospitalUrinalysis macro (dipstick) panel - [id number] 09:37:30* Test Item Value Reference Range Interpretation Comme nts Leukocytes (test code = Leukocytes) Large Nitrite (test code = Nitrite) negative Urobilinogen (test code = Urobilinogen) .2 Protein (test code = Protein) Trace pH (test code = pH) 7.0 Blood (test code = Blood) Non-Hemolyzed: Trace Specific Lytle (test code = Specific Lytle) 1.020 Ketone (test code = Ketone) Negative Bilirubin (test code = Bilirubin) Negative Glucose (test code = Glucose) Negative Appearance (test code = Appearance) Clear Color (test code = Color) Yellow [facility] HospitalBacteria identified in Urine by Zhuriwa3220-40-25 09:13:00Bacteria Ur CultMata81st Medical Groupantibiotic sensitivity testing, kpwugye6516-69-88 09:13:00* Test Item Value Reference Range Interpretation Comme nts Penicillin [Susceptibility] by Minimum inhibitory concentration (KARINA) (test code = 6932-8) <0.03 Vancomycin [Susceptibility] by Minimum inhibitory concentration (KARINA) (test code = 524-9) 0.5 ug/mL Levofloxacin [Susceptibility ] by Minimum inhibitory concentration (KARINA) (test code = 12208-6) <2 Linezolid [Susceptibility] b y Minimum inhibitory concentration (KARINA) (test code = 63440-4) <2 Daptomycin [Susceptibility] by Minimum inhibitory concentration (KARINA) (test code = 60200-1) <0.5 [facility] HospitalChromosome 13+18+21+X+Y aneuploidy in Blood by Molecular genetics method [id number] 00:00:00* Test Item Value Reference Range Interpretation [...] contacts (test code = contacts) see notes [facility] HospitalGenetic screen in Unspecified specimen by Molecular genetics method Gtjxkosjz3371-83-74 00:00:00* Test Item Value Reference Range Interpretation [...] = polycystic kidney disease, autosomal recessive) negative djlpm-uvunp-navyg syndrome ( test code = lcwzh-decvb-jrkya syndrome) negative spinal muscular atrophy (michelle t [...] yes zip code of the ordering fac [facility] (test code = zip code of the ordering facility) [address] IS the patient currently usi ng hormonal [...] contacts (test code = contacts) see notes [facility] HospitalMicroscopic observation [Identifier] in Cervix by Cyto stain.thin twhl3980-52-81 10:40:00ResultsTallahatchie General HospitalChlamydia trachomatis+Neisseria gonorrhoeae DNA [Presence] in Cervix by Probe and target amplification [id number] 10:32:00ResultsTallahatchie General HospitalBacteria identified in Urine by Xdrjtss0952-70-34 10:32:00Bacteria Ur CultTallahatchie General HospitalUrinalysis macro (dipstick) panel - [id number] 09:44:32* Test Item Value Reference Range Interpretation Comme nts Leukocytes (test code = Leukocytes) Small Nitrite (test code = Nitrite) negative Urobilinogen (test code = Urobilinogen) 4 Protein (test code = Protein) 30 pH (test code = pH) 8.0 Blood (test code = Blood) Negative Specific Lytle (test code = Specific Lytle) 1.020 Ketone (test code = Ketone) Negative Bilirubin (test code = Bilirubin) Negative Glucose (test code = Glucose) Negative Appearance (test code = Appearance) Clear Color (test code = Color) Yellow [facility] Hospitalpregnancy test, zwgga0321-88-36 12:15:00* Test Item Value Reference Range Interpretation Comme nts Test (test code = Test) positive [facility] HospitalHemoglobin A1c [Mass/volume] in [id number] 09:05:00 * Test Item Value Reference Range Interpretation Comme nts Hemoglobin A1c in Blood ([facility] t code = 54825-4) 5.0 % 4.0-6.0 [facility] HospitalRubella virus IgG Ab [Titer] in [id number] 09:05:00 * Test Item Value Reference Range Interpretation Comme [facility] Rubella virus IgG Ab [Units/volume] in Serum by Immunoassay (test code = 5334-8) 286.5 [IU]/mL [facility] HospitalCB W Auto Differential panel - [id number] 09:05:00 * Test Item Value Reference Range Interpretation Comme nts white blood count (test code = white blood count) 9.1 K/uL 4.0-11.5 red blood count (test code = red blood count) 4.96 M/uL 3.80-5.20 hemoglobin (test code = hemoglobin) 13.9 g/dL 10.5-15.7 hematocrit (test code = hematocrit) 44.0 % 34.0-50.0 Erythrocyte mean corpuscular volume [Entitic volume] (test code = 71490-4) 88.7 fL 86-100 Erythrocyte mean corpuscular hemoglobin [Entitic mass] (test code = 60519-7) 28.0 pg 26.2-33.4 mean corpuscular HGB conc (t est code = mean corpuscular HGB conc) 31.6 g/dL 30-34 red cell distribution width (test code = red cell distribution width) 12.9 % 12.0-15.5 platelet count (test code = platelet count) 378 K/uL 165-450 mean platelet volume (test c ode = mean platelet volume) 10.4 fL 9.4-12.6 Neutrophils.segmented/100 leukocytes in Blood (test code = 76975-5) 70.2 % 44.4-80.1 Ig% (test code = Ig%) 0.3 % 0.0-0.4 lymphocyte% (test code = lymphocyte%) 21.3 % 10.0-50.0 Monocytes/100 leukocytes in Blood by Automated count (test code = 5905-5) 5.3 % 3.6-12.0 Eosinophils/100 leukocytes i n Blood by Automated count (test code = 713-8) 2.6 % 0.0-5.4 Basophils/100 leukocytes in Unspecified specimen (test code = 42496-7) 0.3 % 0.1-1.2 absolute neutrophil count (t est code = absolute neutrophil count) 6.38 K/uL 1.56-6.13 H Ig# (test code = Ig#) 0.0 K/uL 0.0-0.03 Lymphocytes [#/volume] in Unspecified specimen by Automated count (test code = 69523-2) 1.9 K/uL 1.18-3.74 mono # (test code = mono #) 0.48 K/uL 0.24-0.86 eos # (test code = eos #) 0.24 K/uL 0.04-0.36 basophil # (test code = baso jerel #) 0.03 K/uL 0.01-0.08 NRBC% (test code = NRBC%) 0 /100 WBC 0-0.2 NRBC# (test code = NRBC#) 0 K/uL [facility] Groupdifferential panel, [id number] 09:05:00 NeutrophilsBandLymphocyteAtypical LymphMonocyteEosinophilBasophilMetamyelocyteMyelocyteNucleated Red Blood CellPlatelet EstimatePlatelet MorphologyPolychromasiaHypochromasiaPoikilocytosis [facility] GroupHemoglobin A1c/Hemoglobin.total in Sfpbk7789-68-71 09:05:00* Test Item Value Reference Range Interpretation Comme [facility] Hemoglobin A1c in Blood (michelle t code = 55312-6) 5.0 % 4.0-6.0 [facility] GroupRubella virus Ab [Titer] in [id number] 09:05:00* Test Item Value Reference Range Interpretation Comme nts Rubella virus IgG Ab [Units/volume] in Serum by Immunoassay (test code = 5334-8) 286.5 [IU]/mL [facility] GroupHIV 1+2 Ab [Presence] in Axoxb3590-20-00 09:05:00HIV P24 AgHIV-1/2 AbMatagoa Medical GroupABO & Rh group [Type] in [id number] 09:05:00* Test Item Value Reference Range Interpretation Comme nts Rh [Type] in Blood (test cod e = 53585-6) 3+ ABO and Rh group panel - Blo od (test code = 88776-0) O positive [facility] GroupBlood group antibody screen [Presence] in Serum or Plasma 2019-03-05 09:05:00* Test Item Value Reference Range Interpretation Comme nts Blood group antibody screen [Presence] in Serum or Plasma (test code = 890-4) negative [facility] GroupHepatitis B virus surface Ag [Presence] in Serum 2019-03-05 09:05:00* Test Item Value Reference Range Interpretation Comme nts .hepatitis B surface antigen (test code = .hepatitis B surface antigen) negative negative [facility] HospitalBacteria identified in Urine by Vqegqtg8487-38-64 09:05:00Bacteria Ur CultTallahatchie General HospitalReagin Ab [Presence] in Serum by [id number] 09:05:00* Test Item Value Reference Range Interpretation Comme nts Reagin Ab [Presence] in Seru m by RPR (test code = 70808-6) nonreactive nonreactive [facility]
--- NOTE | 2024-07-22 12:39 | RAD REPORT ---
EXAM: CT Head Brain Wo Cont HISTORY: HEADACHE COMPARISON: 02/16/2024 TECHNIQUE: Multiple contiguous axial images were obtained for a CT of the brain without contrast. Sag ittal and coronal reformats were performed. One or more of the following dose reduction techniques were used: Automated exposure control, adjus tment of the mA and kV according to patient size, and iterative reconstruction. Unless otherwise specified, incidental findings do not require dedicated imaging follow-up. FINDINGS: No evidence of hydrocephalus, intracranial hemorrhage, or extra-axial fluid collection. The brain is normal in morphology. The calvarium is intact. The visualized paranasal sinuses and mastoid air cells are essentially clear . IMPRESSION: No evidence of acute intracranial abnormality.
[2024-07-22 13:10] LABS: Absolute Basophils 0.1 K/uL (0-0.5); Absolute Eosinophils 0.2 K/uL (0-0.5); Absolute Lymphocytes (CBC) 2.8 K/uL (0.7-4.9); Absolute Monocytes 0.5 K/uL (0.1-1.3); Absolute Neutrophil 6.4 K/uL (1.8-8.0); Basophils % 0.7 % (0-1.3); Eosinophils % 2.2 % (0-4.4); Hematocrit 40.6 % (36.0-45.0); Hemoglobin 13.3 g/dL (12.0-15.0); Lymphocytes % 27.8 % (15.3-44.8); MCH 29.6 pg (27.0-35.0); MCHC 32.8 g/dL (32.0-36.0); MCV 90.2 fL (80-100); MPV 8.3 fL (7.6-11.3); Monocytes % 5.4 % (3.3-12.3); Neutrophils % 63.9 % (41.7-73.7); Platelets 383 thou/uL (152-406); RBC Red Blood Cell Count 4.49 M/uL (3.86-4.86); Red Cell Distribution Width 13.5 % (12.1-15.2)
[2024-07-22 13:13] LABS: Specific Gravity 1.018 (1.005-1.030)
[2024-07-22] MEDS ORDERED: NA CHLORIDE 0.9% 1,000 ML ONE (13:15)
[2024-07-22 13:21] LABS: Specific Gravity 1.018 (1.005-1.030); Sqamous Epithelial <5 /HPF (None Seen); Urine Bacteria None Seen /HPF (<20); Urine Bilirubin NEGATIVE (Negative); Urine Blood Negative (Negative); Urine Clarity Turbid (Clear); Urine Color Light-Yellow (Yellow); Urine Culture Reflex Order NOT NEEDED; Urine Glucose NEGATIVE (Negative); Urine Ketones NEGATIVE (Negative); Urine Microscopic Reflex YN ORDER UMIC; Urine Mucus Slight /HPF (None Seen); Urine Nitrite NEGATIVE (Negative); Urine Protein NEGATIVE (Negative); Urine RBC <5 /HPF (None Seen); Urine Urobilinogen Normal (Normal); Urine WBC <5 /HPF (<5); Urine WBC Clump Rare /HPF (None Seen); Urine pH 5.5 (5.0-7.0)
[2024-07-22 13:24] LABS: ALT/SGPT 23 U/L (13-56); AST/SGOT 14 U/L (15-37); Albumin 3.5 g/dL (3.4-5.0); Albumin/Globulin Ratio 0.9 (1.1-1.8); Alkaline Phosphatase 134 U/L (45-117); Anion Gap 6.4 mEq/L (5.0-15.0); BUN Blood Urea Nitrogen 8 mg/dL (7-18); Bicarbonate 27 mEq/L (21-32); Bilirubin Total 0.4 mg/dL (0.2-1.0); Glomerular Filtration Rate 122 ml/min (=/>90); Glucose Level 110 mg/dL (74-106); Potassium 4.4 mEq/L (3.5-5.1); Protein, Total 7.5 g/dL (6.4-8.2); Sodium Level 137 mEq/L (136-145); Troponin High Sensitivity < 3.0 pg/mL (<58.9)
[2024-07-22] MEDS ORDERED: DIPHENHYDRAMINE 50 MG/ML VIAL ONE (13:33)
[2024-07-22] MEDS ORDERED: KETOROLAC 30 MG/ML INJ ONE (13:33)
[2024-07-22] MEDS ORDERED: METOCLOPRAMIDE 10 MG/2mL INJ ONE (13:33)
[2024-07-22] MEDS ORDERED: CIPROFLOXACIN HCL 500 MG TAB ONE (14:45)
[2024-07-22] MEDS ORDERED: CEFTRIAXONE 1000 MG/VIAL ONE (14:45)
--- NOTE | 2024-07-22 15:37 | EDPHYS ---
Physician Documentation [facility] Name: Debora Taveras Age: 28 yrs Sex: Female : 1995 Arrival Date: 07/22/2024 Time: : Bed 10 Private MD: ED Physician Burke Kee HPI: 07/22 15:22 This 28 yrs old Female presents to ER via Ambulatory with complaints of jo ann Passed Out Prior To Arrival, Headache - x3days. 15:22 The patient has experienced near-syncope, almost passed out, felt dizzy, felt faint, jo ann felt generally weak. Onset: The symptoms/episode began/occurred yesterday. 15:23 The patient complains of pain to the forehead, left frontal area, left temporal area, jo ann left occipital area, right frontal area, right temporal area and right occipital area. The patient describes the headache as constant. Severity of symptoms: At its worst the pain was moderate, in the emergency department the pain is unchanged. Headache History: The patient has had previous headaches and this one is similar to previous episodes. Associated injury: The patient did not suffer any apparent associated injury. Associated signs and symptoms: Pertinent positives: dizziness, weakness. Current symptoms: headache, that is moderate. The symptoms are alleviated by remaining still, the symptoms are aggravated by lights, movement, noise, stress. It is unknown whether or not the patient has had similar symptoms in the past. Historical: - Allergies: 11:39 PENICILLINS; hb - Home Meds: 11:39 None [Active]; hb - PMHx: 11:39 None; hb - PSHx: 11:39 Cholecystectomy; right eye; tubal; hb - Immunization history:: Adult Immunizations up to date. - Infectious Disease History:: Denies. - Social history:: Smoking status: Patient denies any tobacco usage or history of. ROS: 15:24 Constitutional: Negative for fever, chills, and weight loss, Eyes: Negative for injury, jo ann pain, redness, and discharge, ENT: Negative for injury, pain, and discharge, Neck: Negative for injury, pain, and swelling, Cardiovascular: Negative for chest pain, palpitations, and edema, Respiratory: Negative for shortness of breath, cough, wheezing, and pleuritic chest pain, Abdomen/GI: Negative for abdominal pain, nausea, vomiting, diarrhea, and constipation, Back: Negative for injury and pain, : Negative for injury, bleeding, discharge, and swelling, MS/Extremity: Negative for injury and deformity, Skin: Negative for injury, rash, and discoloration, Psych: Negative for depression, anxiety, suicide ideation, homicidal ideation, and hallucinations, Allergy/Immunology: Negative for hives, rash, and allergies, Endocrine: Negative for neck swelling, polydipsia, polyuria, polyphagia, and marked weight changes, Hematologic/Lymphatic: Negative for swollen nodes, abnormal bleeding, and unusual bruising, 15:24 Neuro: Positive for dizziness, headache, weakness, Exam: 15:24 Constitutional: This is a well developed, well nourished patient who is awake, alert, jo ann and in no acute distress. Head/Face: Normocephalic, atraumatic. Eyes: Pupils equal round and reactive to light, extra-ocular motions intact. Lids and lashes normal. Conjunctiva and sclera are non-icteric and not injected. Cornea within normal limits. Periorbital areas with no swelling, redness, or edema. ENT: Nares patent. No nasal discharge, no septal abnormalities noted. Tympanic membranes are normal and external auditory canals are clear. Oropharynx with no redness, swelling, or masses, exudates, or evidence of obstruction, uvula midline. Mucous membranes moist. Neck: Trachea midline, no thyromegaly or masses palpated, and no cervical lymphadenopathy. Supple, full range of motion without nuchal rigidity, or vertebral point tenderness. No Meningismus. Chest/axilla: Normal chest wall appearance and motion. Nontender with no deformity. No lesions are appreciated. Cardiovascular: Regular rate and rhythm with a normal S1 and S2. No gallops, murmurs, or rubs. Normal PMI, no JVD. No pulse deficits. Respiratory: Lungs have equal breath sounds bilaterally, clear to auscultation and percussion. No rales, rhonchi or wheezes noted. No increased work of breathing, no retractions or nasal flaring. Abdomen/GI: Soft, non-tender, with normal bowel sounds. No distension or tympany. No guarding or rebound. No evidence of tenderness throughout. Back: No spinal tenderness. No costovertebral tenderness. Full range of motion. Skin: Warm, dry with normal turgor. Normal color with no rashes, no lesions, and no evidence of cellulitis. MS/ Extremity: Pulses equal, no cyanosis. Neurovascular intact. Full, normal range of motion. Neuro: Awake and alert, GCS 15, oriented to person, place, time, and situation. Cranial nerves II-XII grossly intact. Motor strength 5/5 in all extremities. Sensory grossly intact. Cerebellar exam normal. Normal gait. Psych: Awake, alert, with orientation to person, place and time. Behavior, mood, and affect are within normal limits. 15:24 ECG was reviewed by the Attending Physician. 15:24 Musculoskeletal/extremity: DVT Exam: No signs of deep vein thrombosis. no pain, no swelling, no tenderness, negative Homans' sign noted on exam, no appreciated bluish discoloration, no erythema, no increased warmth, Vital Signs: 11:36 BP 135 / 95; Pulse 91; Resp 16; Temp 98.3(TE); Pulse Ox 99% on R/A; Weight 81.65 kg; hb Height 5 ft. 3 in. ; Pain 4/10; 15:07 BP 109 / 74; Pulse 77; Resp 16; Pulse Ox 99% ; ll1 11:36 Body Mass Index 31.89 (81.65 kg, 160.02 cm) hb 11:36 Pain Scale: Adult hb [place] Coma Score: 15:31 Eye Response: spontaneous(4). Motor Response: obeys commands(6). Verbal Response: jo ann oriented(5). Total: 15. MDM: 11:35 Medical Screening Exam initiated jo ann 15:31 Differential diagnosis: cluster headache, cerebral vascular accident, hyponatremia, jo ann migraine, neoplasm, temporal arteritis, tension headache, traumatic injuries, trigeminal neuralgia. Differential Diagnosis altered mental status, sepsis, flu. Differential Diagnosis: cardiac arrhythmia, emotional response, idiopathic syncope, vasovagal episode. Data reviewed: vital signs, nurses notes. Consideration of Admission/Observation Escalation of care including admission/observation considered. I considered the following discharge prescriptions or medication management in the emergency department Medications were administered in the Emergency Department. See MAR. Independent interpretation of the following test(s) in the Emergency Department EKG: See my EKG interpretation above. Test considered but Not performed: MRI: no mri brain. Historians other than the Patient: pt well informed. Care significantly affected by the following chronic conditions: Obesity, none. Counseling: I had a detailed discussion with the patient and/or guardian regarding the historical points, exam findings, and any diagnostic results supporting the discharge/admit diagnosis, lab results, radiology results, the need for outpatient follow up, for definitive care, a family practitioner. 07/22 11:41 Order name: CBC with Diff; Complete Time: 14:30 [facility] 07/22 11:41 Order name: Comprehensive Metabolic Panel; Complete Time: 14:30 [facility] 07/22 11:41 Order name: Urinalysis w/ reflexes; Complete Time: 14:30 [facility] 07/22 11:41 Order name: PREGU [facility] 07/22 11:41 Order name: Troponin High Sensitivity; Complete Time: 14:30 [facility] 07/22 14:31 Order name: Urine Culture [facility] 07/22 11:41 Order name: CT Head Brain wo Cont; Complete Time: 14:30 [facility] 07/22 11:41 Order name: EKG; Complete Time: 11:41 [facility] 07/22 11:41 Order name: EKG - Nurse/Tech; Complete Time: 13:05 [facility] EC:24 Rate is 76 beats/min. Rhythm is regular. QRS Royal is Normal. MD interval is normal. QRS jo ann interval is normal. QT interval is normal. No Q waves. T waves are Normal. No ST changes noted. Clinical impression: Normal ECG and No evidence of ischemia. Interpreted by me. Reviewed by me. Administered Medications: 13:17 Drug: NS 0.9% IV 1000 ml IV at 1000 ml once; to be given as a bolus over 60 minutes kb3 Route: IV; Rate: 1000 ml; Site: left antecubital; 14:52 Follow up: Response: No adverse reaction; IV Status: Completed infusion; IV Intake: ll1 1000ml 14:52 Follow up: Response: No adverse reaction; IV Status: Completed infusion; IV Intake: kb3 1000ml 13:39 Drug: metoCLOPramide IVP 10 mg IVP once; over 1 to 2 minutes Route: IVP; Site: left kb3 antecubital; 14:51 Follow up: Response: No adverse reaction; Pain is decreased kb3 13:39 Drug: Ketorolac IVP 30 mg IVP once Route: IVP; Site: left antecubital; kb3 14:51 Follow up: Response: No adverse reaction; Pain is decreased kb3 13:39 Drug: diphenhydrAMINE IVP 25 mg IVP once Route: IVP; Site: left antecubital; kb3 14:51 Follow up: Response: No adverse reaction; Pain is decreased kb3 14:52 Drug: Rocephin IV 1 grams IV at per protocol once; Given slow IV push per pharmacy ll1 instructions Route: IV; Rate: per protocol; Site: left antecubital; 15:23 Follow up: Response: No adverse reaction; IV Status: Completed infusion; IV Intake: [id number] 14:52 Drug: Ciprofloxacin PO 250 mg PO once Route: PO; ll1 15:23 Follow up: Response: No adverse reaction kc6 Disposition Summary: 07/22/24 15:36 Discharge Ordered Notes: Location: Home jo ann Problem: new jo ann Symptoms: have improved jo ann Condition: Stable jo ann Diagnosis - Headache jo ann - Migraine without aura, not intractable, without status migrainosus jo ann - Syncope Near jo ann - UTI/ Urinary tract infection, site not specified jo ann Followup: jo ann - With: Private Physician - When: 2 - 3 days - Reason: Recheck today's complaints, Continuance of care, Re-evaluation by your physician Followup: jo ann - With: Jose Ramon Esparza MD - When: 2 - 3 days - Reason: Recheck today's complaints, Re-evaluation by your physician Discharge Instructions: - Discharge Summary Sheet jo ann - General Headache Without Cause jo ann - Migraine Headache jo ann - Near-Syncope jo ann - Urinary Tract Infection, Adult jo ann - Urinary Tract Infection, Adult, [id number] jo ann - Migraine Headache, [id number] jo ann - General Headache Without Cause, Ydld-pa-Mold [facility] Forms: - Medication Reconciliation Form jo ann - Antibiotic Education jo ann - Prescription Opioid Use jo ann - Patient Portal Instructions [facility] - Leadership Thank You Letter [facility] Prescriptions: - Fioricet with Codeine 64-450-54-30 mg Oral capsule - take 2 capsule ORAL route every 4 hours as needed for pain; do not exceed 6 jo ann caps per day; 18 capsule; Refills: 0, Product Selection Permitted - ondansetron 4 mg Oral Tablet,disintegrating - take 1 tablet ORAL route every 8 hours for 5 days prn nausea; 20 tablet; jo ann Refills: 0, Product Selection Permitted - Cipro 250 mg Oral tablet - take 1 tablet ORAL route every 12 hours; 14 tablet; Refills: 0, Product jo ann Selection Permitted Signatures: Dispatcher [employer] Burke Martínez MD MD cha Baxter, Heather, RN RN hb Celia Mckeon RN RN ll1 Katie Kaufman RN RN kb3 Anuradha Pelaez RN kc6 Corrections: (The following items were deleted from the chart) 14:31 14:31 Urine Culture+BA.LAB.BRZ ordered. ABBEPA ABBEPA
--- NOTE | 2024-07-22 15:37 | ER ---
Nurse's Notes [facility] Name: Debora Taveras Age: 28 yrs Sex: Female : 1995 Arrival Date: 07/22/2024 Time: 11:29 Bed 10 Private MD: Diagnosis: Headache;Migraine without aura, not intractable, without status migrainosus;Syncope Near;UTI/ Urinary tract infection, site not specified Presentation: 07/22 11:36 Chief complaint: Migraine x 2-3 days, had syncopal episode while standing at work this morning, denies injury. Coronavirus screen: At this time, the client does not indicate any symptoms associated with coronavirus-19. Ebola Screen: No symptoms or risks identified at this time. Initial Sepsis Screen: Does the patient meet any 2 criteria? No. Patient's initial sepsis screen is negative. Does the patient have a suspected source of infection? No. Patient's initial sepsis screen is negative. Risk Assessment: Do you want to hurt yourself or someone else? Patient reports no desire to harm self or others. Onset of symptoms was July 19, 2024. 11:36 Method Of Arrival: Ambulatory hb 11:36 Acuity: LIZY 3 hb Historical: - Allergies: 11:39 PENICILLINS; hb - Home Meds: 11:39 None [Active]; hb - PMHx: 11:39 None; hb - PSHx: 11:39 Cholecystectomy; right eye; tubal; hb - Immunization history:: Adult Immunizations up to date. - Infectious Disease History:: Denies. - Social history:: Smoking status: Patient denies any tobacco usage or history of. Screenin:05 [facility] ED Fall Risk Assessment (Adult) History of falling in the last 3 months, kc6 including since admission Yes- physiologic fall (2 pts) Confusion or Disorientation No (0 pts) Intoxicated or Sedated No (0 pts) Impaired Gait No (0 pts) Mobility Assist Device Used No (0 pt) Altered Elimination No (0 pt) Score/Fall Risk Level 0 - 2 = Low Risk Oriented to surroundings, Maintained a safe environment. Abuse screen: Denies threats or abuse. Denies injuries from another. Nutritional screening: No deficits noted. Tuberculosis screening: No symptoms or risk factors identified. Assessment: 14:48 General: Appears uncomfortable, Behavior is calm, cooperative, appropriate for age. ll1 Pain: Denies pain. Neuro: Reports headache a syncopal episode weakness. 14:50 Reassessment: No changes from previously documented assessment. Patient and/or family ll1 updated on plan of care and expected duration. Pain level reassessed. Patient is alert, oriented x 3, equal unlabored respirations, skin warm/dry/pink. Patient states feeling better. 15:07 Reassessment: No changes from previously documented assessment. Patient and/or family ll1 updated on plan of care and expected duration. Pain level reassessed. Patient is alert, oriented x 3, equal unlabored respirations, skin warm/dry/pink. Vital Signs: 11:36 BP 135 / 95; Pulse 91; Resp 16; Temp 98.3(TE); Pulse Ox 99% on R/A; Weight 81.65 kg; hb Height 5 ft. 3 in. ; Pain 4/10; 15:07 BP 109 / 74; Pulse 77; Resp 16; Pulse Ox 99% ; ll1 11:36 Body Mass Index 31.89 (81.65 kg, 160.02 cm) hb 11:36 Pain Scale: Adult hb [place] Coma Score: 15:31 Eye Response: spontaneous(4). Motor Response: obeys commands(6). Verbal Response: jo ann oriented(5). Total: 15. ED Course: 11:33 Patient arrived in ED. ra3 11:35 Burke Kee MD is Attending Physician. jo ann 11:38 Triage completed. hb 11:39 Arm band placed on. hb 11:52 CT Head Brain wo Cont In Process Unspecified. EDMS 12:54 Troponin High Sensitivity Sent. bc6 12:54 Comprehensive Metabolic Panel Sent. bc6 12:54 CBC with Diff Sent. bc6 12:54 Initial lab(s) drawn, by nj, sent to lab. Inserted saline lock: 20 gauge in left bc6 antecubital area, using aseptic technique. Blood collected. Flushed with 10 mL NS. 13:05 PREGU Sent. bc6 13:05 Urinalysis w/ reflexes Sent. bc6 13:05 EKG done, by ED staff, reviewed by Burke Kee MD. bc6 14:43 Urine Culture Sent. bc6 14:51 Celia Mckeon RN is Primary Nurse. ll1 15:05 Patient has correct armband on for positive identification. Bed in low position. Call kc6 light in reach. Side rails up X 1. Report received from Jenna Mckeon RN. Pulse ox on. NIBP on. Door closed. Noise minimized. Lights dimmed. Warm blanket given. Pillow given. 15:08 Diet: Patient given snack. Patient given juice. ll1 15:37 Jose Ramon Esparza MD is Referral Physician. [facility] 15:50 No provider procedures requiring assistance completed. IV discontinued, intact, kc6 bleeding controlled, No redness/swelling at site. Pressure dressing applied. Administered Medications: 13:17 Drug: NS 0.9% IV 1000 ml IV at 1000 ml once; to be given as a bolus over 60 minutes kb3 Route: IV; Rate: 1000 ml; Site: left antecubital; 14:52 Follow up: Response: No adverse reaction; IV Status: Completed infusion; IV Intake: ll1 1000ml 14:52 Follow up: Response: No adverse reaction; IV Status: Completed infusion; IV Intake: kb3 1000ml 13:39 Drug: metoCLOPramide IVP 10 mg IVP once; over 1 to 2 minutes Route: IVP; Site: left kb3 antecubital; 14:51 Follow up: Response: No adverse reaction; Pain is decreased kb3 13:39 Drug: Ketorolac IVP 30 mg IVP once Route: IVP; Site: left antecubital; kb3 14:51 Follow up: Response: No adverse reaction; Pain is decreased kb3 13:39 Drug: diphenhydrAMINE IVP 25 mg IVP once Route: IVP; Site: left antecubital; kb3 14:51 Follow up: Response: No adverse reaction; Pain is decreased kb3 14:52 Drug: Rocephin IV 1 grams IV at per protocol once; Given slow IV push per pharmacy ll1 instructions Route: IV; Rate: per protocol; Site: left antecubital; 15:23 Follow up: Response: No adverse reaction; IV Status: Completed infusion; IV Intake: [id number] 14:52 Drug: Ciprofloxacin PO 250 mg PO once Route: PO; ll1 15:23 Follow up: Response: No adverse reaction kc6 Medication: 15:08 VIS not applicable for this client. ll1 Intake: 14:52 IV: 1000ml; Total: 1000ml. ll1 14:52 IV: 1000ml; Total: 2000ml. kb3 15:23 IV: 50ml; Total: 2050ml. kc6 Outcome: 15:36 Discharge ordered by . jo ann 15:50 Discharged to home ambulatory, kc6 15:50 Condition: improved 15:50 Discharge instructions given to patient, Instructed on discharge instructions, follow up and referral plans. medication usage, Demonstrated understanding of instructions, follow-up care, medications, Prescriptions given X 3, 15:50 Patient left the ED. kc6 Signatures: Dispatcher [employer] EDMS Burke Kee MD MD cha Baxter, Heather, RN RN Celia Gaytan RN RN ll1 Anuradha Pelaez RN RN kc6 Katie Kaufman RN RN kb3 Linnea Crane Neha Zapata 3
[2024-07-22 17:55] VITALS: TEMP 98.3; O2SAT 99
[2024-07-22 18:00] VITALS: BP 109/74
--- NOTE | 2024-07-26 14:19 | EKG ---
Test Date: 2024-07-22 Test Time: 12:59:15 Rides Supervisor: BRAYAN MEASUREMENT RESULTS: Intervals: Rate: 76 NH: 146 QRSD: 78 QT: 380 QTc: 427 [place]: P: 28 NH: 146 QRS: 2 T: 26 INTERPRETIVE STATEMENTS: Normal sinus rhythm Normal ECG Compared to ECG 10/13/2022 20:18:41 No significant changes Electronically Signed On 07-26-24 14:15:28 [employer]INTENA[employer]CE ELECTRICIAN by Makr Encarnacion
== END 2024-07-22 15:50 | disposition home or self-care (01) ==
LOC: ER 11:29
DX: G43.009 Migraine without aura, not intractable, without status migrainosus (principal); N39.0 Urinary tract infection, site not specified; R55 Syncope and collapse
CPT/HCPCS: 36415; 70450; 80053; 81001; 81025; 84484; 85025; 87086; 87088; 93005; 96361; 96365; 96375; 99284; J0696; J1200; J2765; J7030

== ENCOUNTER 2024-09-21 15:46 | Emergency (ER) | payer SELFPAY ==
--- NOTE | 2024-09-21 16:46 | RAD REPORT ---
EXAMINATION: Ankle Right 3 View CLINICAL INDICATION: Female, 29 years old. PAIN COMPARISON: No prior exam. FINDINGS: Distal fibular fracture which is slightly displaced and extends to the tibiofibular syndesmosis. Ther e is less than one third shaft width of displacement. Widening of the medial clear space. No significant focal degenerative change. Other: n/a IMPRESSION: Distal fibular fracture which is mildly displaced and extends to the tibiofibular syndesmosis. Wideni ng of the medial clear space.
--- NOTE | 2024-09-21 16:51 | RAD REPORT ---
EXAM: Foot Right 3 View HISTORY: PAIN COMPARISON: None FINDINGS: Bones: No acute fracture identified. Alignment:No significant malalignment. Degenerative changes:None significant. Other: n/a IMPRESSION: No evidence of acute osseous abnormality involving the imaged foot.
--- NOTE | 2024-09-21 16:58 | RAD REPORT ---
EXAMINATION: Tib Fib Right CLINICAL INDICATION: Female, 29 years old. PAIN COMPARISON: No prior exam. FINDINGS: Distal fibular fracture with extension to the tibiofibular syndesmosis and mild displacement. No othe r fracture of the tibia or fibula is identified. IMPRESSION: Distal fibular fracture.
--- NOTE | 2024-09-21 18:00 | EDPHYS ---
Physician Documentation [facility] Name: Debora Nitin Age: 29 yrs Sex: Female : 1995 Arrival Date: 09/21/2024 Time: 15:46 Bed Treatment Private MD: ED Physician Isai Man HPI: 09/21 16:46 This 29 yrs old Female presents to ER via Wheelchair with complaints of Foot Injury. rn 16:46 The patient presents with an injury, pain. The complaints affect the left foot. rn 16:47 Onset: The symptoms/episode began/occurred last night. Modifying factors: The symptoms rn are alleviated by nothing, the symptoms are aggravated by weight bearing, movement. Severity of symptoms: At their worst the symptoms were moderate, in the emergency department the symptoms are unchanged. The patient has not experienced similar symptoms in the past. Patient reports was drinking last night, was standing and legs buckled, landed on left leg and now has pain from right mid tibia to the foot. No gross deformity or swelling. Did not strike her leg on anything.. 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 Flu vaccine is not up to date. - Infectious Disease History:: Denies. - Social history:: Smoking status: Reported history of juuling and/or vaping. - Family history:: not pertinent. - Hospitalizations: : No recent hospitalization is reported. ROS: 16:47 MS/Extremity: Positive for injury and pain to the right lower extremity from mid tibia rn to foot Exam: 16:47 Constitutional: This is a well developed, well nourished patient who is awake, alert, rn and in no acute distress. MS/ Extremity: Pulses equal, no cyanosis. Neurovascular intact. Mild tenderness anterior tibia at midshaft and distal tibia. Less painful range of motion of the ankle and the foot but still slightly tender. No gross deformity. Vital Signs: 16:03 BP 114 / 86; Pulse 86; Resp 17; Temp 98.4; Pulse Ox 100% ; Weight 89.36 kg; Height 5 ap3 ft. 3 in. ; Pain 8/10; 16:03 Body Mass Index 34.90 (89.36 kg, 160.02 cm) ap3 16:03 Pain Scale: Adult ap3 MDM: 16:01 Medical Screening Exam initiated rn 17:03 Differential diagnosis: fracture, sprain. Data reviewed: vital signs, nurses notes, rn radiologic studies, plain films. Independent interpretation of the following test(s) in the Emergency Department X-Ray: My interpretation is X-ray right ankle shows distal fibular oblique fracture per my interpretation. Counseling: I had a detailed discussion with the patient and/or guardian regarding the historical points, exam findings, and any diagnostic results supporting the discharge/admit diagnosis, radiology results, the need for outpatient follow up, to return to the emergency department if symptoms worsen or persist or if there are any questions or concerns that arise at home. Special discussion: I discussed with the patient/guardian in detail that at this point there is no indication for admission to the hospital. It is understood, however, that if the symptoms persist or worsen the patient needs to return immediately for re-evaluation. Based on the history and exam findings, there is no indication for further emergent testing or inpatient evaluation. I discussed with the patient/guardian the need to see the orthopedic surgeon for further evaluation of the symptoms. 17:59 ED course: Patient refuses splint, states that she is the sole provider for her family, rn requests walking boot. Patient understands that this is an unstable fracture and walking boot is not recommended, that we prefer splint. Understands that she is to be nonweightbearing. Return precautions given and she will make follow-up with orthopedics.. 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 09/21 16:09 Order name: XRAY Tib Fib RIGHT; Complete Time: 17: rn 09/21 16:09 Order name: XRAY Ankle RIGHT 3 view; Complete Time: 17: rn 09/21 16:09 Order name: XRAY Foot RIGHT 3 View; Complete Time: 17: rn 09/21 17:03 Order name: Crutches; Complete Time: 18:11 rn Administered Medications: 18:28 Drug: [place] PO 10 mg-325 mg 1 tabs PO once Route: PO; ap3 18:45 Follow up: Response: No adverse reaction; Medication administered at discharge. jl7 18:28 Drug: Ibuprofen PO 800 mg PO once Route: PO; ap3 18:45 Follow up: Response: No adverse reaction; Medication administered at discharge. 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 - Prescription Opioid Use rn - Patient Portal Instructions rn - Leadership Thank You Letter rn Prescriptions: - Ibuprofen 800 mg Oral Tablet - take 1 tablet ORAL route every 12 hours As needed take with food; 20 tablet; rn Refills: 0, Product Selection Permitted - Tramadol 50 mg Oral tablet - take 1 tablet ORAL route every 8 hours As needed as needed; 15 tablet; Refills: rn 0, Product Selection Permitted Signatures: Dispatcher [employer] Isai Worthy MD MD rn Prokisch, Amanda RN RN ap3 Cynthia Judd RN jl7 Corrections: (The following items were deleted from the chart) 16:10 16:10 Foot Right 3 View+[id number] ordered. EDMS EDMS 18:28 17:03 Splint - Ankle: Orthoglass: Posterior ordered. rn ap3 18:28 17:03 Splint - Ankle: Orthoglass: Stirrup ordered. rn ap3
--- NOTE | 2024-09-21 18:00 | ER ---
Nurse's Notes [facility] Name: Debora Taveras Age: 29 yrs Sex: Female : 1995 Arrival Date: 09/21/2024 Time: 15:46 Bed Treatment Private MD: Diagnosis: Displaced fracture of lateral malleolus of right fibula Presentation: 09/21 16:03 Chief complaint: Patient states: she was "having too much fun last night when I passed ap3 out and my legs gave out and my ankle ended up under me when I came to I was in a lot of pain". Patient reports pain and swelling to her right ankle. patient currently rates her pain as an 8/10 on the pain scale. Coronavirus screen: At this time, the client does not indicate any symptoms associated with coronavirus-19. Ebola Screen: No symptoms or risks identified at this time. Initial Sepsis Screen: Does the patient meet any 2 criteria? No. Patient's initial sepsis screen is negative. Does the patient have a suspected source of infection? No. Patient's initial sepsis screen is negative. Risk Assessment: Do you want to hurt yourself or someone else? Patient reports no desire to harm self or others. Onset of symptoms was September 20, 2024. 16:03 Method Of Arrival: Wheelchair ap3 16:03 Acuity: LIZY 3 ap3 Triage Assessment: 16:06 General: Appears in no apparent distress. Behavior is calm, cooperative, appropriate ap3 for age. Pain: Complains of pain in right foot Pain currently is 8 out of 10 on a pain scale. Neuro: Level of Consciousness is awake, alert, obeys commands, Oriented to person, place, time, situation, Appropriate for age. Cardiovascular: Patient's skin is warm and dry. Respiratory: Airway is patent Respiratory effort is even, unlabored, Respiratory pattern is regular, symmetrical. Musculoskeletal: Reports pain in right foot. Injury Description: fall. 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 Flu vaccine is not up to date. - Infectious Disease History:: Denies. - Social history:: Smoking status: Reported history of juuling and/or vaping. - Family history:: not pertinent. - Hospitalizations: : No recent hospitalization is reported. Screenin:06 [facility] ED Fall Risk Assessment (Adult) History of falling in the last 3 months, ap3 including since admission Yes- single mechanical fall (1 pt) Confusion or Disorientation No (0 pts) Intoxicated or Sedated No (0 pts) Impaired Gait Yes (1 pt) Mobility Assist Device Used No (0 pt) Altered Elimination No (0 pt) Score/Fall Risk Level 0 - 2 = Low Risk Oriented to surroundings, Maintained a safe environment, Educated pt \\T\\ family on fall prevention, incl call for assistance when getting out of bed, Assessed \\T\\ reinforced patient's understanding of fall precautions, Hourly rounding (assess needs \\T\\ fall precautionary measures) done, Used ambulatory aids as needed (educated on \\T\\ assisted with), Used gait belt as appropriate. Abuse screen: Denies threats or abuse. Nutritional screening: No deficits noted. Tuberculosis screening: No symptoms or risk factors identified. Vital Signs: 16:03 BP 114 / 86; Pulse 86; Resp 17; Temp 98.4; Pulse Ox 100% ; Weight 89.36 kg; Height 5 ap3 ft. 3 in. ; Pain 8/10; 16:03 Body Mass Index 34.90 (89.36 kg, 160.02 cm) ap3 16:03 Pain Scale: Adult ap3 ED Course: 15:49 Patient arrived in ED. sj2 16:01 Isai Man MD is Attending Physician. rn 16:05 Triage completed. ap3 16:07 Arm band placed on right wrist. ap3 16:31 XRAY Tib Fib RIGHT In Process Unspecified. EDMS 16:31 XRAY Ankle RIGHT 3 view In Process Unspecified. EDMS 16:31 XRAY Foot RIGHT 3 View In Process Unspecified. EDMS 18:00 Soy Petit MD is Referral Physician. rn 18:44 Cynthia Judd RN is Primary Nurse. jl7 18:45 Patient has correct armband on for positive identification. Provided Education on: jl7 discharge. 18:45 No provider procedures requiring assistance completed. Patient did not have IV access jl7 during this emergency room visit. Administered Medications: 18:28 Drug: [place] PO 10 mg-325 mg 1 tabs PO once Route: PO; ap3 18:45 Follow up: Response: No adverse reaction; Medication administered at discharge. jl7 18:28 Drug: Ibuprofen PO 800 mg PO once Route: PO; ap3 18:45 Follow up: Response: No adverse reaction; Medication administered at discharge. jl7 Medication: 18:45 VIS not applicable for this client. jl7 Outcome: 18:00 Discharge ordered by . rn 18:45 Discharged to home via wheelchair, with crutches, jl7 18:45 Condition: stable 18:45 Discharge instructions given to patient, Instructed on discharge instructions, follow up and referral plans. medication usage, crutch walking, Demonstrated understanding of instructions, follow-up care, medications, crutch walking, Prescriptions given X 2, 18:46 Patient left the ED. jl7 Signatures: Dispatcher [employer] EDMS Isai Man MD MD rn Leal, Jahala, RN RN jl7 Addie Ward RN RN ap3 Molly Castillo [facility]
[2024-09-21] MEDS ORDERED: IBUPROFEN 400 MG TAB ONE (18:21)
[2024-09-21] MEDS ORDERED: HYDROCODONE/APAP 10/325 TAB ONE (18:21)
[2024-09-21 22:42] VITALS: BP 114/86; TEMP 98.4; O2SAT 100
--- OUTSIDE RECORDS SUMMARY | 2024-09-23 01:51 | XMS REPORT | Continuity of Care Document ---
Author Name Unknown Address [address] [facility] [place]. [address] [place] [address] [facility] Address [address] [facility] [place]. [address] [place] [address] Care Team Providers Care Radiation Oncology Nurse Name Role Phone PCP, PATIENT DOES NOT HAVE A Primary Care Physic domi Unavailable RINA SERRANO Attending Clinician RINA Haque Attending Clinician MICHELET Torres Attending Clinician Unavailable Michelet Jay MD Attending Clinician Doctor Unassigned, [place] Attending Clinician U navailable Only, Adc Test Attending Clinician Unavailable [employer] MACHINE, Ave Bui Attending Clinician [phone] Chino Zhang MD Attending Clinician [phone] CHINO ZHANG Attending Clinician Unavailable Eusebio Barrow Attending Clinician [phone] G_[facility]appas Attending Clinician Unavailable MARC ALEXIS Attending [...] Clinician Unavailable Michelet Jay MD Admitting Clinician [phone] [facility]as Admitting Clinician Unavailable ANTHONY Admitting Clinician Unavailable MARC ALEXIS Admitting Clinician UnavailLEANA Garcia Admitting Clinician Unavaila ble Payers Payer Name Policy Type Policy Number Effective Date Expirati on Date Source [facility] [place] [facility] [id number] 2024 00:00:00 [facility] [id number] 2020 00:00:00 2022 00:00:00 [facility] (MEDICAID HMO) [id number] 2016 00:00:00 Problems Condition Name Condition Details Condition Category Status Onset Date Resolution Date Last Treatment Date Treating Clinician Comments Source Obesity (BMI 30-39.9) Obesity (BMI 30-39.9) Disease Active 2020-08 00:00: 00 [facility] Right upper quadrant pain Right upper quadrant pain Disease Active 2020-08 00:00: 00 Overview: Formattin g of this note might be different from the original. Added automatic ally from request for surgery [id number] [facility] Epigastric pain Epigastric pain Disease Active 2020-08 00:00: 00 Overview: Formattin g of this note might be different from the original. Added automatic ally from request for surgery [id number] [facility] Sterilizat ion requested Sterilizat ion Requested [...] Program Depressive disorder Depressive Disorder Problem Active 12-27 00:00: 00 [place] of Ovary Problem Active 03-05 00:00: 00 [facility] Hyperemesi s gravidarum Hyperemesi s Gravidarum Problem Active 03-05 00:00: 00 [facility] Subchorion ic hematoma Subchorion ic Hematoma Problem Active 03-05 00:00: 00 [facility] Chronic constipati on Chronic Constipati on Problem Active [facility] Allergies, Adverse Reactions, Alerts Allergy Name Allergy Type Status Severity Reaction(s) Onset Date Inactive Date Treating Clinician Comments Source Penicill ins Drug Allergy Active Rash 2020-08 00:00: 00 [facility] PENICILL INS Drug Class Active Med Rash 2020-08 00:00: 00 [facility] PENICILL INS Allergy to substanc e Active Moderate Rash [facility] Social History Social Habit Start Date Stop Date Quantity Comments Source Exposure to SARS-CoV-2 (event) Not sure [facility] Tobacco use and exposure 2021-06-16 00:00:00 2021-06-16 00:00:00 Never used [facility] Sex Assigned At 1995 00:00:00 1995 00:00:00 [facility] Smoking Status Start Date Stop Date Source Former Smoker [place] [facility] Never smoker [facility] Medications Ordered Medication Name Filled Medication Name Start Date Stop Date Current Medication? Ordering Clinician Indication Dosage Frequency Signature (SIG) Comments Components Source methocarbam oL 500 mg tablet 2020-08 00:00: 00 Yes [id number] 500mg Take 1 tablet by mouth 4 (four) times daily. [facility] pantoprazol e 40 mg EC tablet 2020-08 00:00: 00 Yes [id number] 40mg Take 1 tablet by mouth daily. [facility] sucralfate (CARAFATE) 1 gram tablet 2020-08 00:00: 00 Yes [id number] 1g Take 1 tablet by mouth before meals and at bedtime. [facility] dicyclomine 20 mg tablet 930 00:00: 00 Yes [id number] 20mg Take 1 tablet by mouth every 6 (six) hours as needed for Abdominal pain. [facility] ondansetron (ZOFRAN ODT) 4 mg disintegrat ing tablet 03-07 00:00: 00 Yes [id number] 4mg Take 1 tablet by mouth every 8 (eight) hours as needed for Nausea and Vomiting (N/V). [facility] acetaminoph en 300 mg-codeine 30 mg tablet 1-2 p.o. q 6 hrs PRN pain acetaminoph en 300 mg-codeine 30 mg tablet 1-2 p.o. q 6 hrs PRN pain No acetaminop hen 300 mg-codeine 30 mg tablet 1-2 p.o. q 6 hrs PRN pain [facility] butalbital- acetaminoph en-caffeine 50 mg-325 mg-40 mg tablet Take 1 tablet every 4 hours by oral route. butalbital- acetaminoph en-caffeine 50 mg-325 mg-40 mg tablet Take 1 tablet every 4 hours by oral route. No 1 Q4H butalbital -acetamino phen-caffe ine 50 mg-325 mg-40 mg tablet Take 1 tablet every 4 hours by oral route. [facility] escitalopra m 20 mg tablet Take 1 tablet every day by oral route. escitalopra m 20 mg tablet Take 1 tablet every day by oral route. No escitalopr am 20 mg tablet Take 1 tablet every day by oral route. [facility] ibuprofen 600 mg tablet ibuprofen 600 mg tablet No ibuprofen 600 mg tablet [facility] ibuprofen 800 mg tablet Take 1 tablet every 6 hours by oral route as needed. ibuprofen 800 mg tablet Take 1 tablet every 6 hours by oral route as needed. No ibuprofen 800 mg tablet Take 1 tablet every 6 hours by oral route as needed. [facility] lidocaine (PF) 10 mg/mL (1 %) injection solution Take 3 mL by injection route. lidocaine (PF) 10 mg/mL (1 %) injection solution Take 3 mL by injection route. No 3mL lidocaine (PF) 10 mg/mL (1 %) injection solution Take 3 mL by injection route. [facility] Nexplanon 68 mg subdermal implant Inject 1 implant by subcutaneou s route. Nexplanon 68 mg subdermal implant Inject 1 implant by subcutaneou s route. No 1implan t(s) Nexplanon 68 mg subdermal implant Inject 1 implant by subcutaneo us route. [facility] Off Deep [place] 25 % topical spray Off Deep [place] 25 % topical spray No Off Deep [place] 25 % topical spray [facility] zolpidem 5 mg tablet Take 1 tablet as needed by oral route. zolpidem 5 mg tablet Take 1 tablet as needed by oral route. No zolpidem 5 mg tablet Take 1 tablet as needed by oral route. [facility] citalopram 20 mg tablet citalopram 20 mg tablet No citalopram 20 mg tablet [facility] escitalopra m 20 mg tablet Take 1 tablet every day by oral route. escitalopra m 20 mg tablet Take 1 tablet every day by oral route. No escitalopr am 20 mg tablet Take 1 tablet every day by oral route. [facility] ibuprofen 600 mg tablet ibuprofen 600 mg tablet No ibuprofen 600 mg tablet [facility] Nexplanon 68 mg subdermal implant Nexplanon 68 mg subdermal implant No Nexplanon 68 mg subdermal implant [facility] Vital Signs Vital Name Observation Time Observation Value Comments S ource Systolic blood pressure 2021-08-03 17:20:00 105 mm[Hg] [facility] Diastolic blood pressure 2021-08-03 17:20:00 75 mm[Hg] [facility] Heart rate 2021-08-03 17:20:00 75 /min [facility] Body temperature 2021-08-03 17:20:00 36.39 Kimi [facility] Respiratory rate 2021-08-03 17:20:00 16 /min [facility] Body weight 2021-08-03 17:20:00 87.816 kg [facility] BMI 2021-08-03 17:20:00 33.23 kg/m2 [facility] Oxygen saturation in Arterial blood by Pulse oximetry 2021-08-03 17:20:00 99 /min [facility] BP Diastolic 2020-07-18 00:00:00 84 mm[Hg] [facility] Height 2020-07-18 00:00:00 63 [in_i] [facility] BMI (Body Mass Index) 2020-07-18 00:00:00 36.8 kg/m2 [place] [facility] BP Systolic 2020-07-18 00:00:00 125 mm[Hg] [facility] Body Weight 2020-07-18 00:00:00 207.5 [lb_av] [facility] BP Diastolic 2020-07-01 00:00:00 82 mm[Hg] [facility] Height 2020-07-01 00:00:00 63 [in_i] [facility] BMI (Body Mass Index) 2020-07-01 00:00:00 36.2 kg/m2 [place] [facility] BP Systolic 2020-07-01 00:00:00 115 mm[Hg] [facility] Body Weight 2020-07-01 00:00:00 204.4 [lb_av] [facility] BP Diastolic 2020-05-31 00:00:00 90 mm[Hg] [facility] Height 2020-05-31 00:00:00 63 [in_i] [facility] BMI (Body Mass Index) 2020-05-31 00:00:00 35.8 kg/m2 [place] [facility] BP Systolic 2020-05-31 00:00:00 133 mm[Hg] [facility] Body Weight 2020-05-31 00:00:00 202 [lb_av] [facility] BP Diastolic 2019-12-28 00:00:00 83 mm[Hg] [facility] Height 2019-12-28 00:00:00 63 [in_i] [facility] BMI (Body Mass Index) 2019-12-28 00:00:00 33.5 kg/m2 [place] [facility] BP Systolic 2019-12-28 00:00:00 118 mm[Hg] [facility] Body Weight 2019-12-28 00:00:00 189 [lb_av] [facility] BP Diastolic 2019-12-21 00:00:00 92 mm[Hg] [facility] Height 2019-12-21 00:00:00 63 [in_i] [facility] BMI (Body Mass Index) 2019-12-21 00:00:00 33.3 kg/m2 [place] [facility] BP Systolic 2019-12-21 00:00:00 134 mm[Hg] [facility] Body Weight 2019-12-21 00:00:00 188 [lb_av] [facility] BP Diastolic 2019-10-27 00:00:00 73 mm[Hg] [facility] Height 2019-10-27 00:00:00 63 [in_i] [facility] BMI (Body Mass Index) 2019-10-27 00:00:00 32.5 kg/m2 [place] [facility] BP Systolic 2019-10-27 00:00:00 114 mm[Hg] [facility] Body Weight 2019-10-27 00:00:00 183.3 [lb_av] [facility] BP Diastolic 2019-09-29 00:00:00 73 mm[Hg] [facility] Height 2019-09-29 00:00:00 63 [in_i] [facility] BMI (Body Mass Index) 2019-09-29 00:00:00 36.3 kg/m2 [place] [facility] BP Systolic 2019-09-29 00:00:00 125 mm[Hg] [facility] Body Weight 2019-09-29 00:00:00 204.8 [lb_av] [facility] BP Diastolic 2019-09-22 00:00:00 80 mm[Hg] [facility] Height 2019-09-22 00:00:00 63 [in_i] [facility] BMI (Body Mass Index) 2019-09-22 00:00:00 36.6 kg/m2 [place] [facility] BP Systolic 2019-09-22 00:00:00 120 mm[Hg] [facility] BP Diastolic 2019 00:00:00 80 mm[Hg] [facility] Height 2019 00:00:00 63 [in_i] [facility] BMI (Body Mass Index) 2019 00:00:00 36.3 kg/m2 [place] [facility] BP Systolic 2019 00:00:00 117 mm[Hg] [facility] Body Weight 2019 00:00:00 204.9 [lb_av] [facility] BP Diastolic 2019-08-20 00:00:00 70 mm[Hg] [facility] Height 2019-08-20 00:00:00 63 [in_i] [facility] BMI (Body Mass Index) 2019-08-20 00:00:00 35.8 kg/m2 [place] [facility] BP Systolic 2019-08-20 00:00:00 114 mm[Hg] [facility] Body Weight 2019-08-20 00:00:00 202 [lb_av] [facility] BP Diastolic 2019-08-03 00:00:00 77 mm[Hg] [facility] Height 2019-08-03 00:00:00 63 [in_i] [facility] BMI (Body Mass Index) 2019-08-03 00:00:00 35.6 kg/m2 [facility] [place] [facility] BP Systolic 2019-08-03 00:00:00 118 mm[Hg] [facility] Body Weight 2019-08-03 00:00:00 3218 [oz_av] [facility] BP Diastolic 2019-07-31 00:00:00 79 mm[Hg] [facility] Height 2019-07-31 00:00:00 63 [in_i] [facility] BMI (Body Mass Index) 2019-07-31 00:00:00 35.4 kg/m2 [place] [facility] BP Systolic 2019-07-31 00:00:00 119 mm[Hg] [facility] Body Weight 2019-07-31 00:00:00 200 [lb_av] [facility] BP Diastolic 2019-07-22 00:00:00 72 mm[Hg] [facility] Height 2019-07-22 00:00:00 63 [in_i] [facility] BMI (Body Mass Index) 2019-07-22 00:00:00 34.9 kg/m2 [place] [facility] BP Systolic 2019-07-22 00:00:00 112 mm[Hg] [facility] Body Weight 2019-07-22 00:00:00 197.1 [lb_av] [facility] BP Diastolic 2019-06-30 00:00:00 70 mm[Hg] [facility] Height 2019-06-30 00:00:00 63 [in_i] [facility] BMI (Body Mass Index) 2019-06-30 00:00:00 34 kg/m2 [place] [facility] BP Systolic 2019-06-30 00:00:00 114 mm[Hg] [facility] Body Weight 2019-06-30 00:00:00 191.9 [lb_av] [facility] BP Diastolic 2019-06-23 00:00:00 84 mm[Hg] [facility] Height 2019-06-23 00:00:00 63 [in_i] [facility] BMI (Body Mass Index) 2019-06-23 00:00:00 34.2 kg/m2 [facility] [place] [facility] BP Systolic 2019-06-23 00:00:00 127 mm[Hg] [facility] Body Weight 2019-06-23 00:00:00 193.2 [lb_av] [facility] BP Diastolic 2019-05-29 00:00:00 68 mm[Hg] [facility] Height 2019-05-29 00:00:00 63 [in_i] [facility] BMI (Body Mass Index) 2019-05-29 00:00:00 33.6 kg/m2 [facility] [place] [facility] BP Systolic 2019-05-29 00:00:00 110 mm[Hg] [facility] Body Weight 2019-05-29 00:00:00 189.7 [lb_av] [facility] BP Diastolic 2019-05-11 00:00:00 76 mm[Hg] [facility] Height 2019-05-11 00:00:00 63 [in_i] [facility] BMI (Body Mass Index) 2019-05-11 00:00:00 33.5 kg/m2 [facility] [place] [facility] BP Systolic 2019-05-11 00:00:00 113 mm[Hg] [facility] Body Weight 2019-05-11 00:00:00 189.3 [lb_av] [facility] BP Diastolic 2019-05-01 00:00:00 69 mm[Hg] [facility] Height 2019-05-01 00:00:00 63 [in_i] [facility] BMI (Body Mass Index) 2019-05-01 00:00:00 33.8 kg/m2 [facility] [place] BP Systolic 2019-05-01 00:00:00 113 mm[Hg] [facility] Body Weight 2019-05-01 00:00:00 190.6 [lb_av] [facility] BP Diastolic 2019-04-02 00:00:00 81 mm[Hg] [facility] Height 2019-04-02 00:00:00 63 [in_i] [facility] BMI (Body Mass Index) 2019-04-02 00:00:00 33.8 kg/m2 [facility] [place] [facility] BP Systolic 2019-04-02 00:00:00 116 mm[Hg] [facility] Body Weight 2019-04-02 00:00:00 190.8 [lb_av] [facility] BP Diastolic 2019-03-25 00:00:00 85 mm[Hg] [facility] Height 2019-03-25 00:00:00 63 [in_i] [facility] BMI (Body Mass Index) 2019-03-25 00:00:00 33.8 kg/m2 [place] [facility] BP Systolic 2019-03-25 00:00:00 133 mm[Hg] [facility] Body Weight 2019-03-25 00:00:00 191 [lb_av] [facility] BP Diastolic 2019-03-12 00:00:00 80 mm[Hg] [facility] Height 2019-03-12 00:00:00 63 [in_i] [facility] BMI (Body Mass Index) 2019-03-12 00:00:00 26.7 kg/m2 [facility] BP Systolic 2019-03-12 00:00:00 107 mm[Hg] [facility] Body Weight 2019-03-12 00:00:00 151 [lb_av] [facility] BP Diastolic 2019-03-05 00:00:00 81 mm[Hg] [facility] Height 2019-03-05 00:00:00 63 [in_i] [facility] BMI (Body Mass Index) 2019-03-05 00:00:00 34.2 kg/m2 [facility] BP Systolic 2019-03-05 00:00:00 117 mm[Hg] [facility] 2019-03-05 00:00:00 193 [lb_av] [facility] Procedures Procedure Date / Time Performed Performing Clinician Source US, obstetric, limited 2019-09-22 00:00:00 [facility] non-stress test 2019-09-22 00:00:00 [facility] US, obstetric, limited 2019-08-20 00:00:00 [facility] ULTRASOUND REPEAT 2019-07-22 00:00:00 [facility] US, obstetric, limited 2019-05-29 00:00:00 [facility] US, obstetric, limited 2019-05-01 00:00:00 [facility] ULTRASOUND, UTERUS REAL TIME WITH IMAGE DOC, AND MATERNAL EVAL PLUS DETAILED ANATOMIC EXAMINATION, TRANSABDOMINAL APPROACH; SINGLE OR FIRST GESTATION 2019-05-01 00:00:00 [facility] US, obstetric, limited 2019-04-02 00:00:00 [facility] US, obstetric, limited 2019-03-25 00:00:00 [facility] ULTRASOUND, UTERUS REAL TIME WITH IMAGE DOCUMENTAITON, TRANSVAGINAL 2019-03-12 00:00:00 [facility] Eye Surgery 2000-02-24 00:00:00 [facility] Tubal Ligation (Surg) [facility] Plan of Care Planned Activity Planned Date Details Comments Source Diagnostic Test Pending 2020-07-18 00:00:00 urinalysis, dipstick [code = urinalysis, dipstick] [facility] Encounters Start Date/Time End Date/Time Encounter Type Admission Type Attending [facility] Facility Care Department Encounter ID Source 2024-02-16 19:20:00 2024-02-16 19:20:00 Outpatient R [facility] [id number] [facility] 2021-08-03 11:15:00 2021-08-03 11:54:26 Outpatient R MICHELET JAY [facility] [id number] [facility] 2021-08-03 11:12:21 2021-08-03 11:27:21 Office Visit Michelet Jay [facility] PROFESSIO [facility] 1..114 350.1.13.10 4.2.7.2.686 [id number] [facility] 2021-07-24 10:50:00 2021-07-24 17:00:00 Outpatient R MICHELET JAY [facility] GINA [id number] [facility] 2021-07-24 10:50:00 2021-07-24 17:00:00 Hospital Encounter Michelet Jay [facility] 1.114 350.1.13.10 4.2.7.2.686 [id number] [facility] 2021-07-24 12:40:00 2021-07-24 15:20:00 Surgery Michelet Jay [facility] SUR[facility]ICAL [place] 1..114 350.1.13.10 4.2.7.2.686 [id number] [facility] 2021-07-24 00:00:00 2021-07-24 00:00:00 Orders Only Doctor Unassigned, [place] [facility] 1..114 350.1.13.10 4.2.7.2.686 [id number] [facility] 2021-07-19 09:11:24 2021-07-19 09:26:24 Laboratory Only Only, Adc Test Michelet Jay [facility] 1.2.840.114 350.1.13.10 4.2.7.2.686 [id number] [facility] 2021-07-19 09:15:00 2021-07-19 09:15:00 Outpatient R MICHELET AJY [facility] [id number] [facility] 2021-07-19 00:00:00 2021-07-19 00:00:00 Orders Only Doctor Unassigned, [place] [facility] 1..840.114 350.1.13.10 4.2.7.2.686 [id number] [facility] 2021-07-06 00:00:00 2021-07-06 00:00:[address] [facility] PROFESSIO [facility] 1.2.840.114 350.1.13.10 4.2.7.2.686 [id number] [facility] 2021-07-04 15:30:00 2021-07-04 16:49:55 Outpatient R MICHELET JAY [facility] [id number] [facility] 2021-07-04 15:01:26 2021-07-04 16:49:55 Office Visit Michelet Jay [facility] PROFESSIO [facility] 1..840.114 350.1.13.10 4.2.7.2.686 [id number] [facility] 2021-07-04 15:30:00 2021-07-04 15:30:00 Outpatient R MICHELET JAY [facility] [id number] [facility] 2021-06-20 07:47:00 2021-06-20 10:44:00 Hospital Encounter Michelet Jay [facility] 1.284.114 350.1.13.10 4.2.7.2.686 [id number] [facility] 2021-06-20 07:47:00 2021-06-20 10:44:00 Outpatient R MICHELET JAY [facility] [id number] [facility] 2021-06-20 09:46:00 2021-06-20 10:26:00 Surgery Michelet Jay [facility] [place] 1.84.114 350.1.13.10 4.2.7.2.686 [id number] [facility] 2021-06-20 00:00:00 2021-06-20 00:00:00 Orders Only Doctor Unassigned, [place] [facility] 1.84.114 350.1.13.10 4.2.7.2.686 [id number] [facility] 2021-06-17 08:55:45 2021-06-17 09:10:45 Laboratory Only Only, Adc Test Michelet Jay [facility] 1.84.114 350.1.13.10 4.2.7.2.686 [id number] [facility] 2021-06-17 09:00:00 2021-06-17 09:00:00 Outpatient R MICHELET JAY [facility] [id number] [facility] 2021-06-13 00:00:00 2021-06-13 00:00:00 Telephone Michelet Jay [facility] Professio [facility] 1.284.114 350.1.13.10 4.2.7.2.686 [id number] [facility] 2021-06-07 08:06:22 2021-06-07 23:59:00 Hospital Encounter Michelet Jay [facility] 1.2.840.114 350.1.13.10 4.2.7.2.686 [id number] [facility] 2021-06-07 08:05:55 2021-06-07 08:05:55 Hospital Encounter Michelet Jay [facility] 1.2.840.114 350.1.13.10 4.2.7.2.686 [id number] [facility] 2021-06-07 00:00:00 2021-06-07 00:00:00 Outpatient R MICHELET JAY [facility] [id number] [facility] 2021-06-02 00:00:00 2021-06-02 00:00:00 Prep For Surgery Michelet Jay [facility] Professio nal Building 1.2.840.114 350.1.13.10 4.2.7.2.686 [id number] [facility] 2021-06-01 14:42:16 2021-06-01 15:39:59 Office Visit Michelet Jay [facility] 1.2.840.114 350.1.13.10 4.2.7.2.686 [id number] [facility] 2021-06-01 14:45:00 2021-06-01 14:45:00 Outpatient R MICHELET JAY [facility] [id number] [facility] 2021-06-01 00:00:00 2021-06-01 00:00:00 Orders Only Doctor Unassigned, [place] [facility] 1.2.840.114 350.1.13.10 4.2.7.2.686 [id number] [facility] 2021-05-25 04:14:00 2021-05-25 06:23:00 Emergency Chino Zhang [facility] 1.2.840.114 350.1.13.10 4.2.7.2.686 [id number] [facility] 2021-05-25 04:14:00 2021-05-25 04:14:00 Emergency X CHINO ZHANG [facility] ERT [id number] [facility] 2021-03-07 14:26:00 2021-03-07 17:55:00 Emergency Eusebio Gutierrez [facility] 1.2.840.114 350.1.13.10 4.2.7.2.686 [id number] [facility] 2021-03-07 14:22:00 2021-03-07 14:22:00 Emergency X [facility] ERT [id number] [facility] 2020-12-05 22:33:00 2020-12-06 01:51:00 Emergency Eusebio Gutierrez [facility] 1.2.840.114 350.1.13.10 4.2.7.2.686 [id number] [facility] 2020-12-05 22:15:00 2020-12-05 22:15:00 Emergency X [facility] ERT [id number] [facility] 2020-08-04 09:39:00 2020-08-04 09:39:00 Outpatient G_Pappas [facility] [id number] [facility] Medical [facility] 2020-07-18 04:16:00 2020-07-18 04:16:00 Outpatient G[id number] 2020-07-18 00:00:00 2020-07-18 00:00:00 Marc Alexis MD: [address] [place] [address] [address], [place] [address] , Ph. [phone] MMG [facility] [id number] [facility] 2020-07-13 02:48:00 2020-07-13 02:48:00 Outpatient G_Pappas [facility]G MMG [id number] [facility] 2020-07-06 06:07:00 2020-07-06 06:07:00 Outpatient JAYME ALEXIS MARC [facility] [id number] [facility] 2020-07-01 02:37:00 2020-07-01 02:37:00 Outpatient G_Pappas MMG MMG [id number] [facility] 2020-07-01 02:37:00 2020-07-01 02:37:00 Outpatient G_Pappas MMG MMG [id number] [facility] 2020-07-01 00:00:00 2020-07-01 00:00:00 Marc Alexis MD: [address] [place] [address] , Ph. [phone] [facility] [id number] [facility] 2020-06-27 11:46:00 2020-06-27 11:46:00 Outpatient G_Pappas MMG MMG [id number] [facility] 2020-05-31 03:21:00 2020-05-31 03:21:00 Outpatient G_Pappas MMG MMG [id number] [facility] 2020-05-31 03:21:00 2020-05-31 03:21:00 Outpatient G_Pappas MMG MMG [id number] [facility] 2020-05-31 00:00:00 2020-05-31 00:00:00 Marc Alexis MD: [address] [address] , Ph. [phone] [facility] [id number] [facility] 2020-01-14 04:03:00 2020-01-14 04:03:00 Outpatient FERGUSON_WILMA PERLA [id number] [facility] 2020-01-14 00:00:00 2020-01-14 00:00:00 Kan Ibarra, PSYD: [address] [place] [address] , Ph. ([phone]) --2007 [facility] [place] [facility] HOP - [facility] Behavioral Health [id number] [facility] 2020-01-06 16:35:00 2020-01-06 17:54:00 Emergency ER LING PACE [facility] [id number] [facility] 2020-01-05 05:00:00 2020-01-05 05:00:00 Outpatient FERGUSON_JO HN [facility] [id number] [facility] 2020-01-05 00:00:00 2020-01-05 00:00:00 Kan Ibarra, PSYD: [address] [place] [address] , Ph. ([phone]) --2007 [facility] [place] [facility] H[facility] - [facility] Behavioral Health [id number] [facility] 2019-12-31 05:36:00 2019-12-31 05:36:00 Outpatient FERGUSON_JO HN [facility] 7 [facility] 2019-12-31 00:00:00 2019-12-31 00:00:00 Kan Ibarra, PSYD: [address] [place] [address] , Ph. 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 [facility] [id number] [facility] 2019-12-26 12:28:00 2019-12-26 12:28:00 Outpatient FERGUSON_JO HN [facility] [id number] [facility] 2019-12-23 04:56:00 2019-12-23 04:56:00 Outpatient FERGUSON_JO HN [facility] [id number] [facility] 2019-12-21 08:24:00 2019-12-21 08:24:00 Outpatient G_Pappas MMG MMG [id number] [facility] 2019-12-21 00:00:00 2019-12-21 00:00:00 Leana Ward MD: 600 [facility] [address], [place] [address] , Ph. [phone] [facility] - [facility]YN [id number] [facility] 2019-11-19 14:11:00 2019-11-19 17:59:00 Emergency ER REYES LOYA [facility] [id number] [facility] 2019-11-16 02:15:00 2019-11-16 02:15:00 Outpatient G_Pappas MMG MMG [id number] [facility] 2019-10-28 12:06:00 2019-10-28 12:06:00 Outpatient G_Pappas MMG MMG [id number] [facility] 2019-10-27 11:55:00 2019-10-27 11:55:00 Outpatient G_Pappas MMG MMG [id number] [facility] 2019-10-27 00:00:00 2019-10-27 00:00:00 MISBAH Vega: [address] [facility] [address] [address] , Ph. [phone] [facility] [place] - OBGYN [id number] [facility] 2019-10-20 06:15:00 2019-10-20 06:15:00 Outpatient G_Pappas MMG MMG [id number] [facility] 2019-10-07 01:53:00 2019-10-07 01:53:00 Outpatient G_Pappas MMG MMG [id number] [facility] 2019-10-05 05:15:00 2019-10-06 09:10:00 Inpatient JAYME ALEXISMARC [facility] [id number] [facility] 2019-10-04 09:00:00 2019-10-04 09:00:00 Outpatient G_Pappas MMG MMG [id number] [facility] 2019-09-29 04:25:00 2019-09-29 04:25:00 Outpatient G_Pappas MMG MMG [id number] [facility] 2019-09-29 00:00:00 2019-09-29 00:00:00 Marc lAexis MD: 600 [facility] [address] [place] [address] , Ph. [phone] [facility] [place] - OBGYN [id number] [facility] 2019-09-28 12:21:00 2019-09-28 12:21:00 Outpatient G_Pappas MMG MMG [id number] [facility] 2019-09-25 09:44:00 2019-09-25 09:44:00 Outpatient G_Pappas MMG MMG [id number] [facility] 2019-09-22 05:16:00 2019-09-22 05:16:00 Outpatient G_Pappas MMG MMG [id number] [facility] 2019-09-22 00:00:00 2019-09-22 00:00:00 Marc Alexis MD: [address] [facility] [address] [place] [address] , Ph. [phone] [facility] - [facility]YN [id number] [facility] 2019-09-21 02:51:00 2019-09-21 02:51:00 Outpatient G_Pappas MMG [facility] [id number] [facility] 2019-09-14 19:10:00 2019-09-16 14:30:00 Inpatient ER WLATERMARC LAZO [facility] [id number] [facility] 2019-09-12 21:35:00 2019-09-13 03:15:00 Emergency ER LEANA WARD [facility] [id number] [facility] 2019-09-07 11:08:00 2019-09-07 11:08:00 Outpatient [facility] [id number] [facility] 2019-09-04 14:30:00 2019-09-04 14:30:00 Outpatient JAYME WALTERMARC [facility] [id number] [facility] 2019 10:59:00 2019 10:59:00 Outpatient G_[facility]appas [facility] [id number] [facility] 2019 00:00:00 2019 00:00:00 Marc Alexis MD: [address] [place] [address] [address], [place] [address] , Ph. [phone] [facility] [place] [facility] [id number] [facility] 2019-08-26 12:17:00 2019-08-26 16:25:00 Emergency ER LEANA WARD [facility] [id number] [facility] 2019-08-20 11:08:00 2019-08-20 11:08:00 Outpatient G_Pappas [facility] [id number] [facility] 2019-08-20 10:30:00 2019-08-20 10:30:00 Outpatient LINDA BROUSSARD [facility] [id number] [facility] 2019-08-20 00:00:00 2019-08-20 00:00:00 MISBAH Vega: [address], [place] [address] , Ph. [phone] [facility] [id number] [facility] 2019-08-03 09:52:00 2019-08-03 09:52:00 Outpatient MYAHWILMA HANCOCK [facility] [id number] 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 [facility] [id number] [facility] 2019-07-31 00:00:00 2019-07-31 00:00:00 MISBAH Vega: [address], [place] [address] , Ph. [phone] [facility] [id number] [facility] 2019-07-26 20:15:00 2019-07-26 20:20:00 Emergency ER MARC ALEXIS [facility] [id number] [facility] 2019-07-22 09:45:00 2019-07-22 09:45:00 Outpatient LINDA BROUSSARD [facility] [id number] [facility] 2019-07-22 00:00:00 2019-07-22 00:00:00 MISBAH Vega: [address], [place] [address] , Ph. [phone] [facility] [id number] [facility] 2019-06-30 00:00:00 2019-06-30 00:00:00 Marc Alexis MD: [address], [place] [address] , Ph. [phone] [facility] [id number] [facility] 2019-06-23 00:00:00 2019-06-23 00:00:00 Marc Alexis MD: [address], [place] [address] , Ph. [phone] [facility] [id number] [facility] 2019-05-29 00:00:00 2019-05-29 00:00:00 Leana Ward MD: [address], [place] [address] , Ph. [phone] [facility] [id number] [facility] 2019-05-11 00:00:00 2019-05-11 00:00:00 Marc Alexis MD: [address], [place] [address] , Ph. [phone] [facility] [id number] [facility] 2019-05-07 20:19:00 2019-05-08 00:28:00 Emergency ER JON VIGIL [facility] [id number] [facility] 2019-05-01 16:53:00 2019-05-01 16:53:00 Outpatient MARC MURRELL [facility] [id number] [facility] 2019-05-01 00:00:00 2019-05-01 00:00:00 Marc Alexis MD: [address], [place] [address] , Ph. [phone] [facility] [id number] [facility] 2019-04-30 00:00:00 2019-04-30 00:00:00 MISBAH Vega: [address], [place] [address] , Ph. [phone] [facility] [place] - OBGYN [id number] [facility] 2019-04-02 11:08:00 2019-04-02 11:08:00 Outpatient JAYME MARC ALEXIS [facility] [id number] [facility] 2019-04-02 00:00:00 2019-04-02 00:00:00 Marc Alexis MD: [address], [place] [address] , Ph. [phone] [facility] - OBGYN [id number] [facility] 2019-03-25 00:00:00 2019-03-25 00:00:00 Leana Ward MD: [address], [place] [address] , Ph. [phone] [facility] [id number] [facility] 2019-03-12 11:47:00 2019-03-12 11:47:00 Outpatient LINDA BROUSSARD [facility] [id number] [facility] 2019-03-12 00:00:00 2019-03-12 00:00:00 Linda Pereira [facility]: [address], [place] [address] , Ph. [phone] [facility] [id number] [facility] 2019-03-05 10:56:00 2019-03-05 10:56:00 Outpatient LEANA ZHENG [facility] [id number] [facility] 2019-03-05 00:00:00 2019-03-05 00:00:00 Leana Ward MD: [address], [place] [address] , Ph. [phone] [facility] [id number] [facility] 2019-02-24 19:49:00 2019-02-25 00:11:00 Emergency ER LUCIA JAVIER [facility] [id number] [facility] 2018-01-11 16:19:00 2018-01-11 17:59:00 Emergency ER DONNA CESPEDES [facility] [id number] [facility] 2017-08-30 14:27:00 2017-08-30 14:27:00 Outpatient JAYME PIERREARANZA [facility] [id number] [facility] 2017-08-04 14:53:00 2017-08-04 15:28:00 Emergency ER JON VIGIL [facility] [id number] [facility] 2017-05-26 20:39:00 2017-05-26 22:07:00 Emergency ER LUCIA JAVIER [facility] [id number] [facility] 2017-05-04 16:34:00 2017-05-04 18:25:00 Emergency ER LING PACE [facility] [id number] [facility] 2017-03-12 19:35:00 2017-03-12 21:29:00 Emergency ER RODRICK RONEYAUTUMN [facility] [id number] [facility] 2017-02-11 17:07:00 2017-02-11 19:59:00 Emergency ER LING PACE [facility] [id number] [facility] 2016-01-19 07:15:00 2016-01-20 19:40:00 Inpatient LEANA ZHENG [facility] [id number] [facility] 2016-01-10 10:17:00 2016-01-10 10:17:00 Outpatient LEANA ZHENG [facility] [id number] [facility] 2015-12-15 22:45:00 2015-12-16 00:06:00 Emergency ER LEANA WARD [facility] [id number] [facility] 2015-11-03 13:29:00 2015-11-03 16:15:00 Emergency ER LEANA WADR [facility] [id number] [facility] 2015-10-25 08:32:00 2015-10-25 08:32:00 Outpatient KARINA GATES [facility] [id number] [facility] 2015-08-21 15:11:00 2015-08-21 17:55:00 Emergency ER ANNA BOGGS [facility] [id number] [facility] 2015-07-26 13:43:00 2015-07-26 13:43:00 Outpatient KARINA GATES [facility] [id number] [facility] 2015-06-16 12:54:00 2015-06-16 15:57:00 Emergency ER LING PACE [facility] [id number] [facility] 2015-04-18 06:13:00 2015-04-18 08:10:00 Emergency ER LING PACE [facility] [id number] [facility] 2015-03-11 12:29:00 2015-03-11 14:15:00 Emergency ER LING PACE [facility] [id number] [facility] Results Test Description Test Time Test Comments Results Result Co mments Source [facility] W Auto Differential panel - [id number] 11:06:00 * Test Item Value Reference Range Interpretation Comme nts white blood count (test code = white blood count) 10.7 K/uL 4.0-11.5 red blood count (test code = red blood count) 4.76 M/uL 3.80-5.20 hemoglobin (test code = hemoglobin) 13.6 g/dL 10.5-15.7 hematocrit (test code = hematocrit) 41.9 % 34.0-50.0 MCV [Entitic volume] (test c ode = 99889-1) 88.0 fL 86-100 mean corpuscular hemoglobin (test [...] neutrophils/100 leukocytes in Blood (test code = 00132-5) 67.7 % 44.4-80.1 Immature granulocytes [#/vol ume] in Blood (test code = 26475-9) 0.0 K/uL 0.0-0.03 lymphocyte% (test code = lymphocyte%) 23.3 % 10.0-50.0 mono % (test code = mono %) 5.6 % 3.6-12.0 eos % (test code = eos %) 2.4 % 0.0-5.4 Basophils/100 leukocytes in Unspecified specimen (test code = 18537-3) 0.6 % 0.1-1.2 Band form neutrophils [#/vol ume] in Blood (test code = 70102-6) 7.28 K/uL 1.56-6.13 H Lymphocytes [#/volume] in Unspecified specimen by Automated count (test code = 71700-0) 2.5 K/uL 1.18-3.74 mono # (test code = mono #) 0.60 K/uL 0.24-0.86 eos # (test code = eos #) 0.26 K/uL 0.04-0.36 basophil # (test code = baso jerel #) 0.06 K/uL 0.01-0.08 NRBC% (test code = NRBC%) 0 /100 WBC 0-0.2 NRBC# (test code = NRBC#) 0 K/uL [facility] metabolic 2000 panel - Serum or [id number] 11:06:00* Test Item Value Reference Range Interpretation [...] code = calcium level) 9.2 mg/dL 8.6-10.0 [facility]dipstick) panel - [id number] 14:02:45* Test Item Value Reference Range Interpretation Comme nts Leukocytes (test code = Leukocytes) Trace Nitrite (test code = Nitrite) negative Urobilinogen (test code = Urobilinogen) .2 Protein (test code = Protein) Negative pH (test code = pH) 6.0 Blood (test code = Blood) Small Specific [place] (test code = Specific [place]) 1.025 Ketone (test code = Ketone) Negative Bilirubin (test code = Bilirubin) Negative Glucose (test code = Glucose) Negative Appearance (test code = Appearance) Clear Color (test code = Color) Yellow [facility], [id number] 14:01:41* Test Item Value Reference Range Interpretation Comme nts Test (test code = Test) negative [facility] and TSH panel - Serum or [id number] 00:00:00* Test Item Value Reference Range Interpretation Comme nts Thyrotropin [Units/volume] i n Serum or Plasma by Detection limit <= 0.005 mIU/L (test code = 30556-5) 1.540 uIU/mL 0.450-4.500 Thyroxine (T4) free [Mass/volume] in Serum or Plasma (test code = 3024-7) 1.34 NG/dL 0.82-1.77 [facility] W Auto Differential panel - Blood 2019-12-29 [...] immature cells (test code = immature cells) 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 Morphology [Interpretation] in Blood Narrative (test code = 00729-6) highway landscape architect [facility] ProgramCom[facility] metabolic 2000 panel - Serum or [id number] 00:00:00* Test Item Value Reference Range Interpretation [...] by Creatinine-based formula (CKD-EPI) (test code = 47761-8) 130 mL/min/1.73 >59 Glomerular filtration rate/1.73 sq M.predicted among blacks [Volume Rate/Area] in Serum, Plasma or Blood by Creatinine-based formula (CKD-EPI) (test code = 63180-6) 150 mL/min/1.73 >59 Urea nitrogen/Creatinine [Mass Ratio] [...] in Serum or Plasma (test code = 61411-8) 9.1 mg/dL 8.7-10.2 Protein [Mass/volume] in Serum or Plasma (test code = 2885-2) 7.3 g/dL 6.0-8.5 Albumin [Mass/volume] in Serum or Plasma (test code = 1751-7) 4.4 g/dL 3.9-5.0 Globulin [Mass/volume] in Serum by calculation (test code = 56890-5) 2.9 g/dL 1.5-4.5 Albumin/Globulin [Mass Ratio ] [...] (test code = 1742-6) 21 IU/L 0-32 [facility] 1996 panel - Serum or Plasma [...] or Plasma by calculation (test code = 66863-8) 19 mg/dL 5-40 Cholesterol in LDL [Mass/vol ume] in Serum or Plasma by calculation (test code = 14690-0) 87 mg/dL 0-99 Laboratory comment [Text] in Report Narrative (test code = 32685-0) highway landscape architect [facility] CampusHemoglobin A1c/Hemoglobin.total in [id number] 00:00:00* Test Item Value Reference Range Interpretation Comme nts Hemoglobin A1c/Hemoglobin.to pee in Blood (test code = 4548-4) 5.1 % 4.8-5.6 Glucose mean value [Mass/vol ume] in Blood Estimated from glycated hemoglobin (test code = 49805-5) 100 mg/dL [facility]ovascular assessment panel, [id number] 00:00:00* Test Item Value Reference Range Interpretation Comme nts interpretation (test code = interpretation) note pdf image (test code = pdf image) . [facility] CampusUrinalysis macro (dipstick) panel - [id number] 10:18:57* Test Item Value Reference Range Interpretation Comme nts Leukocytes (test code = Leukocytes) Trace Nitrite (test code = Nitrite) negative Urobilinogen (test code = Urobilinogen) .2 Protein (test code = Protein) Negative pH (test code = pH) 6.5 Blood (test code = Blood) Moderate Specific [place] (test code = Specific [place]) 1.025 Ketone (test code = Ketone) Negative Bilirubin (test code = Bilirubin) Negative Glucose (test code = Glucose) Negative Appearance (test code = Appearance) Clear Color (test code = Color) Yellow [facility] W Auto Differential panel - [id number] 09:25:00 * Test Item Value Reference Range Interpretation Comme nts white blood count (test code = white blood count) 12.3 K/uL 4.0-11.5 H red blood count (test code = red blood count) 3.58 M/uL 3.80-5.20 L hemoglobin (test code = hemoglobin) 9.7 g/dL 10.5-15.7 L hematocrit (test code = hematocrit) 30.1 % 34.0-50.0 L Erythrocyte mean corpuscular volume [Entitic volume] (test code = 44950-4) 84.1 fL 86-100 L mean corpuscular hemoglobin [...] Neutrophils.segmented/100 leukocytes in Blood (test code = 02978-0) 71.9 % 44.4-80.1 Granulocytes Immature [#/vol ume] in Blood (test code = 45815-4) 0.1 K/uL 0.0-0.03 H lymphocyte% (test code = lymphocyte%) 21.9 % 10.0-50.0 mono % (test code = mono %) 5.1 % 3.6-12.0 eos % (test code = eos %) 0.3 % 0.0-5.4 Basophils/100 leukocytes in Unspecified specimen (test code = 15129-0) 0.3 % 0.1-1.2 Neutrophils.band form [#/vol ume] in Blood (test code = 92486-7) 8.86 K/uL 1.56-6.13 H Lymphocytes [#/volume] in Unspecified specimen by Automated count (test code = 13900-9) 2.7 K/uL 1.18-3.74 mono # (test code = mono #) 0.63 K/uL 0.24-0.86 eos # (test code = eos #) 0.04 K/uL 0.04-0.36 basophil # (test code = baso jerel #) 0.04 K/uL 0.01-0.08 NRBC% (test code = NRBC%) 0 /100 WBC 0-0.2 NRBC# (test code = NRBC#) 0 K/uL [facility], [id number] 09:25:00 NeutrophilsLymphocyteAtypical LymphMonocytePlatelet EstimatePlatelet MorphologyDifferential comment-[facility] W Auto Differential panel - [id number] 04:32:00* Test Item Value Reference Range Interpretation Comme nts white blood count (test code = white blood count) 11.1 K/uL 4.0-11.5 red blood count (test code = red blood count) 3.85 M/uL 3.80-5.20 hemoglobin (test code = hemoglobin) 10.4 g/dL 10.5-15.7 L hematocrit (test code = hematocrit) 32.3 % 34.0-50.0 L Erythrocyte mean corpuscular volume [Entitic volume] (test code = 31393-4) 83.9 fL 86-100 L mean corpuscular hemoglobin [...] Neutrophils.segmented/100 leukocytes in Blood (test code = 70410-3) 72.8 % 44.4-80.1 Granulocytes Immature [#/vol ume] in Blood (test code = 88897-3) 0.1 K/uL 0.0-0.03 H lymphocyte% (test code = lymphocyte%) 20.3 % 10.0-50.0 mono % (test code = mono %) 5.4 % 3.6-12.0 eos % (test code = eos %) 0.6 % 0.0-5.4 Basophils/100 leukocytes in Unspecified specimen (test code = 28351-7) 0.4 % 0.1-1.2 Neutrophils.band form [#/vol ume] in Blood (test code = 61268-0) 8.10 K/uL 1.56-6.13 H Lymphocytes [#/volume] in Unspecified specimen by Automated count (test code = 45614-2) 2.3 K/uL 1.18-3.74 mono # (test code = mono #) 0.60 K/uL 0.24-0.86 eos # (test code = eos #) 0.07 K/uL 0.04-0.36 basophil # (test code = baso jerel #) 0.04 K/uL 0.01-0.08 NRBC% (test code = NRBC%) 0 /100 WBC 0-0.2 NRBC# (test code = NRBC#) 0 K/uL [facility] and Indirect antibody screen panel - Blood 2019-10-05 04:32:00* Test Item Value Reference Range Interpretation Comme nts Rh [Type] in Blood (test cod e = 47149-7) 4+ ABO and Rh group panel - Blo od (test code = 09000-3) O positive [place] [facility] GroupReagin Ab [Presence] in Serum by [id number] 04:32:00* Test Item Value Reference Range Interpretation Comme nts Reagin Ab [Presence] in Seru m by RPR (test code = 03672-8) nonreactive nonreactive [place] [facility] GroupHepatitis B virus surface Ag [Presence] in Serum 2019-10-05 04:32:00* Test Item Value Reference Range Interpretation Comme nts .hepatitis B surface antigen (test code = .hepatitis B surface antigen) negative negative [place] [facility] GroupUrinalysis macro (dipstick) panel - [id number] 14:34:29* Test Item Value Reference Range Interpretation Comme nts Leukocytes (test code = Leukocytes) Small Nitrite (test code = Nitrite) negative Urobilinogen (test code = Urobilinogen) 1 Protein (test code = Protein) Negative pH (test code = pH) 7.0 Blood (test code = Blood) Negative Specific [place] (test code = Specific [place]) 1.025 Ketone (test code = Ketone) Small Bilirubin (test code = Bilirubin) Negative Glucose (test code = Glucose) Negative Appearance (test code = Appearance) Clear Color (test code = Color) Yellow [facility] [id number] 16:47:00* Test Item Value Reference Range Interpretation Comme nts Reactive (test code = Reactive) Yes Contractions (test code = Contractions) No [facility] HospitalUrinalysis macro (dipstick) panel - [id number] 14:08:44* Test Item Value Reference Range Interpretation Comme nts Leukocytes (test code = Leukocytes) Small Nitrite (test code = Nitrite) negative Urobilinogen (test code = Urobilinogen) 1 Protein (test code = Protein) 30 pH (test code = pH) 7.0 Blood (test code = Blood) Negative Specific [place] (test code = Specific [place]) 1.020 Ketone (test code = Ketone) Negative Bilirubin (test code = Bilirubin) Negative Glucose (test code = Glucose) Negative Appearance (test code = Appearance) Clear Color (test code = Color) Yellow [facility] HospitalBknvaAgnlu-9-Vpzxwpfaekhgo.placental [Presence] in Vaginal qgdni3579-41-21 08:50:00* Test Item Value Reference Range Interpretation Comme nts Fylkt-6-Sgcxmsiekcimp.placen pee [Presence] in Vaginal fluid (test code = 53338-6) negative neg [facility] HospitalUrinalysis complete panel - [id number] 01:04:00* Test Item Value Reference Range Interpretation Comme nts Color of Urine by Auto (test code = 79462-6) lt. yellow Appearance of Urine (test co de = 5767-9) cloudy clear Glucose [Mass/volume] in Uri ne (test code = 2350-7) negative negative bilirubin, urine (test code = bilirubin, urine) negative negative ketone, urine (test code = ketone, urine) negative negative Specific gravity of Urine by Automated test strip (test code = 75762-3) 1.020 1.003-1.030 Hemoglobin [Presence] in Uri ne by Test strip (test code = 5794-3) negative negative pH of Urine (test code = 2756-5) 8.000 5-9 protein urine (UA) (test cod e = protein urine (UA)) trace negative H Urobilinogen [Presence] in U rine (test code = 09296-8) 1.0 E.U./dL 0.2-1.0 Nitrite [Presence] in Urine by Test strip (test code = 5802-4) negative negative urine leukocyte esterase (te st code = urine leukocyte esterase) moderate negative H Erythrocytes [Presence] in U rine (test code = 42418-5) =0-3 0-5 WBC, urine (test code = WBC, urine) =5-9 0-5 H Epithelial cells [Presence] in Urine sediment by Light microscopy (test code = 55923-3) =0-5 0-5 bacteria, urine (test code = bacteria, urine) moderate none detect H urine culture added? (test c ode = urine culture added?) yes [facility] identified in Urine by Uusybgo6968-57-09 01:04:00* Test Item Value Reference Range Interpretation Comme nts Bacteria identified in Urine by Culture (test code = 630-4) no growth after 2 days [facility] W Auto Differential panel - [id number] 09:20:00 * Test Item Value Reference Range Interpretation Comme nts white blood count (test code = white blood count) 12.5 K/uL 4.0-11.5 H red blood count (test code = red blood count) 3.86 M/uL 3.80-5.20 hemoglobin (test code = hemoglobin) 10.7 g/dL 10.5-15.7 hematocrit (test code = hematocrit) 32.6 % 34.0-50.0 L Erythrocyte mean corpuscular volume [Entitic volume] (test code = 20812-9) 84.5 fL 86-100 L mean corpuscular hemoglobin [...] Neutrophils.segmented/100 leukocytes in Blood (test code = 42295-8) 73.0 % 44.4-80.1 Granulocytes Immature [#/vol ume] in Blood (test code = 56605-3) 0.1 K/uL 0.0-0.03 H lymphocyte% (test code = lymphocyte%) 19.1 % 10.0-50.0 mono % (test code = mono %) 5.9 % 3.6-12.0 eos % (test code = eos %) 0.8 % 0.0-5.4 Basophils/100 leukocytes in Unspecified specimen (test code = 95247-1) 0.3 % 0.1-1.2 Neutrophils.band form [#/vol ume] in Blood (test code = 03651-1) 9.09 K/uL 1.56-6.13 H Lymphocytes [#/volume] in Unspecified specimen by Automated count (test code = 24583-5) 2.4 K/uL 1.18-3.74 mono # (test code = mono #) 0.73 K/uL 0.24-0.86 eos # (test code = eos #) 0.10 K/uL 0.04-0.36 basophil # (test code = baso jerel #) 0.04 K/uL 0.01-0.08 NRBC% (test code = NRBC%) 0 /100 WBC 0-0.2 NRBC# (test code = NRBC#) 0 K/uL [facility]PT/[id number] 09:20:00* Test Item Value Reference Range Interpretation Comme nts prothrombin time (test code = prothrombin time) 9.6 seconds 10.3-12.3 L INR in Blood by Coagulation assay (test code = 53354-8) 0.88 [facility]partial thromboplastin wndw4999-25-06 09:20:00* Test Item Value Reference Range Interpretation Comme nts INR in Blood by Coagulation assay (test code = 08523-1) 28.7 seconds 22.5-37.0 [facility] HospitalGlucose [Mass/volume] in Capillary ylyuo2986-64-31 09:46:26* Test Item Value Reference Range Interpretation Comme nts GLU (test code = GLU) 91 [facility] HospitalUrinalysis macro (dipstick) panel - [id number] 09:36:18* Test Item Value Reference Range Interpretation Comme nts Leukocytes (test code = Leukocytes) Small Nitrite (test code = Nitrite) negative Urobilinogen (test code = Urobilinogen) 1 Protein (test code = Protein) 30 pH (test code = pH) 7.0 Blood (test code = Blood) Negative Specific [place] (test code = Specific [place]) 1.025 Ketone (test code = Ketone) Small Bilirubin (test code = Bilirubin) Negative Glucose (test code = Glucose) Negative Appearance (test code = Appearance) Cloudy Color (test code = Color) Yellow [facility] HospitalUrinalysis complete panel - [id number] 11:35:00* Test Item Value Reference Range Interpretation Comme nts Color of Urine by Auto (test code = 78070-1) yellow Appearance of Urine (test code = 5767-9) cloudy clear Glucose [Mass/volume] in Urine (test code = 2350-7) negative negative bilirubin, urine (test code = bilirubin, urine) negative negative ketone, urine (test code = ketone, urine) moderate, 40 negative H Specific gravity of Urine by Automated test strip (test code = 80494-9) 1.025 1.003-1.030 Hemoglobin [Presence] in Urine by Test strip (test code = 5794-3) negative negative pH of Urine (test code = 2756-5) 7.000 5-9 protein urine (UA) (test code = protein urine (UA)) trace negative H Urobilinogen [Presence] in Urine (test code = 42777-2) 1.0 E.U./dL 0.2-1.0 Nitrite [Presence] in Urine by Test strip (test code = 5802-4) negative negative urine leukocyte esterase (test code = urine leukocyte esterase) =1 negative H Erythrocytes [Presence] in Urine (test code = 45508-7) none seen 0-5 WBC, urine (test code = WBC, urine) =5-9 0-5 H Epithelial cells [Presence] in Urine sediment by Light microscopy (test code = 96298-7) =11-25 0-5 H bacteria, urine (test code = bacteria, urine) large (3 none detect H urine culture added? (test code = urine culture added?) no. contaminated. mucus, urine (test code = mucus, urine) =2 none detect [facility] HospitalComprehensive metabolic 2000 panel - Serum or [...] code = 6768-6) 149 U/L 35-105 H [facility] HospitalHepatic function 2000 panel - Serum or [id number] 09:33:00* Test Item Value Reference Range Interpretation Comme nts Bilirubin.direct [Mass/volum e] in Serum or Plasma (test code = 1968-7) <0.20 0.0-0.3 [facility] HospitalHemoglobin A1c [Mass/volume] in Qyvmu3201-18-59 09:33:00 * Test Item Value Reference Range Interpretation Comme nts Hemoglobin A1c [Mass/volume] in Blood (test code = 49538-8) 5.2 % 4.0-6.0 [facility] Hospitalrapid strep group A, [id number] 09:59:00* Test Item Value Reference Range Interpretation Comme nts Strep Result (test code = St rep Result) negative [facility] HospitalUrinalysis complete panel - [id number] 07:49:00* Test Item Value Reference Range Interpretation Comme nts Color of Urine by Auto (test code = 33769-2) lt. yellow Appearance of Urine (test co de = 5767-9) SL cloudy clear Glucose [Mass/volume] in Uri ne (test code = 2350-7) negative negative bilirubin, urine (test code = bilirubin, urine) negative negative ketone, urine (test code = ketone, urine) negative negative Specific gravity of Urine by Automated test strip (test code = 16888-2) 1.015 1.003-1.030 Hemoglobin [Presence] in Uri ne by Test strip (test code = 5794-3) negative negative pH of Urine (test code = 2756-5) 7.000 5-9 protein urine (UA) (test cod e = protein urine (UA)) negative negative Urobilinogen [Presence] in U rine (test code = 04577-6) 0.2 E.U./dL 0.2-1.0 Nitrite [Presence] in Urine by Test strip (test code = 5802-4) negative negative urine leukocyte esterase (te st code = urine leukocyte esterase) =1 negative H Erythrocytes [Presence] in U rine (test code = 60508-4) none seen 0-5 WBC, urine (test code = WBC, urine) =6-10 0-5 H Epithelial cells [Presence] in Urine sediment by Light microscopy (test code = 70381-4) more than 25 0-5 H bacteria, urine (test code = bacteria, urine) large none detect H urine culture added? (test c ode = urine culture added?) [facility] W Auto Differential panel - [id number] 08:55:00 * Test Item Value Reference Range Interpretation Comme nts white blood count (test code = white blood count) 10.7 K/uL 4.0-11.5 red blood count (test code = red blood count) 3.85 M/uL 3.80-5.20 hemoglobin (test code = hemoglobin) 11.5 g/dL 10.5-15.7 hematocrit (test code = hematocrit) 34.9 % 34.0-50.0 Erythrocyte mean corpuscular volume [Entitic volume] (test code = 41183-2) 90.6 fL 86-100 mean corpuscular hemoglobin (test [...] Neutrophils.segmented/100 leukocytes in Blood (test code = 17994-6) 72.9 % 44.4-80.1 Granulocytes Immature [#/vol ume] in Blood (test code = 57280-4) 0.1 K/uL 0.0-0.03 H lymphocyte% (test code = lymphocyte%) 17.9 % 10.0-50.0 mono % (test code = mono %) 6.8 % 3.6-12.0 eos % (test code = eos %) 1.4 % 0.0-5.4 Basophils/100 leukocytes in Unspecified specimen (test code = 94258-9) 0.3 % 0.1-1.2 Neutrophils.band form [#/vol ume] in Blood (test code = 11130-8) 7.78 K/uL 1.56-6.13 H Lymphocytes [#/volume] in Unspecified specimen by Automated count (test code = 33933-7) 1.9 K/uL 1.18-3.74 mono # (test code = mono #) 0.73 K/uL 0.24-0.86 eos # (test code = eos #) 0.15 K/uL 0.04-0.36 basophil # (test code = baso jerel #) 0.03 K/uL 0.01-0.08 NRBC% (test code = NRBC%) 0 /100 WBC 0-0.2 NRBC# (test code = NRBC#) 0 K/uL [facility] [Presence] in Serum or Plasma 2019-07-22 08:55:00* Test Item Value Reference Range Interpretation Comme nts Blood group antibody screen [Presence] in Serum or Plasma (test code = 890-4) negative [facility] GroupReagin Ab [Presence] in Serum by [id number] 08:55:00* Test Item Value Reference Range Interpretation Comme nts Reagin Ab [Presence] in Seru m by RPR (test code = 77532-9) nonreactive nonreactive [facility] GroupHIV 1+2 Ab [Presence] in Ufvgs9853-93-72 08:55:00HIV P24 AgHIV-1/2 AbMat[facility]orda Medical GroupUrinalysis macro (dipstick) panel - Urine 2019-06-30 09:41:48* Test Item Value Reference Range Interpretation Comme nts Leukocytes (test code = Leukocytes) Small Nitrite (test code = Nitrite) negative Urobilinogen (test code = Urobilinogen) 1 Protein (test code = Protein) 30 pH (test code = pH) 7.0 Blood (test code = Blood) Negative Specific [place] (test code = Specific [place]) 1.025 Ketone (test code = Ketone) Trace Bilirubin (test code = Bilirubin) Small Glucose (test code = Glucose) Negative Appearance (test code = Appearance) Clear Color (test code = Color) Yellow [facility] GroupCT + NG + TV, DNA, urine/[id number] 00:00:00* Test Item Value Reference Range Interpretation [...] to antibiotic resistance by molecular analysis)) negative [facility] vaginosis panel, ckodzgz1729-65-75 00:00:00* Test Item Value Reference Range Interpretation [...] panel) by real time PCR) see comment [facility] HospitalCandida sp DNA [Presence] in Vaginal fluid by Probe and target amplification [id number] 00:00:00* Test Item Value Reference Range Interpretation [...] = gl[place] gl[place]rata by real-time PCR) negative [facility] HospitalUrinalysis macro (dipstick) panel - [id number] 15:32:50* Test Item Value Reference Range Interpretation Comme nts Leukocytes (test code = Leukocytes) Trace Nitrite (test code = Nitrite) negative Urobilinogen (test code = Urobilinogen) 8 Protein (test code = Protein) Trace pH (test code = pH) 7.0 Blood (test code = Blood) Negative Specific [place] (test code = Specific [place]) 1.020 Ketone (test code = Ketone) Moderate Bilirubin (test code = Bilirubin) Small Glucose (test code = Glucose) Negative Appearance (test code = Appearance) Clear Color (test code = Color) Yellow [facility] HospitalMicroscopic observation [Identifier] in Unspecified specimen by Wet curdyiexxrf9541-64-52 07:44:00* Test Item Value Reference Range Interpretation Comme nts Microscopic observation [Identifier] in Unspecified specimen by Wet preparation (test code = 680-9) no trichomonas, yeast or clue cell observed. [facility] HospitalUrinalysis complete panel - [id number] 07:27:00* Test Item Value Reference Range Interpretation Comme nts Color of Urine by Auto (test code = 73788-7) light yellow Appearance of Urine (test code = 5767-9) SL cloudy clear A Glucose [Presence] in Urine by Automated test strip (test code = 94238-2) negative negative Bilirubin.total [Mass/volume] in Urine (test code = 1978-6) negative negative Ketones [Mass/volume] in Urine by Automated test strip (test code = 37429-0) negative negative Specific gravity of Urine by Automated test strip (test code = 40754-6) 1.014 1.003-1.030 blood urine (test code = blood urine) =1 negative H pH of Urine (test code = 2756-5) 7.500 5-9 protein urine (UA) (test code = protein urine (UA)) trace negative Urobilinogen [Presence] in Urine (test code = 92766-4) =2.0 0.2-1.0 H Nitrite [Presence] in Urine by Test strip (test code = 5802-4) negative negative Leukocyte esterase [Presence] in Urine by Automated test strip (test code = 11593-4) =3 negative H Erythrocytes [#/volume] in Urine by Automated count (test code = 798-9) =1-5 0-5 Leukocytes [#/area] in Urine sediment by Automated count (test code = 33670-2) =11-14 0-5 H Epithelial cells [Presence] in Urine sediment by Light microscopy (test code = 72666-6) =20-29 0-5 Bacteria identified in Urine by Culture (test code = 630-4) moderate (2 none detect H urine culture added? (test code = urine culture added?) no. contaminated. [facility] W Auto Differential panel - [id number] 07:21:00 * Test Item Value Reference Range Interpretation Comme nts white blood count (test code = white blood count) 10.9 K/uL 4.0-11.5 red blood count (test code = red blood count) 3.87 M/uL 3.80-5.20 hemoglobin (test code = hemoglobin) 11.4 g/dL 10.5-15.7 hematocrit (test code = hematocrit) 34.3 % 34.0-50.0 Erythrocyte mean corpuscular volume [Entitic volume] (test code = 42401-3) 88.6 fL 86-100 mean corpuscular hemoglobin (test [...] Neutrophils.segmented/100 leukocytes in Blood (test code = 40337-2) 73.2 % 44.4-80.1 Granulocytes Immature [#/vol ume] in Blood (test code = 82074-4) 0.0 K/uL 0.0-0.03 lymphocyte% (test code = lymphocyte%) 19.2 % 10.0-50.0 mono % (test code = mono %) 5.5 % 3.6-12.0 eos % (test code = eos %) 1.4 % 0.0-5.4 Basophils/100 leukocytes in Unspecified specimen (test code = 47592-6) 0.3 % 0.1-1.2 Neutrophils.band form [#/vol ume] in Blood (test code = 90517-9) 8.00 K/uL 1.56-6.13 H Lymphocytes [#/volume] in Unspecified specimen by Automated count (test code = 20867-7) 2.1 K/uL 1.18-3.74 mono # (test code = mono #) 0.60 K/uL 0.24-0.86 eos # (test code = eos #) 0.15 K/uL 0.04-0.36 basophil # (test code = baso jerel #) 0.03 K/uL 0.01-0.08 NRBC% (test code = NRBC%) 0 /100 WBC 0-0.2 NRBC# (test code = NRBC#) 0 K/uL [facility]differential panel, [id number] 07:21:00 NeutrophilsBandLymphocyteAtypical LymphMonocyteEosinophilBasophilPlatelet EstimatePlatelet MorphologyHypochromasiaAnisocytosisMicrocytosisDohle BodiesToxic VacuolationMataMethodist Olive Branch HospitalPT/[id number] 07:21:00* Test Item Value Reference Range Interpretation Comme [facility] prothrombin time (test code = prothrombin time) 9.8 seconds 10.3-12.3 L INR in Blood by Coagulation assay (test code = 30412-7) 0.89 [facility]partial thromboplastin [id number] 07:21:00* Test Item Value Reference Range Interpretation Comme nts INR in Blood by Coagulation assay (test code = 00170-9) 29.3 seconds 22.5-37.0 [facility] HospitalChoriogonadotropin.beta subunit [Units/volume] in Serum or [id number] 07:21:00* Test Item Value Reference Range Interpretation Comme nts HCG quantitative (test code = HCG quantitative) 7608.0 mIU/mL 0-5 [facility] HospitalUrinalysis macro (dipstick) panel - [id number] 16:09:30* Test Item Value Reference Range Interpretation Comme nts Leukocytes (test code = Leukocytes) Negative Nitrite (test code = Nitrite) negative Urobilinogen (test code = Urobilinogen) 2 Protein (test code = Protein) Negative pH (test code = pH) 6.0 Blood (test code = Blood) Negative Specific [place] (test code = Specific [place]) 1.030 Ketone (test code = Ketone) Small Bilirubin (test code = Bilirubin) Small Glucose (test code = Glucose) Negative Appearance (test code = Appearance) Clear Color (test code = Color) Yellow [facility] HospitalBacteria identified in Urine by [id number] 02:56:00* Test Item Value Reference Range Interpretation Comme nts Bacteria identified in Urine by Culture (test code = 630-4) no growth at 48 hrs. [facility] HospitalUrinalysis macro (dipstick) panel - [id number] 09:37:30* Test Item Value Reference Range Interpretation Comme nts Leukocytes (test code = Leukocytes) Large Nitrite (test code = Nitrite) negative Urobilinogen (test code = Urobilinogen) .2 Protein (test code = Protein) Trace pH (test code = pH) 7.0 Blood (test code = Blood) Non-Hemolyzed: Trace Specific [place] (test code = Specific [place]) 1.020 Ketone (test code = Ketone) Negative Bilirubin (test code = Bilirubin) Negative Glucose (test code = Glucose) Negative Appearance (test code = Appearance) Clear Color (test code = Color) Yellow [facility] HospitalBacteria identified in Urine by Rqpdhvi8460-22-50 09:13:00Bacteria [facility] dnaslti7915-57-04 09:13:00* Test Item Value Reference Range Interpretation Comme nts Penicillin [Susceptibility] by Minimum inhibitory concentration (KARINA) (test code = 6932-8) <0.03 Vancomycin [Susceptibility] by Minimum inhibitory concentration (KARINA) (test code = 524-9) 0.5 ug/mL Levofloxacin [Susceptibility ] by Minimum inhibitory concentration (KARINA) (test code = 68017-8) <2 Linezolid [Susceptibility] b y Minimum inhibitory concentration (KARINA) (test code = 48619-9) <2 Daptomycin [Susceptibility] by Minimum inhibitory concentration (KARINA) (test code = 82539-7) <0.5 [facility] HospitalChromosome 13+18+21+X+Y aneuploidy in Blood by Molecular genetics method [id number] 00:00:00* Test Item Value Reference Range Interpretation [...] contacts (test code = contacts) see notes [facility] HospitalGenetic screen in Unspecified specimen by Molecular genetics method Jhhrokjsi7704-69-77 00:00:00* Test Item Value Reference Range Interpretation [...] = polycystic kidney disease, autosomal recessive) negative jgipv-wwrdc-fnhxp syndrome ( test code = ckxev-lmbhs-txrzg syndrome) negative spinal muscular atrophy (michelle t [...] yes zip code of the ordering fac [facility] (test code = zip code of the ordering facility) [address] IS the patient currently usi ng hormonal [...] contacts (test code = contacts) see notes [facility] HospitalMicroscopic observation [Identifier] in Cervix by Cyto stain.thin grcb9639-99-79 10:40:00ResultsSelect Specialty HospitalChlamydia trachomatis+Neisseria gonorrhoeae DNA [Presence] in Cervix by Probe and target amplification [id number] 10:32:00ResultsSelect Specialty HospitalBacteria identified in Urine by Gpdtulw8014-13-88 10:32:00Bacteria Ur CultSelect Specialty HospitalUrinalysis macro (dipstick) panel - Yjxem5016-07-18 09:44:32* Test Item Value Reference Range Interpretation Comme nts Leukocytes (test code = Leukocytes) Small Nitrite (test code = Nitrite) negative Urobilinogen (test code = Urobilinogen) 4 Protein (test code = Protein) 30 pH (test code = pH) 8.0 Blood (test code = Blood) Negative Specific [place] (test code = Specific [place]) 1.020 Ketone (test code = Ketone) Negative Bilirubin (test code = Bilirubin) Negative Glucose (test code = Glucose) Negative Appearance (test code = Appearance) Clear Color (test code = Color) Yellow [facility] Hospitalpregnancy test, zbujq0284-48-69 12:15:00* Test Item Value Reference Range Interpretation Comme nts Test (test code = Test) positive [facility] HospitalHemoglobin A1c [Mass/volume] in Fzezw7178-42-28 09:05:00 * Test Item Value Reference Range Interpretation Comme nts Hemoglobin A1c in Blood (michelle t code = 02549-9) 5.0 % 4.0-6.0 [facility] HospitalRubella virus IgG Ab [Titer] in [id number] 09:05:00 * Test Item Value Reference Range Interpretation Comme [facility] Rubella virus IgG Ab [Units/volume] in Serum by Immunoassay (test code = 5334-8) 286.5 [IU]/mL [facility] W Auto Differential panel - [id number] 09:05:00 * Test Item Value Reference Range Interpretation Comme nts white blood count (test code = white blood count) 9.1 K/uL 4.0-11.5 red blood count (test code = red blood count) 4.96 M/uL 3.80-5.20 hemoglobin (test code = hemoglobin) 13.9 g/dL 10.5-15.7 hematocrit (test code = hematocrit) 44.0 % 34.0-50.0 Erythrocyte mean corpuscular volume [Entitic volume] (test code = 30537-0) 88.7 fL 86-100 Erythrocyte mean corpuscular hemoglobin [Entitic mass] (test code = 83953-1) 28.0 pg 26.2-33.4 mean corpuscular HGB conc (t est code = mean corpuscular HGB conc) 31.6 g/dL 30-34 red cell distribution width (test code = red cell distribution width) 12.9 % 12.0-15.5 platelet count (test code = platelet count) 378 K/uL 165-450 mean platelet volume (test c ode = mean platelet volume) 10.4 fL 9.4-12.6 Neutrophils.segmented/100 leukocytes in Blood (test code = 80739-7) 70.2 % 44.4-80.1 Ig% (test code = Ig%) 0.3 % 0.0-0.4 lymphocyte% (test code = lymphocyte%) 21.3 % 10.0-50.0 Monocytes/100 leukocytes in Blood by Automated count (test code = 5905-5) 5.3 % 3.6-12.0 Eosinophils/100 leukocytes i n Blood by Automated count (test code = 713-8) 2.6 % 0.0-5.4 Basophils/100 leukocytes in Unspecified specimen (test code = 37277-0) 0.3 % 0.1-1.2 absolute neutrophil count (t est code = absolute neutrophil count) 6.38 K/uL 1.56-6.13 H Ig# (test code = Ig#) 0.0 K/uL 0.0-0.03 Lymphocytes [#/volume] in Unspecified specimen by Automated count (test code = 92942-2) 1.9 K/uL 1.18-3.74 mono # (test code = mono #) 0.48 K/uL 0.24-0.86 eos # (test code = eos #) 0.24 K/uL 0.04-0.36 basophil # (test code = baso jerel #) 0.03 K/uL 0.01-0.08 NRBC% (test code = NRBC%) 0 /100 WBC 0-0.2 NRBC# (test code = NRBC#) 0 K/uL [facility] Hospitaldifferential panel, [id number] 09:05:00 NeutrophilsBandLymphocyteAtypical LymphMonocyteEosinophilBasophilMetamyelocyteMyelocyteNucleated Red Blood CellPlatelet EstimatePlatelet MorphologyPolychromasiaHypochromasiaPoikilocytosis [facility] HospitalHemoglobin A1c/Hemoglobin.total in [id number] 09:05:00* Test Item Value Reference Range Interpretation Comme nts Hemoglobin A1c in Blood (michelle t code = 26371-8) 5.0 % 4.0-6.0 [facility] GroupRubella virus Ab [Titer] in [id number] 09:05:00* Test Item Value Reference Range Interpretation Comme nts Rubella virus IgG Ab [Units/volume] in Serum by Immunoassay (test code = 5334-8) 286.5 [IU]/mL [facility] GroupHIV 1+2 Ab [Presence] in [id number] 09:05:00HIV P24 AgHIV-1/2 AbMataMayo Memorial Hospital GroupABO & Rh group [Type] in [id number] 09:05:00* Test Item Value Reference Range Interpretation Comme nts Rh [Type] in Blood (test cod e = 34421-6) 3+ ABO and Rh group panel - Blo od (test code = 84808-8) O positive [facility] GroupBlood group antibody screen [Presence] in Serum or Plasma 2019-03-05 09:05:00* Test Item Value Reference Range Interpretation Comme nts Blood group antibody screen [Presence] in Serum or Plasma (test code = 890-4) negative [facility] GroupHepatitis B virus surface Ag [Presence] in Serum 2019-03-05 09:05:00* Test Item Value Reference Range Interpretation Comme nts .hepatitis B surface antigen (test code = .hepatitis B surface antigen) negative negative [facility] GroupBacteria identified in Urine by [id number] 09:05:00Bacteria Ur [facility] Hospitala [facility] GroupReagin Ab [Presence] in Serum by [id number] 09:05:00* Test Item Value Reference Range Interpretation Comme nts Reagin Ab [Presence] in Seru m by RPR (test code = 13473-8) nonreactive nonreactive [facility]
== END 2024-09-21 18:46 | disposition home or self-care (01) ==
LOC: ER 15:46
DX: S82.61XA Displaced fracture of lateral malleolus of right fibula, initial encounter for closed fracture (principal)
CPT/HCPCS: 99283